=== PATIENT | male | born 1960 | race American Indian/Alaskan Native ===

== ENCOUNTER 2020-07-27 00:29 | Inpatient (IN) | payer OTHER, SELFPAY ==
[2020-07-27] MEDS ORDERED: SODIUM CHLORIDE 0.9% 1000 ML 1,000 ML IV ONE ×2 (00:49→02:57)
--- NOTE | 2020-07-27 00:53 | Emergency Department Report ---
ED Altered Mental Status HPI - General Stated Complaint: HYPERGLYCEMIA Time Seen by Provider: 07/27/20 00:43 Source: patient, EMS Limitations: Altered Mental Status - History of Present Illness Initial Comments: Patient is 59 years old male, unknown to this facility before. Patient brought to the emergency room via EMS after patient was found wandering around a local by hotel lobby. Patient refusing to answer questions to EMS about his past medical history. Upon arrival patient is alert in no acute distress. He denied any headache, chest pain, weakness numbness or tingling sensation. He stated that his sleepy. Blood glucose check via EMS read as high. Patient is ambulating well with no difficulty. MD Complaint: altered mental status, confusion -: unknown Severity: Unable to Determine Associated Symptoms: denies other symptoms - Related Data Allergies Allergy/AdvReac Type Severity Reaction Status Date / Time No Known Allergies Allergy Unverified 07/27/20 02:21 ED Review of Systems ROS: Stated complaint: HYPERGLYCEMIA Other details as noted in HPI Comment: All other systems reviewed and negative Constitutional: denies: chills, fever Respiratory: denies: cough, shortness of breath, SOB with exertion Cardiovascular: denies: chest pain, palpitations Gastrointestinal: denies: abdominal pain, nausea Neurological: confusion ED Physical Exam - General General appearance: alert, in no apparent distress - Head Head exam: Present: atraumatic, normocephalic, normal inspection - Eye Eye exam: Present: normal appearance, PERRL - Neck Neck exam: Present: normal inspection, full ROM. Absent: tenderness, meningismus - Respiratory Respiratory exam: Present: normal lung sounds bilaterally - Cardiovascular Cardiovascular Exam: Present: regular rate, normal rhythm, normal heart sounds - GI/Abdominal GI/Abdominal exam: Present: soft, normal bowel sounds. Absent: distended, tenderness, guarding, rebound, rigid, organomegaly, mass, bruit, pulsatile mass, hernia - Extremities Exam Extremities exam: Present: normal inspection, full ROM, normal capillary refill. Absent: tenderness - Back Exam Back exam: Present: normal inspection, full ROM. Absent: CVA tenderness (R), CVA tenderness (L) - Neurological Exam Neurological exam: Present: alert, altered, CN II-XII intact, normal gait, reflexes normal. Absent: abnormal gait, motor sensory deficit - Psychiatric Psychiatric exam: Present: flat affect - Skin Skin exam: Present: warm, intact, normal color ED Course Vital Signs 07/27/20 07/27/20 07/27/20 02:07 02:09 02:11 Temperature Pulse Rate 81 83 Respiratory 16 25 H Rate Blood Pressure O2 Sat by Pulse 96 95 95 Oximetry 07/27/20 07/27/20 07/27/20 02:13 02:15 02:16 Temperature Pulse Rate 81 88 83 Respiratory 19 25 H 19 Rate Blood Pressure 188/108 O2 Sat by Pulse 99 97 97 Oximetry 07/27/20 07/27/20 07/27/20 02:17 02:19 02:21 Temperature 97.8 F Pulse Rate 81 75 77 Respiratory 21 22 21 Rate Blood Pressure 188/108 188/108 188/108 O2 Sat by Pulse 96 96 97 Oximetry 07/27/20 07/27/20 02:23 02:25 Temperature Pulse Rate 77 79 Respiratory 21 21 Rate Blood Pressure 188/108 188/108 O2 Sat by Pulse 97 97 Oximetry - Lab Data Result diagrams: 07/27/20 01:55 07/27/20 01:55 Lab Results 07/27/20 07/27/20 07/27/20 Range/Units 01:55 01:55 01:55 WBC 7.1 (4.5-11.0) K/mm3 RBC 4.59 (3.65-5.03) M/mm3 Hgb 13.2 (11.8-15.2) gm/dl Hct 40.4 (35.5-45.6) % MCV 88 (84-94) fl MCH 29 (28-32) pg MCHC 33 (32-34) % RDW 15.2 (13.2-15.2) % Plt Count 251 (140-440) K/mm3 Lymph % (Auto) 9.7 L (13.4-35.0) % [place] % (Auto) 9.4 H (0.0-7.3) % Eos % (Auto) 1.7 (0.0-4.3) % Baso % (Auto) 0.3 (0.0-1.8) % Lymph # (Auto) 0.7 L (1.2-5.4) K/mm3 [place] # (Auto) 0.7 (0.0-0.8) K/mm3 Eos # (Auto) 0.1 (0.0-0.4) K/mm3 Baso # (Auto) 0.0 (0.0-0.1) K/mm3 Seg Neutrophils % 78.9 H (40.0-70.0) % Seg Neutrophils # 5.6 (1.8-7.7) K/mm3 PT 12.7 (12.2-14.9) Sec. INR 0.96 (0.87-1.13) APTT 33.0 (24.2-36.6) Sec. Sodium 134 L (137-145) mmol/L Potassium 3.4 L (3.6-5.0) mmol/L Chloride 93.2 L (98-107) mmol/L Carbon Dioxide 27 (22-30) mmol/L Anion Gap 17 mmol/L BUN 27 H (9-20) mg/dL Creatinine 2.4 H (0.8-1.3) mg/dL Estimated GFR 34 ml/min BUN/Creatinine Ratio 11 % Glucose 773 H* (75-100) mg/dL Lactic Acid (0.7-2.0) mmol/L Calcium 9.9 (8.4-10.2) mg/dL Total Bilirubin 0.50 (0.1-1.2) mg/dL Direct Bilirubin < 0.2 (0-0.2) mg/dL Indirect Bilirubin 0.3 mg/dL AST 72 H (5-40) units/L ALT 57 H (7-56) units/L Alkaline Phosphatase 163 H (35-129) units/L Ammonia (25-60) umol/L Total Creatine Kinase 3737 H (55-170) units/L Troponin T 0.056 H (0.00-0.029) ng/mL Total Protein 7.4 (6.3-8.2) g/dL Albumin 3.9 (3.9-5) g/dL Albumin/Globulin Ratio 1.1 % TSH (0.270-4.200) mlU/mL Urine Color (Yellow) Urine Turbidity (Clear) Urine pH (5.0-7.0) Ur Specific [place] (1.003-1.030) Urine Protein (Negative) mg/dL Urine Glucose (UA) (Negative) mg/dL Urine Ketones (Negative) mg/dL Urine Blood (Negative) Urine Nitrite (Negative) Urine Bilirubin (Negative) Urine Urobilinogen (<2.0) mg/dL Ur Leukocyte Esterase (Negative) Urine WBC (Auto) (0.0-6.0) /HPF Urine RBC (Auto) (0.0-6.0) /HPF U Epithel Cells (Auto) (0-13.0) /HPF Urine Mucus /HPF Salicylates (2.8-20.0) mg/dL Urine Opiates Screen Urine Methadone Screen Acetaminophen (10.0-30.0) ug/mL Ur Barbiturates Screen Ur Phencyclidine Scrn Ur Amphetamines Screen U Benzodiazepines Scrn Urine Cocaine Screen U Marijuana (THC) Screen Plasma/Serum Alcohol (0-0.07) % 07/27/20 07/27/20 07/27/20 Range/Units 01:55 01:55 01:55 WBC (4.5-11.0) K/mm3 RBC (3.65-5.03) M/mm3 Hgb (11.8-15.2) gm/dl Hct (35.5-45.6) % MCV (84-94) fl MCH (28-32) pg MCHC (32-34) % RDW (13.2-15.2) % Plt Count (140-440) K/mm3 Lymph % (Auto) (13.4-35.0) % [place] % (Auto) (0.0-7.3) % Eos % (Auto) (0.0-4.3) % Baso % (Auto) (0.0-1.8) % Lymph # (Auto) (1.2-5.4) K/mm3 [place] # (Auto) (0.0-0.8) K/mm3 Eos # (Auto) (0.0-0.4) K/mm3 Baso # (Auto) (0.0-0.1) K/mm3 Seg Neutrophils % (40.0-70.0) % Seg Neutrophils # (1.8-7.7) K/mm3 PT (12.2-14.9) Sec. INR (0.87-1.13) APTT (24.2-36.6) Sec. Sodium (137-145) mmol/L Potassium (3.6-5.0) mmol/L Chloride (98-107) mmol/L Carbon Dioxide (22-30) mmol/L Anion Gap mmol/L BUN (9-20) mg/dL Creatinine (0.8-1.3) mg/dL Estimated GFR ml/min BUN/Creatinine Ratio % Glucose (75-100) mg/dL Lactic Acid 1.60 (0.7-2.0) mmol/L Calcium (8.4-10.2) mg/dL Total Bilirubin (0.1-1.2) mg/dL Direct Bilirubin (0-0.2) mg/dL Indirect Bilirubin mg/dL AST (5-40) units/L ALT (7-56) units/L Alkaline Phosphatase (35-129) units/L Ammonia 18.0 L (25-60) umol/L Total Creatine Kinase (55-170) units/L Troponin T (0.00-0.029) ng/mL Total Protein (6.3-8.2) g/dL Albumin (3.9-5) g/dL Albumin/Globulin Ratio % TSH 0.824 (0.270-4.200) mlU/mL Urine Color (Yellow) Urine Turbidity (Clear) Urine pH (5.0-7.0) Ur Specific [place] (1.003-1.030) Urine Protein (Negative) mg/dL Urine Glucose (UA) (Negative) mg/dL Urine Ketones (Negative) mg/dL Urine Blood (Negative) Urine Nitrite (Negative) Urine Bilirubin (Negative) Urine Urobilinogen (<2.0) mg/dL Ur Leukocyte Esterase (Negative) Urine WBC (Auto) (0.0-6.0) /HPF Urine RBC (Auto) (0.0-6.0) /HPF U Epithel Cells (Auto) (0-13.0) /HPF Urine Mucus /HPF Salicylates (2.8-20.0) mg/dL Urine Opiates Screen Urine Methadone Screen Acetaminophen (10.0-30.0) ug/mL Ur Barbiturates Screen Ur Phencyclidine Scrn Ur Amphetamines Screen U Benzodiazepines Scrn Urine Cocaine Screen U Marijuana (THC) Screen Plasma/Serum Alcohol (0-0.07) % 07/27/20 07/27/20 07/27/20 Range/Units 01:55 01:55 01:55 WBC (4.5-11.0) K/mm3 RBC (3.65-5.03) M/mm3 Hgb (11.8-15.2) gm/dl Hct (35.5-45.6) % MCV (84-94) fl MCH (28-32) pg MCHC (32-34) % RDW (13.2-15.2) % Plt Count (140-440) K/mm3 Lymph % (Auto) (13.4-35.0) % [place] % (Auto) (0.0-7.3) % Eos % (Auto) (0.0-4.3) % Baso % (Auto) (0.0-1.8) % Lymph # (Auto) (1.2-5.4) K/mm3 [place] # (Auto) (0.0-0.8) K/mm3 Eos # (Auto) (0.0-0.4) K/mm3 Baso # (Auto) (0.0-0.1) K/mm3 Seg Neutrophils % (40.0-70.0) % Seg Neutrophils # (1.8-7.7) K/mm3 PT (12.2-14.9) Sec. INR (0.87-1.13) APTT (24.2-36.6) Sec. Sodium (137-145) mmol/L Potassium (3.6-5.0) mmol/L Chloride (98-107) mmol/L Carbon Dioxide (22-30) mmol/L Anion Gap mmol/L BUN (9-20) mg/dL Creatinine (0.8-1.3) mg/dL Estimated GFR ml/min BUN/Creatinine Ratio % Glucose (75-100) mg/dL Lactic Acid (0.7-2.0) mmol/L Calcium (8.4-10.2) mg/dL Total Bilirubin (0.1-1.2) mg/dL Direct Bilirubin (0-0.2) mg/dL Indirect Bilirubin mg/dL AST (5-40) units/L ALT (7-56) units/L Alkaline Phosphatase (35-129) units/L Ammonia (25-60) umol/L Total Creatine Kinase (55-170) units/L Troponin T (0.00-0.029) ng/mL Total Protein (6.3-8.2) g/dL Albumin (3.9-5) g/dL Albumin/Globulin Ratio % TSH (0.270-4.200) mlU/mL Urine Color (Yellow) Urine Turbidity (Clear) Urine pH (5.0-7.0) Ur Specific [place] (1.003-1.030) Urine Protein (Negative) mg/dL Urine Glucose (UA) (Negative) mg/dL Urine Ketones (Negative) mg/dL Urine Blood (Negative) Urine Nitrite (Negative) Urine Bilirubin (Negative) Urine Urobilinogen (<2.0) mg/dL Ur Leukocyte Esterase (Negative) Urine WBC (Auto) (0.0-6.0) /HPF Urine RBC (Auto) (0.0-6.0) /HPF U Epithel Cells (Auto) (0-13.0) /HPF Urine Mucus /HPF Salicylates < 0.3 L (2.8-20.0) mg/dL Urine Opiates Screen Urine Methadone Screen Acetaminophen 5.0 L (10.0-30.0) ug/mL Ur Barbiturates Screen Ur Phencyclidine Scrn Ur Amphetamines Screen U Benzodiazepines Scrn Urine Cocaine Screen U Marijuana (THC) Screen Plasma/Serum Alcohol < 0.01 (0-0.07) % 07/27/20 07/27/20 Range/Units 02:09 02:09 WBC (4.5-11.0) K/mm3 RBC (3.65-5.03) M/mm3 Hgb (11.8-15.2) gm/dl Hct (35.5-45.6) % MCV (84-94) fl MCH (28-32) pg MCHC (32-34) % RDW (13.2-15.2) % Plt Count (140-440) K/mm3 Lymph % (Auto) (13.4-35.0) % [place] % (Auto) (0.0-7.3) % Eos % (Auto) (0.0-4.3) % Baso % (Auto) (0.0-1.8) % Lymph # (Auto) (1.2-5.4) K/mm3 [place] # (Auto) (0.0-0.8) K/mm3 Eos # (Auto) (0.0-0.4) K/mm3 Baso # (Auto) (0.0-0.1) K/mm3 Seg Neutrophils % (40.0-70.0) % Seg Neutrophils # (1.8-7.7) K/mm3 PT (12.2-14.9) Sec. INR (0.87-1.13) APTT (24.2-36.6) Sec. Sodium (137-145) mmol/L Potassium (3.6-5.0) mmol/L Chloride (98-107) mmol/L Carbon Dioxide (22-30) mmol/L Anion Gap mmol/L BUN (9-20) mg/dL Creatinine (0.8-1.3) mg/dL Estimated GFR ml/min BUN/Creatinine Ratio % Glucose (75-100) mg/dL Lactic Acid (0.7-2.0) mmol/L Calcium (8.4-10.2) mg/dL Total Bilirubin (0.1-1.2) mg/dL Direct Bilirubin (0-0.2) mg/dL Indirect Bilirubin mg/dL AST (5-40) units/L ALT (7-56) units/L Alkaline Phosphatase (35-129) units/L Ammonia (25-60) umol/L Total Creatine Kinase (55-170) units/L Troponin T (0.00-0.029) ng/mL Total Protein (6.3-8.2) g/dL Albumin (3.9-5) g/dL Albumin/Globulin Ratio % TSH (0.270-4.200) mlU/mL Urine Color Colorless (Yellow) Urine Turbidity Clear (Clear) Urine pH 6.0 (5.0-7.0) Ur Specific [place] 1.016 (1.003-1.030) Urine Protein 100 mg/dl (Negative) mg/dL Urine Glucose (UA) >=500 (Negative) mg/dL Urine Ketones Neg (Negative) mg/dL Urine Blood Mod (Negative) Urine Nitrite Neg (Negative) Urine Bilirubin Neg (Negative) Urine Urobilinogen < 2.0 (<2.0) mg/dL Ur Leukocyte Esterase Neg (Negative) Urine WBC (Auto) 1.0 (0.0-6.0) /HPF Urine RBC (Auto) < 1.0 (0.0-6.0) /HPF U Epithel Cells (Auto) < 1.0 (0-13.0) /HPF Urine Mucus Few /HPF Salicylates (2.8-20.0) mg/dL Urine Opiates Screen Presumptive negative Urine Methadone Screen Presumptive negative Acetaminophen (10.0-30.0) ug/mL Ur Barbiturates Screen Presumptive negative Ur Phencyclidine Scrn Presumptive negative Ur Amphetamines Screen Presumptive negative U Benzodiazepines Scrn Presumptive negative Urine Cocaine Screen Presumptive negative U Marijuana (THC) Screen Presumptive negative Plasma/Serum Alcohol (0-0.07) % - EKG Data -: EKG Interpreted by Nd EKG shows normal: sinus rhythm Rate: normal Interpretation: no acute changes - Radiology Data Radiology results: report reviewed - Medical Decision Making Patient is 59 years old male, unknown to this facility before. Patient brought to the emergency room via EMS after patient was found wandering around a local by hotel lobby. Patient refusing to answer questions to EMS about his past medical history. Upon arrival patient is alert in no acute distress. He denied any headache, chest pain, weakness numbness or tingling sensation. He stated that his sleepy. Blood glucose check via EMS read as high. Patient is ambulating well with no difficulty. CT brain is unremarkable. Chest x-ray is negative for acute finding. EKG shows sinus rhythm no ST elevation. Labs showed a blood glucose of more than 700. Patient received normal saline and insulin. Patient creatinine is 2.4 and CK of more than 3000. I discussed the patient with , he agreed to admit the patient to medical service for further management. Critical Care Time: Yes Critical care time in (mins) excluding proc time.: 30 Critical care attestation.: If time is entered above; I have spent that time in minutes in the direct care of this critically ill patient, excluding procedure time. ED Disposition Clinical Impression: Altered mental status, Acute hyperglycemia, Acute renal failure, Rhabdomyolysis Disposition: OP ADMIT IP TO THIS HOSP Is pt being admited?: Yes Condition: Stable
--- NOTE | 2020-07-27 01:26 | XRay Report ---
CHEST 1 VIEW INDICATION: Altered Mental Status. COMPARISON: None. FINDINGS: Support devices: None. Heart: Normal. Lungs/Pleura: No acute pulmonary or pleural findings. IMPRESSION: 1. No acute findings. Signer Name: Nelson Osuna MD Signed: 07/27/2020 1:19 AM Workstation Name: [id number]
--- NOTE | 2020-07-27 01:46 | Cat Scan Report ---
CT HEAD WITHOUT CONTRAST INDICATION: Altered Mental Status. TECHNIQUE: All CT scans at this location are performed using CT dose reduction for ALARA by means of automated e xposure control. COMPARISON: None available. FINDINGS: HEMORRHAGE: None. EXTRA-AXIAL SPACES: Normal in size and morphology for the patient's age. VENTRICULAR SYSTEM: Normal in size and morphology for the patient's age. BRAIN PARENCHYMA: No acute findings. MIDLINE SHIFT OR HERNIATION: None. ORBITS: Normal as visualized. SOFT TISSUES OF HEAD: Normal. CALVARIUM: Normal. VISUALIZED PARANASAL SINUSES AND MASTOID AIR CELLS: Clear. ADDITIONAL FINDINGS: None. IMPRESSION: 1. No acute intracranial abnormality. Signer Name: Nelson Osuna MD Signed: 07/27/2020 1:42 AM Workstation Name: [id number]
[2020-07-27 02:09] LABS: Basophils % (Auto) 0.3 % (0.0-1.8); Eosinophils # (Auto) 0.1 K/mm3 (0.0-0.4); Eosinophils % (Auto) 1.7 % (0.0-4.3); Hematocrit 40.4 % (35.5-45.6); Hemoglobin 13.2 gm/dl (11.8-15.2); Lymphocytes # (Auto) 0.7 K/mm3 (1.2-5.4); Lymphocytes % (Auto) 9.7 % (13.4-35.0); Mean Corpuscular HGB Conc 33 % (32-34); Mean Corpuscular Volume 88 fl (84-94); Monocytes # (Auto) 0.7 K/mm3 (0.0-0.8); Monocytes % (Auto) 9.4 % (0.0-7.3); Platelet Count 251 K/mm3 (140-440); Red Blood Count 4.59 M/mm3 (3.65-5.03); Red Cell Distribution Width 15.2 % (13.2-15.2)
[2020-07-27 02:32] LABS: Alanine Aminotransferase 57 units/L (7-56); Albumin 3.9 g/dL (3.9-5); BUN/Creatinine Ratio 11; Blood Urea Nitrogen 27 mg/dL (9-20); Calcium 9.9 mg/dL (8.4-10.2); Hemolysis Index 5
[2020-07-27 02:43] LABS: Bilirubin,Direct < 0.2 mg/dL (0-0.2)
[2020-07-27] MEDS ORDERED: INSULIN REGULAR, HUMAN 100 UNITS/1 ML IV ONE (02:58)
[2020-07-27 03:06] LABS: INR 0.96 (0.87-1.13)
[2020-07-27 03:15] LABS: Bilirubin,Urine NEG (Negative); Blood,Urine MOD (Negative); Color,Urine Colorless (Yellow); Mucus,Urine FEW /HPF; RBC,Urine < 1.0 /HPF (0.0-6.0); Urobilinogen,Urine < 2.0 mg/dL (<2.0)
[2020-07-27 03:20] LABS: Amphetamine Screen,Urine PRESUMPTIVE NEGATIVE; Benzodiazepines Screen,Urine PRESUMPTIVE NEGATIVE; Cannabinoid Screen,Urine PRESUMPTIVE NEGATIVE; Cocaine Screen,Urine PRESUMPTIVE NEGATIVE; Methadone Screen,Urine PRESUMPTIVE NEGATIVE; Opiate Screen,Urine PRESUMPTIVE NEGATIVE
[2020-07-27] MEDS ORDERED: hydrALAZINE 20 MG/1 ML INJ IV ONE (03:31)
[2020-07-27] MEDS ORDERED: MAGNESIUM HYDROXIDE (MOM) ORAL LIQD UDC PO PRN (04:01)
[2020-07-27] MEDS ORDERED: MORPHINE 2 MG/1 ML INJ IV PRN (04:01)
[2020-07-27] MEDS ORDERED: ONDANSETRON 4 MG/2 ML INJ IV PRN (04:01)
[2020-07-27] MEDS ORDERED: DEXTROSE 50% IN WATER (25GM) 50 ML SYRINGE IV PRN (04:01)
[2020-07-27] MEDS ORDERED: hydrALAZINE 20 MG/1 ML INJ IV PRN (04:06)
--- NOTE | 2020-07-27 04:12 | History and Physical Report ---
History of Present Illness Date of examination: 07/27/20 Date of admission: 07/27/2020 Chief complaint: Altered mental status History of present illness: 59-year-old -[place] male with no known past medical problems and who has not been seen at this facility in the past was brought in to the emergency room today by EMS for altered mental status. Patient was found to be wandering around in a hotel lobby and refusing to answer questions when asked by EMS. Accu-Chek prior to arrival in the emergency room was said to be reading high. Upon arrival in the emergency room was alert and in no acute distress but still refusing to answer questions. Was looking drowsy. Work-up in the emergency room today reveals hyperglycemia with blood sugar greater than 700, elevated creatinine kinase greater than 3000, elevated creatinine level. CT scan of the head was unremarkable. UDS is still being awaited. Patient being admitted with altered mental status, hyperglycemia, rhabdomyolysis and acute kidney injury. Past History Past Medical History: other (Unknown) Past Surgical History: Other (Unknown) Social history: other (Unknown) Family history: other (Unknown) Medications and Allergies Allergies Allergy/AdvReac Type Severity Reaction Status Date / Time No Known Allergies Allergy Verified 07/27/20 04:10 Active Meds: Active Medications Acetaminophen (Acetaminophen 325 Mg Tab) 650 mg PO Q4H PRN PRN Reason: Pain MILD(1-3)/Fever >100.5/RUIZ Dextrose (Dextrose 50% In Water (25gm) 50 Ml Syringe) 50 ml IV Q30MIN PRN; Protocol PRN Reason: Hypoglycemia Heparin Sodium (Porcine) (Heparin 5,000 Unit/1 Ml Vial) 5,000 unit SUB-Q Q8HR MARY Hydralazine HCl (Hydralazine 20 Mg/1 Ml Inj) 10 mg IV Q4HR PRN PRN Reason: Blood Pressure Sodium Chloride (Nacl 0.9% 1000 Ml) 1,000 mls @ 150 mls/hr IV DIRECT MARY Insulin Human Regular (Insulin Regular, Human 100 Units/1 Ml) 0 units SUB-Q ACHS MARY; Protocol Magnesium Hydroxide (Magnesium Hydroxide (Mom) Oral Liqd Udc) 30 ml PO Q4H PRN PRN Reason: Constipation Morphine Sulfate (Morphine 2 Mg/1 Ml Inj) 2 mg IV Q4H PRN PRN Reason: Pain, Moderate (4-6) Ondansetron HCl (Ondansetron 4 Mg/2 Ml Inj) 4 mg IV Q8H PRN PRN Reason: Nausea And Vomiting Sodium Chloride (Sodium Chloride 0.9% 10 Ml Flush Syringe) 10 ml IV BID MARY Sodium Chloride (Sodium Chloride 0.9% 10 Ml Flush Syringe) 10 ml IV PRN PRN PRN Reason: LINE FLUSH Review of Systems ROS unobtainable: due to mental status Exam - Constitutional Vitals: Temp Pulse Resp BP Pulse Ox 97.8 F 79 21 188/108 97 07/27/20 02:21 07/27/20 02:25 07/27/20 02:25 07/27/20 02:25 07/27/20 02:25 General appearance: Present: no acute distress, well-nourished - EENT Eyes: Present: PERRL, EOM intact. Absent: scleral icterus ENT: hearing intact, clear oral mucosa, dentition normal - Neck Neck: Present: supple, normal ROM - Respiratory Respiratory effort: normal Respiratory: bilateral: CTA - Cardiovascular Rhythm: regular Heart Sounds: Present: S1 & S2. Absent: gallop, systolic murmur, diastolic murmur, rub, click - Extremities Extremities: no ischemia, pulses intact, pulses symmetrical, No edema, normal temperature, normal color, Full ROM Peripheral Pulses: within normal limits - Abdominal General gastrointestinal: Present: soft, non-tender, non-distended, normal bowel sounds. Absent: mass - Integumentary Integumentary: Present: clear, warm, dry. Absent: rash - Musculoskeletal Musculoskeletal: strength equal bilaterally - Psychiatric Psychiatric: cooperative - Neurologic Neurologic: CNII-XII intact, no focal deficits, moves all extremities, other (Confused) HEART Score - HEART Score Troponin: Troponin T 0.056 ng/mL (0.00-0.029) H 07/27/20 01:55 Results - Labs CBC & Chem 7: 07/27/20 01:55 07/27/20 01:55 Labs: Abnormal lab results 07/27/20 07/27/20 07/27/20 Range/Units 01:55 01:55 01:55 Lymph % (Auto) 9.7 L (13.4-35.0) % [place] % (Auto) 9.4 H (0.0-7.3) % Lymph # (Auto) 0.7 L (1.2-5.4) K/mm3 Seg Neutrophils % 78.9 H (40.0-70.0) % Sodium 134 L (137-145) mmol/L Potassium 3.4 L (3.6-5.0) mmol/L Chloride 93.2 L (98-107) mmol/L BUN 27 H (9-20) mg/dL Creatinine 2.4 H (0.8-1.3) mg/dL Glucose 773 H* (75-100) mg/dL AST 72 H (5-40) units/L ALT 57 H (7-56) units/L Alkaline Phosphatase 163 H (35-129) units/L Ammonia 18.0 L (25-60) umol/L Total Creatine Kinase 3737 H (55-170) units/L Troponin T 0.056 H (0.00-0.029) ng/mL Salicylates (2.8-20.0) mg/dL Acetaminophen (10.0-30.0) ug/mL 07/27/20 07/27/20 Range/Units 01:55 01:55 Lymph % (Auto) (13.4-35.0) % [place] % (Auto) (0.0-7.3) % Lymph # (Auto) (1.2-5.4) K/mm3 Seg Neutrophils % (40.0-70.0) % Sodium (137-145) mmol/L Potassium (3.6-5.0) mmol/L Chloride (98-107) mmol/L BUN (9-20) mg/dL Creatinine (0.8-1.3) mg/dL Glucose (75-100) mg/dL AST (5-40) units/L ALT (7-56) units/L Alkaline Phosphatase (35-129) units/L Ammonia (25-60) umol/L Total Creatine Kinase (55-170) units/L Troponin T (0.00-0.029) ng/mL Salicylates < 0.3 L (2.8-20.0) mg/dL Acetaminophen 5.0 L (10.0-30.0) ug/mL Assessment and Plan - Patient Problems (1) Altered mental status Current Visit: Yes Status: Acute Plan to address problem: Etiology unclear. UDS is still being awaited. However, patient has rhabdomyolysis, acute kidney injury and hyperglycemia. Will monitor mental status. (2) Acute hyperglycemia Current Visit: Yes Status: Acute Plan to address problem: Placed on IV fluid and Accu-Cheks. We will monitor blood glucose closely. Unknown if patient is diabetic. We will check hemoglobin A1c. (3) Acute renal failure Current Visit: Yes Status: Acute Plan to address problem: We will continue patient on IV fluid. Consult placed to nephrology for evaluation. Baseline BUN and creatinine is unknown. (4) Rhabdomyolysis Current Visit: Yes Status: Acute Plan to address problem: Patient on IV fluid. Will monitor creatinine kinase level. (5) DVT prophylaxis Current Visit: Yes Status: Acute Plan to address problem: Patient placed on subcutaneous heparin. (6) Full code status Current Visit: Yes Status: Acute
[2020-07-27] MEDS ORDERED: SODIUM CHLORIDE 0.9% 1000 ML 1,000 ML IV SCH (04:15)
[2020-07-27 04:47] LABS: LDL Cholesterol,Direct 102 mg/dL (50-130)
[2020-07-27 04:48] LABS: Chol/HDL Ratio 1.74 %; HDL Cholesterol 126 mg/dL (40-59)
--- NOTE | 2020-07-27 09:59 | Consultation ---
History of Present Illness - Reason for Consult Consult date: 07/27/20 acute renal failure - History of Present Illness The patient is a 59 YO AAM with unknown past medical history who presented to [facility] ED 07/26 via EMS for evaluation of altered mental status. Patient was found to be wandering around in a hotel lobby and refusing to answer questions when asked by EMS. Accu-Chek prior to arrival was said to be reading high. Upon arrival to the ED patient was drowsy and in no acute distress but still refusing to answer questions. Work-up in the ED revealed hyperglycemia with blood sugar 773, CK 3737, creatinine 2.4, BUN 27, K 3.[address] scan of the head was unremarkable. Patient being admitted with altered mental status, hyperglycemia, rhabdomyolysis and acute kidney injury. Nephrology was consulted for evaluation and treatment of AZAEL. Past History Past Medical History: other (Unknown) Past Surgical History: Other (Unknown) Social history: other (Unknown) Family history: other (Unknown) Medications and Allergies Allergies Allergy/AdvReac Type Severity Reaction Status Date / Time No Known Allergies Allergy Verified 07/27/20 04:10 Active Meds: Active Medications Acetaminophen (Acetaminophen 325 Mg Tab) 650 mg PO Q4H PRN PRN Reason: Pain MILD(1-3)/Fever >100.5/RUIZ Dextrose (Dextrose 50% In Water (25gm) 50 Ml Syringe) 50 ml IV Q30MIN PRN; Protocol PRN Reason: Hypoglycemia Heparin Sodium (Porcine) (Heparin 5,000 Unit/1 Ml Vial) 5,000 unit SUB-Q Q8HR MARY Hydralazine HCl (Hydralazine 20 Mg/1 Ml Inj) 10 mg IV Q4HR PRN PRN Reason: Blood Pressure Sodium Chloride (Nacl 0.9% 1000 Ml) 1,000 mls @ 150 mls/hr IV DIRECT MARY Insulin Human Regular (Insulin Regular, Human 100 Units/1 Ml) 0 units SUB-Q ACHS MARY; Protocol Magnesium Hydroxide (Magnesium Hydroxide (Mom) Oral Liqd Udc) 30 ml PO Q4H PRN PRN Reason: Constipation Morphine Sulfate (Morphine 2 Mg/1 Ml Inj) 2 mg IV Q4H PRN PRN Reason: Pain, Moderate (4-6) Ondansetron HCl (Ondansetron 4 Mg/2 Ml Inj) 4 mg IV Q8H PRN PRN Reason: Nausea And Vomiting Sodium Chloride (Sodium Chloride 0.9% 10 Ml Flush Syringe) 10 ml IV BID MARY Sodium Chloride (Sodium Chloride 0.9% 10 Ml Flush Syringe) 10 ml IV PRN PRN PRN Reason: LINE FLUSH Review of Systems ROS unobtainable: due to mental status Exam - Vital Signs Vital signs: Vital Signs Pulse Ox 96 07/27/20 02:07 Results - Lab Results 07/27/20 01:55 07/27/20 12:28 Most recent lab results Calcium 9.9 mg/dL (8.4-10.2) 07/27/20 01:55 Assessment and Plan 1. Acute kidney injury: Most likely vasomotor AZAEL in the setting of uncontrolled DM and volume depletion. Renal US suggestive for CKD. Urine studies ordered. Monitor renal function. Ceratinine level is improving. Baseline renal function is unknown. Continue IV fluids. Avoid nephrotoxic agents. Meds dosage based on GFR. 2. FEN: Hypokalemia, replete K, monitor. Monitor lytes and volume status. 3. Diabetic hyperosmolar state: Bl. glu 773 on presentation. HbA1C 15. Glucose improving. 4. Acute metabolic encephalopathy, POA: Monitor. 5. Uncontroleld HTN: Start on Amlodipine and Labetalol. 6. Rhabdomyolysis: Trend. Subjective: Patient was seen and examined at the bedside. Objective: General appearance: well-developed, appears stated age, no distress, on restrains HEENT: ATNC, pupils equal Neck: trachea midline Respiratory: ctab Heart: regular, S1S2, no murmur Gastrointestinal: soft, normoactive bowel sounds, not tender Integumentary: no rash, warm and dry Ext: no edema Neurologic: somnolent, able to move extremities, confused Musculoskeletal: no obvious deformity
[2020-07-27] MEDS: INSULIN REGULAR, HUMAN 100 UNITS/1 ML SUB-Q SCH ×3 (11:00→17:47)
--- NOTE | 2020-07-27 11:45 | Electrocardiograph Report ---
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
[2020-07-27] MEDS ORDERED: LORazepam 2 MG/ML VIAL IV PRN (11:47)
[2020-07-27] MEDS ORDERED: chlordiazePOXIDE 25 MG CAP PO PRN ×2 (11:47)
[2020-07-27] MEDS ORDERED: 1: FOLIC ACID 1 MG, MULTIPLE VITAMIN INJ, ADULT 10 ML, THIAMINE 100 MG in SODIUM CHLORID IV SCH (12:00)
[2020-07-27 13:43] LABS: Calcium 9.6 mg/dL (8.4-10.2)
[2020-07-27] MEDS: HEPARIN 5,000 UNIT/1 ML VIAL SUB-Q SCH ×3 (13:47→22:07)
[2020-07-27] MEDS: THIAMINE 100 MG, FOLIC ACID 1 MG, MULTIPLE VITAMIN INJ, ADULT 10 ML in SODIUM CHLORIDE ... IV SCH (13:48)
--- NOTE | 2020-07-27 14:07 | Event Note ---
Date: 07/27/20 This morning remains confused. He believes that he is hotel large and also at one point when he was at [facility]. Blood sugar remains elevated although much improved compared to admission. He does not appear to have confabulation as a result we will start him on CIWA protocol and also banana bag. We will continue to monitor blood sugar will start on Novolin as we do not have his home records and medication history. We will check a hemoglobin A1c. Presumptive diagnosis Acute metabolic encephalopathy secondary to mixed disorder including hyperglycemia and intoxication Uncontrolled diabetes mellitus without acidosis Acute kidney injury with vasomotor nephropathy follow renal function for resolution.
--- NOTE | 2020-07-27 14:33 | Ultrasound Report ---
ULTRASOUND RENAL INDICATION / CLINICAL INFORMATION: Acute renal failure.. COMPARISON: None available. FINDINGS: RIGHT KIDNEY: Length = 9.2 cm. [normal > 9 cm] - Parenchymal Thickness = 1.5 cm. [normal > 1.5 cm] - Echogenicity: Increased - Hydronephrosis: None. - Cyst or mass: 9 mm cyst near the inferior pole - Stones: None seen. LEFT KIDNEY: Length = 9.6 cm. [normal > 9 cm] - Parenchymal Thickness = 1.7 cm. [normal > 1.5 cm] - Echogenicity: Increased - Hydronephrosis: None. - Cyst or mass: 3.1 cm cyst near the superior pole - Stones: None seen. URINARY BLADDER: No significant abnormality. FREE FLUID: None. ADDITIONAL FINDINGS: None. IMPRESSION: With kidneys are echogenic consistent with medical renal disease. No obstructive uropathy. Bilateral simple renal cysts as described. Signer Name: Gallo Thomas Jr, MD Signed: 07/27/2020 2:29 PM Workstation Name: [id number]
[2020-07-27] MEDS ORDERED: POTASSIUM CHLORIDE ER 20 MEQ TAB PO NR ×2 (16:38→21:30)
[2020-07-27] MEDS: amLODIPine 10 MG TAB PO SCH (17:48)
[2020-07-27] MEDS: INSULIN NPH/REGULAR 70/30 INJ SUB-Q SCH (17:49)
[2020-07-27 20:08] LABS: Creatinine,Urine 85.6 mg/dL (0.1-20.0)
[2020-07-27 20:19] LABS: Protein/Creatinine Ratio,Urine 2.96
[2020-07-27] MEDS: SODIUM CHLORIDE 0.9% 1000 ML 1,000 ML IV SCH (22:07)
[2020-07-27] MEDS: LORazepam 2 MG/ML VIAL IV PRN (22:12)
[2020-07-28 05:29] LABS: Basophils % (Auto) 0.5 % (0.0-1.8); Eosinophils # (Auto) 0.1 K/mm3 (0.0-0.4); Eosinophils % (Auto) 0.9 % (0.0-4.3); Hematocrit 36.2 % (35.5-45.6); Hemoglobin 11.9 gm/dl (11.8-15.2); Lymphocytes % (Auto) 11.8 % (13.4-35.0); Mean Corpuscular HGB Conc 33 % (32-34); Mean Corpuscular Volume 86 fl (84-94); Monocytes # (Auto) 0.6 K/mm3 (0.0-0.8); Monocytes % (Auto) 6.5 % (0.0-7.3); Platelet Count 282 K/mm3 (140-440); Red Blood Count 4.19 M/mm3 (3.65-5.03); Red Cell Distribution Width 15.3 % (13.2-15.2)
[2020-07-28] MEDS: SODIUM CHLORIDE 0.9% 1000 ML 1,000 ML IV SCH ×2 (05:29→14:21)
[2020-07-28] MEDS: HEPARIN 5,000 UNIT/1 ML VIAL SUB-Q SCH ×4 (05:29→22:52)
[2020-07-28 06:08] LABS: INR 0.97 (0.87-1.13)
[2020-07-28 06:33] LABS: Calcium 8.9 mg/dL (8.4-10.2)
[2020-07-28] MEDS ORDERED: POTASSIUM CHLORIDE ER 20 MEQ TAB PO NR (08:19)
[2020-07-28] MEDS: INSULIN REGULAR, HUMAN 100 UNITS/1 ML SUB-Q SCH ×5 (09:15→21:51)
[2020-07-28] MEDS: amLODIPine 10 MG TAB PO SCH (10:06)
[2020-07-28] MEDS: POTASSIUM CHLORIDE ER 20 MEQ TAB PO SCH ×2 (10:07→18:25)
[2020-07-28] MEDS: INSULIN NPH/REGULAR 70/30 INJ SUB-Q SCH ×2 (10:07→18:02)
--- NOTE | 2020-07-28 10:33 | Discharge Summary ---
Providers - Providers Date of Admission: 07/27/20 03:32 Attending physician: LARRY HAN MD 07/27/20 04:01 Consult to Physician [CONS] Routine Comment: Consulting Provider: JACOBO LÓPEZ Physician Instructions: Reason For Exam: AZAEL 07/27/20 04:02 Consult to Dietitian/Nutrition [CONS] Routine Physician Instructions: Reason For Exam: Reason for Consult: Diet education Primary care physician: CLINIC BUSINESS MANAGER Hospitalization Reason for admission: AMS Condition: Stable Hospital course: 59-year-old -[place] Citizen male with no known past medical problems and who has not been seen at this facility in the past was brought in to the emergency room today by EMS for altered mental status. Patient was found to be wandering around in a hotel lobby and refusing to answer questions when asked by EMS. Accu-Chek prior to arrival in the emergency room was said to be reading high. Upon arrival in the emergency room was alert and in no acute distress but still refusing to answer questions. Was looking drowsy. Work-up in the emergency room today reveals hyperglycemia with blood sugar greater than 700, elevated creatinine kinase greater than 3000, elevated creatinine level. CT scan of the head was unremarkable. UDS is still being awaited. Patient being admitted with altered mental status, hyperglycemia, rhabdomyolysis and acute kidney injury. Patient was treated with fluid hydration and counseling verbalized understanding. He is clinically improved. Counseling was provided on insulin management. It appears he is homeless extensive counseling was provided in case management assistance was requested. Acute metabolic encephalopathy likely secondary to EtOH use disorder Diabetes mellitus with hyperglycemia none DKA Acute kidney disease with possible gastropathy on chronic kidney disease Rhabdomyolysis secondary to dehydration Hypokalemia EtOH use disorder Disposition: DC- TO HOME OR SELFCARE Final Discharge Diagnosis (Prints w/discharge instructions): Acute metabolic encephalopathy secondary to EtOH desiccation Time spent for discharge: 35 MINS Core Measure Documentation - Palliative Care Palliative Care/ Comfort Measures: Not Applicable - Core Measures Any of the following diagnoses?: none Exam - Physical Exam Narrative exam: VITAL SIGNS: Reviewed. GENERAL: The patient appears normally developed, Vital signs as documented. HEAD: No signs of head trauma. EYES: Pupils are equal. Extraocular motions intact. EARS: Hearing grossly intact. MOUTH: Oropharynx is normal. NECK: No adenopathy, no JVD. CHEST: Chest with clear breath sounds bilaterally. No wheezes, rales, or rhonchi. CARDIAC: Regular rate and rhythm. S1 and S2, without murmurs, gallops, or rubs. VASCULAR: No Edema. Peripheral pulses normal and equal in all extremities. ABDOMEN: Soft, non tender and non distended. No rebound or guarding, and no masses palpated. Bowel Sounds normal. MUSCULOSKELETAL: Good range of motion of all major joints. Extremities without clubbing, cyanosis or edema. NEUROLOGIC EXAM: Alert and oriented x 3 No focal sensory or strength deficits. Speech normal. Follows commands. PSYCHIATRIC: Mood normal. SKIN: detail exam as documented in skin assessment - Constitutional Vitals: Temp Pulse Resp BP Pulse Ox 98.2 F 87 24 149/80 96 07/28/20 08:30 07/28/20 08:12 07/28/20 08:30 07/28/20 08:12 07/28/20 08:12 Plan Activity: advance as tolerated, fall precautions Diet: low fat Special Instructions: record daily weights, record daily BP diary Additional Instructions: Extensive counseling provided to the patient to quit alcohol use and also enroll in AA Follow up with: PRIMARY CARE, [Primary Care Provider] - 3-5 Days Prescriptions: amLODIPine 10 mg PO QDAY #10 tablet Folic Acid 1 mg PO DAILY #30 tablet labetaloL [Labetalol 200mg TAB] 200 mg PO BID #60 tablet Multivitamin Tab [Multiple Vitamin TAB (Theragran)] 1 each PO QDAY #30 tablet Insulin NPH/Regular [NovoLIN 70/30] 40 unit SUB-Q BIDDIAB #10 ml Thiamine HCl [Vitamin B-1] 100 mg PO DAILY #30 tablet
--- NOTE | 2020-07-28 11:19 | Progress Note ---
Assessment and Plan 1. Acute kidney injury: Most likely vasomotor AZAEL in the setting of uncontrolled DM and volume depletion. Renal US suggestive for CKD. Proteinuria noted. Baseline renal function is unknown. Suspect CKD 2/2 diabetic nephropathy. Monitor renal function. Creatinine leveled off. Continue IV fluids. Avoid nephrotoxic agents. Meds dosage based on GFR. 2. FEN: Hypokalemia, replete K, monitor. Monitor lytes and volume status. 3. Diabetic hyperosmolar state: Bl. glu 773 on presentation. HbA1C 15. Glucose improving. 4. Acute metabolic encephalopathy, POA: Monitor. 5. Uncontroleld HTN: On Amlodipine and Labetalol. Adjust meds as needed. 6. Rhabdomyolysis: Trend. Subjective: Patient was seen and examined at the bedside. Objective: General appearance: well-developed, appears stated age, no distress HEENT: ATNC, pupils equal Neck: trachea midline Respiratory: ctab Heart: regular, S1S2, no murmur Gastrointestinal: soft, normoactive bowel sounds, not tender Integumentary: no rash, warm and dry Ext: no edema Neurologic: somnolent, able to move extremities, confused Musculoskeletal: no obvious deformity Subjective Date of service: 07/28/20 Objective - Vital Signs Vital signs: Vital Signs - 12hr 07/27/20 07/28/20 07/28/20 23:49 00:00 04:07 Temperature 98.8 F 98.4 F Pulse Rate 85 84 84 Respiratory 22 20 Rate Blood Pressure 127/72 138/74 O2 Sat by Pulse 95 100 Oximetry 07/28/20 07/28/20 08:12 08:30 Temperature 98.2 F Pulse Rate 87 Respiratory 24 Rate Blood Pressure 149/80 O2 Sat by Pulse 96 Oximetry - Lab 07/28/20 04:39 07/28/20 04:39 Most recent lab results Calcium 8.9 mg/dL (8.4-10.2) 07/28/20 04:39 Phosphorus 2.70 mg/dL (2.5-4.5) 07/28/20 04:39 Magnesium 1.80 mg/dL (1.7-2.3) 07/28/20 04:39 Urine Creatinine 85.6 mg/dL (0.1-20.0) H 07/27/20 19:00 Urine Sodium 51 mmol/L 07/27/20 19:00 Urine Total Protein 253 mg/dL (5-11.8) H 07/27/20 19:00 Medications & Allergies - Medications Allergies/Adverse Reactions: Allergies No Known Allergies Allergy (Verified 07/27/20 04:10) Home Medications: Home Medications Medication Instructions Recorded Confirmed Last Taken Type Folic Acid 1 mg PO DAILY #30 tablet 07/28/20 Unknown Rx Insulin NPH/Regular [NovoLIN 70/30] 40 unit SUB-Q BIDDIAB #10 ml 07/28/20 Unknown Rx Multivitamin Tab [Multiple Vitamin 1 each PO QDAY #30 tablet 07/28/20 Unknown Rx TAB (Theragran)] Thiamine HCl [Vitamin B-1] 100 mg PO DAILY #30 tablet 07/28/20 Unknown Rx amLODIPine 10 mg PO QDAY #10 tablet 07/28/20 Unknown Rx labetaloL [Labetalol 200mg TAB] 200 mg PO BID #60 tablet 07/28/20 Unknown Rx Active Medications: Generic Name Dose Route Start Last Admin Trade Name Freq PRN Reason Stop Dose Admin Acetaminophen 650 mg 07/27/20 04:01 Acetaminophen 325 Mg Tab PO Q4H PRN Pain MILD(1-3)/Fever >100.5/RUIZ Amlodipine Besylate 10 mg 07/27/20 17:00 07/28/20 10:06 Amlodipine 10 Mg Tab PO 10 mg QDAY MARY Administration Chlordiazepoxide HCl 50 mg 07/27/20 11:47 Chlordiazepoxide 25 Mg Cap PO Q1HR PRN CIWA-Ar 8-15 Chlordiazepoxide HCl 100 mg 07/27/20 11:47 Chlordiazepoxide 25 Mg Cap PO Q1HR PRN CIWA-Ar 16-25 Dextrose 50 ml 07/27/20 04:01 Dextrose 50% In Water (25gm) 50 Ml Syringe IV Q30MIN PRN Hypoglycemia Protocol Heparin Sodium (Porcine) 5,000 unit 07/27/20 06:00 07/28/20 05:29 Heparin 5,000 Unit/1 Ml Vial SUB-Q 5,000 unit Q8HR MARY Administration Hydralazine HCl 10 mg 07/27/20 04:06 Hydralazine 20 Mg/1 Ml Inj IV Q4HR PRN Blood Pressure Thiamine HCl 100 mg/ Folic 1,011.2 mls @ 126.4 mls/hr 07/27/20 14:00 07/27/20 13:48 Acid 1 mg/ Multivitamins/ IV 126.4 mls/hr Minerals 10 ml/ Sodium Q24H MARY Administration Chloride Sodium Chloride 1,000 mls @ 125 mls/hr 07/27/20 12:00 07/28/20 05:29 Nacl 0.9% 1000 Ml IV 125 mls/hr DIRECT MARY Administration Insulin Human Isoph/Insulin Regular 35 unit 07/27/20 17:00 07/28/20 10:07 Insulin Nph/Regular 70/30 Inj SUB-Q 35 unit BIDDIAB MARY Administration Insulin Human Regular 0 units 07/27/20 07:30 07/28/20 09:18 Insulin Regular, Human 100 Units/1 Ml SUB-Q Not Given ACHS [facility] Protocol Labetalol HCl 200 mg 07/27/20 22:00 07/28/20 10:07 Labetalol 200 Mg Tab PO 200 mg BID MARY Administration Lorazepam 2 mg 07/27/20 11:47 07/27/20 22:12 Lorazepam 2 Mg/Ml Vial IV 2 mg Q1HR PRN Administration CIWA-Ar 8-15 Lorazepam 4 mg 07/27/20 11:47 Lorazepam 2 Mg/Ml Vial IV Q1HR PRN CIWA-Ar 16-25 Magnesium Hydroxide 30 ml 07/27/20 04:01 Magnesium Hydroxide (Mom) Oral Liqd Udc PO Q4H PRN Constipation Morphine Sulfate 2 mg 07/27/20 04:01 Morphine 2 Mg/1 Ml Inj IV Q4H PRN Pain, Moderate (4-6) Ondansetron HCl 4 mg 07/27/20 04:01 Ondansetron 4 Mg/2 Ml Inj IV Q8H PRN Nausea And Vomiting Potassium Chloride 40 meq 07/28/20 09:00 07/28/20 10:07 Potassium Chloride Er 20 Meq Tab PO 07/28/20 17:01 40 meq Q8H MARY Administration Sodium Chloride 10 ml 07/27/20 10:00 07/28/20 10:08 Sodium Chloride 0.9% 10 Ml Flush Syringe IV 10 ml BID MARY Administration Sodium Chloride 10 ml 07/27/20 04:01 Sodium Chloride 0.9% 10 Ml Flush Syringe IV PRN PRN LINE FLUSH
[2020-07-28] MEDS: THIAMINE 100 MG, FOLIC ACID 1 MG, MULTIPLE VITAMIN INJ, ADULT 10 ML in SODIUM CHLORIDE ... IV SCH (18:00)
--- NOTE | 2020-07-28 19:35 | Progress Note ---
Assessment and Plan Assessment and plan: 59-year-old -[place] male with no known past medical problems and who has not been seen at this facility in the past was brought in to the emergency room today by EMS for altered mental status. Patient was found to be wandering around in a hotel lobby and refusing to answer questions when asked by EMS. Accu-Chek prior to arrival in the emergency room was said to be reading high. Upon arrival in the emergency room was alert and in no acute distress but still refusing to answer questions. Was looking drowsy. Work-up in the emergency room today reveals hyperglycemia with blood sugar greater than 700, elevated creatinine kinase greater than 3000, elevated creatinine level. CT scan of the head was unremarkable. UDS is still being awaited. Patient being admitted with altered mental status, hyperglycemia, rhabdomyolysis and acute kidney injury. Patient was treated with fluid hydration and counseling verbalized understanding. He is clinically improved. Counseling was provided on insulin management. It appears he is homeless extensive counseling was provided in case management assistance was requested. Acute metabolic encephalopathy likely secondary to EtOH use disorder Diabetes mellitus with hyperglycemia none DKA Acute kidney disease with possible gastropathy on chronic kidney disease Rhabdomyolysis secondary to dehydration Hypokalemia EtOH use disorder plan Pt was planned for discharge today but for some reason did not get full PT eval Continue CIWA protocol CM working on placement for the patient Extensive counseling provided to the patient about substance use and EtOH. Continue IV fluids and monitor renal function DVT and GI prophylaxis History Interval history: Patient seen and examined, mental status improved, still lethargic. Hospitalist Physical - Physical exam Narrative exam: VITAL SIGNS: Reviewed. GENERAL: The patient appears normally developed, Vital signs as documented. HEAD: No signs of head trauma. EYES: Pupils are equal. Extraocular motions intact. EARS: Hearing grossly intact. MOUTH: Oropharynx is normal. NECK: No adenopathy, no JVD. CHEST: Chest with clear breath sounds bilaterally. No wheezes, rales, or rhonchi. CARDIAC: Regular rate and rhythm. S1 and S2, without murmurs, gallops, or rubs. VASCULAR: No Edema. Peripheral pulses normal and equal in all extremities. ABDOMEN: Soft, non tender and non distended. No rebound or guarding, and no masses palpated. Bowel Sounds normal. MUSCULOSKELETAL: Good range of motion of all major joints. Extremities without clubbing, cyanosis or edema. NEUROLOGIC EXAM: Alert and oriented x 3 No focal sensory or strength defic its. Speech normal. Follows commands. PSYCHIATRIC: Mood normal. SKIN: detail exam as documented in skin assessment - Constitutional Vitals: Temp Pulse Resp BP Pulse Ox 98.2 F 83 21 149/80 96 07/28/20 08:30 07/28/20 12:00 07/28/20 12:00 07/28/20 08:12 07/28/20 12:00 General appearance: Present: no acute distress, well-nourished HEART Score - HEART Score Troponin: Troponin T 0.056 ng/mL (0.00-0.029) H 07/27/20 01:55 Results - Labs CBC & Chem 7: 07/29/20 05:03 07/29/20 05:03 Labs: Laboratory Last Values WBC 8.6 K/mm3 (4.5-11.0) 07/28/20 04:39 RBC 4.19 M/mm3 (3.65-5.03) 07/28/20 04:39 Hgb 11.9 gm/dl (11.8-15.2) 07/28/20 04:39 Hct 36.2 % (35.5-45.6) 07/28/20 04:39 MCV 86 fl (84-94) 07/28/20 04:39 MCH 28 pg (28-32) 07/28/20 04:39 MCHC 33 % (32-34) 07/28/20 04:39 RDW 15.3 % (13.2-15.2) H 07/28/20 04:39 Plt Count 282 K/mm3 (140-440) 07/28/20 04:39 Lymph % (Auto) 11.8 % (13.4-35.0) L 07/28/20 04:39 [place] % (Auto) 6.5 % (0.0-7.3) 07/28/20 04:39 Eos % (Auto) 0.9 % (0.0-4.3) 07/28/20 04:39 Baso % (Auto) 0.5 % (0.0-1.8) 07/28/20 04:39 Lymph # (Auto) 1.0 K/mm3 (1.2-5.4) L 07/28/20 04:39 [place] # (Auto) 0.6 K/mm3 (0.0-0.8) 07/28/20 04:39 Eos # (Auto) 0.1 K/mm3 (0.0-0.4) 07/28/20 04:39 Baso # (Auto) 0.0 K/mm3 (0.0-0.1) 07/28/20 04:39 Seg Neutrophils % 80.3 % (40.0-70.0) H 07/28/20 04:39 Seg Neutrophils # 6.9 K/mm3 (1.8-7.7) 07/28/20 04:39 PT 12.7 Sec. (12.2-14.9) 07/28/20 04:39 INR 0.97 (0.87-1.13) 07/28/20 04:39 APTT 33.0 Sec. (24.2-36.6) 07/27/20 01:55 Sodium 142 mmol/L (137-145) 07/28/20 04:39 Potassium 3.2 mmol/L (3.6-5.0) L 07/28/20 04:39 Chloride 107.2 mmol/L (98-107) H 07/28/20 04:39 Carbon Dioxide 25 mmol/L (22-30) 07/28/20 04:39 Anion Gap 13 mmol/L 07/28/20 04:39 BUN 23 mg/dL (9-20) H 07/28/20 04:39 Creatinine 2.0 mg/dL (0.8-1.3) H 07/28/20 04:39 Estimated GFR 42 ml/min 07/28/20 04:39 BUN/Creatinine Ratio 12 % 07/28/20 04:39 Glucose 208 mg/dL (75-100) H 07/28/20 04:39 POC Glucose 216 mg/dL (70-105) H 07/28/20 16:09 Hemoglobin A1c 15.0 % (4-6) H 07/27/20 01:55 Lactic Acid 1.60 mmol/L (0.7-2.0) 07/27/20 01:55 Calcium 8.9 mg/dL (8.4-10.2) 07/28/20 04:39 Phosphorus 2.70 mg/dL (2.5-4.5) 07/28/20 04:39 Magnesium 1.80 mg/dL (1.7-2.3) 07/28/20 04:39 Total Bilirubin 0.50 mg/dL (0.1-1.2) 07/27/20 01:55 Direct Bilirubin < 0.2 mg/dL (0-0.2) 07/27/20 01:55 Indirect Bilirubin 0.3 mg/dL 07/27/20 01:55 AST 72 units/L (5-40) H 07/27/20 01:55 ALT 57 units/L (7-56) H 07/27/20 01:55 Alkaline Phosphatase 163 units/L (35-129) H 07/27/20 01:55 Ammonia 18.0 umol/L (25-60) L 07/27/20 01:55 Total Creatine Kinase 623 units/L (55-170) H 07/28/20 04:39 Troponin T 0.056 ng/mL (0.00-0.029) H 07/27/20 01:55 Total Protein 7.4 g/dL (6.3-8.2) 07/27/20 01:55 Albumin 3.9 g/dL (3.9-5) 07/27/20 01:55 Albumin/Globulin Ratio 1.1 % 07/27/20 01:55 Triglycerides 78 mg/dL (2-149) 07/27/20 01:55 Cholesterol 220 mg/dL (50-199) H 07/27/20 01:55 LDL Cholesterol Direct 102 mg/dL (50-130) 07/27/20 01:55 HDL Cholesterol 126 mg/dL (40-59) H 07/27/20 01:55 Cholesterol/HDL Ratio 1.74 % 07/27/20 01:55 TSH 0.824 mlU/mL (0.270-4.200) 07/27/20 01:55 Urine Color Colorless (Yellow) 07/27/20 02:09 Urine Turbidity Clear (Clear) 07/27/20 02:09 Urine pH 6.0 (5.0-7.0) 07/27/20 02:09 Ur Specific Harris 1.016 (1.003-1.030) 07/27/20 02:09 Urine Protein 100 mg/dl mg/dL (Negative) 07/27/20 02:09 Urine Glucose (UA) >=500 mg/dL (Negative) 07/27/20 02:09 Urine Ketones Neg mg/dL (Negative) 07/27/20 02:09 Urine Blood Mod (Negative) 07/27/20 02:09 Urine Nitrite Neg (Negative) 07/27/20 02:09 Urine Bilirubin Neg (Negative) 07/27/20 02:09 Urine Urobilinogen < 2.0 mg/dL (<2.0) 07/27/20 02:09 Ur Leukocyte Esterase Neg (Negative) 07/27/20 02:09 Urine WBC (Auto) 1.0 /HPF (0.0-6.0) 07/27/20 02:09 Urine RBC (Auto) < 1.0 /HPF (0.0-6.0) 07/27/20 02:09 U Epithel Cells (Auto) < 1.0 /HPF (0-13.0) 07/27/20 02:09 Urine Mucus Few /HPF 07/27/20 02:09 Urine Creatinine 85.6 mg/dL (0.1-20.0) H 07/27/20 19:00 Protein/Creatinin Ratio 2.96 07/27/20 19:00 Urine Sodium 51 mmol/L 07/27/20 19:00 Urine Total Protein 253 mg/dL (5-11.8) H 07/27/20 19:00 Salicylates < 0.3 mg/dL (2.8-20.0) L 07/27/20 01:55 Urine Opiates Screen Presumptive negative 07/27/20 02:09 Urine Methadone Screen Presumptive negative 07/27/20 02:09 Acetaminophen 5.0 ug/mL (10.0-30.0) L 07/27/20 01:55 Ur Barbiturates Screen Presumptive negative 07/27/20 02:09 Ur Phencyclidine Scrn Presumptive negative 07/27/20 02:09 Ur Amphetamines Screen Presumptive negative 07/27/20 02:09 U Benzodiazepines Scrn Presumptive negative 07/27/20 02:09 Urine Cocaine Screen Presumptive negative 07/27/20 02:09 U Marijuana (THC) Screen Presumptive negative 07/27/20 02:09 Drugs of Abuse Note Disclamer 07/27/20 02:09 Plasma/Serum Alcohol < 0.01 % (0-0.07) 07/27/20 01:55 Microbiology: Microbiology 07/27/20 01:55 Peripheral/Venous Blood Culture - Preliminary NO GROWTH AFTER 24 HOURS 07/27/20 01:46 Peripheral/Venous Blood Culture - Preliminary NO GROWTH AFTER 24 HOURS Hilton/IV: Voiding Method Condom Catheter Active Medications - Current Medications Current Medications: Generic Name Dose Route Start Last Admin Trade Name Freq PRN Reason Stop Dose Admin Acetaminophen 650 mg 07/27/20 04:01 Acetaminophen 325 Mg Tab PO Q4H PRN Pain MILD(1-3)/Fever >100.5/RUIZ Amlodipine Besylate 10 mg 07/27/20 17:00 07/28/20 10:06 Amlodipine 10 Mg Tab PO 10 mg QDAY MARY Administration Chlordiazepoxide HCl 50 mg 07/27/20 11:47 Chlordiazepoxide 25 Mg Cap PO Q1HR PRN CIWA-Ar 8-15 Chlordiazepoxide HCl 100 mg 07/27/20 11:47 Chlordiazepoxide 25 Mg Cap PO Q1HR PRN CIWA-Ar 16-25 Dextrose 50 ml 07/27/20 04:01 Dextrose 50% In Water (25gm) 50 Ml Syringe IV Q30MIN PRN Hypoglycemia Protocol Heparin Sodium (Porcine) 5,000 unit 07/27/20 06:00 07/28/20 14:18 Heparin 5,000 Unit/1 Ml Vial SUB-Q Not Given Q8HR MARY Hydralazine HCl 10 mg 07/27/20 04:06 Hydralazine 20 Mg/1 Ml Inj IV Q4HR PRN Blood Pressure Thiamine HCl 100 mg/ Folic 1,011.2 mls @ 126.4 mls/hr 07/27/20 14:00 07/28/20 18:00 Acid 1 mg/ Multivitamins/ IV 126.4 mls/hr Minerals 10 ml/ Sodium Q24H MARY Administration Chloride Sodium Chloride 1,000 mls @ 125 mls/hr 07/27/20 12:00 07/28/20 14:21 Nacl 0.9% 1000 Ml IV 125 mls/hr DIRECT MARY Administration Insulin Human Isoph/Insulin Regular 35 unit 07/27/20 17:00 07/28/20 18:02 Insulin Nph/Regular 70/30 Inj SUB-Q 35 unit BIDDIAB MARY Administration Insulin Human Regular 0 units 07/27/20 07:30 07/28/20 18:02 Insulin Regular, Human 100 Units/1 Ml SUB-Q 4 units ACHS MARY Administration Protocol Labetalol HCl 200 mg 07/27/20 22:00 07/28/20 10:07 Labetalol 200 Mg Tab PO 200 mg BID MARY Administration Lorazepam 2 mg 07/27/20 11:47 07/27/20 22:12 Lorazepam 2 Mg/Ml Vial IV 2 mg Q1HR PRN Administration CIWA-Ar 8-15 Lorazepam 4 mg 07/27/20 11:47 Lorazepam 2 Mg/Ml Vial IV Q1HR PRN CIWA-Ar 16-25 Magnesium Hydroxide 30 ml 07/27/20 04:01 Magnesium Hydroxide (Mom) Oral Liqd Udc PO Q4H PRN Constipation Morphine Sulfate 2 mg 07/27/20 04:01 Morphine 2 Mg/1 Ml Inj IV Q4H PRN Pain, Moderate (4-6) Ondansetron HCl 4 mg 07/27/20 04:01 Ondansetron 4 Mg/2 Ml Inj IV Q8H PRN Nausea And Vomiting Sodium Chloride 10 ml 07/27/20 10:00 07/28/20 10:08 Sodium Chloride 0.9% 10 Ml Flush Syringe IV 10 ml BID MARY Administration Sodium Chloride 10 ml 07/27/20 04:01 Sodium Chloride 0.9% 10 Ml Flush Syringe IV PRN PRN LINE FLUSH Nutrition/Malnutrition Assess - Dietary Evaluation Nutrition/Malnutrition Findings: Nutrition Notes Start: 07/27/20 09:22 Freq: Status: Active Protocol: Document 07/27/20 09:22 CW (Rec: 07/27/20 09:26 CW [id number]) Nutrition Notes Need for Assessment generated from: MD Order,Education Initial or Follow up Brief Note Current Diagnosis Acute Kidney Injury Other Pertinent Diagnosis hyperglycemia, AMS, Rhabdomyolysis Labs/Tests BG 773 (ON adm) HgbA1c 15 Chol 220 Na 135 BUN 27 Cr 2.4 Pertinent Medications Humulin NS at 2L Height 6 ft 2 in Weight 86.183 kg [place] Body Weight (kg) 86.36 BMI 24.3 Weight Status Appropriate Subjective/Other Information MD consult for diet education. Diet education inapporpriate at time d/t AMS. Nutrition Intervention Change Diet Order: diet advancement Anticipated Discharge Needs: Cardiac Consistent Carbohydrate diet Follow-Up By: 07/31/20 Additional Comments F/U diet education and intakes
[2020-07-28] MEDS: LORazepam 2 MG/ML VIAL IV PRN (22:35)
[2020-07-29] MEDS: HEPARIN 5,000 UNIT/1 ML VIAL SUB-Q SCH ×6 (05:53→22:29)
[2020-07-29 06:13] LABS: Hematocrit 36.1 % (35.5-45.6); Hemoglobin 11.8 gm/dl (11.8-15.2); Mean Corpuscular HGB Conc 33 % (32-34); Mean Corpuscular Volume 87 fl (84-94); Platelet Count 278 K/mm3 (140-440); Red Blood Count 4.14 M/mm3 (3.65-5.03)
[2020-07-29 06:29] LABS: Calcium 8.7 mg/dL (8.4-10.2)
[2020-07-29] MEDS: INSULIN REGULAR, HUMAN 100 UNITS/1 ML SUB-Q SCH ×5 (07:30→23:40)
[2020-07-29] MEDS: INSULIN NPH/REGULAR 70/30 INJ SUB-Q SCH ×4 (07:30→18:06)
[2020-07-29] MEDS: POTASSIUM CHLORIDE ER 20 MEQ TAB PO SCH ×2 (09:24→18:03)
[2020-07-29] MEDS: amLODIPine 10 MG TAB PO SCH (09:24)
--- NOTE | 2020-07-29 10:19 | Progress Note ---
Assessment and Plan 1. CKD vs Acute kidney injury: Suspect vasomotor AZAEL in the setting of uncontrolled DM and volume depletion. Renal US suggestive for CKD. Proteinuria noted. Baseline renal function is unknown. Suspect CKD 2/2 diabetic nephropathy. Monitor renal function. Creatinine leveled off. Avoid nephrotoxic agents. Meds dosage based on GFR. 2. FEN: Hypokalemia, replete K, monitor. Monitor lytes and volume status. 3. Diabetic hyperosmolar state: Bl. glu 773 on presentation. HbA1C 15. Glucose improving. 4. Acute metabolic encephalopathy, POA: Monitor. 5. Uncontroleld HTN: On Amlodipine and Labetalol. Adjust meds as needed. 6. Rhabdomyolysis: Trend. Will sign off. F/u with me in 1-2 weeks after discharge. Subjective: Patient was seen and examined at the bedside. Objective: General appearance: well-developed, appears stated age, no distress HEENT: ATNC, pupils equal Neck: trachea midline Respiratory: ctab Heart: regular, S1S2, no murmur Gastrointestinal: soft, normoactive bowel sounds, not tender Integumentary: no rash, warm and dry Ext: no edema Neurologic: somnolent, able to move extremities Musculoskeletal: no obvious deformity Subjective Date of service: 07/29/20 Objective - Vital Signs Vital signs: Vital Signs - 12hr 07/29/20 07/29/20 07/29/20 00:24 04:33 07:48 Temperature 98.7 F 98.5 F 98.9 F Pulse Rate 82 82 83 Respiratory 20 20 18 Rate Blood Pressure 143/81 140/91 154/91 O2 Sat by Pulse 95 97 95 Oximetry 07/29/20 09:24 Temperature Pulse Rate 83 Respiratory Rate Blood Pressure 154/91 O2 Sat by Pulse Oximetry - Lab 07/29/20 05:03 07/29/20 05:03 Most recent lab results Calcium 8.7 mg/dL (8.4-10.2) 07/29/20 05:03 Phosphorus 2.70 mg/dL (2.5-4.5) 07/28/20 04:39 Magnesium 1.80 mg/dL (1.7-2.3) 07/28/20 04:39 Urine Creatinine 85.6 mg/dL (0.1-20.0) H 07/27/20 19:00 Urine Sodium 51 mmol/L 07/27/20 19:00 Urine Total Protein 253 mg/dL (5-11.8) H 07/27/20 19:00 Medications & Allergies - Medications Allergies/Adverse Reactions: Allergies No Known Allergies Allergy (Verified 07/27/20 04:10) Home Medications: Home Medications Medication Instructions Recorded Confirmed Last Taken Type Folic Acid 1 mg PO DAILY #30 tablet 07/28/20 Unknown Rx Insulin NPH/Regular [NovoLIN 70/30] 40 unit SUB-Q BIDDIAB #10 ml 07/28/20 Unknown Rx Multivitamin Tab [Multiple Vitamin 1 each PO QDAY #30 tablet 07/28/20 Unknown Rx TAB (Theragran)] Thiamine HCl [Vitamin B-1] 100 mg PO DAILY #30 tablet 07/28/20 Unknown Rx amLODIPine 10 mg PO QDAY #10 tablet 07/28/20 Unknown Rx labetaloL [Labetalol 200mg TAB] 200 mg PO BID #60 tablet 07/28/20 Unknown Rx Active Medications: Generic Name Dose Route Start Last Admin Trade Name Hilarioq PRN Reason Stop Dose Admin Acetaminophen 650 mg 07/27/20 04:01 Acetaminophen 325 Mg Tab PO Q4H PRN Pain MILD(1-3)/Fever >100.5/RUIZ Amlodipine Besylate 10 mg 07/27/20 17:00 07/29/20 09:24 Amlodipine 10 Mg Tab PO 10 mg QDAY MARY Administration Chlordiazepoxide HCl 50 mg 07/27/20 11:47 Chlordiazepoxide 25 Mg Cap PO Q1HR PRN CIWA-Ar 8-15 Chlordiazepoxide HCl 100 mg 07/27/20 11:47 Chlordiazepoxide 25 Mg Cap PO Q1HR PRN CIWA-Ar 16-25 Dextrose 50 ml 07/27/20 04:01 Dextrose 50% In Water (25gm) 50 Ml Syringe IV Q30MIN PRN Hypoglycemia Protocol Folic Acid 1 mg 07/30/20 10:00 Folic Acid 1 Mg Tab PO DAILY [facility] Heparin Sodium (Porcine) 5,000 unit 07/27/20 06:00 07/29/20 05:55 Heparin 5,000 Unit/1 Ml Vial SUB-Q Not Given Q8HR MARY Hydralazine HCl 10 mg 07/27/20 04:06 Hydralazine 20 Mg/1 Ml Inj IV Q4HR PRN Blood Pressure Thiamine HCl 100 mg/ Folic 1,011.2 mls @ 126.4 mls/hr 07/27/20 14:00 07/28/20 18:00 Acid 1 mg/ Multivitamins/ IV 07/29/20 21:59 126.4 mls/hr Minerals 10 ml/ Sodium Q24H MARY Administration Chloride Sodium Chloride 1,000 mls @ 125 mls/hr 07/27/20 12:00 07/28/20 14:21 Nacl 0.9% 1000 Ml IV 125 mls/hr DIRECT MARY Administration Insulin Human Isoph/Insulin Regular 35 unit 07/27/20 17:00 07/29/20 08:47 Insulin Nph/Regular 70/30 Inj SUB-Q Not Given BIDDIAB MARY Insulin Human Regular 0 units 07/27/20 07:30 07/29/20 07:30 Insulin Regular, Human 100 Units/1 Ml SUB-Q Not Given ACHS [facility] Protocol Labetalol HCl 200 mg 07/27/20 22:00 07/29/20 09:24 Labetalol 200 Mg Tab PO 200 mg BID MARY Administration Lorazepam 2 mg 07/27/20 11:47 07/28/20 22:35 Lorazepam 2 Mg/Ml Vial IV 2 mg Q1HR PRN Administration CIWA-Ar 8-15 Lorazepam 4 mg 07/27/20 11:47 Lorazepam 2 Mg/Ml Vial IV Q1HR PRN CIWA-Ar 16-25 Magnesium Hydroxide 30 ml 07/27/20 04:01 Magnesium Hydroxide (Mom) Oral Liqd Udc PO Q4H PRN Constipation Morphine Sulfate 2 mg 07/27/20 04:01 Morphine 2 Mg/1 Ml Inj IV Q4H PRN Pain, Moderate (4-6) Multivitamins 1 each 07/30/20 10:00 Multivitamins ,Therapeutic Tab PO DAILY [facility] Ondansetron HCl 4 mg 07/27/20 04:01 Ondansetron 4 Mg/2 Ml Inj IV Q8H PRN Nausea And Vomiting Potassium Chloride 40 meq 07/29/20 09:00 07/29/20 09:24 Potassium Chloride Er 20 Meq Tab PO 07/29/20 17:01 40 meq Q8H MARY Administration Sodium Chloride 10 ml 07/27/20 10:00 07/29/20 09:25 Sodium Chloride 0.9% 10 Ml Flush Syringe IV 10 ml BID MARY Administration Sodium Chloride 10 ml 07/27/20 04:01 Sodium Chloride 0.9% 10 Ml Flush Syringe IV PRN PRN LINE FLUSH Thiamine HCl 100 mg 07/30/20 10:00 Thiamine 100 Mg Tab PO QDAY MARY
[2020-07-29] MEDS: SODIUM CHLORIDE 0.9% 1000 ML 1,000 ML IV SCH (11:18)
--- NOTE | 2020-07-29 11:52 | Progress Note ---
Assessment and Plan Assessment and plan: 59-year-old -Thai male with no known past medical problems and who has not been seen at this facility in the past was brought in to the emergency room today by EMS for altered mental status. Patient was found to be wandering around in a hotel lobby and refusing to answer questions when asked by EMS. Accu-Chek prior to arrival in the emergency room was said to be reading high. Upon arrival in the emergency room was alert and in no acute distress but still refusing to answer questions. Was looking drowsy. Work-up in the emergency room today reveals hyperglycemia with blood sugar greater than 700, elevated creatinine kinase greater than 3000, elevated creatinine level. CT scan of the head was unremarkable. UDS is still being awaited. Patient being admitted with altered mental status, hyperglycemia, rhabdomyolysis and acute kidney injury. Patient was treated with fluid hydration and counseling verbalized understanding. He is clinically improved. Counseling was provided on insulin management. It appears he is homeless extensive counseling was provided in case management assistance was requested. 07/29: Continue supportive care, no new complaints. Clinical stable but still lethargic, gait instability precludes discharge yet as patient is homeless Acute metabolic encephalopathy likely secondary to EtOH use disorder Diabetes mellitus with hyperglycemia none DKA Acute kidney disease with possible gastropathy on chronic kidney disease Rhabdomyolysis secondary to dehydration Hypokalemia EtOH use disorder plan Pt was planned for discharge today but for some reason did not get full PT eval Continue CIWA protocol CM working on placement for the patient Extensive counseling provided to the patient about substance use and EtOH. Continue IV fluids and monitor renal function DVT and GI prophylaxis History Interval history: Patient seen and examined, mental status improved, still lethargic. Prognosis. Hospitalist Physical - Physical exam Narrative exam: VITAL SIGNS: Reviewed. GENERAL: The patient appears normally developed, Vital signs as documented. HEAD: No signs of head trauma. EYES: Pupils are equal. Extraocular motions intact. EARS: Hearing grossly intact. MOUTH: Oropharynx is normal. NECK: No adenopathy, no JVD. CHEST: Chest with clear breath sounds bilaterally. No wheezes, rales, or rhonchi. CARDIAC: Regular rate and rhythm. S1 and S2, without murmurs, gallops, or ru bs. VASCULAR: No Edema. Peripheral pulses normal and equal in all extremities. ABDOMEN: Soft, non tender and non distended. No rebound or guarding, and no masses palpated. Bowel Sounds normal. MUSCULOSKELETAL: Good range of motion of all major joints. Extremities without clubbing, cyanosis or edema. NEUROLOGIC EXAM: Alert and oriented x 3 No focal sensory or strength deficits. Speech normal. Follows commands. PSYCHIATRIC: Mood normal. SKIN: detail exam as documented in skin assessment - Constitutional Vitals: Temp Pulse Resp BP Pulse Ox 98.7 F 83 18 150/91 95 07/29/20 11:40 07/29/20 11:40 07/29/20 11:40 07/29/20 11:40 07/29/20 11:40 General appearance: Present: no acute distress, well-nourished HEART Score - HEART Score Troponin: Troponin T 0.056 ng/mL (0.00-0.029) H 07/27/20 01:55 Results - Labs CBC & Chem 7: 07/29/20 05:03 07/29/20 05:03 Labs: Laboratory Last Values WBC 6.4 K/mm3 (4.5-11.0) 07/29/20 05:03 RBC 4.14 M/mm3 (3.65-5.03) 07/29/20 05:03 Hgb 11.8 gm/dl (11.8-15.2) 07/29/20 05:03 Hct 36.1 % (35.5-45.6) 07/29/20 05:03 MCV 87 fl (84-94) 07/29/20 05:03 MCH 29 pg (28-32) 07/29/20 05:03 MCHC 33 % (32-34) 07/29/20 05:03 RDW 15.0 % (13.2-15.2) 07/29/20 05:03 Plt Count 278 K/mm3 (140-440) 07/29/20 05:03 Lymph % (Auto) 11.8 % (13.4-35.0) L 07/28/20 04:39 [place]ill % (Auto) 6.5 % (0.0-7.3) 07/28/20 04:39 Eos % (Auto) 0.9 % (0.0-4.3) 07/28/20 04:39 Baso % (Auto) 0.5 % (0.0-1.8) 07/28/20 04:39 Lymph # (Auto) 1.0 K/mm3 (1.2-5.4) L 07/28/20 04:39 [place]phill # (Auto) 0.6 K/mm3 (0.0-0.8) 07/28/20 04:39 Eos # (Auto) 0.1 K/mm3 (0.0-0.4) 07/28/20 04:39 Baso # (Auto) 0.0 K/mm3 (0.0-0.1) 07/28/20 04:39 Seg Neutrophils % 80.3 % (40.0-70.0) H 07/28/20 04:39 Seg Neutrophils # 6.9 K/mm3 (1.8-7.7) 07/28/20 04:39 PT 12.7 Sec. (12.2-14.9) 07/28/20 04:39 INR 0.97 (0.87-1.13) 07/28/20 04:39 APTT 33.0 Sec. (24.2-36.6) 07/27/20 01:55 Sodium 144 mmol/L (137-145) 07/29/20 05:03 Potassium 3.2 mmol/L (3.6-5.0) L 07/29/20 05:03 Chloride 111.7 mmol/L (98-107) H 07/29/20 05:03 Carbon Dioxide 24 mmol/L (22-30) 07/29/20 05:03 Anion Gap 12 mmol/L 07/29/20 05:03 BUN 19 mg/dL (9-20) 07/29/20 05:03 Creatinine 1.8 mg/dL (0.8-1.3) H 07/29/20 05:03 Estimated GFR 47 ml/min 07/29/20 05:03 BUN/Creatinine Ratio 11 % 07/29/20 05:03 Glucose 64 mg/dL (75-100) L 07/29/20 05:03 POC Glucose 75 mg/dL (70-105) 07/29/20 07:47 Hemoglobin A1c 15.0 % (4-6) H 07/27/20 01:55 Lactic Acid 1.60 mmol/L (0.7-2.0) 07/27/20 01:55 Calcium 8.7 mg/dL (8.4-10.2) 07/29/20 05:03 Phosphorus 2.70 mg/dL (2.5-4.5) 07/28/20 04:39 Magnesium 1.80 mg/dL (1.7-2.3) 07/28/20 04:39 Total Bilirubin 0.50 mg/dL (0.1-1.2) 07/27/20 01:55 Direct Bilirubin < 0.2 mg/dL (0-0.2) 07/27/20 01:55 Indirect Bilirubin 0.3 mg/dL 07/27/20 01:55 AST 72 units/L (5-40) H 07/27/20 01:55 ALT 57 units/L (7-56) H 07/27/20 01:55 Alkaline Phosphatase 163 units/L (35-129) H 07/27/20 01:55 Ammonia 18.0 umol/L (25-60) L 07/27/20 01:55 Total Creatine Kinase 363 units/L (55-170) H 07/29/20 05:03 Troponin T 0.056 ng/mL (0.00-0.029) H 07/27/20 01:55 Total Protein 7.4 g/dL (6.3-8.2) 07/27/20 01:55 Albumin 3.9 g/dL (3.9-5) 07/27/20 01:55 Albumin/Globulin Ratio 1.1 % 07/27/20 01:55 Triglycerides 78 mg/dL (2-149) 07/27/20 01:55 Cholesterol 220 mg/dL (50-199) H 07/27/20 01:55 LDL Cholesterol Direct 102 mg/dL (50-130) 07/27/20 01:55 HDL Cholesterol 126 mg/dL (40-59) H 07/27/20 01:55 Cholesterol/HDL Ratio 1.74 % 07/27/20 01:55 TSH 0.824 mlU/mL (0.270-4.200) 07/27/20 01:55 Urine Color Colorless (Yellow) 07/27/20 02:09 Urine Turbidity Clear (Clear) 07/27/20 02:09 Urine pH 6.0 (5.0-7.0) 07/27/20 02:09 Ur Specific [place] 1.016 (1.003-1.030) 07/27/20 02:09 Urine Protein 100 mg/dl mg/dL (Negative) 07/27/20 02:09 Urine Glucose (UA) >=500 mg/dL (Negative) 07/27/20 02:09 Urine Ketones Neg mg/dL (Negative) 07/27/20 02:09 Urine Blood Mod (Negative) 07/27/20 02:09 Urine Nitrite Neg (Negative) 07/27/20 02:09 Urine Bilirubin Neg (Negative) 07/27/20 02:09 Urine Urobilinogen < 2.0 mg/dL (<2.0) 07/27/20 02:09 Ur Leukocyte Esterase Neg (Negative) 07/27/20 02:09 Urine WBC (Auto) 1.0 /HPF (0.0-6.0) 07/27/20 02:09 Urine RBC (Auto) < 1.0 /HPF (0.0-6.0) 07/27/20 02:09 U Epithel Cells (Auto) < 1.0 /HPF (0-13.0) 07/27/20 02:09 Urine Mucus Few /HPF 07/27/20 02:09 Urine Creatinine 85.6 mg/dL (0.1-20.0) H 07/27/20 19:00 Protein/Creatinin Ratio 2.96 07/27/20 19:00 Urine Sodium 51 mmol/L 07/27/20 19:00 Urine Total Protein 253 mg/dL (5-11.8) H 07/27/20 19:00 Salicylates < 0.3 mg/dL (2.8-20.0) L 07/27/20 01:55 Urine Opiates Screen Presumptive negative 07/27/20 02:09 Urine Methadone Screen Presumptive negative 07/27/20 02:09 Acetaminophen 5.0 ug/mL (10.0-30.0) L 07/27/20 01:55 Ur Barbiturates Screen Presumptive negative 07/27/20 02:09 Ur Phencyclidine Scrn Presumptive negative 07/27/20 02:09 Ur Amphetamines Screen Presumptive negative 07/27/20 02:09 U Benzodiazepines Scrn Presumptive negative 07/27/20 02:09 Urine Cocaine Screen Presumptive negative 07/27/20 02:09 U Marijuana (THC) Screen Presumptive negative 07/27/20 02:09 Drugs of Abuse Note Disclamer 07/27/20 02:09 Plasma/Serum Alcohol < 0.01 % (0-0.07) 07/27/20 01:55 Microbiology: Microbiology 07/27/20 01:55 Peripheral/Venous Blood Culture - Preliminary NO GROWTH AFTER 48 HOURS 07/27/20 01:46 Peripheral/Venous Blood Culture - Preliminary NO GROWTH AFTER 48 HOURS Hilton/IV: Voiding Method Condom Catheter Active Medications - Current Medications Current Medications: Generic Name Dose Route Start Last Admin Trade Name Freq PRN Reason Stop Dose Admin Acetaminophen 650 mg 07/27/20 04:01 Acetaminophen 325 Mg Tab PO Q4H PRN Pain MILD(1-3)/Fever >100.5/RUIZ Amlodipine Besylate 10 mg 07/27/20 17:00 07/29/20 09:24 Amlodipine 10 Mg Tab PO 10 mg QDAY MARY Administration Chlordiazepoxide HCl 50 mg 07/27/20 11:47 Chlordiazepoxide 25 Mg Cap PO Q1HR PRN CIWA-Ar 8-15 Chlordiazepoxide HCl 100 mg 07/27/20 11:47 Chlordiazepoxide 25 Mg Cap PO Q1HR PRN CIWA-Ar 16-25 Dextrose 50 ml 07/27/20 04:01 Dextrose 50% In Water (25gm) 50 Ml Syringe IV Q30MIN PRN Hypoglycemia Protocol Folic Acid 1 mg 07/30/20 10:00 Folic Acid 1 Mg Tab PO DAILY MARY Heparin Sodium (Porcine) 5,000 unit 07/27/20 06:00 07/29/20 05:55 Heparin 5,000 Unit/1 Ml Vial SUB-Q Not Given Q8HR MARY Hydralazine HCl 10 mg 07/27/20 04:06 Hydralazine 20 Mg/1 Ml Inj IV Q4HR PRN Blood Pressure Thiamine HCl 100 mg/ Folic 1,011.2 mls @ 126.4 mls/hr 07/27/20 14:00 07/28/20 18:00 Acid 1 mg/ Multivitamins/ IV 07/29/20 21:59 126.4 mls/hr Minerals 10 ml/ Sodium Q24H MARY Administration Chloride Sodium Chloride 1,000 mls @ 125 mls/hr 07/27/20 12:00 07/29/20 11:18 Nacl 0.9% 1000 Ml IV 125 mls/hr DIRECT MARY Administration Insulin Human Isoph/Insulin Regular 35 unit 07/27/20 17:00 07/29/20 08:47 Insulin Nph/Regular 70/30 Inj SUB-Q Not Given BIDDIAB [facility] Insulin Human Regular 0 units 07/27/20 07:30 07/29/20 07:30 Insulin Regular, Human 100 Units/1 Ml SUB-Q Not Given ACHS [facility] Protocol Labetalol HCl 200 mg 07/27/20 22:00 07/29/20 09:24 Labetalol 200 Mg Tab PO 200 mg BID MARY Administration Lorazepam 2 mg 07/27/20 11:47 07/28/20 22:35 Lorazepam 2 Mg/Ml Vial IV 2 mg Q1HR PRN Administration CIWA-Ar 8-15 Lorazepam 4 mg 07/27/20 11:47 Lorazepam 2 Mg/Ml Vial IV Q1HR PRN CIWA-Ar 16-25 Magnesium Hydroxide 30 ml 07/27/20 04:01 Magnesium Hydroxide (Mom) Oral Liqd Udc PO Q4H PRN Constipation Morphine Sulfate 2 mg 07/27/20 04:01 Morphine 2 Mg/1 Ml Inj IV Q4H PRN Pain, Moderate (4-6) Multivitamins 1 each 07/30/20 10:00 Multivitamins ,Therapeutic Tab PO DAILY [facility] Ondansetron HCl 4 mg 07/27/20 04:01 Ondansetron 4 Mg/2 Ml Inj IV Q8H PRN Nausea And Vomiting Potassium Chloride 40 meq 07/29/20 09:00 07/29/20 09:24 Potassium Chloride Er 20 Meq Tab PO 07/29/20 17:01 40 meq Q8H MARY Administration Sodium Chloride 10 ml 07/27/20 10:00 07/29/20 09:25 Sodium Chloride 0.9% 10 Ml Flush Syringe IV 10 ml BID MARY Administration Sodium Chloride 10 ml 07/27/20 04:01 Sodium Chloride 0.9% 10 Ml Flush Syringe IV PRN PRN LINE FLUSH Thiamine HCl 100 mg 07/30/20 10:00 Thiamine 100 Mg Tab PO QDAY [facility] Nutrition/Malnutrition Assess - Dietary Evaluation Nutrition/Malnutrition Findings: Nutrition Notes Start: 07/27/20 09:22 Freq: Status: Active Protocol: Document 07/27/20 09:22 CW (Rec: 07/27/20 09:26 CW [id number]) Nutrition Notes Need for Assessment generated from: MD Order,Education Initial or Follow up Brief Note Current Diagnosis Acute Kidney Injury Other Pertinent Diagnosis hyperglycemia, AMS, Rhabdomyolysis Labs/Tests BG 773 (ON adm) HgbA1c 15 Chol 220 Na 135 BUN 27 Cr 2.4 Pertinent Medications Humulin NS at 2L Height 6 ft 2 in Weight 86.183 kg Winger Body Weight (kg) 86.36 BMI 24.3 Weight Status Appropriate Subjective/Other Information MD consult for diet education. Diet education inapporpriate at time d/t AMS. Nutrition Intervention Change Diet Order: diet advancement Anticipated Discharge Needs: Cardiac Consistent Carbohydrate diet Follow-Up By: 07/31/20 Additional Comments F/U diet education and intakes
[2020-07-29] MEDS: LORazepam 2 MG/ML VIAL IV PRN (14:51)
[2020-07-29] MEDS ORDERED: SODIUM CHLORIDE 0.9% 1000 ML 1,000 ML IV SCH (22:45)
[2020-07-29] MEDS ORDERED: THIAMINE 100 MG, FOLIC ACID 1 MG, MULTIPLE VITAMIN INJ, ADULT 10 ML in SODIUM CHLORIDE ... IV SCH (23:30)
[2020-07-29] MEDS: THIAMINE 100 MG, FOLIC ACID 1 MG, MULTIPLE VITAMIN INJ, ADULT 10 ML in SODIUM CHLORIDE ... IV SCH (23:38)
[2020-07-30] MEDS ORDERED: ALPRAZolam 0.25 MG TAB PO ONE (04:15)
[2020-07-30] MEDS: HEPARIN 5,000 UNIT/1 ML VIAL SUB-Q SCH ×3 (06:15→21:43)
[2020-07-30] MEDS: INSULIN REGULAR, HUMAN 100 UNITS/1 ML SUB-Q SCH ×4 (09:07→22:07)
[2020-07-30] MEDS: amLODIPine 10 MG TAB PO SCH (09:08)
[2020-07-30] MEDS: FOLIC ACID 1 MG TAB PO SCH (09:08)
[2020-07-30] MEDS: THIAMINE 100 MG TAB PO SCH (09:08)
[2020-07-30] MEDS: INSULIN NPH/REGULAR 70/30 INJ SUB-Q SCH ×2 (09:08→16:46)
[2020-07-30] MEDS: MULTIVITAMINS ,THERAPEUTIC TAB PO SCH (09:15)
--- NOTE | 2020-07-30 10:26 | Discharge Summary ---
Providers - Providers Date of Admission: 07/27/20 03:32 Attending physician: LARRY HAN MD 07/27/20 04:01 Consult to Physician [CONS] Routine Comment: Consulting Provider: JACOBO LÓPEZ Physician Instructions: Reason For Exam: AZAEL 07/27/20 04:02 Consult to Dietitian/Nutrition [CONS] Routine Physician Instructions: Reason For Exam: Reason for Consult: Diet education 07/28/20 10:54 Occupational Therapy Evaluate and Treat [CONS] Urgent Comment: Reason For Exam: generalized weakness Physical Therapy Evaluation and Treat [CONS] Urgent Comment: Reason For Exam: generalized weakness Primary care physician: ROPEMAN Hospitalization Reason for admission: Altered mental status Condition: Stable Hospital course: 59-year-old -[place] male with no known past medical problems and who has not been seen at this facility in the past was brought in to the emergency room today by EMS for altered mental status. Patient was found to be wandering around in a hotel lobby and refusing to answer questions when asked by EMS. Accu-Chek prior to arrival in the emergency room was said to be reading high. Upon arrival in the emergency room was alert and in no acute distress but still refusing to answer questions. Was looking drowsy. Work-up in the emergency room today reveals hyperglycemia with blood sugar greater than 700, elevated creatinine kinase greater than 3000, elevated creatinine level. CT scan of the head was unremarkable. UDS is still being awaited. Patient being admitted with altered mental status, hyperglycemia, rhabdomyolysis and acute kidney injury. Patient was treated with fluid hydration and counseling verbalized understanding. He is clinically improved. Counseling was provided on insulin management. It appears he is homeless extensive counseling was provided in case management assistance was requested. 07/29: Continue supportive care, no new complaints. Clinical stable but still lethargic, gait instability precludes discharge yet as patient is homeless 07/30: Patient clinical stable, no new complaints, will discharge. Counselling on ETOH use discussed again, he verbalized understanding 07/31: Following continued management and evaluation it was determined that patient has underlying psych history with schizophrenia I did speak to the fa viktoria member yesterday and as a result held by discharge as patient was claiming to be God at the most part will be reversible. He had called 911 from his room also. Psych is now reporting that inpatient psych placement patient was also dated [id number] yesterday. Psychiatrist recommended start on olanzapine and also Depakote. Will replace potassium. Otherwise patient is clinically stable for discharge to inpatient psych per psych recommendation Acute metabolic encephalopathy likely secondary to EtOH use disorder Schizophrenia Acute psychosis Diabetes mellitus with hyperglycemia none DKA Acute kidney disease with possible gastropathy on chronic kidney disease Rhabdomyolysis secondary to dehydration Hypokalemia EtOH use disorder Disposition: [id number]/[id number] PSY HOSP/PSY UNIT Final Discharge Diagnosis (Prints w/discharge instructions): Schizophrenia with acute psychosis Time spent for discharge: 35 mins Core Measure Documentation - Palliative Care Palliative Care/ Comfort Measures: Not Applicable - Core Measures Any of the following diagnoses?: none Exam - Physical Exam Narrative exam: VITAL SIGNS: Reviewed. GENERAL: The patient appears normally developed, Vital signs as documented. HEAD: No signs of head trauma. EYES: Pupils are equal. Extraocular motions intact. EARS: Hearing grossly intact. MOUTH: Oropharynx is normal. NECK: No adenopathy, no JVD. CHEST: Chest with clear breath sounds bilaterally. No wheezes, rales, or rhonchi. CARDIAC: Regular rate and rhythm. S1 and S2, without murmurs, gallops, or rubs. VASCULAR: No Edema. Peripheral pulses normal and equal in all extremities. ABDOMEN: Soft, non tender and non distended. No rebound or guarding, and no masses palpated. Bowel Sounds normal. MUSCULOSKELETAL: Good range of motion of all major joints. Extremities without clubbing, cyanosis or edema. NEUROLOGIC EXAM: Alert and oriented x 3 but with delirious notation this morning no focal sensory or strength deficits. Speech normal. Follows commands. PSYCHIATRIC: Mood normal. SKIN: detail exam as documented in skin assessment - Constitutional Vitals: Temp Pulse Resp BP Pulse Ox 98.3 F 86 18 162/101 93 07/30/20 08:11 07/30/20 09:08 07/30/20 08:11 07/30/20 09:08 07/30/20 08:11 Plan Activity: advance as tolerated, fall precautions Diet: low fat Special Instructions: record daily weights, record daily BP diary, smoking cessation, other (must quit etoh use) Follow up with: PRIMARY CARE, [Primary Care Provider] - 3-5 Days Prescriptions: OLANzapine [ZyPREXA] 5 mg PO QHS #30 tablet amLODIPine 10 mg PO QDAY #10 tablet Valproic Acid [Depakene] 250 mg PO Q8HR #90 capsule Folic Acid 1 mg PO DAILY #30 tablet Hydralazine HCl 50 mg PO TID #90 tablet labetaloL [Labetalol 200mg TAB] 200 mg PO BID #60 tablet Multivitamin Tab [Multiple Vitamin TAB (Theragran)] 1 each PO QDAY #30 tablet Insulin NPH/Regular [NovoLIN 70/30] 40 unit SUB-Q BIDDIAB #10 ml Thiamine HCl [Vitamin B-1] 100 mg PO DAILY #30 tablet
--- NOTE | 2020-07-30 10:47 | Progress Note ---
Assessment and Plan Assessment and plan: 59-year-old -[place] male with no known past medical problems and who has not been seen at this facility in the past was brought in to the emergency room today by EMS for altered mental status. Patient was found to be wandering around in a hotel lobby and refusing to answer questions when asked by EMS. Accu-Chek prior to arrival in the emergency room was said to be reading high. Upon arrival in the emergency room was alert and in no acute distress but still refusing to answer questions. Was looking drowsy. Work-up in the emergency room today reveals hyperglycemia with blood sugar greater than 700, elevated creatinine kinase greater than 3000, elevated creatinine level. CT scan of the head was unremarkable. UDS is still being awaited. Patient being admitted with altered mental status, hyperglycemia, rhabdomyolysis and acute kidney injury. Patient was treated with fluid hydration and counseling verbalized understanding. He is clinically improved. Counseling was provided on insulin management. It appears he is homeless extensive counseling was provided in case management assistance was requested. 07/29: Continue supportive care, no new complaints. Clinical stable but still lethargic, gait instability precludes discharge yet as patient is homeless 07/30: Some delirious behavior this morning will await psych evaluation. We will continue current management. Blood pressure elevated this morning as patient did not take his medication encouraged to take his meds hydralazine added due to persistent increase despite taking the meds. Disposition will be based on psych evaluation. Acute metabolic encephalopathy likely secondary to EtOH use disorder Diabetes mellitus with hyperglycemia none DKA [place] encephalopathy Acute kidney disease with possible gastropathy on chronic kidney disease Rhabdomyolysis secondary to dehydration Hypokalemia EtOH use disorder plan Pt was planned for discharge today but for some reason did not get full PT eval Continue CIWA protocol CM working on placement for the patient Extensive counseling provided to the patient about substance use and EtOH. Continue IV fluids and monitor renal function DVT and GI prophylaxis History Interval history: Patient seen and examined, patient again noted to have delirious behavior give the nurse a check of $17,000 actually took off his watch and give to me to tell me how much he wants me. He also had pulled out his lines and refused his meds yesterday Hospitalist Physical - Physical exam Narrative exam: VITAL SIGNS: Reviewed. GENERAL: The patient appears normally developed, Vital signs as documented. HEAD: No signs of head trauma. EYES: Pupils are equal. Extraocular motions intact. EARS: Hearing grossly intact. MOUTH: Oropharynx is normal. NECK: No adenopathy, no JVD. CHEST: Chest with clear breath sounds bilaterally. No wheezes, rales, or rhonchi. CARDIAC: Regular rate and rhythm. S1 and S2, without murmurs, gallops, or rubs. VASCULAR: No Edema. Peripheral pulses normal and equal in all extremities. ABDOMEN: Soft, non tender and non distended. No rebound or guarding, and no masses palpated. Bowel Sounds normal. MUSCULOSKELETAL: Good range of motion of all major joints. Extremities without clubbing, cyanosis or edema. NEUROLOGIC EXAM: Alert and oriented x 3 but with delirious notation this morning no focal sensory or strength deficits. Speech normal. Follows commands. PSYCHIATRIC: Mood normal. SKIN: detail exam as documented in skin assessment - Constitutional Vitals: Temp Pulse Resp BP Pulse Ox 98.3 F 86 18 162/101 93 07/30/20 08:11 07/30/20 09:08 07/30/20 08:11 07/30/20 09:08 07/30/20 08:11 General appearance: Present: no acute distress, well-nourished HEART Score - HEART Score Troponin: Troponin T 0.056 ng/mL (0.00-0.029) H 07/27/20 01:55 Results - Labs CBC & Chem 7: 07/29/20 05:03 07/30/20 05:31 Labs: Laboratory Last Values WBC 6.4 K/mm3 (4.5-11.0) 07/29/20 05:03 RBC 4.14 M/mm3 (3.65-5.03) 07/29/20 05:03 Hgb 11.8 gm/dl (11.8-15.2) 07/29/20 05:03 Hct 36.1 % (35.5-45.6) 07/29/20 05:03 MCV 87 fl (84-94) 07/29/20 05:03 MCH 29 pg (28-32) 07/29/20 05:03 MCHC 33 % (32-34) 07/29/20 05:03 RDW 15.0 % (13.2-15.2) 07/29/20 05:03 Plt Count 278 K/mm3 (140-440) 07/29/20 05:03 Lymph % (Auto) 11.8 % (13.4-35.0) L 07/28/20 04:39 Wolfe % (Auto) 6.5 % (0.0-7.3) 07/28/20 04:39 Eos % (Auto) 0.9 % (0.0-4.3) 07/28/20 04:39 Baso % (Auto) 0.5 % (0.0-1.8) 07/28/20 04:39 Lymph # (Auto) 1.0 K/mm3 (1.2-5.4) L 07/28/20 04:39 Wolfe # (Auto) 0.6 K/mm3 (0.0-0.8) 07/28/20 04:39 Eos # (Auto) 0.1 K/mm3 (0.0-0.4) 07/28/20 04:39 Baso # (Auto) 0.0 K/mm3 (0.0-0.1) 07/28/20 04:39 Seg Neutrophils % 80.3 % (40.0-70.0) H 07/28/20 04:39 Seg Neutrophils # 6.9 K/mm3 (1.8-7.7) 07/28/20 04:39 PT 12.7 Sec. (12.2-14.9) 07/28/20 04:39 INR 0.97 (0.87-1.13) 07/28/20 04:39 APTT 33.0 Sec. (24.2-36.6) 07/27/20 01:55 Sodium 141 mmol/L (137-145) 07/30/20 05:31 Potassium 3.5 mmol/L (3.6-5.0) L 07/30/20 05:31 Chloride 107.1 mmol/L (98-107) H 07/30/20 05:31 Carbon Dioxide 25 mmol/L (22-30) 07/30/20 05:31 Anion Gap 12 mmol/L 07/30/20 05:31 BUN 17 mg/dL (9-20) 07/30/20 05:31 Creatinine 1.6 mg/dL (0.8-1.3) H 07/30/20 05:31 Estimated GFR 54 ml/min 07/30/20 05:31 BUN/Creatinine Ratio 11 % 07/30/20 05:31 Glucose 276 mg/dL (75-100) H 07/30/20 05:31 POC Glucose 264 mg/dL (70-105) H 07/30/20 08:10 Hemoglobin A1c 15.0 % (4-6) H 07/27/20 01:55 Lactic Acid 1.60 mmol/L (0.7-2.0) 07/27/20 01:55 Calcium 9.0 mg/dL (8.4-10.2) 07/30/20 05:31 Phosphorus 2.70 mg/dL (2.5-4.5) 07/28/20 04:39 Magnesium 1.80 mg/dL (1.7-2.3) 07/28/20 04:39 Total Bilirubin 0.50 mg/dL (0.1-1.2) 07/27/20 01:55 Direct Bilirubin < 0.2 mg/dL (0-0.2) 07/27/20 01:55 Indirect Bilirubin 0.3 mg/dL 07/27/20 01:55 AST 72 units/L (5-40) H 07/27/20 01:55 ALT 57 units/L (7-56) H 07/27/20 01:55 Alkaline Phosphatase 163 units/L (35-129) H 07/27/20 01:55 Ammonia 18.0 umol/L (25-60) L 07/27/20 01:55 Total Creatine Kinase 363 units/L (55-170) H 07/29/20 05:03 Troponin T 0.056 ng/mL (0.00-0.029) H 07/27/20 01:55 Total Protein 7.4 g/dL (6.3-8.2) 07/27/20 01:55 Albumin 3.9 g/dL (3.9-5) 07/27/20 01:55 Albumin/Globulin Ratio 1.1 % 07/27/20 01:55 Triglycerides 78 mg/dL (2-149) 07/27/20 01:55 Cholesterol 220 mg/dL (50-199) H 07/27/20 01:55 LDL Cholesterol Direct 102 mg/dL (50-130) 07/27/20 01:55 HDL Cholesterol 126 mg/dL (40-59) H 07/27/20 01:55 Cholesterol/HDL Ratio 1.74 % 07/27/20 01:55 TSH 0.824 mlU/mL (0.270-4.200) 07/27/20 01:55 Urine Color Colorless (Yellow) 07/27/20 02:09 Urine Turbidity Clear (Clear) 07/27/20 02:09 Urine pH 6.0 (5.0-7.0) 07/27/20 02:09 Ur Specific [place] 1.016 (1.003-1.030) 07/27/20 02:09 Urine Protein 100 mg/dl mg/dL (Negative) 07/27/20 02:09 Urine Glucose (UA) >=500 mg/dL (Negative) 07/27/20 02:09 Urine Ketones Neg mg/dL (Negative) 07/27/20 02:09 Urine Blood Mod (Negative) 07/27/20 02:09 Urine Nitrite Neg (Negative) 07/27/20 02:09 Urine Bilirubin Neg (Negative) 07/27/20 02:09 Urine Urobilinogen < 2.0 mg/dL (<2.0) 07/27/20 02:09 Ur Leukocyte Esterase Neg (Negative) 07/27/20 02:09 Urine WBC (Auto) 1.0 /HPF (0.0-6.0) 07/27/20 02:09 Urine RBC (Auto) < 1.0 /HPF (0.0-6.0) 07/27/20 02:09 U Epithel Cells (Auto) < 1.0 /HPF (0-13.0) 07/27/20 02:09 Urine Mucus Few /HPF 07/27/20 02:09 Urine Creatinine 85.6 mg/dL (0.1-20.0) H 07/27/20 19:00 Protein/Creatinin Ratio 2.96 07/27/20 19:00 Urine Sodium 51 mmol/L 07/27/20 19:00 Urine Total Protein 253 mg/dL (5-11.8) H 07/27/20 19:00 Salicylates < 0.3 mg/dL (2.8-20.0) L 07/27/20 01:55 Urine Opiates Screen Presumptive negative 07/27/20 02:09 Urine Methadone Screen Presumptive negative 07/27/20 02:09 Acetaminophen 5.0 ug/mL (10.0-30.0) L 07/27/20 01:55 Ur Barbiturates Screen Presumptive negative 07/27/20 02:09 Ur Phencyclidine Scrn Presumptive negative 07/27/20 02:09 Ur Amphetamines Screen Presumptive negative 07/27/20 02:09 U Benzodiazepines Scrn Presumptive negative 07/27/20 02:09 Urine Cocaine Screen Presumptive negative 07/27/20 02:09 U Marijuana (THC) Screen Presumptive negative 07/27/20 02:09 Drugs of Abuse Note Disclamer 07/27/20 02:09 Plasma/Serum Alcohol < 0.01 % (0-0.07) 07/27/20 01:55 Microbiology: Microbiology 07/27/20 01:55 Peripheral/Venous Blood Culture - Preliminary NO GROWTH AFTER 72 HOURS 07/27/20 01:46 Peripheral/Venous Blood Culture - Preliminary NO GROWTH AFTER 72 HOURS Hilton/IV: Voiding Method Incontinent Active Medications - Current Medications Current Medications: Generic Name Dose Route Start Last Admin Trade Name Freq PRN Reason Stop Dose Admin Acetaminophen 650 mg 07/27/20 04:01 Acetaminophen 325 Mg Tab PO Q4H PRN Pain MILD(1-3)/Fever >100.5/RUIZ Amlodipine Besylate 10 mg 07/27/20 17:00 07/30/20 09:08 Amlodipine 10 Mg Tab PO 10 mg QDAY REPLACED BY [facility] Administration Chlordiazepoxide HCl 50 mg 07/27/20 11:47 Chlordiazepoxide 25 Mg Cap PO Q1HR PRN CIWA-Ar 8-15 Chlordiazepoxide HCl 100 mg 07/27/20 11:47 Chlordiazepoxide 25 Mg Cap PO Q1HR PRN CIWA-Ar 16-25 Dextrose 50 ml 07/27/20 04:01 Dextrose 50% In Water (25gm) 50 Ml Syringe IV Q30MIN PRN Hypoglycemia Protocol Folic Acid 1 mg 07/30/20 10:00 07/30/20 09:08 Folic Acid 1 Mg Tab PO 1 mg DAILY REPLACED BY [facility] Administration Heparin Sodium (Porcine) 5,000 unit 07/27/20 06:00 07/30/20 06:15 Heparin 5,000 Unit/1 Ml Vial SUB-Q Not Given Q8HR REPLACED BY [facility] Hydralazine HCl 10 mg 07/27/20 04:06 Hydralazine 20 Mg/1 Ml Inj IV Q4HR PRN Blood Pressure Hydralazine HCl 50 mg 07/30/20 11:00 Hydralazine 25 Mg Tab PO Q8HR MARY Insulin Human Isoph/Insulin Regular 30 unit 07/29/20 12:30 07/30/20 09:08 Insulin Nph/Regular 70/30 Inj SUB-Q 30 unit BIDDIAB MARY Administration Insulin Human Regular 0 units 07/29/20 18:00 07/30/20 09:07 Insulin Regular, Human 100 Units/1 Ml SUB-Q 3 units ACHS MARY Administration Protocol Labetalol HCl 200 mg 07/27/20 22:00 07/30/20 09:07 Labetalol 200 Mg Tab PO 200 mg BID MARY Administration Lorazepam 2 mg 07/27/20 11:47 07/29/20 14:51 Lorazepam 2 Mg/Ml Vial IV 2 mg Q1HR PRN Administration CIWA-Ar 8-15 Lorazepam 4 mg 07/27/20 11:47 Lorazepam 2 Mg/Ml Vial IV Q1HR PRN CIWA-Ar 16-25 Magnesium Hydroxide 30 ml 07/27/20 04:01 Magnesium Hydroxide (Mom) Oral Liqd Udc PO Q4H PRN Constipation Morphine Sulfate 2 mg 07/27/20 04:01 Morphine 2 Mg/1 Ml Inj IV Q4H PRN Pain, Moderate (4-6) Multivitamins 1 each 07/30/20 10:00 07/30/20 09:15 Multivitamins ,Therapeutic Tab PO 1 each DAILY MARY Administration Ondansetron HCl 4 mg 07/27/20 04:01 Ondansetron 4 Mg/2 Ml Inj IV Q8H PRN Nausea And Vomiting Potassium Chloride 40 meq 07/30/20 10:26 Potassium Chloride Er 20 Meq Tab PO 07/30/20 10:27 ONCE ONE Sodium Chloride 10 ml 07/27/20 10:00 07/30/20 09:15 Sodium Chloride 0.9% 10 Ml Flush Syringe IV Not Given BID MARY Sodium Chloride 10 ml 07/27/20 04:01 Sodium Chloride 0.9% 10 Ml Flush Syringe IV PRN PRN LINE FLUSH Thiamine HCl 100 mg 07/30/20 10:00 07/30/20 09:08 Thiamine 100 Mg Tab PO 100 mg QDAY MARY Administration Nutrition/Malnutrition Assess - Dietary Evaluation Nutrition/Malnutrition Findings: Nutrition Notes Start: 07/27/20 09:22 Freq: Status: Active Protocol: Document 07/27/20 09:22 CW (Rec: 07/27/20 09:26 CW [id number]) Nutrition Notes Need for Assessment generated from: MD Order,Education Initial or Follow up Brief Note Current Diagnosis Acute Kidney Injury Other Pertinent Diagnosis hyperglycemia, AMS, Rhabdomyolysis Labs/Tests BG 773 (ON adm) HgbA1c 15 Chol 220 Na 135 BUN 27 Cr 2.4 Pertinent Medications Humulin NS at 2L Height 6 ft 2 in Weight 86.183 kg [place] Body Weight (kg) 86.36 BMI 24.3 Weight Status Appropriate Subjective/Other Information MD consult for diet education. Diet education inapporpriate at time d/t AMS. Nutrition Intervention Change Diet Order: diet advancement Anticipated Discharge Needs: Cardiac Consistent Carbohydrate diet Follow-Up By: 07/31/20 Additional Comments F/U diet education and intakes
[2020-07-30] MEDS ORDERED: POTASSIUM CHLORIDE ER 20 MEQ TAB PO ONE (11:30)
--- NOTE | 2020-07-30 12:24 | Consultation ---
History of Present Illness - Reason for Consult Consult date: 07/30/20 Reason for consult: MHE Requesting physician: LARRY VICTOR - Chief Complaint Chief complaint: Altered mental status - History of Present Psychiatric Illness Per ED Provider: Patient is 59 years old male, unknown to this facility before. Patient brought to the emergency room via EMS after patient was found wandering around a local by hotel lobby. Patient refusing to answer questions to EMS about his past medical history. Upon arrival patient is alert in no acute distress. He denied any headache, chest pain, weakness numbness or tingling sensation. He stated that his sleepy. Blood glucose check via EMS read as high. Patient is ambulating well with no difficulty. PSYCH HPI Patient is a 59-year-old -[place] male with past psychiatric history of schizophrenia per his sister, and other unspecified medical history including diabetes was admitted to the hospital for altered mental status after initial presentation from the ED as he was found wandering a hotel lobby. Patient seen in the room, patient states that he is the all knowing superior be ing. I aksed patient where he thinks he is, patient says I should ask myself because, I look like I am in [place] myself. Patient states he is in [facility] and the reason he is here is none of my business. Patient states he fights evil Patient is loud, uncoopertaive and irritated, he states he does not want to talk to me anymore. Per Dr Victor: He reports speakingw ith sister and she says patient has history of schizophrenia, has been meds non compliant, family has tried to help and intervene but difficult. PAST PSYCHIATRIC HISTORY Diagnoses: Scheduled Suicide attempts or Self-harm behavior: n/a Prior psychiatric hospitalizations: n/a Substance Abuse history: n/a Previous psychiatric medications tried: n/a Outpatient treatment: n/a PAST MEDICAL HISTORY: DM Family Psychiatric History: None reported or documented SOCIAL HISTORY Marital Status: Unknown Living Arrangements: Home Employment Status: n/a Access to guns/weapons:n/a Education: n/a History of Abuse: n/a Legal History: n/a REVIEW OF SYSTEMS ROS cannot be reliably obtained from the patient due to his confusion MENTAL STATUS EXAMINATION General Appearance and Behavior: Age appropriate, good hygiene, wearing appropriate clothes, poor eye contact, uncooperative with questioning. Cooperation: disengaged Psychomotor Behavior: Psychomotor agitation Mood: n/a Affect and affective range: euthymic, euphoric Thought Process: Illogical, echolalial Thought Content: delusional Speech: pressured, loud volume at times Intellectual Functioning: Average Suicidal Ideation: n/a Homicidal Ideation: n/a Impulse Control: Impaired Insight and Judgment: Limited insight and judgment Memory: impaired Attention: Divided attention impaired Orientation: Alert, oriented Diagnoses: Assessment and Plan - Psychiatric problem (1) Schizophrenia Current Visit: Yes Status: Acute Treatment Plan We will start patient on olanzapine and also Depakote. MEDICATIONS: Risks, benefits and alternatives of medications discussed with the patient, questions answered and consent obtained from patient. PSYCHOTHERAPY: Supportive psychotherapy provided MEDICAL: Per primary team DELIRIUM PRECAUTIONS: Please re-orient patient frequently, keep lights on during the day, and minimize benzodiazepines and opiates as these medications could worsen patient's confusion. PARTS FACILITATOR: DISPOSITION: Do Recommend acute inpatient psychiatric hospitalization at this time. Case discussed with Dr. Powell who agrees with current disposition LEGAL STATUS: 1013 FOLLOW-UP: Will follow Thank you for the consult. Please contact with any questions and/or concerns. Medications and Allergies Allergies Allergy/AdvReac Type Severity Reaction Status Date / Time No Known Allergies Allergy Verified 07/27/20 04:10 Home Medications Medication Instructions Recorded Confirmed Last Taken Type Folic Acid 1 mg PO DAILY #30 tablet 07/28/20 Unknown Rx Insulin NPH/Regular [NovoLIN 70/30] 40 unit SUB-Q BIDDIAB #10 ml 07/28/20 Unknown Rx Multivitamin Tab [Multiple Vitamin 1 each PO QDAY #30 tablet 07/28/20 Unknown Rx TAB (Theragran)] Thiamine HCl [Vitamin B-1] 100 mg PO DAILY #30 tablet 07/28/20 Unknown Rx amLODIPine 10 mg PO QDAY #10 tablet 07/28/20 Unknown Rx labetaloL [Labetalol 200mg TAB] 200 mg PO BID #60 tablet 07/28/20 Unknown Rx Hydralazine HCl 50 mg PO TID #90 tablet 07/30/20 Unknown Rx Active Meds: Active Medications Acetaminophen (Acetaminophen 325 Mg Tab) 650 mg PO Q4H PRN PRN Reason: Pain MILD(1-3)/Fever >100.5/RUIZ Amlodipine Besylate (Amlodipine 10 Mg Tab) 10 mg PO QDAY MARY Last Admin: 07/30/20 09:08 Dose: 10 mg Documented by: Chlordiazepoxide HCl (Chlordiazepoxide 25 Mg Cap) 50 mg PO Q1HR PRN PRN Reason: [facility] 8-15 Chlordiazepoxide HCl (Chlordiazepoxide 25 Mg Cap) 100 mg PO Q1HR PRN PRN Reason: [facility] 16-25 Dextrose (Dextrose 50% In Water (25gm) 50 Ml Syringe) 50 ml IV Q30MIN PRN; Pro tocol PRN Reason: Hypoglycemia Folic Acid (Folic Acid 1 Mg Tab) 1 mg PO DAILY [facility] Last Admin: 07/30/20 09:08 Dose: 1 mg Documented by: Heparin Sodium (Porcine) (Heparin 5,000 Unit/1 Ml Vial) 5,000 unit SUB-Q Q8HR [facility] Last Admin: 07/30/20 06:15 Dose: Not Given Documented by: Hydralazine HCl (Hydralazine 20 Mg/1 Ml Inj) 10 mg IV Q4HR PRN PRN Reason: Blood Pressure Hydralazine HCl (Hydralazine 25 Mg Tab) 50 mg PO Q8HR [facility] Insulin Human Isoph/Insulin Regular (Insulin Nph/Regular 70/30 Inj) 30 unit SUB-Q BIDDIAB [facility] Last Admin: 07/30/20 09:08 Dose: 30 unit Documented by: Insulin Human Regular (Insulin Regular, Human 100 Units/1 Ml) 0 units SUB-Q ACHS [facility]; Protocol Last Admin: 07/30/20 09:07 Dose: 3 units Documented by: Labetalol HCl (Labetalol 200 Mg Tab) 200 mg PO BID [facility] Last Admin: 07/30/20 09:07 Dose: 200 mg Documented by: Lorazepam (Lorazepam 2 Mg/Ml Vial) 2 mg IV Q1HR PRN PRN Reason: [facility] 8- Last Admin: 07/29/20 14:51 Dose: 2 mg Documented by: Lorazepam (Lorazepam 2 Mg/Ml Vial) 4 mg IV Q1HR PRN PRN Reason: [facility] 16- Magnesium Hydroxide (Magnesium Hydroxide (Mom) Oral Liqd Udc) 30 ml PO Q4H PRN PRN Reason: Constipation Morphine Sulfate (Morphine 2 Mg/1 Ml Inj) 2 mg IV Q4H PRN PRN Reason: Pain, Moderate (4-6) Multivitamins (Multivitamins ,Therapeutic Tab) 1 each PO DAILY [facility] Last Admin: 07/30/20 09:15 Dose: 1 each Documented by: Ondansetron HCl (Ondansetron 4 Mg/2 Ml Inj) 4 mg IV Q8H PRN PRN Reason: Nausea And Vomiting Sodium Chloride (Sodium Chloride 0.9% 10 Ml Flush Syringe) 10 ml IV BID [facility] Last Admin: 07/30/20 09:15 Dose: Not Given Documented by: Sodium Chloride (Sodium Chloride 0.9% 10 Ml Flush Syringe) 10 ml IV PRN PRN PRN Reason: LINE FLUSH Thiamine HCl (Thiamine 100 Mg Tab) 100 mg PO QDAY [facility] Last Admin: 07/30/20 09:08 Dose: 100 mg Documented by: Ziprasidone (Ziprasidone Mesylate 20 Mg Vial) 20 mg IM ONCE ONE Stop: 07/30/20 12:20 Mental Status Exam - Vital signs Last Vital Signs Temp 98.3 F 07/30/20 08:11 Pulse 86 07/30/20 11:00 Resp 18 07/30/20 11:00 BP 162/101 07/30/20 09:08 Pulse Ox 96 07/30/20 11:00 Results Result Diagrams: 07/29/20 05:03 07/30/20 05:31 Abnormal lab results 07/29/20 07/29/20 07/29/20 Range/Units 11:26 16:19 20:23 Potassium (3.6-5.0) mmol/L Chloride (98-107) mmol/L Creatinine (0.8-1.3) mg/dL Glucose (75-100) mg/dL POC Glucose 284 H 151 H 143 H (70-105) mg/dL 07/30/20 07/30/20 Range/Units 05:31 08:10 Potassium 3.5 L (3.6-5.0) mmol/L Chloride 107.1 H (98-107) mmol/L Creatinine 1.6 H (0.8-1.3) mg/dL Glucose 276 H (75-100) mg/dL POC Glucose 264 H (70-105) mg/dL All other labs normal. Assessment and Plan - Psychiatric problem (1) Schizophrenia Current Visit: Yes Status: Acute
[2020-07-30] MEDS: hydrALAZINE 25 MG TAB PO SCH ×3 (12:32→21:40)
[2020-07-30] MEDS: VALPROIC ACID 250 MG CAP PO SCH ×2 (13:08→21:42)
[2020-07-30] MEDS ORDERED: ZIPRASIDONE MESYLATE 20 MG VIAL IM ONE (13:19)
[2020-07-30] MEDS: ACETAMINOPHEN 325 MG TAB PO PRN (15:14)
[2020-07-31] MEDS: hydrALAZINE 25 MG TAB PO SCH ×3 (06:45→21:50)
[2020-07-31] MEDS: HEPARIN 5,000 UNIT/1 ML VIAL SUB-Q SCH ×3 (06:46→21:47)
[2020-07-31] MEDS: VALPROIC ACID 250 MG CAP PO SCH ×3 (06:50→21:48)
[2020-07-31] MEDS: INSULIN NPH/REGULAR 70/30 INJ SUB-Q SCH ×2 (09:24→18:18)
[2020-07-31] MEDS: THIAMINE 100 MG TAB PO SCH (09:24)
[2020-07-31] MEDS: MULTIVITAMINS ,THERAPEUTIC TAB PO SCH (09:24)
[2020-07-31] MEDS: amLODIPine 10 MG TAB PO SCH (09:24)
[2020-07-31] MEDS: FOLIC ACID 1 MG TAB PO SCH (09:24)
[2020-07-31] MEDS: INSULIN REGULAR, HUMAN 100 UNITS/1 ML SUB-Q SCH ×5 (09:25→21:46)
[2020-07-31] MEDS: POTASSIUM CHLORIDE ER 20 MEQ TAB PO SCH ×2 (12:08→14:05)
[2020-08-01] MEDS: hydrALAZINE 25 MG TAB PO SCH ×3 (05:42→22:24)
[2020-08-01] MEDS: VALPROIC ACID 250 MG CAP PO SCH ×3 (05:43→22:26)
[2020-08-01] MEDS: HEPARIN 5,000 UNIT/1 ML VIAL SUB-Q SCH ×3 (05:44→22:24)
[2020-08-01 07:11] LABS: Calcium 9.1 mg/dL (8.4-10.2)
[2020-08-01] MEDS: INSULIN NPH/REGULAR 70/30 INJ SUB-Q SCH ×2 (08:45→16:29)
[2020-08-01] MEDS: INSULIN REGULAR, HUMAN 100 UNITS/1 ML SUB-Q SCH ×4 (08:45→22:26)
[2020-08-01] MEDS: ACETAMINOPHEN 325 MG TAB PO PRN ×2 (09:26→14:05)
[2020-08-01] MEDS: amLODIPine 10 MG TAB PO SCH (09:27)
[2020-08-01] MEDS: MULTIVITAMINS ,THERAPEUTIC TAB PO SCH (09:27)
[2020-08-01] MEDS: FOLIC ACID 1 MG TAB PO SCH (09:27)
[2020-08-01] MEDS: THIAMINE 100 MG TAB PO SCH (09:28)
--- NOTE | 2020-08-01 10:21 | Progress Note ---
Assessment and Plan Assessment and plan: Assessment and Plan Assessment and plan: 59-year-old -Thai male with no known past medical problems and who has not been seen at this facility in the past was brought in to the emergency room today by EMS for altered mental status. Patient was found to be wandering around in a hotel lobby and refusing to answer questions when asked by EMS. Accu-Chek prior to arrival in the emergency room was said to be reading high. Upon arrival in the emergency room was alert and in no acute distress but still refusing to answer questions. Was looking drowsy. Work-up in the emergency room today reveals hyperglycemia with blood sugar greater than 700, elevated creatinine kinase greater than 3000, elevated creatinine level. CT scan of the head was unremarkable. UDS is still being awaited. Patient being admitted with altered mental status, hyperglycemia, rhabdomyolysis and acute kidney injury. Patient was treated with fluid hydration and counseling verbalized understanding. He is clinically improved. Counseling was provided on insulin management. It appears he is homeless extensive counseling was provided in case management assistance was requested. 07/29: Continue supportive care, no new complaints. Clinical stable but still lethargic, gait instability precludes discharge yet as patient is homeless 07/30: Some delirious behavior this morning will await psych evaluation. We will continue current management. Blood pressure elevated this morning as patient did not take his medication encouraged to take his meds hydralazine added due to persistent increase despite taking the meds. Disposition will be based on psych evaluation. 08/01. Psych following. Pending discharge to psych facility. Vitals stable Acute metabolic encephalopathy likely secondary to EtOH use disorder Diabetes mellitus with hyperglycemia none DKA [place] encephalopathy Acute kidney disease with possible gastropathy on chronic kidney disease Rhabdomyolysis secondary to dehydration Hypokalemia EtOH use disorder plan Pt was planned for discharge today but for some reason did not get full PT eval Continue CIWA protocol CM working on placement for the patient Extensive counseling provided to the patient about substance use and EtOH. Continue IV fluids and monitor renal function DVT and GI prophylaxis History Interval history: Patient seen and examined at bedside this morning No complaints noted Pending discharge to psych facility Hospitalist Physical - Physical exam Narrative exam: VITAL SIGNS: Reviewed. GENERAL: Awake HEAD: No signs of head trauma. EYES: Pupils are equal. Extraocular motions intact. MOUTH: Oropharynx is normal. NECK: No adenopathy, no JVD. CHEST: Chest with diminished breath sounds bilaterally. No wheezes, rales, or rhonchi. CARDIAC: normal S1 and S2, without murmurs, gallops, or rubs. ABDOMEN: Soft, non tender and non distended. No rebound or guarding, and no masses palpated. Bowel Sounds normal. MUSCULOSKELETAL: No edema NEUROLOGIC EXAM: Alert and oriented x3. No focal neurologic deficits SKIN: No obvious lesions - Constitutional Vitals: Temp Pulse Resp BP Pulse Ox 98.8 F 89 18 139/79 96 08/01/20 06:53 08/01/20 09:27 08/01/20 06:53 08/01/20 09:27 08/01/20 06:53 HEART Score - HEART Score Troponin: Troponin T 0.056 ng/mL (0.00-0.029) H 07/27/20 01:55 Results - Labs CBC & Chem 7: 07/29/20 05:03 08/01/20 06:03 Labs: Laboratory Last Values WBC 6.4 K/mm3 (4.5-11.0) 07/29/20 05:03 RBC 4.14 M/mm3 (3.65-5.03) 07/29/20 05:03 Hgb 11.8 gm/dl (11.8-15.2) 07/29/20 05:03 Hct 36.1 % (35.5-45.6) 07/29/20 05:03 MCV 87 fl (84-94) 07/29/20 05:03 MCH 29 pg (28-32) 07/29/20 05:03 MCHC 33 % (32-34) 07/29/20 05:03 RDW 15.0 % (13.2-15.2) 07/29/20 05:03 Plt Count 278 K/mm3 (140-440) 07/29/20 05:03 Lymph % (Auto) 11.8 % (13.4-35.0) L 07/28/20 04:39 [place] % (Auto) 6.5 % (0.0-7.3) 07/28/20 04:39 Eos % (Auto) 0.9 % (0.0-4.3) 07/28/20 04:39 Baso % (Auto) 0.5 % (0.0-1.8) 07/28/20 04:39 Lymph # (Auto) 1.0 K/mm3 (1.2-5.4) L 07/28/20 04:39 [place] # (Auto) 0.6 K/mm3 (0.0-0.8) 07/28/20 04:39 Eos # (Auto) 0.1 K/mm3 (0.0-0.4) 07/28/20 04:39 Baso # (Auto) 0.0 K/mm3 (0.0-0.1) 07/28/20 04:39 Seg Neutrophils % 80.3 % (40.0-70.0) H 07/28/20 04:39 Seg Neutrophils # 6.9 K/mm3 (1.8-7.7) 07/28/20 04:39 PT 12.7 Sec. (12.2-14.9) 07/28/20 04:39 INR 0.97 (0.87-1.13) 07/28/20 04:39 APTT 33.0 Sec. (24.2-36.6) 07/27/20 01:55 Sodium 141 mmol/L (137-145) 08/01/20 06:03 Potassium 4.1 mmol/L (3.6-5.0) D 08/01/20 06:03 Chloride 109.1 mmol/L (98-107) H 08/01/20 06:03 Carbon Dioxide 25 mmol/L (22-30) 08/01/20 06:03 Anion Gap 11 mmol/L 08/01/20 06:03 BUN 30 mg/dL (9-20) H 08/01/20 06:03 Creatinine 2.0 mg/dL (0.8-1.3) H 08/01/20 06:03 Estimated GFR 42 ml/min 08/01/20 06:03 BUN/Creatinine Ratio 15 % 08/01/20 06:03 Glucose 184 mg/dL (75-100) H 08/01/20 06:03 POC Glucose 167 mg/dL (70-105) H 07/31/20 20:23 Hemoglobin A1c 15.0 % (4-6) H 07/27/20 01:55 Lactic Acid 1.60 mmol/L (0.7-2.0) 07/27/20 01:55 Calcium 9.1 mg/dL (8.4-10.2) 08/01/20 06:03 Phosphorus 2.70 mg/dL (2.5-4.5) 07/28/20 04:39 Magnesium 1.80 mg/dL (1.7-2.3) 07/28/20 04:39 Total Bilirubin 0.50 mg/dL (0.1-1.2) 07/27/20 01:55 Direct Bilirubin < 0.2 mg/dL (0-0.2) 07/27/20 01:55 Indirect Bilirubin 0.3 mg/dL 07/27/20 01:55 AST 72 units/L (5-40) H 07/27/20 01:55 ALT 57 units/L (7-56) H 07/27/20 01:55 Alkaline Phosphatase 163 units/L (35-129) H 07/27/20 01:55 Ammonia 18.0 umol/L (25-60) L 07/27/20 01:55 Total Creatine Kinase 363 units/L (55-170) H 07/29/20 05:03 Troponin T 0.056 ng/mL (0.00-0.029) H 07/27/20 01:55 Total Protein 7.4 g/dL (6.3-8.2) 07/27/20 01:55 Albumin 3.9 g/dL (3.9-5) 07/27/20 01:55 Albumin/Globulin Ratio 1.1 % 07/27/20 01:55 Triglycerides 78 mg/dL (2-149) 07/27/20 01:55 Cholesterol 220 mg/dL (50-199) H 07/27/20 01:55 LDL Cholesterol Direct 102 mg/dL (50-130) 07/27/20 01:55 HDL Cholesterol 126 mg/dL (40-59) H 07/27/20 01:55 Cholesterol/HDL Ratio 1.74 % 07/27/20 01:55 TSH 0.824 mlU/mL (0.270-4.200) 07/27/20 01:55 Urine Color Colorless (Yellow) 07/27/20 02:09 Urine Turbidity Clear (Clear) 07/27/20 02:09 Urine pH 6.0 (5.0-7.0) 07/27/20 02:09 Ur Specific [place] 1.016 (1.003-1.030) 07/27/20 02:09 Urine Protein 100 mg/dl mg/dL (Negative) 07/27/20 02:09 Urine Glucose (UA) >=500 mg/dL (Negative) 07/27/20 02:09 Urine Ketones Neg mg/dL (Negative) 07/27/20 02:09 Urine Blood Mod (Negative) 07/27/20 02:09 Urine Nitrite Neg (Negative) 07/27/20 02:09 Urine Bilirubin Neg (Negative) 07/27/20 02:09 Urine Urobilinogen < 2.0 mg/dL (<2.0) 07/27/20 02:09 Ur Leukocyte Esterase Neg (Negative) 07/27/20 02:09 Urine WBC (Auto) 1.0 /HPF (0.0-6.0) 07/27/20 02:09 Urine RBC (Auto) < 1.0 /HPF (0.0-6.0) 07/27/20 02:09 U Epithel Cells (Auto) < 1.0 /HPF (0-13.0) 07/27/20 02:09 Urine Mucus Few /HPF 07/27/20 02:09 Urine Creatinine 85.6 mg/dL (0.1-20.0) H 07/27/20 19:00 Protein/Creatinin Ratio 2.96 07/27/20 19:00 Urine Sodium 51 mmol/L 07/27/20 19:00 Urine Total Protein 253 mg/dL (5-11.8) H 07/27/20 19:00 Salicylates < 0.3 mg/dL (2.8-20.0) L 07/27/20 01:55 Urine Opiates Screen Presumptive negative 07/27/20 02:09 Urine Methadone Screen Presumptive negative 07/27/20 02:09 Acetaminophen 5.0 ug/mL (10.0-30.0) L 07/27/20 01:55 Ur Barbiturates Screen Presumptive negative 07/27/20 02:09 Ur Phencyclidine Scrn Presumptive negative 07/27/20 02:09 Ur Amphetamines Screen Presumptive negative 07/27/20 02:09 U Benzodiazepines Scrn Presumptive negative 07/27/20 02:09 Urine Cocaine Screen Presumptive negative 07/27/20 02:09 U Marijuana (THC) Screen Presumptive negative 07/27/20 02:09 Drugs of Abuse Note Disclamer 07/27/20 02:09 Plasma/Serum Alcohol < 0.01 % (0-0.07) 07/27/20 01:55 Microbiology: Microbiology 07/27/20 01:55 Peripheral/Venous Blood Culture - Final NO GROWTH AFTER 5 DAYS 07/27/20 01:46 Peripheral/Venous Blood Culture - Final NO GROWTH AFTER 5 DAYS Hilton/IV: Voiding Method Toilet Active Medications - Current Medications Current Medications: Generic Name Dose Route Start Last Admin Trade Name Freq PRN Reason Stop Dose Admin Acetaminophen 650 mg 07/27/20 04:01 08/01/20 09:26 Acetaminophen 325 Mg Tab PO 650 mg Q4H PRN Administration Pain MILD(1-3)/Fever >100.5/RUIZ Amlodipine Besylate 10 mg 07/27/20 17:00 08/01/20 09:27 Amlodipine 10 Mg Tab PO 10 mg QDAY MARY Administration Chlordiazepoxide HCl 50 mg 07/27/20 11:47 Chlordiazepoxide 25 Mg Cap PO Q1HR PRN CIWA-Ar 8-15 Chlordiazepoxide HCl 100 mg 07/27/20 11:47 07/30/20 21:41 Chlordiazepoxide 25 Mg Cap PO 100 mg Q1HR PRN Administration CIWA-Ar 16-25 Dextrose 50 ml 07/27/20 04:01 Dextrose 50% In Water (25gm) 50 Ml Syringe IV Q30MIN PRN Hypoglycemia Protocol Folic Acid 1 mg 07/30/20 10:00 08/01/20 09:27 Folic Acid 1 Mg Tab PO 1 mg DAILY MARY Administration Heparin Sodium (Porcine) 5,000 unit 07/27/20 06:00 08/01/20 05:44 Heparin 5,000 Unit/1 Ml Vial SUB-Q 5,000 unit Q8HR MARY Administration Hydralazine HCl 10 mg 07/27/20 04:06 Hydralazine 20 Mg/1 Ml Inj IV Q4HR PRN Blood Pressure Hydralazine HCl 50 mg 07/30/20 11:00 08/01/20 05:42 Hydralazine 25 Mg Tab PO 50 mg Q8HR MARY Administration Insulin Human Isoph/Insulin Regular 30 unit 07/29/20 12:30 08/01/20 08:45 Insulin Nph/Regular 70/30 Inj SUB-Q Not Given BIDDIAB MARY Insulin Human Regular 0 units 07/29/20 18:00 08/01/20 08:45 Insulin Regular, Human 100 Units/1 Ml SUB-Q Not Given [facility] Protocol Labetalol HCl 200 mg 07/27/20 22:00 08/01/20 09:27 Labetalol 200 Mg Tab PO 200 mg BID MARY Administration Lorazepam 2 mg 07/27/20 11:47 07/29/20 14:51 Lorazepam 2 Mg/Ml Vial IV 2 mg Q1HR PRN Administration CIWA-Ar 8-15 Lorazepam 4 mg 07/27/20 11:47 Lorazepam 2 Mg/Ml Vial IV Q1HR PRN CIWA-Ar 16-25 Magnesium Hydroxide 30 ml 07/27/20 04:01 Magnesium Hydroxide (Mom) Oral Liqd Udc PO Q4H PRN Constipation Morphine Sulfate 2 mg 07/27/20 04:01 Morphine 2 Mg/1 Ml Inj IV Q4H PRN Pain, Moderate (4-6) Multivitamins 1 each 07/30/20 10:00 08/01/20 09:27 Multivitamins ,Therapeutic Tab PO 1 each DAILY MARY Administration Olanzapine 5 mg 07/30/20 22:00 07/31/20 21:49 Olanzapine 5 Mg Tab PO Not Given QHS MARY Ondansetron HCl 4 mg 07/27/20 04:01 Ondansetron 4 Mg/2 Ml Inj IV Q8H PRN Nausea And Vomiting Sodium Chloride 10 ml 07/27/20 10:00 08/01/20 10:17 Sodium Chloride 0.9% 10 Ml Flush Syringe IV Not Given BID MARY Sodium Chloride 10 ml 07/27/20 04:01 Sodium Chloride 0.9% 10 Ml Flush Syringe IV PRN PRN LINE FLUSH Thiamine HCl 100 mg 07/30/20 10:00 08/01/20 09:28 Thiamine 100 Mg Tab PO 100 mg QDAY MARY Administration Valproic Acid 250 mg 07/30/20 14:00 08/01/20 05:43 Valproic Acid 250 Mg Cap PO 250 mg Q8HR MARY Administration Nutrition/Malnutrition Assess - Dietary Evaluation Nutrition/Malnutrition Findings: Nutrition Notes Start: 07/27/20 09:22 Freq: Status: Active Protocol: Document 07/31/20 10:03 SUNI (Rec: 07/31/20 10:10 SUNI [id number]) Nutrition Notes Initial or Follow up Brief Note Current Diagnosis Acute Kidney Injury Other Pertinent Diagnosis hyperglycemia, AMS, Rhabdomyolysis Current Diet Consistent CHO Subjective/Other Information FU for diet education. Pt eating second breakfast tray at time of visit. Pt reports eating a specific diet at home . He states he knows how to manage his DM has no questions or concerns about his diet. Pt accepted handout. #1 Nutrition Diagnosis Limited adherence to nutrition -related recommendations Etiology motivation or lack of understanding As Evidenced by Signs and Symptoms pt reports having a CHO controlled diet however, A1c is 15% Nutrition Intervention Change Diet Order: double protein and vegetable portions Teaching Recipient Patient Learning Readiness Poor Teaching Methods Handout Response to Teaching Refuses to learn Education Handouts Provided CHO Counting for DM Reading Nutrition Labels Barriers to Learning Motivation RD phone number provided Yes Patient aware of follow up options Yes Revisit per MD consult or patient Sign Off request:
--- NOTE | 2020-08-01 11:06 | Progress Note ---
Subjective - Reason for Consult Consult date: 08/01/20 Reason for consult: MHE Requesting physician: LARRY HAN - Chief Complaint Chief complaint: Psych Progress: Patient seen in room, says he got some money from God over [id number], and he is now rich and can spend and live life he wants to live. REVIEW OF SYSTEMS ROS cannot be reliably obtained from the patient due to his confusion MENTAL STATUS EXAMINATION General Appearance and Behavior: Age appropriate, good hygiene, wearing appropriate clothes, poor eye contact, uncooperative with questioning. Cooperation: disengaged Psychomotor Behavior: Psychomotor agitation Mood: n/a Affect and affective range: euthymic, euphoric Thought Process: Illogical, echolalial Thought Content: delusional Speech: pressured, loud volume at times Intellectual Functioning: Average Suicidal Ideation: n/a Homicidal Ideation: n/a Impulse Control: Impaired Insight and Judgment: Limited insight and judgment Memory: impaired Attention: Divided attention impaired Orientation: Alert, oriented Diagnoses: Assessment and Plan - Psychiatric problem (1) Schizophrenia Current Visit: Yes Status: Acute Treatment Plan We will start patient on olanzapine and also Depakote. MEDICATIONS: Risks, benefits and alternatives of medications discussed with the patient, questions answered and consent obtained from patient. PSYCHOTHERAPY: Supportive psychotherapy provided MEDICAL: Per primary team DELIRIUM PRECAUTIONS: Please re-orient patient frequently, keep lights on during the day, and minimize benzodiazepines and opiates as these medications could worsen patient's confusion. [employer]PER[employer]OR: DISPOSITION: Do Recommend acute inpatient psychiatric hospitalization at this time. Case discussed with Dr. Powell who agrees with current disposition LEGAL STATUS: 1013 FOLLOW-UP: Will follow Thank you for the consult. Please contact with any questions and/or concerns. Mental Status Exam - Vital signs Last Vital Signs Temp 98.1 F 08/01/20 10:49 Pulse 84 08/01/20 10:49 Resp 19 08/01/20 10:49 BP 127/74 08/01/20 10:49 Pulse Ox 98 08/01/20 10:49 Assessment and Plan - Patient Problems (1) Schizophrenia Current Visit: Yes Status: Acute
[2020-08-02] MEDS: hydrALAZINE 25 MG TAB PO SCH ×3 (06:43→22:33)
[2020-08-02] MEDS: VALPROIC ACID 250 MG CAP PO SCH ×3 (06:46→22:33)
[2020-08-02] MEDS: HEPARIN 5,000 UNIT/1 ML VIAL SUB-Q SCH ×3 (06:46→22:33)
[2020-08-02] MEDS: INSULIN NPH/REGULAR 70/30 INJ SUB-Q SCH ×2 (09:32→17:16)
[2020-08-02] MEDS: ACETAMINOPHEN 325 MG TAB PO PRN (09:33)
[2020-08-02] MEDS: amLODIPine 10 MG TAB PO SCH (09:33)
[2020-08-02] MEDS: INSULIN REGULAR, HUMAN 100 UNITS/1 ML SUB-Q SCH ×4 (09:33→22:34)
[2020-08-02] MEDS: THIAMINE 100 MG TAB PO SCH (09:33)
[2020-08-02] MEDS: MULTIVITAMINS ,THERAPEUTIC TAB PO SCH (09:33)
[2020-08-02] MEDS: FOLIC ACID 1 MG TAB PO SCH (09:34)
--- NOTE | 2020-08-02 10:01 | Progress Note ---
Assessment and Plan Assessment and plan: Assessment and Plan Assessment and plan: 59-year-old -[place] male with no known past medical problems and who has not been seen at this facility in the past was brought in to the emergency room today by EMS for altered mental status. Patient was found to be wandering around in a hotel lobby and refusing to answer questions when asked by EMS. Accu-Chek prior to arrival in the emergency room was said to be reading high. Upon arrival in the emergency room was alert and in no acute distress but still refusing to answer questions. Was looking drowsy. Work-up in the emergency room today reveals hyperglycemia with blood sugar greater than 700, elevated creatinine kinase greater than 3000, elevated creatinine level. CT scan of the head was unremarkable. UDS is still being awaited. Patient being admitted with altered mental status, hyperglycemia, rhabdomyolysis and acute kidney injury. Patient was treated with fluid hydration and counseling verbalized understanding. He is clinically improved. Counseling was provided on insulin management. It appears he is homeless extensive counseling was provided in case management assistance was requested. 07/29: Continue supportive care, no new complaints. Clinical stable but still lethargic, gait instability precludes discharge yet as patient is homeless 07/30: Some delirious behavior this morning will await psych evaluation. We will continue current management. Blood pressure elevated this morning as patient did not take his medication encouraged to take his meds hydralazine added due to persistent increase despite taking the meds. Disposition will be based on psych evaluation. 08/01. Psych following. Pending discharge to psych facility. Vitals stable Acute metabolic encephalopathy likely secondary to EtOH use disorder Diabetes mellitus with hyperglycemia none DKA Warnicke encephalopathy Acute kidney disease with possible gastropathy on chronic kidney disease Rhabdomyolysis secondary to dehydration Hypokalemia EtOH use disorder plan Pending discharge to inpatient psych. Continue [facility] protocol CM working on placement for the patient Extensive counseling provided to the patient about substance use and EtOH. DVT and GI prophylaxis History Interval history: Patient seen and examined at bedside this morning No complaints noted Pending discharge to psych facility Hospitalist Physical - Physical exam Narrative exam: VITAL SIGNS: Reviewed. GENERAL: Awake HEAD: No signs of head trauma. EYES: Pupils are equal. Extraocular motions intact. MOUTH: Oropharynx is normal. NECK: No adenopathy, no JVD. CHEST: Chest with diminished breath sounds bilaterally. No wheezes, rales, or rhonchi. CARDIAC: normal S1 and S2, without murmurs, gallops, or rubs. ABDOMEN: Soft, non tender and non distended. No rebound or guarding, and no masses palpated. Bowel Sounds normal. MUSCULOSKELETAL: No edema NEUROLOGIC EXAM: Alert and oriented x3. No focal neurologic deficits SKIN: No obvious lesions - Constitutional Vitals: Temp Pulse Resp BP Pulse Ox 97.9 F 94 H 20 160/90 96 08/02/20 07:04 08/02/20 07:04 08/02/20 07:04 08/02/20 07:04 08/02/20 07:04 HEART Score - HEART Score Troponin: Troponin T 0.056 ng/mL (0.00-0.029) H 07/27/20 01:55 Results - Labs CBC & Chem 7: 07/29/20 05:03 08/01/20 06:03 Labs: Laboratory Last Values WBC 6.4 K/mm3 (4.5-11.0) 07/29/20 05:03 RBC 4.14 M/mm3 (3.65-5.03) 07/29/20 05:03 Hgb 11.8 gm/dl (11.8-15.2) 07/29/20 05:03 Hct 36.1 % (35.5-45.6) 07/29/20 05:03 MCV 87 fl (84-94) 07/29/20 05:03 MCH 29 pg (28-32) 07/29/20 05:03 MCHC 33 % (32-34) 07/29/20 05:03 RDW 15.0 % (13.2-15.2) 07/29/20 05:03 Plt Count 278 K/mm3 (140-440) 07/29/20 05:03 Lymph % (Auto) 11.8 % (13.4-35.0) L 07/28/20 04:39 [place] % (Auto) 6.5 % (0.0-7.3) 07/28/20 04:39 Eos % (Auto) 0.9 % (0.0-4.3) 07/28/20 04:39 Baso % (Auto) 0.5 % (0.0-1.8) 07/28/20 04:39 Lymph # (Auto) 1.0 K/mm3 (1.2-5.4) L 07/28/20 04:39 [place] # (Auto) 0.6 K/mm3 (0.0-0.8) 07/28/20 04:39 Eos # (Auto) 0.1 K/mm3 (0.0-0.4) 07/28/20 04:39 Baso # (Auto) 0.0 K/mm3 (0.0-0.1) 07/28/20 04:39 Seg Neutrophils % 80.3 % (40.0-70.0) H 07/28/20 04:39 Seg Neutrophils # 6.9 K/mm3 (1.8-7.7) 07/28/20 04:39 PT 12.7 Sec. (12.2-14.9) 07/28/20 04:39 INR 0.97 (0.87-1.13) 07/28/20 04:39 APTT 33.0 Sec. (24.2-36.6) 07/27/20 01:55 Sodium 141 mmol/L (137-145) 08/01/20 06:03 Potassium 4.1 mmol/L (3.6-5.0) D 08/01/20 06:03 Chloride 109.1 mmol/L (98-107) H 08/01/20 06:03 Carbon Dioxide 25 mmol/L (22-30) 08/01/20 06:03 Anion Gap 11 mmol/L 08/01/20 06:03 BUN 30 mg/dL (9-20) H 08/01/20 06:03 Creatinine 2.0 mg/dL (0.8-1.3) H 08/01/20 06:03 Estimated GFR 42 ml/min 08/01/20 06:03 BUN/Creatinine Ratio 15 % 08/01/20 06:03 Glucose 184 mg/dL (75-100) H 08/01/20 06:03 POC Glucose 312 mg/dL (70-105) H 08/02/20 07:08 Hemoglobin A1c 15.0 % (4-6) H 07/27/20 01:55 Lactic Acid 1.60 mmol/L (0.7-2.0) 07/27/20 01:55 Calcium 9.1 mg/dL (8.4-10.2) 08/01/20 06:03 Phosphorus 2.70 mg/dL (2.5-4.5) 07/28/20 04:39 Magnesium 1.80 mg/dL (1.7-2.3) 07/28/20 04:39 Total Bilirubin 0.50 mg/dL (0.1-1.2) 07/27/20 01:55 Direct Bilirubin < 0.2 mg/dL (0-0.2) 07/27/20 01:55 Indirect Bilirubin 0.3 mg/dL 07/27/20 01:55 AST 72 units/L (5-40) H 07/27/20 01:55 ALT 57 units/L (7-56) H 07/27/20 01:55 Alkaline Phosphatase 163 units/L (35-129) H 07/27/20 01:55 Ammonia 18.0 umol/L (25-60) L 07/27/20 01:55 Total Creatine Kinase 363 units/L (55-170) H 07/29/20 05:03 Troponin T 0.056 ng/mL (0.00-0.029) H 07/27/20 01:55 Total Protein 7.4 g/dL (6.3-8.2) 07/27/20 01:55 Albumin 3.9 g/dL (3.9-5) 07/27/20 01:55 Albumin/Globulin Ratio 1.1 % 07/27/20 01:55 Triglycerides 78 mg/dL (2-149) 07/27/20 01:55 Cholesterol 220 mg/dL (50-199) H 07/27/20 01:55 LDL Cholesterol Direct 102 mg/dL (50-130) 07/27/20 01:55 HDL Cholesterol 126 mg/dL (40-59) H 07/27/20 01:55 Cholesterol/HDL Ratio 1.74 % 07/27/20 01:55 TSH 0.824 mlU/mL (0.270-4.200) 07/27/20 01:55 Urine Color Colorless (Yellow) 07/27/20 02:09 Urine Turbidity Clear (Clear) 07/27/20 02:09 Urine pH 6.0 (5.0-7.0) 07/27/20 02:09 Ur Specific [place] 1.016 (1.003-1.030) 07/27/20 02:09 Urine Protein 100 mg/dl mg/dL (Negative) 07/27/20 02:09 Urine Glucose (UA) >=500 mg/dL (Negative) 07/27/20 02:09 Urine Ketones Neg mg/dL (Negative) 07/27/20 02:09 Urine Blood Mod (Negative) 07/27/20 02:09 Urine Nitrite Neg (Negative) 07/27/20 02:09 Urine Bilirubin Neg (Negative) 07/27/20 02:09 Urine Urobilinogen < 2.0 mg/dL (<2.0) 07/27/20 02:09 Ur Leukocyte Esterase Neg (Negative) 07/27/20 02:09 Urine WBC (Auto) 1.0 /HPF (0.0-6.0) 07/27/20 02:09 Urine RBC (Auto) < 1.0 /HPF (0.0-6.0) 07/27/20 02:09 U Epithel Cells (Auto) < 1.0 /HPF (0-13.0) 07/27/20 02:09 Urine Mucus Few /HPF 07/27/20 02:09 Urine Creatinine 85.6 mg/dL (0.1-20.0) H 07/27/20 19:00 Protein/Creatinin Ratio 2.96 07/27/20 19:00 Urine Sodium 51 mmol/L 07/27/20 19:00 Urine Total Protein 253 mg/dL (5-11.8) H 07/27/20 19:00 Salicylates < 0.3 mg/dL (2.8-20.0) L 07/27/20 01:55 Urine Opiates Screen Presumptive negative 07/27/20 02:09 Urine Methadone Screen Presumptive negative 07/27/20 02:09 Acetaminophen 5.0 ug/mL (10.0-30.0) L 07/27/20 01:55 Ur Barbiturates Screen Presumptive negative 07/27/20 02:09 Ur Phencyclidine Scrn Presumptive negative 07/27/20 02:09 Ur Amphetamines Screen Presumptive negative 07/27/20 02:09 U Benzodiazepines Scrn Presumptive negative 07/27/20 02:09 Urine Cocaine Screen Presumptive negative 07/27/20 02:09 U Marijuana (THC) Screen Presumptive negative 07/27/20 02:09 Drugs of Abuse Note Disclamer 07/27/20 02:09 Plasma/Serum Alcohol < 0.01 % (0-0.07) 07/27/20 01:55 Hilton/IV: Voiding Method Urinal Active Medications - Current Medications Current Medications: Generic Name Dose Route Start Last Admin Trade Name Freq PRN Reason Stop Dose Admin Acetaminophen 650 mg 07/27/20 04:01 08/02/20 09:33 Acetaminophen 325 Mg Tab PO 650 mg Q4H PRN Administration Pain MILD(1-3)/Fever >100.5/RUIZ Amlodipine Besylate 10 mg 07/27/20 17:00 08/02/20 09:33 Amlodipine 10 Mg Tab PO 10 mg QDAY MARY Administration Chlordiazepoxide HCl 50 mg 07/27/20 11:47 Chlordiazepoxide 25 Mg Cap PO Q1HR PRN [facility]WA-Ar 8-15 Chlordiazepoxide HCl 100 mg 07/27/20 11:47 07/30/20 21:41 Chlordiazepoxide 25 Mg Cap PO 100 mg Q1HR PRN Administration CIWA-Ar 16-25 Dextrose 50 ml 07/27/20 04:01 Dextrose 50% In Water (25gm) 50 Ml Syringe IV Q30MIN PRN Hypoglycemia Protocol Folic Acid 1 mg 07/30/20 10:00 08/02/20 09:34 Folic Acid 1 Mg Tab PO 1 mg DAILY MARY Administration Heparin Sodium (Porcine) 5,000 unit 07/27/20 06:00 08/02/20 06:46 Heparin 5,000 Unit/1 Ml Vial SUB-Q Not Given Q8HR [facility] Hydralazine HCl 10 mg 07/27/20 04:06 Hydralazine 20 Mg/1 Ml Inj IV Q4HR PRN Blood Pressure Hydralazine HCl 50 mg 07/30/20 11:00 08/02/20 06:43 Hydralazine 25 Mg Tab PO 50 mg Q8HR MARY Administration Insulin Human Isoph/Insulin Regular 30 unit 07/29/20 12:30 08/02/20 09:32 Insulin Nph/Regular 70/30 Inj SUB-Q 30 unit BIDDIAB MARY Administration Insulin Human Regular 0 units 07/29/20 18:00 08/02/20 09:33 Insulin Regular, Human 100 Units/1 Ml SUB-Q 3 units ACHS MARY Administration Protocol Labetalol HCl 200 mg 07/27/20 22:00 08/02/20 09:34 Labetalol 200 Mg Tab PO 200 mg BID MARY Administration Lorazepam 2 mg 07/27/20 11:47 07/29/20 14:51 Lorazepam 2 Mg/Ml Vial IV 2 mg Q1HR PRN Administration CIWA-Ar 8-15 Lorazepam 4 mg 07/27/20 11:47 Lorazepam 2 Mg/Ml Vial IV Q1HR PRN CIWA-Ar 16-25 Magnesium Hydroxide 30 ml 07/27/20 04:01 Magnesium Hydroxide (Mom) Oral Liqd Udc PO Q4H PRN Constipation Morphine Sulfate 2 mg 07/27/20 04:01 Morphine 2 Mg/1 Ml Inj IV Q4H PRN Pain, Moderate (4-6) Multivitamins 1 each 07/30/20 10:00 08/02/20 09:33 Multivitamins ,Therapeutic Tab PO 1 each DAILY MARY Administration Olanzapine 5 mg 07/30/20 22:00 08/01/20 22:24 Olanzapine 5 Mg Tab PO 5 mg QHS MARY Administration Ondansetron HCl 4 mg 07/27/20 04:01 Ondansetron 4 Mg/2 Ml Inj IV Q8H PRN Nausea And Vomiting Sodium Chloride 10 ml 07/27/20 10:00 08/02/20 09:34 Sodium Chloride 0.9% 10 Ml Flush Syringe IV Not Given BID MARY Sodium Chloride 10 ml 07/27/20 04:01 Sodium Chloride 0.9% 10 Ml Flush Syringe IV PRN PRN LINE FLUSH Thiamine HCl 100 mg 07/30/20 10:00 08/02/20 09:33 Thiamine 100 Mg Tab PO 100 mg QDAY MARY Administration Valproic Acid 250 mg 07/30/20 14:00 08/02/20 06:46 Valproic Acid 250 Mg Cap PO Not Given Q8HR MARY Nutrition/Malnutrition Assess - Dietary Evaluation Nutrition/Malnutrition Findings: Nutrition Notes Start: 07/27/20 09:22 Freq: Status: Active Protocol: Document 07/31/20 10:03 SUNI (Rec: 07/31/20 10:10 SUNI [id number]) Nutrition Notes Initial or Follow up Brief Note Current Diagnosis Acute Kidney Injury Other Pertinent Diagnosis hyperglycemia, AMS, Rhabdomyolysis Current Diet Consistent CHO Subjective/Other Information FU for diet education. Pt eating second breakfast tray at time of visit. Pt reports eating a specific diet at home . He states he knows how to manage his DM has no questions or concerns about his diet. Pt accepted handout. #1 Nutrition Diagnosis Limited adherence to nutrition -related recommendations Etiology motivation or lack of understanding As Evidenced by Signs and Symptoms pt reports having a CHO controlled diet however, A1c is 15% Nutrition Intervention Change Diet Order: double protein and vegetable portions Teaching Recipient Patient Learning Readiness Poor Teaching Methods Handout Response to Teaching Refuses to learn Education Handouts Provided CHO Counting for DM Reading Nutrition Labels Barriers to Learning Motivation RD phone number provided Yes Patient aware of follow up options Yes Revisit per MD consult or patient Sign Off request:
[2020-08-03] MEDS: VALPROIC ACID 250 MG CAP PO SCH ×4 (06:47→21:54)
[2020-08-03] MEDS: HEPARIN 5,000 UNIT/1 ML VIAL SUB-Q SCH ×3 (06:47→21:48)
[2020-08-03] MEDS: hydrALAZINE 25 MG TAB PO SCH ×3 (06:47→21:48)
[2020-08-03] MEDS: INSULIN REGULAR, HUMAN 100 UNITS/1 ML SUB-Q SCH ×4 (09:00→21:49)
[2020-08-03] MEDS: amLODIPine 10 MG TAB PO SCH (09:16)
[2020-08-03] MEDS: FOLIC ACID 1 MG TAB PO SCH (09:16)
[2020-08-03] MEDS: THIAMINE 100 MG TAB PO SCH (09:17)
[2020-08-03] MEDS: MULTIVITAMINS ,THERAPEUTIC TAB PO SCH (09:17)
[2020-08-03] MEDS: INSULIN NPH/REGULAR 70/30 INJ SUB-Q SCH ×2 (09:18→16:28)
--- NOTE | 2020-08-03 10:51 | Progress Note ---
Assessment and Plan Assessment and plan: Assessment and Plan Assessment and plan: 59-year-old -[place] male with no known past medical problems and who has not been seen at this facility in the past was brought in to the emergency room today by EMS for altered mental status. Patient was found to be wandering around in a hotel lobby and refusing to answer questions when asked by EMS. Accu-Chek prior to arrival in the emergency room was said to be reading high. Upon arrival in the emergency room was alert and in no acute distress but still refusing to answer questions. Was looking drowsy. Work-up in the emergency room today reveals hyperglycemia with blood sugar greater than 700, elevated creatinine kinase greater than 3000, elevated creatinine level. CT scan of the head was unremarkable. UDS is still being awaited. Patient being admitted with altered mental status, hyperglycemia, rhabdomyolysis and acute kidney injury. Patient was treated with fluid hydration and counseling verbalized understanding. He is clinically improved. Counseling was provided on insulin management. It appears he is homeless extensive counseling was provided in case management assistance was requested. 07/29: Continue supportive care, no new complaints. Clinical stable but still lethargic, gait instability precludes discharge yet as patient is homeless 07/30: Some delirious behavior this morning will await psych evaluation. We will continue current management. Blood pressure elevated this morning as patient did not take his medication encouraged to take his meds hydralazine added due to persistent increase despite taking the meds. Disposition will be based on psych evaluation. 08/01-08/03. Psych following. Pending discharge to psych facility. Vitals stable Acute metabolic encephalopathy likely secondary to EtOH use disorder Diabetes mellitus with hyperglycemia none DKA Warnicke encephalopathy Acute kidney disease with possible gastropathy on chronic kidney disease Rhabdomyolysis secondary to dehydration Hypokalemia EtOH use disorder plan Pending discharge to inpatient psych. Continue [facility] protocol CM working on placement for the patient Extensive counseling provided to the patient about substance use and EtOH. DVT and GI prophylaxis History Interval history: Patient seen and examined at bedside this morning No complaints noted Pending discharge to psych facility Hospitalist Physical - Physical exam Narrative exam: VITAL SIGNS: Reviewed. GENERAL: Awake HEAD: No signs of head trauma. EYES: Pupils are equal. Extraocular motions intact. MOUTH: Oropharynx is normal. NECK: No adenopathy, no JVD. CHEST: Chest with diminished breath sounds bilaterally. No wheezes, rales, or rhonchi. CARDIAC: normal S1 and S2, without murmurs, gallops, or rubs. ABDOMEN: Soft, non tender and non distended. No rebound or guarding, and no masses palpated. Bowel Sounds normal. MUSCULOSKELETAL: No edema NEUROLOGIC EXAM: Alert and oriented x3. No focal neurologic deficits SKIN: No obvious lesions - Constitutional Vitals: Temp Pulse Resp BP Pulse Ox 97.9 F 89 20 129/81 95 08/03/20 07:45 08/03/20 09:16 08/03/20 07:45 08/03/20 09:16 08/03/20 07:45 HEART Score - HEART Score Troponin: Troponin T 0.056 ng/mL (0.00-0.029) H 07/27/20 01:55 Results - Labs CBC & Chem 7: 07/29/20 05:03 08/01/20 06:03 Labs: Laboratory Last Values WBC 6.4 K/mm3 (4.5-11.0) 07/29/20 05:03 RBC 4.14 M/mm3 (3.65-5.03) 07/29/20 05:03 Hgb 11.8 gm/dl (11.8-15.2) 07/29/20 05:03 Hct 36.1 % (35.5-45.6) 07/29/20 05:03 MCV 87 fl (84-94) 07/29/20 05:03 MCH 29 pg (28-32) 07/29/20 05:03 MCHC 33 % (32-34) 07/29/20 05:03 RDW 15.0 % (13.2-15.2) 07/29/20 05:03 Plt Count 278 K/mm3 (140-440) 07/29/20 05:03 Lymph % (Auto) 11.8 % (13.4-35.0) L 07/28/20 04:39 [place] % (Auto) 6.5 % (0.0-7.3) 07/28/20 04:39 Eos % (Auto) 0.9 % (0.0-4.3) 07/28/20 04:39 Baso % (Auto) 0.5 % (0.0-1.8) 07/28/20 04:39 Lymph # (Auto) 1.0 K/mm3 (1.2-5.4) L 07/28/20 04:39 [place] # (Auto) 0.6 K/mm3 (0.0-0.8) 07/28/20 04:39 Eos # (Auto) 0.1 K/mm3 (0.0-0.4) 07/28/20 04:39 Baso # (Auto) 0.0 K/mm3 (0.0-0.1) 07/28/20 04:39 Seg Neutrophils % 80.3 % (40.0-70.0) H 07/28/20 04:39 Seg Neutrophils # 6.9 K/mm3 (1.8-7.7) 07/28/20 04:39 PT 12.7 Sec. (12.2-14.9) 07/28/20 04:39 INR 0.97 (0.87-1.13) 07/28/20 04:39 APTT 33.0 Sec. (24.2-36.6) 07/27/20 01:55 Sodium 141 mmol/L (137-145) 08/01/20 06:03 Potassium 4.1 mmol/L (3.6-5.0) D 08/01/20 06:03 Chloride 109.1 mmol/L (98-107) H 08/01/20 06:03 Carbon Dioxide 25 mmol/L (22-30) 08/01/20 06:03 Anion Gap 11 mmol/L 08/01/20 06:03 BUN 30 mg/dL (9-20) H 08/01/20 06:03 Creatinine 2.0 mg/dL (0.8-1.3) H 08/01/20 06:03 Estimated GFR 42 ml/min 08/01/20 06:03 BUN/Creatinine Ratio 15 % 08/01/20 06:03 Glucose 184 mg/dL (75-100) H 08/01/20 06:03 POC Glucose 233 mg/dL (70-105) H 08/03/20 07:47 Hemoglobin A1c 15.0 % (4-6) H 07/27/20 01:55 Lactic Acid 1.60 mmol/L (0.7-2.0) 07/27/20 01:55 Calcium 9.1 mg/dL (8.4-10.2) 08/01/20 06:03 Phosphorus 2.70 mg/dL (2.5-4.5) 07/28/20 04:39 Magnesium 1.80 mg/dL (1.7-2.3) 07/28/20 04:39 Total Bilirubin 0.50 mg/dL (0.1-1.2) 07/27/20 01:55 Direct Bilirubin < 0.2 mg/dL (0-0.2) 07/27/20 01:55 Indirect Bilirubin 0.3 mg/dL 07/27/20 01:55 AST 72 units/L (5-40) H 07/27/20 01:55 ALT 57 units/L (7-56) H 07/27/20 01:55 Alkaline Phosphatase 163 units/L (35-129) H 07/27/20 01:55 Ammonia 18.0 umol/L (25-60) L 07/27/20 01:55 Total Creatine Kinase 363 units/L (55-170) H 07/29/20 05:03 Troponin T 0.056 ng/mL (0.00-0.029) H 07/27/20 01:55 Total Protein 7.4 g/dL (6.3-8.2) 07/27/20 01:55 Albumin 3.9 g/dL (3.9-5) 07/27/20 01:55 Albumin/Globulin Ratio 1.1 % 07/27/20 01:55 Triglycerides 78 mg/dL (2-149) 07/27/20 01:55 Cholesterol 220 mg/dL (50-199) H 07/27/20 01:55 LDL Cholesterol Direct 102 mg/dL (50-130) 07/27/20 01:55 HDL Cholesterol 126 mg/dL (40-59) H 07/27/20 01:55 Cholesterol/HDL Ratio 1.74 % 07/27/20 01:55 TSH 0.824 mlU/mL (0.270-4.200) 07/27/20 01:55 Urine Color Colorless (Yellow) 07/27/20 02:09 Urine Turbidity Clear (Clear) 07/27/20 02:09 Urine pH 6.0 (5.0-7.0) 07/27/20 02:09 Ur Specific [place] 1.016 (1.003-1.030) 07/27/20 02:09 Urine Protein 100 mg/dl mg/dL (Negative) 07/27/20 02:09 Urine Glucose (UA) >=500 mg/dL (Negative) 07/27/20 02:09 Urine Ketones Neg mg/dL (Negative) 07/27/20 02:09 Urine Blood Mod (Negative) 07/27/20 02:09 Urine Nitrite Neg (Negative) 07/27/20 02:09 Urine Bilirubin Neg (Negative) 07/27/20 02:09 Urine Urobilinogen < 2.0 mg/dL (<2.0) 07/27/20 02:09 Ur Leukocyte Esterase Neg (Negative) 07/27/20 02:09 Urine WBC (Auto) 1.0 /HPF (0.0-6.0) 07/27/20 02:09 Urine RBC (Auto) < 1.0 /HPF (0.0-6.0) 07/27/20 02:09 U Epithel Cells (Auto) < 1.0 /HPF (0-13.0) 07/27/20 02:09 Urine Mucus Few /HPF 07/27/20 02:09 Urine Creatinine 85.6 mg/dL (0.1-20.0) H 07/27/20 19:00 Protein/Creatinin Ratio 2.96 07/27/20 19:00 Urine Sodium 51 mmol/L 07/27/20 19:00 Urine Total Protein 253 mg/dL (5-11.8) H 07/27/20 19:00 Salicylates < 0.3 mg/dL (2.8-20.0) L 07/27/20 01:55 Urine Opiates Screen Presumptive negative 07/27/20 02:09 Urine Methadone Screen Presumptive negative 07/27/20 02:09 Acetaminophen 5.0 ug/mL (10.0-30.0) L 07/27/20 01:55 Ur Barbiturates Screen Presumptive negative 07/27/20 02:09 Ur Phencyclidine Scrn Presumptive negative 07/27/20 02:09 Ur Amphetamines Screen Presumptive negative 07/27/20 02:09 U Benzodiazepines Scrn Presumptive negative 07/27/20 02:09 Urine Cocaine Screen Presumptive negative 07/27/20 02:09 U Marijuana (THC) Screen Presumptive negative 07/27/20 02:09 Drugs of Abuse Note Disclamer 07/27/20 02:09 Plasma/Serum Alcohol < 0.01 % (0-0.07) 07/27/20 01:55 Hilton/IV: Voiding Method Toilet Active Medications - Current Medications Current Medications: Generic Name Dose Route Start Last Admin Trade Name Freq PRN Reason Stop Dose Admin Acetaminophen 650 mg 07/27/20 04:01 08/02/20 09:33 Acetaminophen 325 Mg Tab PO 650 mg Q4H PRN Administration Pain MILD(1-3)/Fever >100.5/RUIZ Amlodipine Besylate 10 mg 07/27/20 17:00 08/03/20 09:16 Amlodipine 10 Mg Tab PO 10 mg QDAY MARY Administration Chlordiazepoxide HCl 50 mg 07/27/20 11:47 Chlordiazepoxide 25 Mg Cap PO Q1HR PRN [facility]-Ar 8-15 Chlordiazepoxide HCl 100 mg 07/27/20 11:47 07/30/20 21:41 Chlordiazepoxide 25 Mg Cap PO 100 mg Q1HR PRN Administration CIWA-Ar 16-25 Dextrose 50 ml 07/27/20 04:01 Dextrose 50% In Water (25gm) 50 Ml Syringe IV Q30MIN PRN Hypoglycemia Protocol Folic Acid 1 mg 07/30/20 10:00 08/03/20 09:16 Folic Acid 1 Mg Tab PO 1 mg DAILY MARY Administration Heparin Sodium (Porcine) 5,000 unit 07/27/20 06:00 08/03/20 06:47 Heparin 5,000 Unit/1 Ml Vial SUB-Q Not Given Q8HR [facility] Hydralazine HCl 10 mg 07/27/20 04:06 Hydralazine 20 Mg/1 Ml Inj IV Q4HR PRN Blood Pressure Hydralazine HCl 50 mg 07/30/20 11:00 08/03/20 06:47 Hydralazine 25 Mg Tab PO 50 mg Q8HR MARY Administration Insulin Human Isoph/Insulin Regular 34 unit 08/03/20 09:00 08/03/20 09:18 Insulin Nph/Regular 70/30 Inj SUB-Q 34 unit BIDDIAB MARY Administration Insulin Human Regular 0 units 07/29/20 18:00 08/03/20 09:00 Insulin Regular, Human 100 Units/1 Ml SUB-Q 2 units ACHS MARY Administration Protocol Labetalol HCl 200 mg 07/27/20 22:00 08/03/20 09:15 Labetalol 200 Mg Tab PO 200 mg BID MARY Administration Lorazepam 2 mg 07/27/20 11:47 07/29/20 14:51 Lorazepam 2 Mg/Ml Vial IV 2 mg Q1HR PRN Administration CIWA-Ar 8-15 Lorazepam 4 mg 07/27/20 11:47 Lorazepam 2 Mg/Ml Vial IV Q1HR PRN [facility]-Ar 16-25 Magnesium Hydroxide 30 ml 07/27/20 04:01 Magnesium Hydroxide (Mom) Oral Liqd Udc PO Q4H PRN Constipation Morphine Sulfate 2 mg 07/27/20 04:01 Morphine 2 Mg/1 Ml Inj IV Q4H PRN Pain, Moderate (4-6) Multivitamins 1 each 07/30/20 10:00 08/03/20 09:17 Multivitamins ,Therapeutic Tab PO 1 each DAILY MARY Administration Olanzapine 5 mg 07/30/20 22:00 08/02/20 22:34 Olanzapine 5 Mg Tab PO Not Given QHS MARY Ondansetron HCl 4 mg 07/27/20 04:01 Ondansetron 4 Mg/2 Ml Inj IV Q8H PRN Nausea And Vomiting Sodium Chloride 10 ml 07/27/20 10:00 08/03/20 09:17 Sodium Chloride 0.9% 10 Ml Flush Syringe IV 10 ml BID MARY Administration Sodium Chloride 10 ml 07/27/20 04:01 Sodium Chloride 0.9% 10 Ml Flush Syringe IV PRN PRN LINE FLUSH Thiamine HCl 100 mg 07/30/20 10:00 08/03/20 09:17 Thiamine 100 Mg Tab PO 100 mg QDAY MARY Administration Valproic Acid 250 mg 07/30/20 14:00 08/03/20 06:47 Valproic Acid 250 Mg Cap PO Not Given Q8HR MARY Nutrition/Malnutrition Assess - Dietary Evaluation Nutrition/Malnutrition Findings: Nutrition Notes Start: 07/27/20 09:22 Freq: Status: Active Protocol: Document 07/31/20 10:03 SUNI (Rec: 07/31/20 10:10 SUNI [email or web address]) Nutrition Notes Initial or Follow up Brief Note Current Diagnosis Acute Kidney Injury Other Pertinent Diagnosis hyperglycemia, AMS, Rhabdomyolysis Current Diet Consistent CHO Subjective/Other Information FU for diet education. Pt eating second breakfast tray at time of visit. Pt reports eating a specific diet at home . He states he knows how to manage his DM has no questions or concerns about his diet. Pt accepted handout. #1 Nutrition Diagnosis Limited adherence to nutrition -related recommendations Etiology motivation or lack of understanding As Evidenced by Signs and Symptoms pt reports having a CHO controlled diet however, A1c is 15% Nutrition Intervention Change Diet Order: double protein and vegetable portions Teaching Recipient Patient Learning Readiness Poor Teaching Methods Handout Response to Teaching Refuses to learn Education Handouts Provided CHO Counting for DM Reading Nutrition Labels Barriers to Learning Motivation RD phone number provided Yes Patient aware of follow up options Yes Revisit per MD consult or patient Sign Off request:
[2020-08-04] MEDS: VALPROIC ACID 250 MG CAP PO SCH ×3 (05:05→21:23)
[2020-08-04] MEDS: HEPARIN 5,000 UNIT/1 ML VIAL SUB-Q SCH ×3 (05:05→21:45)
[2020-08-04] MEDS: hydrALAZINE 25 MG TAB PO SCH ×3 (05:06→21:23)
[2020-08-04] MEDS: ACETAMINOPHEN 325 MG TAB PO PRN ×2 (06:48→12:15)
[2020-08-04] MEDS ORDERED: INSULIN NPH/REGULAR 70/30 INJ SUB-Q SCH (08:04)
[2020-08-04] MEDS: MULTIVITAMINS ,THERAPEUTIC TAB PO SCH (09:30)
[2020-08-04] MEDS: FOLIC ACID 1 MG TAB PO SCH (09:30)
[2020-08-04] MEDS: amLODIPine 10 MG TAB PO SCH (09:30)
[2020-08-04] MEDS: THIAMINE 100 MG TAB PO SCH (09:30)
[2020-08-04] MEDS ORDERED: DEXTROSE 50% IN WATER (25GM) 50 ML SYRINGE IV PRN (09:30)
--- NOTE | 2020-08-04 10:33 | Progress Note ---
Subjective - Reason for Consult Consult date: 08/04/20 Reason for consult: psychosis - Chief Complaint Chief complaint: Per Nurse Note: the patient is refusing medications and delusional The patient is seen today, he is sitting on side of the bed. A sitter is with him. He says he's here for "my diabetes, high blood pressure and glaucoma." He says "I don't need a psychiatrist. Last time I seen one of those was when I was in [place], and and [place]." The patient denies hallucinations of any kind. He also denies SI/HI. He is asking about being discharged, and states "they been told me I don't need a psychiatrist." REVIEW OF SYSTEMS Constitutional: Negative for weight loss ENT: Negative for stridor Respiratory: Negative for cough or hemoptysis All other systems reviewed and are negative MENTAL STATUS EXAMINATION General Appearance and Behavior: Age appropriate, good hygiene, wearing appropriate clothes, good eye contact, cooperative with questioning. Cooperation: disengaged Psychomotor Behavior: Psychomotor agitation Mood: "good" Affect and affective range: euthymic, euphoric Thought Process: Illogical Thought Content: delusional Speech: normal tone and pace Intellectual Functioning: Average Suicidal Ideation: Denies Homicidal Ideation: Denies Impulse Control: Impaired Insight and Judgment: Impaired insight and judgment Memory: impaired Attention: Divided attention impaired Orientation: Alert, oriented Assessment and Plan (1) Schizophrenia Current Visit: Yes Status: Acute Treatment Plan Increase Olanzapine 7.5mg po daily Risks, benefits and alternatives of medications discussed with the patient, questions answered and consent obtained from patient. PSYCHOTHERAPY: Supportive psychotherapy provided MEDICAL: Per primary team DELIRIUM PRECAUTIONS: Please re-orient patient frequently, keep lights on during the day, and minimize benzodiazepines and opiates as these medications could worsen patient's confusion. 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 Case discussed with Dr. Powell who agrees with current disposition LEGAL STATUS: 1013 FOLLOW-UP: Will follow Thank you for the consult. Please contact with any questions and/or concerns. Mental Status Exam - Vital signs Last Vital Signs Temp 97.6 F 08/04/20 08:10 Pulse 95 H 08/04/20 09:30 Resp 18 08/04/20 08:10 BP 159/91 08/04/20 09:30 Pulse Ox 95 08/04/20 08:10
--- NOTE | 2020-08-04 11:19 | Progress Note ---
Assessment and Plan Assessment and plan: Assessment and Plan Assessment and plan: 59-year-old -[place] male with no known past medical problems and who has not been seen at this facility in the past was brought in to the emergency room today by EMS for altered mental status. Patient was found to be wandering around in a hotel lobby and refusing to answer questions when asked by EMS. Accu-Chek prior to arrival in the emergency room was said to be reading high. Upon arrival in the emergency room was alert and in no acute distress but still refusing to answer questions. Was looking drowsy. Work-up in the emergency room today reveals hyperglycemia with blood sugar greater than 700, elevated creatinine kinase greater than 3000, elevated creatinine level. CT scan of the head was unremarkable. UDS is still being awaited. Patient being admitted with altered mental status, hyperglycemia, rhabdomyolysis and acute kidney injury. Patient was treated with fluid hydration and counseling verbalized understanding. He is clinically improved. Counseling was provided on insulin management. It appears he is homeless extensive counseling was provided in case management assistance was requested. 07/29: Continue supportive care, no new complaints. Clinical stable but still lethargic, gait instability precludes discharge yet as patient is homeless 07/30: Some delirious behavior this morning will await psych evaluation. We will continue current management. Blood pressure elevated this morning as patient did not take his medication encouraged to take his meds hydralazine added due to persistent increase despite taking the meds. Disposition will be based on psych evaluation. 08/01-08/03. Psych following. Pending discharge to psych facility. Vitals stable 08/04. NPH Insulin switched to lantus. Blood glucose leveles should be better tomorrow. Pending DC to psych facility Acute metabolic encephalopathy likely secondary to EtOH use disorder Diabetes mellitus with hyperglycemia none DKA Warnicke encephalopathy Acute kidney disease with possible gastropathy on chronic kidney disease Rhabdomyolysis secondary to dehydration Hypokalemia EtOH use disorder plan Pending discharge to inpatient psych. Adjusted insulin - NPH switched to Lantus Continue WA protocol CM working on placement for the patient Extensive counseling provided to the patient about substance use and EtOH. DVT and GI prophylaxis History Interval history: Patient seen and examined at bedside this morning No complaints noted Pending discharge to psych facility Hospitalist Physical - Physical exam Narrative exam: VITAL SIGNS: Reviewed. GENERAL: Awake HEAD: No signs of head trauma. EYES: Pupils are equal. Extraocular motions intact. MOUTH: Oropharynx is normal. NECK: No adenopathy, no JVD. CHEST: Chest with diminished breath sounds bilaterally. No wheezes, rales, or rhonchi. CARDIAC: normal S1 and S2, without murmurs, gallops, or rubs. ABDOMEN: Soft, non tender and non distended. No rebound or guarding, and no masses palpated. Bowel Sounds normal. MUSCULOSKELETAL: No edema NEUROLOGIC EXAM: Alert and oriented x3. No focal neurologic deficits SKIN: No obvious lesions - Constitutional Vitals: Temp Pulse Resp BP Pulse Ox 97.6 F 95 H 18 159/91 95 08/04/20 08:10 08/04/20 09:30 08/04/20 08:10 08/04/20 09:30 08/04/20 08:10 HEART Score - HEART Score Troponin: Troponin T 0.056 ng/mL (0.00-0.029) H 07/27/20 01:55 Results - Labs CBC & Chem 7: 07/29/20 05:03 08/01/20 06:03 Labs: Laboratory Last Values WBC 6.4 K/mm3 (4.5-11.0) 07/29/20 05:03 RBC 4.14 M/mm3 (3.65-5.03) 07/29/20 05:03 Hgb 11.8 gm/dl (11.8-15.2) 07/29/20 05:03 Hct 36.1 % (35.5-45.6) 07/29/20 05:03 MCV 87 fl (84-94) 07/29/20 05:03 MCH 29 pg (28-32) 07/29/20 05:03 MCHC 33 % (32-34) 07/29/20 05:03 RDW 15.0 % (13.2-15.2) 07/29/20 05:03 Plt Count 278 K/mm3 (140-440) 07/29/20 05:03 Lymph % (Auto) 11.8 % (13.4-35.0) L 07/28/20 04:39 [place] % (Auto) 6.5 % (0.0-7.3) 07/28/20 04:39 Eos % (Auto) 0.9 % (0.0-4.3) 07/28/20 04:39 Baso % (Auto) 0.5 % (0.0-1.8) 07/28/20 04:39 Lymph # (Auto) 1.0 K/mm3 (1.2-5.4) L 07/28/20 04:39 [place] # (Auto) 0.6 K/mm3 (0.0-0.8) 07/28/20 04:39 Eos # (Auto) 0.1 K/mm3 (0.0-0.4) 07/28/20 04:39 Baso # (Auto) 0.0 K/mm3 (0.0-0.1) 07/28/20 04:39 Seg Neutrophils % 80.3 % (40.0-70.0) H 07/28/20 04:39 Seg Neutrophils # 6.9 K/mm3 (1.8-7.7) 07/28/20 04:39 PT 12.7 Sec. (12.2-14.9) 07/28/20 04:39 INR 0.97 (0.87-1.13) 07/28/20 04:39 APTT 33.0 Sec. (24.2-36.6) 07/27/20 01:55 Sodium 141 mmol/L (137-145) 08/01/20 06:03 Potassium 4.1 mmol/L (3.6-5.0) D 08/01/20 06:03 Chloride 109.1 mmol/L (98-107) H 08/01/20 06:03 Carbon Dioxide 25 mmol/L (22-30) 08/01/20 06:03 Anion Gap 11 mmol/L 08/01/20 06:03 BUN 30 mg/dL (9-20) H 08/01/20 06:03 Creatinine 2.0 mg/dL (0.8-1.3) H 08/01/20 06:03 Estimated GFR 42 ml/min 08/01/20 06:03 BUN/Creatinine Ratio 15 % 08/01/20 06:03 Glucose 184 mg/dL (75-100) H 08/01/20 06:03 POC Glucose 240 mg/dL (70-105) H 08/04/20 07:44 Hemoglobin A1c 15.0 % (4-6) H 07/27/20 01:55 Lactic Acid 1.60 mmol/L (0.7-2.0) 07/27/20 01:55 Calcium 9.1 mg/dL (8.4-10.2) 08/01/20 06:03 Phosphorus 2.70 mg/dL (2.5-4.5) 07/28/20 04:39 Magnesium 1.80 mg/dL (1.7-2.3) 07/28/20 04:39 Total Bilirubin 0.50 mg/dL (0.1-1.2) 07/27/20 01:55 Direct Bilirubin < 0.2 mg/dL (0-0.2) 07/27/20 01:55 Indirect Bilirubin 0.3 mg/dL 07/27/20 01:55 AST 72 units/L (5-40) H 07/27/20 01:55 ALT 57 units/L (7-56) H 07/27/20 01:55 Alkaline Phosphatase 163 units/L (35-129) H 07/27/20 01:55 Ammonia 18.0 umol/L (25-60) L 07/27/20 01:55 Total Creatine Kinase 363 units/L (55-170) H 07/29/20 05:03 Troponin T 0.056 ng/mL (0.00-0.029) H 07/27/20 01:55 Total Protein 7.4 g/dL (6.3-8.2) 07/27/20 01:55 Albumin 3.9 g/dL (3.9-5) 07/27/20 01:55 Albumin/Globulin Ratio 1.1 % 07/27/20 01:55 Triglycerides 78 mg/dL (2-149) 07/27/20 01:55 Cholesterol 220 mg/dL (50-199) H 07/27/20 01:55 LDL Cholesterol Direct 102 mg/dL (50-130) 07/27/20 01:55 HDL Cholesterol 126 mg/dL (40-59) H 07/27/20 01:55 Cholesterol/HDL Ratio 1.74 % 07/27/20 01:55 TSH 0.824 mlU/mL (0.270-4.200) 07/27/20 01:55 Urine Color Colorless (Yellow) 07/27/20 02:09 Urine Turbidity Clear (Clear) 07/27/20 02:09 Urine pH 6.0 (5.0-7.0) 07/27/20 02:09 Ur Specific [place] 1.016 (1.003-1.030) 07/27/20 02:09 Urine Protein 100 mg/dl mg/dL (Negative) 07/27/20 02:09 Urine Glucose (UA) >=500 mg/dL (Negative) 07/27/20 02:09 Urine Ketones Neg mg/dL (Negative) 07/27/20 02:09 Urine Blood Mod (Negative) 07/27/20 02:09 Urine Nitrite Neg (Negative) 07/27/20 02:09 Urine Bilirubin Neg (Negative) 07/27/20 02:09 Urine Urobilinogen < 2.0 mg/dL (<2.0) 07/27/20 02:09 Ur Leukocyte Esterase Neg (Negative) 07/27/20 02:09 Urine WBC (Auto) 1.0 /HPF (0.0-6.0) 07/27/20 02:09 Urine RBC (Auto) < 1.0 /HPF (0.0-6.0) 07/27/20 02:09 U Epithel Cells (Auto) < 1.0 /HPF (0-13.0) 07/27/20 02:09 Urine Mucus Few /HPF 07/27/20 02:09 Urine Creatinine 85.6 mg/dL (0.1-20.0) H 07/27/20 19:00 Protein/Creatinin Ratio 2.96 07/27/20 19:00 Urine Sodium 51 mmol/L 07/27/20 19:00 Urine Total Protein 253 mg/dL (5-11.8) H 07/27/20 19:00 Salicylates < 0.3 mg/dL (2.8-20.0) L 07/27/20 01:55 Urine Opiates Screen Presumptive negative 07/27/20 02:09 Urine Methadone Screen Presumptive negative 07/27/20 02:09 Acetaminophen 5.0 ug/mL (10.0-30.0) L 07/27/20 01:55 Ur Barbiturates Screen Presumptive negative 07/27/20 02:09 Ur Phencyclidine Scrn Presumptive negative 07/27/20 02:09 Ur Amphetamines Screen Presumptive negative 07/27/20 02:09 U Benzodiazepines Scrn Presumptive negative 07/27/20 02:09 Urine Cocaine Screen Presumptive negative 07/27/20 02:09 U Marijuana (THC) Screen Presumptive negative 07/27/20 02:09 Drugs of Abuse Note Disclamer 07/27/20 02:09 Plasma/Serum Alcohol < 0.01 % (0-0.07) 07/27/20 01:55 Hilton/IV: Voiding Method Toilet Active Medications - Current Medications Current Medications: Generic Name Dose Route Start Last Admin Trade Name Freq PRN Reason Stop Dose Admin Acetaminophen 650 mg 07/27/20 04:01 08/04/20 06:48 Acetaminophen 325 Mg Tab PO 650 mg Q4H PRN Administration Pain MILD(1-3)/Fever >100.5/RUIZ Amlodipine Besylate 10 mg 07/27/20 17:00 08/04/20 09:30 Amlodipine 10 Mg Tab PO 10 mg QDAY MARY Administration Chlordiazepoxide HCl 50 mg 07/27/20 11:47 Chlordiazepoxide 25 Mg Cap PO Q1HR PRN CIWA-Ar 8-15 Chlordiazepoxide HCl 100 mg 07/27/20 11:47 07/30/20 21:41 Chlordiazepoxide 25 Mg Cap PO 100 mg Q1HR PRN Administration CIWA-Ar 16-25 Dextrose 50 ml 08/04/20 09:30 Dextrose 50% In Water (25gm) 50 Ml Syringe IV Q30MIN PRN Hypoglycemia Protocol Folic Acid 1 mg 07/30/20 10:00 08/04/20 09:30 Folic Acid 1 Mg Tab PO 1 mg DAILY MARY Administration Heparin Sodium (Porcine) 5,000 unit 07/27/20 06:00 08/04/20 05:05 Heparin 5,000 Unit/1 Ml Vial SUB-Q Not Given Q8HR [facility] Hydralazine HCl 10 mg 07/27/20 04:06 Hydralazine 20 Mg/1 Ml Inj IV Q4HR PRN Blood Pressure Hydralazine HCl 50 mg 07/30/20 11:00 08/04/20 05:06 Hydralazine 25 Mg Tab PO 50 mg Q8HR MARY Administration Insulin Glargine 20 units 08/05/20 09:30 Insulin Glargine 100 Units/Ml SUB-Q QAMDIAB [facility] Insulin Glargine 6 units 08/04/20 22:00 Insulin Glargine 100 Units/Ml SUB-Q QHS [facility] Insulin Human Lispro 0 unit 08/04/20 11:30 Insulin Lispro 100 Unit/Ml SUB-Q ACHS [facility] Protocol Labetalol HCl 200 mg 07/27/20 22:00 08/04/20 09:30 Labetalol 200 Mg Tab PO 200 mg BID MARY Administration Lorazepam 2 mg 07/27/20 11:47 07/29/20 14:51 Lorazepam 2 Mg/Ml Vial IV 2 mg Q1HR PRN Administration CIWA-Ar 8-15 Lorazepam 4 mg 07/27/20 11:47 Lorazepam 2 Mg/Ml Vial IV Q1HR PRN CIWA-Ar 16-25 Magnesium Hydroxide 30 ml 07/27/20 04:01 Magnesium Hydroxide (Mom) Oral Liqd Udc PO Q4H PRN Constipation Morphine Sulfate 2 mg 07/27/20 04:01 Morphine 2 Mg/1 Ml Inj IV Q4H PRN Pain, Moderate (4-6) Multivitamins 1 each 07/30/20 10:00 08/04/20 09:30 Multivitamins ,Therapeutic Tab PO 1 each DAILY MARY Administration Olanzapine 7.5 mg 08/05/20 10:00 Olanzapine 7.5 Mg Tab PO QDAY MARY Ondansetron HCl 4 mg 07/27/20 04:01 Ondansetron 4 Mg/2 Ml Inj IV Q8H PRN Nausea And Vomiting Sodium Chloride 10 ml 07/27/20 10:00 08/04/20 09:30 Sodium Chloride 0.9% 10 Ml Flush Syringe IV 10 ml BID MARY Administration Sodium Chloride 10 ml 07/27/20 04:01 Sodium Chloride 0.9% 10 Ml Flush Syringe IV PRN PRN LINE FLUSH Thiamine HCl 100 mg 07/30/20 10:00 08/04/20 09:30 Thiamine 100 Mg Tab PO 100 mg QDAY MARY Administration Valproic Acid 250 mg 07/30/20 14:00 08/04/20 05:05 Valproic Acid 250 Mg Cap PO Not Given Q8HR MARY Nutrition/Malnutrition Assess - Dietary Evaluation Nutrition/Malnutrition Findings: Nutrition Notes Start: 07/27/20 09:22 Freq: Status: Active Protocol: Document 08/03/20 15:05 CW (Rec: 08/03/20 15:06 CW [id number]) Nutrition Notes Need for Assessment generated from: LOS Initial or Follow up Brief Note Current Diagnosis Acute Kidney Injury Other Pertinent Diagnosis hyperglycemia, AMS, Rhabdomyolysis Current Diet Consistent CHO Subjective/Other Information Screen for LOS. Pt eating 100% of meals. Russell score of 21. Percent of energy/protein needs met: 100%/100% Skin Integrity/Comment Intact Current % PO Good (75-100%) Nutrition Intervention Revisit per MD consult or patient Sign Off request: Additional Comments S/O for excellent intakes and intact skin
[2020-08-04] MEDS: INSULIN LISPRO 100 UNIT/ML SUB-Q SCH ×3 (12:15→21:22)
[2020-08-04] MEDS ORDERED: INSULIN GLARGINE 100 UNITS/ML SUB-Q SCH (22:00)
[2020-08-05] MEDS: VALPROIC ACID 250 MG CAP PO SCH ×3 (05:41→21:30)
[2020-08-05] MEDS: hydrALAZINE 25 MG TAB PO SCH ×3 (05:41→21:30)
[2020-08-05] MEDS: HEPARIN 5,000 UNIT/1 ML VIAL SUB-Q SCH ×3 (05:44→21:31)
[2020-08-05] MEDS ORDERED: INSULIN GLARGINE 100 UNITS/ML SUB-Q SCH ×3 (09:30→22:00)
[2020-08-05] MEDS: amLODIPine 10 MG TAB PO SCH (10:17)
[2020-08-05] MEDS: FOLIC ACID 1 MG TAB PO SCH (10:17)
[2020-08-05] MEDS: MULTIVITAMINS ,THERAPEUTIC TAB PO SCH (10:18)
[2020-08-05] MEDS: THIAMINE 100 MG TAB PO SCH (10:18)
[2020-08-05] MEDS: INSULIN LISPRO 100 UNIT/ML SUB-Q SCH ×6 (10:19→21:31)
[2020-08-05] MEDS: INSULIN GLARGINE 100 UNITS/ML SUB-Q SCH (10:26)
--- NOTE | 2020-08-05 11:46 | Progress Note ---
Assessment and Plan Assessment and plan: Assessment and Plan Assessment and plan: 59-year-old -[place] male with no known past medical problems and who has not been seen at this facility in the past was brought in to the emergency room today by EMS for altered mental status. Patient was found to be wandering around in a hotel lobby and refusing to answer questions when asked by EMS. Accu-Chek prior to arrival in the emergency room was said to be reading high. Upon arrival in the emergency room was alert and in no acute distress but still refusing to answer questions. Was looking drowsy. Work-up in the emergency room today reveals hyperglycemia with blood sugar greater than 700, elevated creatinine kinase greater than 3000, elevated creatinine level. CT scan of the head was unremarkable. UDS is still being awaited. Patient being admitted with altered mental status, hyperglycemia, rhabdomyolysis and acute kidney injury. Patient was treated with fluid hydration and counseling verbalized understanding. He is clinically improved. Counseling was provided on insulin management. It appears he is homeless extensive counseling was provided in case management assistance was requested. 07/29: Continue supportive care, no new complaints. Clinical stable but still lethargic, gait instability precludes discharge yet as patient is homeless 07/30: Some delirious behavior this morning will await psych evaluation. We will continue current management. Blood pressure elevated this morning as patient did not take his medication encouraged to take his meds hydralazine added due to persistent increase despite taking the meds. Disposition will be based on psych evaluation. 08/01-08/03. Psych following. Pending discharge to psych facility. Vitals stable 08/04. NPH Insulin switched to lantus. Blood glucose levels should be better tomorrow. Pending DC to psych facility 08/05. Monitor glucose levels closely Acute metabolic encephalopathy likely secondary to EtOH use disorder Diabetes mellitus with hyperglycemia none DKA Warnicke encephalopathy Acute kidney disease with possible gastropathy on chronic kidney disease Rhabdomyolysis secondary to dehydration Hypokalemia EtOH use disorder plan Pending discharge to inpatient psych. Adjusted insulin - NPH switched to Lantus Continue CIWA protocol CM working on placement for the patient Extensive counseling provided to the patient about substance use and EtOH. DVT and GI prophylaxis History Interval history: Patient seen and examined at bedside this morning No complaints noted Pending discharge to psych facility Hospitalist Physical - Physical exam Narrative exam: VITAL SIGNS: Reviewed. GENERAL: Awake HEAD: No signs of head trauma. EYES: Pupils are equal. Extraocular motions intact. MOUTH: Oropharynx is normal. NECK: No adenopathy, no JVD. CHEST: Chest with diminished breath sounds bilaterally. No wheezes, rales, or rhonchi. CARDIAC: normal S1 and S2, without murmurs, gallops, or rubs. ABDOMEN: Soft, non tender and non distended. No rebound or guarding, and no masses palpated. Bowel Sounds normal. MUSCULOSKELETAL: No edema NEUROLOGIC EXAM: Alert and oriented x3. No focal neurologic deficits SKIN: No obvious lesions - Constitutional Vitals: Temp Pulse Resp BP Pulse Ox 98.8 F 76 20 142/86 91 08/05/20 07:35 08/05/20 07:35 08/05/20 07:37 08/05/20 07:37 08/05/20 04:44 HEART Score - HEART Score Troponin: Troponin T 0.056 ng/mL (0.00-0.029) H 07/27/20 01:55 Results - Labs CBC & Chem 7: 07/29/20 05:03 08/01/20 06:03 Labs: Laboratory Last Values WBC 6.4 K/mm3 (4.5-11.0) 07/29/20 05:03 RBC 4.14 M/mm3 (3.65-5.03) 07/29/20 05:03 Hgb 11.8 gm/dl (11.8-15.2) 07/29/20 05:03 Hct 36.1 % (35.5-45.6) 07/29/20 05:03 MCV 87 fl (84-94) 07/29/20 05:03 MCH 29 pg (28-32) 07/29/20 05:03 MCHC 33 % (32-34) 07/29/20 05:03 RDW 15.0 % (13.2-15.2) 07/29/20 05:03 Plt Count 278 K/mm3 (140-440) 07/29/20 05:03 Lymph % (Auto) 11.8 % (13.4-35.0) L 07/28/20 04:39 [place] % (Auto) 6.5 % (0.0-7.3) 07/28/20 04:39 Eos % (Auto) 0.9 % (0.0-4.3) 07/28/20 04:39 Baso % (Auto) 0.5 % (0.0-1.8) 07/28/20 04:39 Lymph # (Auto) 1.0 K/mm3 (1.2-5.4) L 07/28/20 04:39 [place] # (Auto) 0.6 K/mm3 (0.0-0.8) 07/28/20 04:39 Eos # (Auto) 0.1 K/mm3 (0.0-0.4) 07/28/20 04:39 Baso # (Auto) 0.0 K/mm3 (0.0-0.1) 07/28/20 04:39 Seg Neutrophils % 80.3 % (40.0-70.0) H 07/28/20 04:39 Seg Neutrophils # 6.9 K/mm3 (1.8-7.7) 07/28/20 04:39 PT 12.7 Sec. (12.2-14.9) 07/28/20 04:39 INR 0.97 (0.87-1.13) 07/28/20 04:39 APTT 33.0 Sec. (24.2-36.6) 07/27/20 01:55 Sodium 141 mmol/L (137-145) 08/01/20 06:03 Potassium 4.1 mmol/L (3.6-5.0) D 08/01/20 06:03 Chloride 109.1 mmol/L (98-107) H 08/01/20 06:03 Carbon Dioxide 25 mmol/L (22-30) 08/01/20 06:03 Anion Gap 11 mmol/L 08/01/20 06:03 BUN 30 mg/dL (9-20) H 08/01/20 06:03 Creatinine 2.0 mg/dL (0.8-1.3) H 08/01/20 06:03 Estimated GFR 42 ml/min 08/01/20 06:03 BUN/Creatinine Ratio 15 % 08/01/20 06:03 Glucose 184 mg/dL (75-100) H 08/01/20 06:03 POC Glucose 389 mg/dL (70-105) H 08/05/20 07:25 Hemoglobin A1c 15.0 % (4-6) H 07/27/20 01:55 Lactic Acid 1.60 mmol/L (0.7-2.0) 07/27/20 01:55 Calcium 9.1 mg/dL (8.4-10.2) 08/01/20 06:03 Phosphorus 2.70 mg/dL (2.5-4.5) 07/28/20 04:39 Magnesium 1.80 mg/dL (1.7-2.3) 07/28/20 04:39 Total Bilirubin 0.50 mg/dL (0.1-1.2) 07/27/20 01:55 Direct Bilirubin < 0.2 mg/dL (0-0.2) 07/27/20 01:55 Indirect Bilirubin 0.3 mg/dL 07/27/20 01:55 AST 72 units/L (5-40) H 07/27/20 01:55 ALT 57 units/L (7-56) H 07/27/20 01:55 Alkaline Phosphatase 163 units/L (35-129) H 07/27/20 01:55 Ammonia 18.0 umol/L (25-60) L 07/27/20 01:55 Total Creatine Kinase 363 units/L (55-170) H 07/29/20 05:03 Troponin T 0.056 ng/mL (0.00-0.029) H 07/27/20 01:55 Total Protein 7.4 g/dL (6.3-8.2) 07/27/20 01:55 Albumin 3.9 g/dL (3.9-5) 07/27/20 01:55 Albumin/Globulin Ratio 1.1 % 07/27/20 01:55 Triglycerides 78 mg/dL (2-149) 07/27/20 01:55 Cholesterol 220 mg/dL (50-199) H 07/27/20 01:55 LDL Cholesterol Direct 102 mg/dL (50-130) 07/27/20 01:55 HDL Cholesterol 126 mg/dL (40-59) H 07/27/20 01:55 Cholesterol/HDL Ratio 1.74 % 07/27/20 01:55 TSH 0.824 mlU/mL (0.270-4.200) 07/27/20 01:55 Urine Color Colorless (Yellow) 07/27/20 02:09 Urine Turbidity Clear (Clear) 07/27/20 02:09 Urine pH 6.0 (5.0-7.0) 07/27/20 02:09 Ur Specific [place] 1.016 (1.003-1.030) 07/27/20 02:09 Urine Protein 100 mg/dl mg/dL (Negative) 07/27/20 02:09 Urine Glucose (UA) >=500 mg/dL (Negative) 07/27/20 02:09 Urine Ketones Neg mg/dL (Negative) 07/27/20 02:09 Urine Blood Mod (Negative) 07/27/20 02:09 Urine Nitrite Neg (Negative) 07/27/20 02:09 Urine Bilirubin Neg (Negative) 07/27/20 02:09 Urine Urobilinogen < 2.0 mg/dL (<2.0) 07/27/20 02:09 Ur Leukocyte Esterase Neg (Negative) 07/27/20 02:09 Urine WBC (Auto) 1.0 /HPF (0.0-6.0) 07/27/20 02:09 Urine RBC (Auto) < 1.0 /HPF (0.0-6.0) 07/27/20 02:09 U Epithel Cells (Auto) < 1.0 /HPF (0-13.0) 07/27/20 02:09 Urine Mucus Few /HPF 07/27/20 02:09 Urine Creatinine 85.6 mg/dL (0.1-20.0) H 07/27/20 19:00 Protein/Creatinin Ratio 2.96 07/27/20 19:00 Urine Sodium 51 mmol/L 07/27/20 19:00 Urine Total Protein 253 mg/dL (5-11.8) H 07/27/20 19:00 Salicylates < 0.3 mg/dL (2.8-20.0) L 07/27/20 01:55 Urine Opiates Screen Presumptive negative 07/27/20 02:09 Urine Methadone Screen Presumptive negative 07/27/20 02:09 Acetaminophen 5.0 ug/mL (10.0-30.0) L 07/27/20 01:55 Ur Barbiturates Screen Presumptive negative 07/27/20 02:09 Ur Phencyclidine Scrn Presumptive negative 07/27/20 02:09 Ur Amphetamines Screen Presumptive negative 07/27/20 02:09 U Benzodiazepines Scrn Presumptive negative 07/27/20 02:09 Urine Cocaine Screen Presumptive negative 07/27/20 02:09 U Marijuana (THC) Screen Presumptive negative 07/27/20 02:09 Drugs of Abuse Note Disclamer 07/27/20 02:09 Plasma/Serum Alcohol < 0.01 % (0-0.07) 07/27/20 01:55 Hilton/IV: Voiding Method Toilet Active Medications - Current Medications Current Medications: Generic Name Dose Route Start Last Admin Trade Name Freq PRN Reason Stop Dose Admin Acetaminophen 650 mg 07/27/20 04:01 08/04/20 12:15 Acetaminophen 325 Mg Tab PO 650 mg Q4H PRN Administration Pain MILD(1-3)/Fever >100.5/RUIZ Amlodipine Besylate 10 mg 07/27/20 17:00 08/05/20 10:17 Amlodipine 10 Mg Tab PO 10 mg QDAY MARY Administration Chlordiazepoxide HCl 50 mg 07/27/20 11:47 Chlordiazepoxide 25 Mg Cap PO Q1HR PRN CIWA-Ar 8-15 Chlordiazepoxide HCl 100 mg 07/27/20 11:47 07/30/20 21:41 Chlordiazepoxide 25 Mg Cap PO 100 mg Q1HR PRN Administration CIWA-Ar 16-25 Dextrose 50 ml 08/04/20 09:30 Dextrose 50% In Water (25gm) 50 Ml Syringe IV Q30MIN PRN Hypoglycemia Protocol Folic Acid 1 mg 07/30/20 10:00 08/05/20 10:17 Folic Acid 1 Mg Tab PO 1 mg DAILY MARY Administration Heparin Sodium (Porcine) 5,000 unit 07/27/20 06:00 08/05/20 05:44 Heparin 5,000 Unit/1 Ml Vial SUB-Q Not Given Q8HR [facility] [place] Hydralazine HCl 10 mg 07/27/20 04:06 Hydralazine 20 Mg/1 Ml Inj IV Q4HR PRN Blood Pressure Hydralazine HCl 50 mg 07/30/20 11:00 08/05/20 05:41 Hydralazine 25 Mg Tab PO 50 mg Q8HR MARY Administration Insulin Glargine 24 units 08/05/20 08:00 08/05/20 10:26 Insulin Glargine 100 Units/Ml SUB-Q 24 units QAMDIAB MARY Administration Insulin Glargine 14 units 08/05/20 22:00 Insulin Glargine 100 Units/Ml SUB-Q QHS MARY Insulin Human Lispro 0 unit 08/04/20 11:30 08/05/20 10:20 Insulin Lispro 100 Unit/Ml SUB-Q 8 unit ACHS MARY Administration Protocol Insulin Human Lispro 6 unit 08/05/20 08:00 08/05/20 10:19 Insulin Lispro 100 Unit/Ml SUB-Q 6 unit AC MARY Administration Labetalol HCl 200 mg 07/27/20 22:00 08/05/20 10:18 Labetalol 200 Mg Tab PO 200 mg BID MARY Administration Lorazepam 2 mg 07/27/20 11:47 07/29/20 14:51 Lorazepam 2 Mg/Ml Vial IV 2 mg Q1HR PRN Administration CIWA-Ar 8-15 Lorazepam 4 mg 07/27/20 11:47 Lorazepam 2 Mg/Ml Vial IV Q1HR PRN CIWA-Ar 16-25 Magnesium Hydroxide 30 ml 07/27/20 04:01 Magnesium Hydroxide (Mom) Oral Liqd Udc PO Q4H PRN Constipation Morphine Sulfate 2 mg 07/27/20 04:01 Morphine 2 Mg/1 Ml Inj IV Q4H PRN Pain, Moderate (4-6) Multivitamins 1 each 07/30/20 10:00 08/05/20 10:18 Multivitamins ,Therapeutic Tab PO 1 each DAILY MARY Administration Olanzapine 7.5 mg 08/05/20 10:00 08/05/20 10:17 Olanzapine 7.5 Mg Tab PO 7.5 mg QDAY MARY Administration Ondansetron HCl 4 mg 07/27/20 04:01 Ondansetron 4 Mg/2 Ml Inj IV Q8H PRN Nausea And Vomiting Sodium Chloride 10 ml 07/27/20 10:00 08/04/20 21:24 Sodium Chloride 0.9% 10 Ml Flush Syringe IV 10 ml BID MARY Administration Sodium Chloride 10 ml 07/27/20 04:01 Sodium Chloride 0.9% 10 Ml Flush Syringe IV PRN PRN LINE FLUSH Thiamine HCl 100 mg 07/30/20 10:00 08/05/20 10:18 Thiamine 100 Mg Tab PO 100 mg QDAY MARY Administration Valproic Acid 250 mg 07/30/20 14:00 08/05/20 05:41 Valproic Acid 250 Mg Cap PO 250 mg Q8HR MARY Administration Nutrition/Malnutrition Assess - Dietary Evaluation Nutrition/Malnutrition Findings: Nutrition Notes Start: 07/27/20 09:22 Freq: Status: Active Protocol: Document 08/03/20 15:05 CW (Rec: 08/03/20 15:06 CW [id number]) Nutrition Notes Need for Assessment generated from: LOS Initial or Follow up Brief Note Current Diagnosis Acute Kidney Injury Other Pertinent Diagnosis hyperglycemia, AMS, Rhabdomyolysis Current Diet Consistent CHO Subjective/Other Information Screen for LOS. Pt eating 100% of meals. Russell score of 21. Percent of energy/protein needs met: 100%/100% Skin Integrity/Comment Intact Current % PO Good (75-100%) Nutrition Intervention Revisit per MD consult or patient Sign Off request: Additional Comments S/O for excellent intakes and intact skin
[2020-08-05 14:33] LABS: Calcium 9.4 mg/dL (8.4-10.2)
[2020-08-05] MEDS ORDERED: INSULIN LISPRO 100 UNIT/ML SUB-Q SCH (18:12)
[2020-08-06] MEDS: VALPROIC ACID 250 MG CAP PO SCH ×3 (05:25→21:04)
[2020-08-06] MEDS: HEPARIN 5,000 UNIT/1 ML VIAL SUB-Q SCH ×3 (05:25→21:06)
[2020-08-06] MEDS: hydrALAZINE 25 MG TAB PO SCH ×3 (05:25→21:05)
[2020-08-06] MEDS ORDERED: INSULIN LISPRO 100 UNIT/ML SUB-Q SCH (07:30)
[2020-08-06] MEDS: INSULIN GLARGINE 100 UNITS/ML SUB-Q SCH ×2 (08:56→22:15)
[2020-08-06] MEDS: INSULIN LISPRO 100 UNIT/ML SUB-Q SCH ×7 (08:57→22:39)
--- NOTE | 2020-08-06 10:00 | Progress Note ---
Assessment and Plan Assessment and plan: Assessment and Plan Assessment and plan: 59-year-old -[place] male with no known past medical problems and who has not been seen at this facility in the past was brought in to the emergency room today by EMS for altered mental status. Patient was found to be wandering around in a hotel lobby and refusing to answer questions when asked by EMS. Accu-Chek prior to arrival in the emergency room was said to be reading high. Upon arrival in the emergency room was alert and in no acute distress but still refusing to answer questions. Was looking drowsy. Work-up in the emergency room today reveals hyperglycemia with blood sugar greater than 700, elevated creatinine kinase greater than 3000, elevated creatinine level. CT scan of the head was unremarkable. UDS is still being awaited. Patient being admitted with altered mental status, hyperglycemia, rhabdomyolysis and acute kidney injury. Patient was treated with fluid hydration and counseling verbalized understanding. He is clinically improved. Counseling was provided on insulin management. It appears he is homeless extensive counseling was provided in case management assistance was requested. 07/29: Continue supportive care, no new complaints. Clinical stable but still lethargic, gait instability precludes discharge yet as patient is homeless 07/30: Some delirious behavior this morning will await psych evaluation. We will continue current management. Blood pressure elevated this morning as patient did not take his medication encouraged to take his meds hydralazine added due to persistent increase despite taking the meds. Disposition will be based on psych evaluation. 08/01-08/03. Psych following. Pending discharge to psych facility. Vitals stable 08/04. NPH Insulin switched to lantus. Blood glucose levels should be better tomorrow. Pending DC to psych facility 08/05. Monitor glucose levels closely 08/06. Adjusted lantus and lispro. BG better Acute metabolic encephalopathy likely secondary to EtOH use disorder Diabetes mellitus with hyperglycemia none DKA Warnicke encephalopathy Acute kidney disease with possible gastropathy on chronic kidney disease Rhabdomyolysis secondary to dehydration Hypokalemia EtOH use disorder plan Pending discharge to inpatient psych. Continue to adjust lantus and lispro Continue CIWA protocol CM working on placement for the patient Extensive counseling provided to the patient about substance use and EtOH. DVT and GI prophylaxis History Interval history: Patient seen and examined at bedside this morning No complaints noted Pending discharge to psych facility Hospitalist Physical - Physical exam Narrative exam: VITAL SIGNS: Reviewed. GENERAL: Awake HEAD: No signs of head trauma. EYES: Pupils are equal. Extraocular motions intact. MOUTH: Oropharynx is normal. NECK: No adenopathy, no JVD. CHEST: Chest with diminished breath sounds bilaterally. No wheezes, rales, or rhonchi. CARDIAC: normal S1 and S2, without murmurs, gallops, or rubs. ABDOMEN: Soft, non tender and non distended. No rebound or guarding, and no masses palpated. Bowel Sounds normal. MUSCULOSKELETAL: No edema NEUROLOGIC EXAM: Alert and oriented x3. No focal neurologic deficits SKIN: No obvious lesions - Constitutional Vitals: Temp Pulse Resp BP Pulse Ox 97.5 F L 96 H 18 142/75 97 08/06/20 07:24 08/06/20 07:24 08/06/20 07:24 08/06/20 07:24 08/06/20 07:24 HEART Score - HEART Score Troponin: Troponin T 0.056 ng/mL (0.00-0.029) H 07/27/20 01:55 Results - Labs CBC & Chem 7: 07/29/20 05:03 08/05/20 13:10 Labs: Laboratory Last Values WBC 6.4 K/mm3 (4.5-11.0) 07/29/20 05:03 RBC 4.14 M/mm3 (3.65-5.03) 07/29/20 05:03 Hgb 11.8 gm/dl (11.8-15.2) 07/29/20 05:03 Hct 36.1 % (35.5-45.6) 07/29/20 05:03 MCV 87 fl (84-94) 07/29/20 05:03 MCH 29 pg (28-32) 07/29/20 05:03 MCHC 33 % (32-34) 07/29/20 05:03 RDW 15.0 % (13.2-15.2) 07/29/20 05:03 Plt Count 278 K/mm3 (140-440) 07/29/20 05:03 Lymph % (Auto) 11.8 % (13.4-35.0) L 07/28/20 04:39 [place] % (Auto) 6.5 % (0.0-7.3) 07/28/20 04:39 Eos % (Auto) 0.9 % (0.0-4.3) 07/28/20 04:39 Baso % (Auto) 0.5 % (0.0-1.8) 07/28/20 04:39 Lymph # (Auto) 1.0 K/mm3 (1.2-5.4) L 07/28/20 04:39 [place] # (Auto) 0.6 K/mm3 (0.0-0.8) 07/28/20 04:39 Eos # (Auto) 0.1 K/mm3 (0.0-0.4) 07/28/20 04:39 Baso # (Auto) 0.0 K/mm3 (0.0-0.1) 07/28/20 04:39 Seg Neutrophils % 80.3 % (40.0-70.0) H 07/28/20 04:39 Seg Neutrophils # 6.9 K/mm3 (1.8-7.7) 07/28/20 04:39 PT 12.7 Sec. (12.2-14.9) 07/28/20 04:39 INR 0.97 (0.87-1.13) 07/28/20 04:39 APTT 33.0 Sec. (24.2-36.6) 07/27/20 01:55 Sodium 141 mmol/L (137-145) 08/05/20 13:10 Potassium 3.6 mmol/L (3.6-5.0) 08/05/20 13:10 Chloride 107.8 mmol/L (98-107) H 08/05/20 13:10 Carbon Dioxide 27 mmol/L (22-30) 08/05/20 13:10 Anion Gap 10 mmol/L 08/05/20 13:10 BUN 34 mg/dL (9-20) H 08/05/20 13:10 Creatinine 2.2 mg/dL (0.8-1.3) H 08/05/20 13:10 Estimated GFR 37 ml/min 08/05/20 13:10 BUN/Creatinine Ratio 15 % 08/05/20 13:10 Glucose 78 mg/dL (75-100) 08/05/20 13:10 POC Glucose 246 mg/dL (70-105) H 08/06/20 07:59 Hemoglobin A1c 15.0 % (4-6) H 07/27/20 01:55 Lactic Acid 1.60 mmol/L (0.7-2.0) 07/27/20 01:55 Calcium 9.4 mg/dL (8.4-10.2) 08/05/20 13:10 Phosphorus 2.70 mg/dL (2.5-4.5) 07/28/20 04:39 Magnesium 1.80 mg/dL (1.7-2.3) 07/28/20 04:39 Total Bilirubin 0.50 mg/dL (0.1-1.2) 07/27/20 01:55 Direct Bilirubin < 0.2 mg/dL (0-0.2) 07/27/20 01:55 Indirect Bilirubin 0.3 mg/dL 07/27/20 01:55 AST 72 units/L (5-40) H 07/27/20 01:55 ALT 57 units/L (7-56) H 07/27/20 01:55 Alkaline Phosphatase 163 units/L (35-129) H 07/27/20 01:55 Ammonia 18.0 umol/L (25-60) L 07/27/20 01:55 Total Creatine Kinase 85 units/L (55-170) 08/05/20 13:10 Troponin T 0.056 ng/mL (0.00-0.029) H 07/27/20 01:55 Total Protein 7.4 g/dL (6.3-8.2) 07/27/20 01:55 Albumin 3.9 g/dL (3.9-5) 07/27/20 01:55 Albumin/Globulin Ratio 1.1 % 07/27/20 01:55 Triglycerides 78 mg/dL (2-149) 07/27/20 01:55 Cholesterol 220 mg/dL (50-199) H 07/27/20 01:55 LDL Cholesterol Direct 102 mg/dL (50-130) 07/27/20 01:55 HDL Cholesterol 126 mg/dL (40-59) H 07/27/20 01:55 Cholesterol/HDL Ratio 1.74 % 07/27/20 01:55 TSH 0.824 mlU/mL (0.270-4.200) 07/27/20 01:55 Urine Color Colorless (Yellow) 07/27/20 02:09 Urine Turbidity Clear (Clear) 07/27/20 02:09 Urine pH 6.0 (5.0-7.0) 07/27/20 02:09 Ur Specific [place] 1.016 (1.003-1.030) 07/27/20 02:09 Urine Protein 100 mg/dl mg/dL (Negative) 07/27/20 02:09 Urine Glucose (UA) >=500 mg/dL (Negative) 07/27/20 02:09 Urine Ketones Neg mg/dL (Negative) 07/27/20 02:09 Urine Blood Mod (Negative) 07/27/20 02:09 Urine Nitrite Neg (Negative) 07/27/20 02:09 Urine Bilirubin Neg (Negative) 07/27/20 02:09 Urine Urobilinogen < 2.0 mg/dL (<2.0) 07/27/20 02:09 Ur Leukocyte Esterase Neg (Negative) 07/27/20 02:09 Urine WBC (Auto) 1.0 /HPF (0.0-6.0) 07/27/20 02:09 Urine RBC (Auto) < 1.0 /HPF (0.0-6.0) 07/27/20 02:09 U Epithel Cells (Auto) < 1.0 /HPF (0-13.0) 07/27/20 02:09 Urine Mucus Few /HPF 07/27/20 02:09 Urine Creatinine 85.6 mg/dL (0.1-20.0) H 07/27/20 19:00 Protein/Creatinin Ratio 2.96 07/27/20 19:00 Urine Sodium 51 mmol/L 07/27/20 19:00 Urine Total Protein 253 mg/dL (5-11.8) H 07/27/20 19:00 Salicylates < 0.3 mg/dL (2.8-20.0) L 07/27/20 01:55 Urine Opiates Screen Presumptive negative 07/27/20 02:09 Urine Methadone Screen Presumptive negative 07/27/20 02:09 Acetaminophen 5.0 ug/mL (10.0-30.0) L 07/27/20 01:55 Ur Barbiturates Screen Presumptive negative 07/27/20 02:09 Ur Phencyclidine Scrn Presumptive negative 07/27/20 02:09 Ur Amphetamines Screen Presumptive negative 07/27/20 02:09 U Benzodiazepines Scrn Presumptive negative 07/27/20 02:09 Urine Cocaine Screen Presumptive negative 07/27/20 02:09 U Marijuana (THC) Screen Presumptive negative 07/27/20 02:09 Drugs of Abuse Note Disclamer 07/27/20 02:09 Plasma/Serum Alcohol < 0.01 % (0-0.07) 07/27/20 01:55 Hilton/IV: Voiding Method Toilet Active Medications - Current Medications Current Medications: Generic Name Dose Route Start Last Admin Trade Name Freq PRN Reason Stop Dose Admin Acetaminophen 650 mg 07/27/20 04:01 08/04/20 12:15 Acetaminophen 325 Mg Tab PO 650 mg Q4H PRN Administration Pain MILD(1-3)/Fever >100.5/RUIZ Amlodipine Besylate 10 mg 07/27/20 17:00 08/05/20 10:17 Amlodipine 10 Mg Tab PO 10 mg QDAY MARY Administration Chlordiazepoxide HCl 50 mg 07/27/20 11:47 Chlordiazepoxide 25 Mg Cap PO Q1HR PRN CIWA-Ar 8-15 Chlordiazepoxide HCl 100 mg 07/27/20 11:47 07/30/20 21:41 Chlordiazepoxide 25 Mg Cap PO 100 mg Q1HR PRN Administration CIWA-Ar 16-25 Dextrose 50 ml 08/04/20 09:30 Dextrose 50% In Water (25gm) 50 Ml Syringe IV Q30MIN PRN Hypoglycemia Protocol Folic Acid 1 mg 07/30/20 10:00 08/05/20 10:17 Folic Acid 1 Mg Tab PO 1 mg DAILY MARY Administration Heparin Sodium (Porcine) 5,000 unit 07/27/20 06:00 08/06/20 05:25 Heparin 5,000 Unit/1 Ml Vial SUB-Q Not Given Q8HR MARY Hydralazine HCl 10 mg 07/27/20 04:06 Hydralazine 20 Mg/1 Ml Inj IV Q4HR PRN Blood Pressure Hydralazine HCl 50 mg 07/30/20 11:00 08/06/20 05:25 Hydralazine 25 Mg Tab PO 50 mg Q8HR MARY Administration Insulin Glargine 24 units 08/05/20 08:00 08/06/20 08:56 Insulin Glargine 100 Units/Ml SUB-Q 24 units QAMDIAB MARY Administration Insulin Glargine 6 units 08/06/20 22:00 Insulin Glargine 100 Units/Ml SUB-Q QHS MARY Insulin Human Lispro 0 unit 08/04/20 11:30 08/06/20 08:57 Insulin Lispro 100 Unit/Ml SUB-Q 4 unit ACHS MARY Administration Protocol Labetalol HCl 200 mg 07/27/20 22:00 08/05/20 21:30 Labetalol 200 Mg Tab PO 200 mg BID MARY Administration Lorazepam 2 mg 07/27/20 11:47 07/29/20 14:51 Lorazepam 2 Mg/Ml Vial IV 2 mg Q1HR PRN Administration CIWA-Ar 8-15 Lorazepam 4 mg 07/27/20 11:47 Lorazepam 2 Mg/Ml Vial IV Q1HR PRN CIWA-Ar 16-25 Magnesium Hydroxide 30 ml 07/27/20 04:01 Magnesium Hydroxide (Mom) Oral Liqd Udc PO Q4H PRN Constipation Morphine Sulfate 2 mg 07/27/20 04:01 Morphine 2 Mg/1 Ml Inj IV Q4H PRN Pain, Moderate (4-6) Multivitamins 1 each 07/30/20 10:00 08/05/20 10:18 Multivitamins ,Therapeutic Tab PO 1 each DAILY MARY Administration Olanzapine 7.5 mg 08/05/20 10:00 08/05/20 10:17 Olanzapine 7.5 Mg Tab PO 7.5 mg QDAY MARY Administration Ondansetron HCl 4 mg 07/27/20 04:01 Ondansetron 4 Mg/2 Ml Inj IV Q8H PRN Nausea And Vomiting Sodium Chloride 10 ml 07/27/20 10:00 08/05/20 21:31 Sodium Chloride 0.9% 10 Ml Flush Syringe IV 10 ml BID MARY Administration Sodium Chloride 10 ml 07/27/20 04:01 Sodium Chloride 0.9% 10 Ml Flush Syringe IV PRN PRN LINE FLUSH Thiamine HCl 100 mg 07/30/20 10:00 08/05/20 10:18 Thiamine 100 Mg Tab PO 100 mg QDAY MARY Administration Valproic Acid 250 mg 07/30/20 14:00 08/06/20 05:25 Valproic Acid 250 Mg Cap PO 250 mg Q8HR MARY Administration Nutrition/Malnutrition Assess - Dietary Evaluation Nutrition/Malnutrition Findings: Nutrition Notes Start: 07/27/20 09:22 Freq: Status: Active Protocol: Document 08/03/20 15:05 CW (Rec: 08/03/20 15:06 CW [id number]) Nutrition Notes Need for Assessment generated from: LOS Initial or Follow up Brief Note Current Diagnosis Acute Kidney Injury Other Pertinent Diagnosis hyperglycemia, AMS, Rhabdomyolysis Current Diet Consistent CHO Subjective/Other Information Screen for LOS. Pt eating 100% of meals. Russell score of 21. Percent of energy/protein needs met: 100%/100% Skin Integrity/Comment Intact Current % PO Good (75-100%) Nutrition Intervention Revisit per MD consult or patient Sign Off request: Additional Comments S/O for excellent intakes and intact skin
[2020-08-06] MEDS: amLODIPine 10 MG TAB PO SCH (10:52)
[2020-08-06] MEDS: FOLIC ACID 1 MG TAB PO SCH (10:52)
[2020-08-06] MEDS: THIAMINE 100 MG TAB PO SCH (10:52)
[2020-08-06] MEDS: MULTIVITAMINS ,THERAPEUTIC TAB PO SCH (10:52)
[2020-08-06] MEDS: ACETAMINOPHEN 325 MG TAB PO PRN (21:07)
[2020-08-07] MEDS: VALPROIC ACID 250 MG CAP PO SCH ×3 (06:03→21:56)
[2020-08-07] MEDS: HEPARIN 5,000 UNIT/1 ML VIAL SUB-Q SCH ×3 (06:04→21:57)
[2020-08-07] MEDS: hydrALAZINE 25 MG TAB PO SCH ×3 (06:04→21:56)
[2020-08-07] MEDS: ACETAMINOPHEN 325 MG TAB PO PRN (06:34)
[2020-08-07] MEDS: INSULIN LISPRO 100 UNIT/ML SUB-Q SCH ×8 (07:30→21:57)
[2020-08-07] MEDS: INSULIN GLARGINE 100 UNITS/ML SUB-Q SCH ×2 (08:15→21:57)
--- NOTE | 2020-08-07 09:10 | Progress Note ---
Assessment and Plan Assessment and plan: Assessment and Plan Assessment and plan: 59-year-old -Italian male with no known past medical problems and who has not been seen at this facility in the past was brought in to the emergency room today by EMS for altered mental status. Patient was found to be wandering around in a hotel lobby and refusing to answer questions when asked by EMS. Accu-Chek prior to arrival in the emergency room was said to be reading high. Upon arrival in the emergency room was alert and in no acute distress but still refusing to answer questions. Was looking drowsy. Work-up in the emergency room today reveals hyperglycemia with blood sugar greater than 700, elevated creatinine kinase greater than 3000, elevated creatinine level. CT scan of the head was unremarkable. UDS is still being awaited. Patient being admitted with altered mental status, hyperglycemia, rhabdomyolysis and acute kidney injury. Patient was treated with fluid hydration and counseling verbalized understanding. He is clinically improved. Counseling was provided on insulin management. It appears he is homeless extensive counseling was provided in case management assistance was requested. 07/29: Continue supportive care, no new complaints. Clinical stable but still lethargic, gait instability precludes discharge yet as patient is homeless 07/30: Some delirious behavior this morning will await psych evaluation. We will continue current management. Blood pressure elevated this morning as patient did not take his medication encouraged to take his meds hydralazine added due to persistent increase despite taking the meds. Disposition will be based on psych evaluation. 08/01-08/03. Psych following. Pending discharge to psych facility. Vitals stable 08/04. NPH Insulin switched to lantus. Blood glucose levels should be better tomorrow. Pending DC to psych facility 08/05. Monitor glucose levels closely. COVID-19 test positive 08/06. Adjusted lantus and lispro. BG better 08/07. Blood glucose is improved now in the 100-200 range. Patient is medically stable for discharge to psych facility when accepted. Acute metabolic encephalopathy likely secondary to EtOH use disorder Diabetes mellitus with hyperglycemia none DKA [place] encephalopathy Acute kidney disease with possible gastropathy on chronic kidney disease Rhabdomyolysis secondary to dehydration Hypokalemia EtOH use disorder plan Pending discharge to inpatient psych. Continue to adjust lantus and lispro Patient is medically stable for discharge to psych facility when accepted Continue [facility] protocol CM working on placement for the patient Extensive counseling provided to the patient about substance use and EtOH. DVT and GI prophylaxis History Interval history: Patient seen and examined at bedside this morning No complaints noted Pending discharge to psych facility Blood glucose significantly improved Hospitalist Physical - Physical exam Narrative exam: VITAL SIGNS: Reviewed. GENERAL: Awake HEAD: No signs of head trauma. EYES: Pupils are equal. Extraocular motions intact. MOUTH: Oropharynx is normal. NECK: No adenopathy, no JVD. CHEST: Chest with diminished breath sounds bilaterally. No wheezes, rales, or rhonchi. CARDIAC: normal S1 and S2, without murmurs, gallops, or rubs. ABDOMEN: Soft, non tender and non distended. No rebound or guarding, and no masses palpated. Bowel Sounds normal. MUSCULOSKELETAL: No edema NEUROLOGIC EXAM: Alert and oriented x3. No focal neurologic deficits SKIN: No obvious lesions - Constitutional Vitals: Temp Pulse Resp BP Pulse Ox 98.4 F 97 H 18 131/70 95 08/07/20 03:46 08/07/20 06:04 08/07/20 07:34 08/07/20 06:04 08/07/20 03:46 HEART Score - HEART Score Troponin: Troponin T 0.056 ng/mL (0.00-0.029) H 07/27/20 01:55 Results - Labs CBC & Chem 7: 07/29/20 05:03 08/05/20 13:10 Labs: Laboratory Last Values WBC 6.4 K/mm3 (4.5-11.0) 07/29/20 05:03 RBC 4.14 M/mm3 (3.65-5.03) 07/29/20 05:03 Hgb 11.8 gm/dl (11.8-15.2) 07/29/20 05:03 Hct 36.1 % (35.5-45.6) 07/29/20 05:03 MCV 87 fl (84-94) 07/29/20 05:03 MCH 29 pg (28-32) 07/29/20 05:03 MCHC 33 % (32-34) 07/29/20 05:03 RDW 15.0 % (13.2-15.2) 07/29/20 05:03 Plt Count 278 K/mm3 (140-440) 07/29/20 05:03 Lymph % (Auto) 11.8 % (13.4-35.0) L 07/28/20 04:39 [place] % (Auto) 6.5 % (0.0-7.3) 07/28/20 04:39 Eos % (Auto) 0.9 % (0.0-4.3) 07/28/20 04:39 Baso % (Auto) 0.5 % (0.0-1.8) 07/28/20 04:39 Lymph # (Auto) 1.0 K/mm3 (1.2-5.4) L 07/28/20 04:39 [place] # (Auto) 0.6 K/mm3 (0.0-0.8) 07/28/20 04:39 Eos # (Auto) 0.1 K/mm3 (0.0-0.4) 07/28/20 04:39 Baso # (Auto) 0.0 K/mm3 (0.0-0.1) 07/28/20 04:39 Seg Neutrophils % 80.3 % (40.0-70.0) H 07/28/20 04:39 Seg Neutrophils # 6.9 K/mm3 (1.8-7.7) 07/28/20 04:39 PT 12.7 Sec. (12.2-14.9) 07/28/20 04:39 INR 0.97 (0.87-1.13) 07/28/20 04:39 APTT 33.0 Sec. (24.2-36.6) 07/27/20 01:55 Sodium 141 mmol/L (137-145) 08/05/20 13:10 Potassium 3.6 mmol/L (3.6-5.0) 08/05/20 13:10 Chloride 107.8 mmol/L (98-107) H 08/05/20 13:10 Carbon Dioxide 27 mmol/L (22-30) 08/05/20 13:10 Anion Gap 10 mmol/L 08/05/20 13:10 BUN 34 mg/dL (9-20) H 08/05/20 13:10 Creatinine 2.2 mg/dL (0.8-1.3) H 08/05/20 13:10 Estimated GFR 37 ml/min 08/05/20 13:10 BUN/Creatinine Ratio 15 % 08/05/20 13:10 Glucose 78 mg/dL (75-100) 08/05/20 13:10 POC Glucose 204 mg/dL (70-105) H 08/07/20 00:34 Hemoglobin A1c 15.0 % (4-6) H 07/27/20 01:55 Lactic Acid 1.60 mmol/L (0.7-2.0) 07/27/20 01:55 Calcium 9.4 mg/dL (8.4-10.2) 08/05/20 13:10 Phosphorus 2.70 mg/dL (2.5-4.5) 07/28/20 04:39 Magnesium 1.80 mg/dL (1.7-2.3) 07/28/20 04:39 Total Bilirubin 0.50 mg/dL (0.1-1.2) 07/27/20 01:55 Direct Bilirubin < 0.2 mg/dL (0-0.2) 07/27/20 01:55 Indirect Bilirubin 0.3 mg/dL 07/27/20 01:55 AST 72 units/L (5-40) H 07/27/20 01:55 ALT 57 units/L (7-56) H 07/27/20 01:55 Alkaline Phosphatase 163 units/L (35-129) H 07/27/20 01:55 Ammonia 18.0 umol/L (25-60) L 07/27/20 01:55 Total Creatine Kinase 85 units/L (55-170) 08/05/20 13:10 Troponin T 0.056 ng/mL (0.00-0.029) H 07/27/20 01:55 Total Protein 7.4 g/dL (6.3-8.2) 07/27/20 01:55 Albumin 3.9 g/dL (3.9-5) 07/27/20 01:55 Albumin/Globulin Ratio 1.1 % 07/27/20 01:55 Triglycerides 78 mg/dL (2-149) 07/27/20 01:55 Cholesterol 220 mg/dL (50-199) H 07/27/20 01:55 LDL Cholesterol Direct 102 mg/dL (50-130) 07/27/20 01:55 HDL Cholesterol 126 mg/dL (40-59) H 07/27/20 01:55 Cholesterol/HDL Ratio 1.74 % 07/27/20 01:55 TSH 0.824 mlU/mL (0.270-4.200) 07/27/20 01:55 Urine Color Colorless (Yellow) 07/27/20 02:09 Urine Turbidity Clear (Clear) 07/27/20 02:09 Urine pH 6.0 (5.0-7.0) 07/27/20 02:09 Ur Specific [place] 1.016 (1.003-1.030) 07/27/20 02:09 Urine Protein 100 mg/dl mg/dL (Negative) 07/27/20 02:09 Urine Glucose (UA) >=500 mg/dL (Negative) 07/27/20 02:09 Urine Ketones Neg mg/dL (Negative) 07/27/20 02:09 Urine Blood Mod (Negative) 07/27/20 02:09 Urine Nitrite Neg (Negative) 07/27/20 02:09 Urine Bilirubin Neg (Negative) 07/27/20 02:09 Urine Urobilinogen < 2.0 mg/dL (<2.0) 07/27/20 02:09 Ur Leukocyte Esterase Neg (Negative) 07/27/20 02:09 Urine WBC (Auto) 1.0 /HPF (0.0-6.0) 07/27/20 02:09 Urine RBC (Auto) < 1.0 /HPF (0.0-6.0) 07/27/20 02:09 U Epithel Cells (Auto) < 1.0 /HPF (0-13.0) 07/27/20 02:09 Urine Mucus Few /HPF 07/27/20 02:09 Urine Creatinine 85.6 mg/dL (0.1-20.0) H 07/27/20 19:00 Protein/Creatinin Ratio 2.96 07/27/20 19:00 Urine Sodium 51 mmol/L 07/27/20 19:00 Urine Total Protein 253 mg/dL (5-11.8) H 07/27/20 19:00 Salicylates < 0.3 mg/dL (2.8-20.0) L 07/27/20 01:55 Urine Opiates Screen Presumptive negative 07/27/20 02:09 Urine Methadone Screen Presumptive negative 07/27/20 02:09 Acetaminophen 5.0 ug/mL (10.0-30.0) L 07/27/20 01:55 Ur Barbiturates Screen Presumptive negative 07/27/20 02:09 Ur Phencyclidine Scrn Presumptive negative 07/27/20 02:09 Ur Amphetamines Screen Presumptive negative 07/27/20 02:09 U Benzodiazepines Scrn Presumptive negative 07/27/20 02:09 Urine Cocaine Screen Presumptive negative 07/27/20 02:09 U Marijuana (THC) Screen Presumptive negative 07/27/20 02:09 Drugs of Abuse Note Disclamer 07/27/20 02:09 Plasma/Serum Alcohol < 0.01 % (0-0.07) 07/27/20 01:55 Coronavirus (PCR) Positive (Negative) A 08/05/20 Unknown [place]/IV: Voiding Method Toilet Active Medications - Current Medications Current Medications: Generic Name Dose Route Start Last Admin Trade Name Freq PRN Reason Stop Dose Admin Acetaminophen 650 mg 07/27/20 04:01 08/07/20 06:34 Acetaminophen 325 Mg Tab PO 650 mg Q4H PRN Administration Pain MILD(1-3)/Fever >100.5/RUIZ Amlodipine Besylate 10 mg 07/27/20 17:00 08/06/20 10:52 Amlodipine 10 Mg Tab PO 10 mg QDAY MARY Administration Chlordiazepoxide HCl 50 mg 07/27/20 11:47 Chlordiazepoxide 25 Mg Cap PO Q1HR PRN CIWA-Ar 8-15 Chlordiazepoxide HCl 100 mg 07/27/20 11:47 07/30/20 21:41 Chlordiazepoxide 25 Mg Cap PO 100 mg Q1HR PRN Administration CIWA-Ar 16-25 Dextrose 50 ml 08/04/20 09:30 Dextrose 50% In Water (25gm) 50 Ml Syringe IV Q30MIN PRN Hypoglycemia Protocol Folic Acid 1 mg 07/30/20 10:00 08/06/20 10:52 Folic Acid 1 Mg Tab PO 1 mg DAILY MARY Administration Heparin Sodium (Porcine) 5,000 unit 07/27/20 06:00 08/07/20 06:04 Heparin 5,000 Unit/1 Ml Vial SUB-Q Not Given Q8HR MARY Hydralazine HCl 10 mg 07/27/20 04:06 Hydralazine 20 Mg/1 Ml Inj IV Q4HR PRN Blood Pressure Hydralazine HCl 50 mg 07/30/20 11:00 08/07/20 06:04 Hydralazine 25 Mg Tab PO 50 mg Q8HR MARY Administration Insulin Glargine 6 units 08/06/20 22:00 08/06/20 22:15 Insulin Glargine 100 Units/Ml SUB-Q 6 units QHS MARY Administration Insulin Glargine 26 units 08/07/20 08:15 Insulin Glargine 100 Units/Ml SUB-Q QAMDIAB MARY Insulin Human Lispro 0 unit 08/04/20 11:30 08/06/20 22:39 Insulin Lispro 100 Unit/Ml SUB-Q Not Given ACHS [facility] Protocol Insulin Human Lispro 5 unit 08/06/20 11:30 08/06/20 22:36 Insulin Lispro 100 Unit/Ml SUB-Q 5 unit ACHS [facility] Administration Labetalol HCl 200 mg 07/27/20 22:00 08/06/20 21:04 Labetalol 200 Mg Tab PO 200 mg BID MARY Administration Lorazepam 2 mg 07/27/20 11:47 07/29/20 14:51 Lorazepam 2 Mg/Ml Vial IV 2 mg Q1HR PRN Administration CIWA-Ar 8-15 Lorazepam 4 mg 07/27/20 11:47 Lorazepam 2 Mg/Ml Vial IV Q1HR PRN CIWA-Ar 16-25 Magnesium Hydroxide 30 ml 07/27/20 04:01 Magnesium Hydroxide (Mom) Oral Liqd Udc PO Q4H PRN Constipation Morphine Sulfate 2 mg 07/27/20 04:01 Morphine 2 Mg/1 Ml Inj IV Q4H PRN Pain, Moderate (4-6) Multivitamins 1 each 07/30/20 10:00 08/06/20 10:52 Multivitamins ,Therapeutic Tab PO 1 each DAILY MARY Administration Olanzapine 7.5 mg 08/05/20 10:00 08/06/20 10:52 Olanzapine 7.5 Mg Tab PO 7.5 mg QDAY MARY Administration Ondansetron HCl 4 mg 07/27/20 04:01 Ondansetron 4 Mg/2 Ml Inj IV Q8H PRN Nausea And Vomiting Sodium Chloride 10 ml 07/27/20 10:00 08/06/20 21:06 Sodium Chloride 0.9% 10 Ml Flush Syringe IV 10 ml BID MARY Administration Sodium Chloride 10 ml 07/27/20 04:01 Sodium Chloride 0.9% 10 Ml Flush Syringe IV PRN PRN LINE FLUSH Thiamine HCl 100 mg 07/30/20 10:00 08/06/20 10:52 Thiamine 100 Mg Tab PO 100 mg QDAY MARY Administration Valproic Acid 250 mg 07/30/20 14:00 08/07/20 06:03 Valproic Acid 250 Mg Cap PO 250 mg Q8HR MARY Administration Nutrition/Malnutrition Assess - Dietary Evaluation Nutrition/Malnutrition Findings: Nutrition Notes Start: 07/27/20 09:22 Freq: Status: Active Protocol: Document 08/03/20 15:05 CW (Rec: 08/03/20 15:06 CW [id number]) Nutrition Notes Need for Assessment generated from: LOS Initial or Follow up Brief Note Current Diagnosis Acute Kidney Injury Other Pertinent Diagnosis hyperglycemia, AMS, Rhabdomyolysis Current Diet Consistent CHO Subjective/Other Information Screen for LOS. Pt eating 100% of meals. Russell score of 21. Percent of energy/protein needs met: 100%/100% Skin Integrity/Comment Intact Current % PO Good (75-100%) Nutrition Intervention Revisit per MD consult or patient Sign Off request: Additional Comments S/O for excellent intakes and intact skin
[2020-08-07] MEDS: THIAMINE 100 MG TAB PO SCH (11:30)
[2020-08-07] MEDS: FOLIC ACID 1 MG TAB PO SCH (11:31)
[2020-08-07] MEDS: MULTIVITAMINS ,THERAPEUTIC TAB PO SCH (11:31)
[2020-08-07] MEDS: amLODIPine 10 MG TAB PO SCH (11:31)
[2020-08-08] MEDS: hydrALAZINE 25 MG TAB PO SCH (05:16)
[2020-08-08] MEDS: ACETAMINOPHEN 325 MG TAB PO PRN ×2 (05:16→23:01)
[2020-08-08] MEDS: VALPROIC ACID 250 MG CAP PO SCH ×3 (05:18→23:45)
[2020-08-08] MEDS: HEPARIN 5,000 UNIT/1 ML VIAL SUB-Q SCH ×3 (05:18→22:45)
[2020-08-08] MEDS: INSULIN GLARGINE 100 UNITS/ML SUB-Q SCH ×2 (08:30→23:43)
[2020-08-08] MEDS: INSULIN LISPRO 100 UNIT/ML SUB-Q SCH ×8 (08:31→23:44)
[2020-08-08] MEDS ORDERED: hydrALAZINE 25 MG TAB PO SCH (10:08)
[2020-08-08] MEDS: amLODIPine 10 MG TAB PO SCH (10:25)
[2020-08-08] MEDS: MULTIVITAMINS ,THERAPEUTIC TAB PO SCH (10:25)
[2020-08-08] MEDS: FOLIC ACID 1 MG TAB PO SCH (10:25)
[2020-08-08] MEDS: THIAMINE 100 MG TAB PO SCH (10:25)
--- NOTE | 2020-08-08 10:43 | Progress Note ---
Subjective - Reason for Consult Consult date: 08/08/20 Reason for consult: agitation - Chief Complaint Chief complaint: Per Nursing staff: The patient has been agitated The patient is lying down. He's visibly upset and talking loudly. He is angry and jumps up and sits on side of the bed when I talk to him. The patient shouts "I'm ready to go home." He says "If I'm not out of here in the next hour everybody gone be in hell." The patient says "God gone see to it that they do." He says "I'm a good person and I don't bother nobody." He denies SI/HI or hallucinations. REVIEW OF SYSTEMS Constitutional: Negative for weight loss ENT: Negative for stridor Respiratory: Negative for cough or hemoptysis All other systems reviewed and are negative MENTAL STATUS EXAMINATION General Appearance and Behavior: Age appropriate, good hygiene, wearing appropriate clothes, good eye contact, cooperative with questioning. Cooperation: disengaged Psychomotor Behavior: Psychomotor agitation Mood: "good" Affect and affective range: euthymic, euphoric Thought Process: Illogical Thought Content: delusional Speech: normal tone and pace Intellectual Functioning: Average Suicidal Ideation: Denies Homicidal Ideation: Denies Impulse Control: Impaired Insight and Judgment: Impaired insight and judgment Memory: impaired Attention: Divided attention impaired Orientation: Alert, oriented Assessment and Plan (1) Schizophrenia Current Visit: Yes Status: Acute Treatment Plan Increase Olanzapine 10mg po daily Increased Depakote 500mg po q8h Start Geodon 20mg IM q6h prn agitation Risks, benefits and alternatives of medications discussed with the patient, questions answered and consent obtained from patient. PSYCHOTHERAPY: Supportive psychotherapy provided MEDICAL: Per primary team DELIRIUM PRECAUTIONS: Please re-orient patient frequently, keep lights on during the day, and minimize benzodiazepines and opiates as these medications could worsen patient's confusion. TUNNELLER: Per primary DISPOSITION: Recommend acute inpatient psychiatric hospitalization at this time. Case discussed with Dr. Powell who agrees with current disposition LEGAL STATUS: 1013 FOLLOW-UP: Will follow Thank you for the consult. Please contact with any questions and/or concerns. Mental Status Exam - Vital signs Last Vital Signs Temp 97.9 F 08/08/20 03:54 Pulse 101 H 08/08/20 10:24 Resp 18 08/08/20 03:54 BP 159/84 08/08/20 10:24 Pulse Ox 96 08/08/20 03:54
[2020-08-08] MEDS ORDERED: ZIPRASIDONE MESYLATE 20 MG VIAL IM PRN (10:48)
--- NOTE | 2020-08-08 12:55 | Progress Note ---
Assessment and Plan Assessment and plan: 59-year-old -[place] male with no known past medical problems and who has not been seen at this facility in the past was brought in to the emergency room today by EMS for altered mental status. Patient was found to be wandering around in a hotel lobby and refusing to answer questions when asked by EMS. Accu-Chek prior to arrival in the emergency room was said to be reading high. Upon arrival in the emergency room was alert and in no acute distress but still refusing to answer questions. Was looking drowsy. Work-up in the emergency room today reveals hyperglycemia with blood sugar greater than 700, elevated creatinine kinase greater than 3000, elevated creatinine level. CT scan of the head was unremarkable. UDS is still being awaited. Patient being admitted with altered mental status, hyperglycemia, rhabdomyolysis and acute kidney injury. Patient was treated with fluid hydration and counseling verbalized understanding. He is clinically improved. Counseling was provided on insulin management. It appears he is homeless extensive counseling was provided in case management assistance was requested. 07/29: Continue supportive care, no new complaints. Clinical stable but still lethargic, gait instability precludes discharge yet as patient is homeless 07/30: Some delirious behavior this morning will await psych evaluation. We will continue current management. Blood pressure elevated this morning as patient did not take his medication encouraged to take his meds hydralazine added due to persistent increase despite taking the meds. Disposition will be based on psych evaluation. 08/01-08/03. Psych following. Pending discharge to psych facility. Vitals stable 08/04. NPH Insulin switched to lantus. Blood glucose levels should be better judith rrow. Pending DC to psych facility 08/05. Monitor glucose levels closely. COVID-19 test positive 08/06. Adjusted lantus and lispro. BG better 08/07. Blood glucose is improved now in the 100-200 range. Patient is medically stable for discharge to psych facility when accepted. 08/08: Patient repeat covid test negative, mostly likely initial test was a false positive. Following careful discussion with family, patients condition is attributed to lack of his medications for management of his Schizophrenia. He does not have warnicke encephalopathy or etoh use. Will discontinue CIWA monitoring to prevent overmedicating. 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 Acute kidney disease with possible gastropathy on chronic kidney disease Rhabdomyolysis secondary to dehydration Hypokalemia EtOH use disorder-Rule out plan Pending discharge to inpatient psych. Continue to adjust lantus and lispro Patient is medically stable for discharge to psych facility when accepted CM working on placement for the patient Extensive counseling provided to the patient DVT and GI prophylaxis History Interval history: Patient seen and examined, No new complaints Hospitalist Physical - Physical exam Narrative exam: VITAL SIGNS: Reviewed. GENERAL: The patient appears normally developed, Vital signs as documented. HEAD: No signs of head trauma. EYES: Pupils are equal. Extraocular motions intact. EARS: Hearing grossly intact. MOUTH: Oropharynx is normal. NECK: No adenopathy, no JVD. CHEST: Chest with clear breath sounds bilaterally. No wheezes, rales, or rhonchi. CARDIAC: Regular rate and rhythm. S1 and S2, without murmurs, gallops, or rubs. VASCULAR: No Edema. Peripheral pulses normal and equal in all extremities. ABDOMEN: Soft, non tender and non distended. No rebound or guarding, and no masses palpated. Bowel Sounds normal. MUSCULOSKELETAL: Good range of motion of all major joints. Extremities without clubbing, cyanosis or edema. NEUROLOGIC EXAM: Alert and oriented x 3 no focal sensory or strength deficits. Speech normal. Follows commands. PSYCHIATRIC: Mood normal. SKIN: detail exam as documented in skin assessment - Constitutional Vitals: Temp Pulse Resp BP Pulse Ox 97.7 F 101 H 20 159/84 97 08/08/20 10:08 08/08/20 10:24 08/08/20 10:08 08/08/20 10:24 08/08/20 10:08 General appearance: Present: no acute distress, well-nourished HEART Score - HEART Score Troponin: Troponin T 0.056 ng/mL (0.00-0.029) H 07/27/20 01:55 Results - Labs CBC & Chem 7: 07/29/20 05:03 08/05/20 13:10 Labs: Laboratory Last Values WBC 6.4 K/mm3 (4.5-11.0) 07/29/20 05:03 RBC 4.14 M/mm3 (3.65-5.03) 07/29/20 05:03 Hgb 11.8 gm/dl (11.8-15.2) 07/29/20 05:03 Hct 36.1 % (35.5-45.6) 07/29/20 05:03 MCV 87 fl (84-94) 07/29/20 05:03 MCH 29 pg (28-32) 07/29/20 05:03 MCHC 33 % (32-34) 07/29/20 05:03 RDW 15.0 % (13.2-15.2) 07/29/20 05:03 Plt Count 278 K/mm3 (140-440) 07/29/20 05:03 Lymph % (Auto) 11.8 % (13.4-35.0) L 07/28/20 04:39 [place] % (Auto) 6.5 % (0.0-7.3) 07/28/20 04:39 Eos % (Auto) 0.9 % (0.0-4.3) 07/28/20 04:39 Baso % (Auto) 0.5 % (0.0-1.8) 07/28/20 04:39 Lymph # (Auto) 1.0 K/mm3 (1.2-5.4) L 07/28/20 04:39 [place] # (Auto) 0.6 K/mm3 (0.0-0.8) 07/28/20 04:39 Eos # (Auto) 0.1 K/mm3 (0.0-0.4) 07/28/20 04:39 Baso # (Auto) 0.0 K/mm3 (0.0-0.1) 07/28/20 04:39 Seg Neutrophils % 80.3 % (40.0-70.0) H 07/28/20 04:39 Seg Neutrophils # 6.9 K/mm3 (1.8-7.7) 07/28/20 04:39 PT 12.7 Sec. (12.2-14.9) 07/28/20 04:39 INR 0.97 (0.87-1.13) 07/28/20 04:39 APTT 33.0 Sec. (24.2-36.6) 07/27/20 01:55 Sodium 141 mmol/L (137-145) 08/05/20 13:10 Potassium 3.6 mmol/L (3.6-5.0) 08/05/20 13:10 Chloride 107.8 mmol/L (98-107) H 08/05/20 13:10 Carbon Dioxide 27 mmol/L (22-30) 08/05/20 13:10 Anion Gap 10 mmol/L 08/05/20 13:10 BUN 34 mg/dL (9-20) H 08/05/20 13:10 Creatinine 2.2 mg/dL (0.8-1.3) H 08/05/20 13:10 Estimated GFR 37 ml/min 08/05/20 13:10 BUN/Creatinine Ratio 15 % 08/05/20 13:10 Glucose 78 mg/dL (75-100) 08/05/20 13:10 POC Glucose 69 mg/dL (70-105) L 08/08/20 11:48 Hemoglobin A1c 15.0 % (4-6) H 07/27/20 01:55 Lactic Acid 1.60 mmol/L (0.7-2.0) 07/27/20 01:55 Calcium 9.4 mg/dL (8.4-10.2) 08/05/20 13:10 Phosphorus 2.70 mg/dL (2.5-4.5) 07/28/20 04:39 Magnesium 1.80 mg/dL (1.7-2.3) 07/28/20 04:39 Total Bilirubin 0.50 mg/dL (0.1-1.2) 07/27/20 01:55 Direct Bilirubin < 0.2 mg/dL (0-0.2) 07/27/20 01:55 Indirect Bilirubin 0.3 mg/dL 07/27/20 01:55 AST 72 units/L (5-40) H 07/27/20 01:55 ALT 57 units/L (7-56) H 07/27/20 01:55 Alkaline Phosphatase 163 units/L (35-129) H 07/27/20 01:55 Ammonia 18.0 umol/L (25-60) L 07/27/20 01:55 Total Creatine Kinase 85 units/L (55-170) 08/05/20 13:10 Troponin T 0.056 ng/mL (0.00-0.029) H 07/27/20 01:55 Total Protein 7.4 g/dL (6.3-8.2) 07/27/20 01:55 Albumin 3.9 g/dL (3.9-5) 07/27/20 01:55 Albumin/Globulin Ratio 1.1 % 07/27/20 01:55 Triglycerides 78 mg/dL (2-149) 07/27/20 01:55 Cholesterol 220 mg/dL (50-199) H 07/27/20 01:55 LDL Cholesterol Direct 102 mg/dL (50-130) 07/27/20 01:55 HDL Cholesterol 126 mg/dL (40-59) H 07/27/20 01:55 Cholesterol/HDL Ratio 1.74 % 07/27/20 01:55 TSH 0.824 mlU/mL (0.270-4.200) 07/27/20 01:55 Urine Color Colorless (Yellow) 07/27/20 02:09 Urine Turbidity Clear (Clear) 07/27/20 02:09 Urine pH 6.0 (5.0-7.0) 07/27/20 02:09 Ur Specific [place] 1.016 (1.003-1.030) 07/27/20 02:09 Urine Protein 100 mg/dl mg/dL (Negative) 07/27/20 02:09 Urine Glucose (UA) >=500 mg/dL (Negative) 07/27/20 02:09 Urine Ketones Neg mg/dL (Negative) 07/27/20 02:09 Urine Blood Mod (Negative) 07/27/20 02:09 Urine Nitrite Neg (Negative) 07/27/20 02:09 Urine Bilirubin Neg (Negative) 07/27/20 02:09 Urine Urobilinogen < 2.0 mg/dL (<2.0) 07/27/20 02:09 Ur Leukocyte Esterase Neg (Negative) 07/27/20 02:09 Urine WBC (Auto) 1.0 /HPF (0.0-6.0) 07/27/20 02:09 Urine RBC (Auto) < 1.0 /HPF (0.0-6.0) 07/27/20 02:09 U Epithel Cells (Auto) < 1.0 /HPF (0-13.0) 07/27/20 02:09 Urine Mucus Few /HPF 07/27/20 02:09 Urine Creatinine 85.6 mg/dL (0.1-20.0) H 07/27/20 19:00 Protein/Creatinin Ratio 2.96 07/27/20 19:00 Urine Sodium 51 mmol/L 07/27/20 19:00 Urine Total Protein 253 mg/dL (5-11.8) H 07/27/20 19:00 Salicylates < 0.3 mg/dL (2.8-20.0) L 07/27/20 01:55 Urine Opiates Screen Presumptive negative 07/27/20 02:09 Urine Methadone Screen Presumptive negative 07/27/20 02:09 Acetaminophen 5.0 ug/mL (10.0-30.0) L 07/27/20 01:55 Ur Barbiturates Screen Presumptive negative 07/27/20 02:09 Ur Phencyclidine Scrn Presumptive negative 07/27/20 02:09 Ur Amphetamines Screen Presumptive negative 07/27/20 02:09 U Benzodiazepines Scrn Presumptive negative 07/27/20 02:09 Urine Cocaine Screen Presumptive negative 07/27/20 02:09 U Marijuana (THC) Screen Presumptive negative 07/27/20 02:09 Drugs of Abuse Note Disclamer 07/27/20 02:09 Plasma/Serum Alcohol < 0.01 % (0-0.07) 07/27/20 01:55 Coronavirus (PCR) Negative (Negative) 08/05/20 Unknown Hilton/IV: Voiding Method Toilet Active Medications - Current Medications Current Medications: Generic Name Dose Route Start Last Admin Trade Name Freq PRN Reason Stop Dose Admin Acetaminophen 650 mg 07/27/20 04:01 08/08/20 05:16 Acetaminophen 325 Mg Tab PO 650 mg Q4H PRN Administration Pain MILD(1-3)/Fever >100.5/RUIZ Amlodipine Besylate 10 mg 07/27/20 17:00 08/08/20 10:25 Amlodipine 10 Mg Tab PO 10 mg QDAY MARY Administration Chlordiazepoxide HCl 50 mg 07/27/20 11:47 Chlordiazepoxide 25 Mg Cap PO Q1HR PRN CIWA-Ar 8-15 Chlordiazepoxide HCl 100 mg 07/27/20 11:47 07/30/20 21:41 Chlordiazepoxide 25 Mg Cap PO 100 mg Q1HR PRN Administration CIWA-Ar 16-25 Dextrose 50 ml 08/04/20 09:30 Dextrose 50% In Water (25gm) 50 Ml Syringe IV Q30MIN PRN Hypoglycemia Protocol Folic Acid 1 mg 07/30/20 10:00 08/08/20 10:25 Folic Acid 1 Mg Tab PO 1 mg DAILY MARY Administration Heparin Sodium (Porcine) 5,000 unit 07/27/20 06:00 08/08/20 05:18 Heparin 5,000 Unit/1 Ml Vial SUB-Q Not Given Q8HR MARY Hydralazine HCl 10 mg 07/27/20 04:06 Hydralazine 20 Mg/1 Ml Inj IV Q4HR PRN Blood Pressure Hydralazine HCl 100 mg 08/08/20 12:00 Hydralazine 100 Mg Tab PO Q8HR [facility] Insulin Glargine 6 units 08/06/20 22:00 08/07/20 21:57 Insulin Glargine 100 Units/Ml SUB-Q 6 units QHS [facility] Administration Insulin Glargine 26 units 08/07/20 08:15 08/08/20 08:30 Insulin Glargine 100 Units/Ml SUB-Q 26 units QAMDIAB [facility] Administration Insulin Human Lispro 0 unit 08/04/20 11:30 08/08/20 12:28 Insulin Lispro 100 Unit/Ml SUB-Q Not Given ACHS [facility] Protocol Insulin Human Lispro 5 unit 08/06/20 11:30 08/08/20 12:28 Insulin Lispro 100 Unit/Ml SUB-Q Not Given ACHS [facility] Labetalol HCl 200 mg 07/27/20 22:00 08/08/20 10:24 Labetalol 200 Mg Tab PO 200 mg BID MARY Administration Lorazepam 2 mg 07/27/20 11:47 07/29/20 14:51 Lorazepam 2 Mg/Ml Vial IV 2 mg Q1HR PRN Administration CIWA-Ar 8-15 Lorazepam 4 mg 07/27/20 11:47 Lorazepam 2 Mg/Ml Vial IV Q1HR PRN CIWA-Ar 16-25 Magnesium Hydroxide 30 ml 07/27/20 04:01 Magnesium Hydroxide (Mom) Oral Liqd Udc PO Q4H PRN Constipation Morphine Sulfate 2 mg 07/27/20 04:01 Morphine 2 Mg/1 Ml Inj IV Q4H PRN Pain, Moderate (4-6) Multivitamins 1 each 07/30/20 10:00 08/08/20 10:25 Multivitamins ,Therapeutic Tab PO 1 each DAILY MARY Administration Olanzapine 10 mg 08/09/20 10:00 Olanzapine 10 Mg Tab PO QDAY MARY Ondansetron HCl 4 mg 07/27/20 04:01 Ondansetron 4 Mg/2 Ml Inj IV Q8H PRN Nausea And Vomiting Sodium Chloride 10 ml 07/27/20 10:00 08/08/20 10:25 Sodium Chloride 0.9% 10 Ml Flush Syringe IV 10 ml BID MARY Administration Sodium Chloride 10 ml 07/27/20 04:01 Sodium Chloride 0.9% 10 Ml Flush Syringe IV PRN PRN LINE FLUSH Thiamine HCl 100 mg 07/30/20 10:00 08/08/20 10:25 Thiamine 100 Mg Tab PO 100 mg QDAY MARY Administration Valproic Acid 500 mg 08/08/20 12:00 Valproic Acid 250 Mg Cap PO Q8HR MARY Ziprasidone 20 mg 08/08/20 10:48 Ziprasidone Mesylate 20 Mg Vial IM Q6H PRN Agitation Nutrition/Malnutrition Assess - Dietary Evaluation Nutrition/Malnutrition Findings: Nutrition Notes Start: 07/27/20 09:22 Freq: Status: Active Protocol: Document 08/03/20 15:05 CW (Rec: 08/03/20 15:06 CW [id number]) Nutrition Notes Need for Assessment generated from: LOS Initial or Follow up Brief Note Current Diagnosis Acute Kidney Injury Other Pertinent Diagnosis hyperglycemia, AMS, Rhabdomyolysis Current Diet Consistent CHO Subjective/Other Information Screen for LOS. Pt eating 100% of meals. Russell score of 21. Percent of energy/protein needs met: 100%/100% Skin Integrity/Comment Intact Current % PO Good (75-100%) Nutrition Intervention Revisit per MD consult or patient Sign Off request: Additional Comments S/O for excellent intakes and intact skin
[2020-08-08] MEDS: hydrALAZINE 100 MG TAB PO SCH ×2 (15:25→22:44)
[2020-08-09] MEDS: VALPROIC ACID 250 MG CAP PO SCH ×3 (05:31→22:01)
[2020-08-09] MEDS: hydrALAZINE 100 MG TAB PO SCH ×3 (05:31→22:01)
[2020-08-09] MEDS: HEPARIN 5,000 UNIT/1 ML VIAL SUB-Q SCH ×3 (05:31→22:08)
[2020-08-09] MEDS: INSULIN GLARGINE 100 UNITS/ML SUB-Q SCH ×2 (09:01→22:02)
[2020-08-09] MEDS: INSULIN LISPRO 100 UNIT/ML SUB-Q SCH ×8 (09:02→22:02)
[2020-08-09] MEDS: MULTIVITAMINS ,THERAPEUTIC TAB PO SCH (09:03)
[2020-08-09] MEDS: amLODIPine 10 MG TAB PO SCH (09:03)
[2020-08-09] MEDS: FOLIC ACID 1 MG TAB PO SCH (09:03)
[2020-08-09] MEDS: THIAMINE 100 MG TAB PO SCH (09:08)
--- NOTE | 2020-08-09 13:14 | Progress Note ---
Assessment and Plan Assessment and plan: 59-year-old -[place] male with no known past medical problems and who has not been seen at this facility in the past was brought in to the emergency room today by EMS for altered mental status. Patient was found to be wandering around in a hotel lobby and refusing to answer questions when asked by EMS. Accu-Chek prior to arrival in the emergency room was said to be reading high. Upon arrival in the emergency room was alert and in no acute distress but still refusing to answer questions. Was looking drowsy. Work-up in the emergency room today reveals hyperglycemia with blood sugar greater than 700, elevated creatinine kinase greater than 3000, elevated creatinine level. CT scan of the head was unremarkable. UDS is still being awaited. Patient being admitted with altered mental status, hyperglycemia, rhabdomyolysis and acute kidney injury. Patient was treated with fluid hydration and counseling verbalized understanding. He is clinically improved. Counseling was provided on insulin management. It appears he is homeless extensive counseling was provided in case management assistance was requested. 07/29: Continue supportive care, no new complaints. Clinical stable but still lethargic, gait instability precludes discharge yet as patient is homeless 07/30: Some delirious behavior this morning will await psych evaluation. We will continue current management. Blood pressure elevated this morning as patient did not take his medication encouraged to take his meds hydralazine added due to persistent increase despite taking the meds. Disposition will be based on psych evaluation. 08/01-08/03. Psych following. Pending discharge to psych facility. Vitals stable 08/04. NPH Insulin switched to lantus. Blood glucose levels should be better judith rrow. Pending DC to psych facility 08/05. Monitor glucose levels closely. COVID-19 test positive 08/06. Adjusted lantus and lispro. BG better 08/07. Blood glucose is improved now in the 100-200 range. Patient is medically stable for discharge to psych facility when accepted. 08/08: Patient repeat covid test negative, mostly likely initial test was a false positive. Following careful discussion with family, patients condition is attributed to lack of his medications for management of his Schizophrenia. He does not have warnicke encephalopathy or etoh use. Will discontinue CIWA monitoring to prevent overmedicating. Awaiting pysch placement Discuss with mental health operations staff specialist security 08/09: Discussed with Dr. Tse psych facility update provided. I also gave insights that although initially patient was thought to have alcohol related disease further discussion with family revealed that the patient has underlying schizophrenia and has not been taking his medication and has had multiple episod es of the same when he is off his medication becomes the injectable with disorganized thoughts and thinking. He appears to be more controlled at this time. He is asking to be discharged. There is no Warnicke encephalopathy noted at this time. There is no EtOH concern at this time. Dr. Tse is awaiting update from psych team in respect to updated 1013 form and also MoCA test Acute metabolic encephalopathy likely Schizophrenia Schizophrenia Diabetes mellitus with hyperglycemia none DKA Warnicke encephalopathy ruled out. Acute kidney disease with possible gastropathy on chronic kidney disease Rhabdomyolysis secondary to dehydration Hypokalemia EtOH use disorder-Rule out plan Pending discharge to inpatient psych. Continue to adjust lantus and lispro Patient is medically stable for discharge to psych facility when accepted CM working on placement for the patient Extensive counseling provided to the patient DVT and GI prophylaxis History Interval history: Patient seen and examined, No new complaints. Sitting up on the side of the bed Hospitalist Physical - Physical exam Narrative exam: VITAL SIGNS: Reviewed. GENERAL: The patient appears normally developed, Vital signs as documented. HEAD: No signs of head trauma. EYES: Pupils are equal. Extraocular motions intact. EARS: Hearing grossly intact. MOUTH: Oropharynx is normal. NECK: No adenopathy, no JVD. CHEST: Chest with clear breath sounds bilaterally. No wheezes, rales, or rhonchi. CARDIAC: Regular rate and rhythm. S1 and S2, without murmurs, gallops, or rubs. VASCULAR: No Edema. Peripheral pulses normal and equal in all extremities. ABDOMEN: Soft, non tender and non distended. No rebound or guarding, and no masses palpated. Bowel Sounds normal. MUSCULOSKELETAL: Good range of motion of all major joints. Extremities without clubbing, cyanosis or edema. NEUROLOGIC EXAM: Alert and oriented x 3 no focal sensory or strength deficits. Speech normal. Follows commands. PSYCHIATRIC: Mood normal. SKIN: detail exam as documented in skin assessment - Constitutional Vitals: Temp Pulse Resp BP Pulse Ox 98.2 F 80 18 134/82 96 08/09/20 09:00 08/09/20 11:51 08/09/20 11:51 08/09/20 11:51 08/09/20 04:19 General appearance: Present: no acute distress, well-nourished HEART Score - HEART Score Troponin: Troponin T 0.056 ng/mL (0.00-0.029) H 07/27/20 01:55 Results - Labs CBC & Chem 7: 07/29/20 05:03 08/05/20 13:10 Labs: Laboratory Last Values WBC 6.4 K/mm3 (4.5-11.0) 07/29/20 05:03 RBC 4.14 M/mm3 (3.65-5.03) 07/29/20 05:03 Hgb 11.8 gm/dl (11.8-15.2) 07/29/20 05:03 Hct 36.1 % (35.5-45.6) 07/29/20 05:03 MCV 87 fl (84-94) 07/29/20 05:03 MCH 29 pg (28-32) 07/29/20 05:03 MCHC 33 % (32-34) 07/29/20 05:03 RDW 15.0 % (13.2-15.2) 07/29/20 05:03 Plt Count 278 K/mm3 (140-440) 07/29/20 05:03 Lymph % (Auto) 11.8 % (13.4-35.0) L 07/28/20 04:39 Sandoval % (Auto) 6.5 % (0.0-7.3) 07/28/20 04:39 Eos % (Auto) 0.9 % (0.0-4.3) 07/28/20 04:39 Baso % (Auto) 0.5 % (0.0-1.8) 07/28/20 04:39 Lymph # (Auto) 1.0 K/mm3 (1.2-5.4) L 07/28/20 04:39 Sandoval # (Auto) 0.6 K/mm3 (0.0-0.8) 07/28/20 04:39 Eos # (Auto) 0.1 K/mm3 (0.0-0.4) 07/28/20 04:39 Baso # (Auto) 0.0 K/mm3 (0.0-0.1) 07/28/20 04:39 Seg Neutrophils % 80.3 % (40.0-70.0) H 07/28/20 04:39 Seg Neutrophils # 6.9 K/mm3 (1.8-7.7) 07/28/20 04:39 PT 12.7 Sec. (12.2-14.9) 07/28/20 04:39 INR 0.97 (0.87-1.13) 07/28/20 04:39 APTT 33.0 Sec. (24.2-36.6) 07/27/20 01:55 Sodium 141 mmol/L (137-145) 08/05/20 13:10 Potassium 3.6 mmol/L (3.6-5.0) 08/05/20 13:10 Chloride 107.8 mmol/L (98-107) H 08/05/20 13:10 Carbon Dioxide 27 mmol/L (22-30) 08/05/20 13:10 Anion Gap 10 mmol/L 08/05/20 13:10 BUN 34 mg/dL (9-20) H 08/05/20 13:10 Creatinine 2.2 mg/dL (0.8-1.3) H 08/05/20 13:10 Estimated GFR 37 ml/min 08/05/20 13:10 BUN/Creatinine Ratio 15 % 08/05/20 13:10 Glucose 78 mg/dL (75-100) 08/05/20 13:10 POC Glucose 73 mg/dL (70-105) 08/09/20 12:04 Hemoglobin A1c 15.0 % (4-6) H 07/27/20 01:55 Lactic Acid 1.60 mmol/L (0.7-2.0) 07/27/20 01:55 Calcium 9.4 mg/dL (8.4-10.2) 08/05/20 13:10 Phosphorus 2.70 mg/dL (2.5-4.5) 07/28/20 04:39 Magnesium 1.80 mg/dL (1.7-2.3) 07/28/20 04:39 Total Bilirubin 0.50 mg/dL (0.1-1.2) 07/27/20 01:55 Direct Bilirubin < 0.2 mg/dL (0-0.2) 07/27/20 01:55 Indirect Bilirubin 0.3 mg/dL 07/27/20 01:55 AST 72 units/L (5-40) H 07/27/20 01:55 ALT 57 units/L (7-56) H 07/27/20 01:55 Alkaline Phosphatase 163 units/L (35-129) H 07/27/20 01:55 Ammonia 18.0 umol/L (25-60) L 07/27/20 01:55 Total Creatine Kinase 133 units/L (55-170) 08/08/20 12:17 Troponin T 0.056 ng/mL (0.00-0.029) H 07/27/20 01:55 Total Protein 7.4 g/dL (6.3-8.2) 07/27/20 01:55 Albumin 3.9 g/dL (3.9-5) 07/27/20 01:55 Albumin/Globulin Ratio 1.1 % 07/27/20 01:55 Triglycerides 78 mg/dL (2-149) 07/27/20 01:55 Cholesterol 220 mg/dL (50-199) H 07/27/20 01:55 LDL Cholesterol Direct 102 mg/dL (50-130) 07/27/20 01:55 HDL Cholesterol 126 mg/dL (40-59) H 07/27/20 01:55 Cholesterol/HDL Ratio 1.74 % 07/27/20 01:55 TSH 0.824 mlU/mL (0.270-4.200) 07/27/20 01:55 Urine Color Colorless (Yellow) 07/27/20 02:09 Urine Turbidity Clear (Clear) 07/27/20 02:09 Urine pH 6.0 (5.0-7.0) 07/27/20 02:09 Ur Specific Gallion 1.016 (1.003-1.030) 07/27/20 02:09 Urine Protein 100 mg/dl mg/dL (Negative) 07/27/20 02:09 Urine Glucose (UA) >=500 mg/dL (Negative) 07/27/20 02:09 Urine Ketones Neg mg/dL (Negative) 07/27/20 02:09 Urine Blood Mod (Negative) 07/27/20 02:09 Urine Nitrite Neg (Negative) 07/27/20 02:09 Urine Bilirubin Neg (Negative) 07/27/20 02:09 Urine Urobilinogen < 2.0 mg/dL (<2.0) 07/27/20 02:09 Ur Leukocyte Esterase Neg (Negative) 07/27/20 02:09 Urine WBC (Auto) 1.0 /HPF (0.0-6.0) 07/27/20 02:09 Urine RBC (Auto) < 1.0 /HPF (0.0-6.0) 07/27/20 02:09 U Epithel Cells (Auto) < 1.0 /HPF (0-13.0) 07/27/20 02:09 Urine Mucus Few /HPF 07/27/20 02:09 Urine Creatinine 85.6 mg/dL (0.1-20.0) H 07/27/20 19:00 Protein/Creatinin Ratio 2.96 07/27/20 19:00 Urine Sodium 51 mmol/L 07/27/20 19:00 Urine Total Protein 253 mg/dL (5-11.8) H 07/27/20 19:00 Salicylates < 0.3 mg/dL (2.8-20.0) L 07/27/20 01:55 Urine Opiates Screen Presumptive negative 07/27/20 02:09 Urine Methadone Screen Presumptive negative 07/27/20 02:09 Acetaminophen 5.0 ug/mL (10.0-30.0) L 07/27/20 01:55 Ur Barbiturates Screen Presumptive negative 07/27/20 02:09 Ur Phencyclidine Scrn Presumptive negative 07/27/20 02:09 Ur Amphetamines Screen Presumptive negative 07/27/20 02:09 U Benzodiazepines Scrn Presumptive negative 07/27/20 02:09 Urine Cocaine Screen Presumptive negative 07/27/20 02:09 U Marijuana (THC) Screen Presumptive negative 07/27/20 02:09 Drugs of Abuse Note Disclamer 07/27/20 02:09 Plasma/Serum Alcohol < 0.01 % (0-0.07) 07/27/20 01:55 Coronavirus (PCR) Negative (Negative) 08/05/20 Unknown Hilton/IV: Voiding Method Toilet Active Medications - Current Medications Current Medications: Generic Name Dose Route Start Last Admin Trade Name Freq PRN Reason Stop Dose Admin Acetaminophen 650 mg 07/27/20 04:01 08/08/20 23:01 Acetaminophen 325 Mg Tab PO 650 mg Q4H PRN Administration Pain MILD(1-3)/Fever >100.5/RUIZ Amlodipine Besylate 10 mg 07/27/20 17:00 08/09/20 09:03 Amlodipine 10 Mg Tab PO 10 mg QDAY MARY Administration Dextrose 50 ml 08/04/20 09:30 Dextrose 50% In Water (25gm) 50 Ml Syringe IV Q30MIN PRN Hypoglycemia Protocol Folic Acid 1 mg 07/30/20 10:00 08/09/20 09:03 Folic Acid 1 Mg Tab PO 1 mg DAILY [facility] Administration Heparin Sodium (Porcine) 5,000 unit 07/27/20 06:00 08/09/20 05:31 Heparin 5,000 Unit/1 Ml Vial SUB-Q 5,000 unit Q8HR MARY Administration Hydralazine HCl 10 mg 07/27/20 04:06 Hydralazine 20 Mg/1 Ml Inj IV Q4HR PRN Blood Pressure Hydralazine HCl 100 mg 08/08/20 12:00 08/09/20 05:31 Hydralazine 100 Mg Tab PO 100 mg Q8HR [facility] Administration Insulin Glargine 6 units 08/06/20 22:00 08/08/20 23:43 Insulin Glargine 100 Units/Ml SUB-Q 6 units QHS [facility] Administration Insulin Glargine 20 units 08/09/20 08:00 08/09/20 09:01 Insulin Glargine 100 Units/Ml SUB-Q 20 units QAMDIAB [facility] Administration Insulin Human Lispro 0 unit 08/04/20 11:30 08/09/20 12:09 Insulin Lispro 100 Unit/Ml SUB-Q Not Given ACHS [facility] Protocol Insulin Human Lispro 5 unit 08/06/20 11:30 08/09/20 12:09 Insulin Lispro 100 Unit/Ml SUB-Q Not Given ACHS [facility] Labetalol HCl 200 mg 07/27/20 22:00 08/09/20 09:03 Labetalol 200 Mg Tab PO 200 mg BID [facility] Administration Magnesium Hydroxide 30 ml 07/27/20 04:01 Magnesium Hydroxide (Mom) Oral Liqd Udc PO Q4H PRN Constipation Morphine Sulfate 2 mg 07/27/20 04:01 Morphine 2 Mg/1 Ml Inj IV Q4H PRN Pain, Moderate (4-6) Multivitamins 1 each 07/30/20 10:00 08/09/20 09:03 Multivitamins ,Therapeutic Tab PO 1 each DAILY MARY Administration Olanzapine 10 mg 08/09/20 10:00 08/09/20 09:25 Olanzapine 10 Mg Tab PO Not Given QDAY MARY Ondansetron HCl 4 mg 07/27/20 04:01 Ondansetron 4 Mg/2 Ml Inj IV Q8H PRN Nausea And Vomiting Sodium Chloride 10 ml 07/27/20 10:00 08/09/20 09:04 Sodium Chloride 0.9% 10 Ml Flush Syringe IV Not Given BID MARY Sodium Chloride 10 ml 07/27/20 04:01 Sodium Chloride 0.9% 10 Ml Flush Syringe IV PRN PRN LINE FLUSH Thiamine HCl 100 mg 07/30/20 10:00 08/09/20 09:08 Thiamine 100 Mg Tab PO 100 mg QDAY MARY Administration Valproic Acid 500 mg 08/08/20 12:00 08/09/20 05:31 Valproic Acid 250 Mg Cap PO 500 mg Q8HR MARY Administration Ziprasidone 20 mg 08/08/20 10:48 Ziprasidone Mesylate 20 Mg Vial IM Q6H PRN Agitation Nutrition/Malnutrition Assess - Dietary Evaluation Nutrition/Malnutrition Findings: Nutrition Notes Start: 07/27/20 09:22 Freq: Status: Active Protocol: Document 08/03/20 15:05 CW (Rec: 08/03/20 15:06 CW [id number]) Nutrition Notes Need for Assessment generated from: LOS Initial or Follow up Brief Note Current Diagnosis Acute Kidney Injury Other Pertinent Diagnosis hyperglycemia, AMS, Rhabdomyolysis Current Diet Consistent CHO Subjective/Other Information Screen for LOS. Pt eating 100% of meals. Russell score of 21. Percent of energy/protein needs met: 100%/100% Skin Integrity/Comment Intact Current % PO Good (75-100%) Nutrition Intervention Revisit per MD consult or patient Sign Off request: Additional Comments S/O for excellent intakes and intact skin
[2020-08-10] MEDS: hydrALAZINE 100 MG TAB PO SCH ×3 (06:34→22:14)
[2020-08-10] MEDS: VALPROIC ACID 250 MG CAP PO SCH ×3 (06:34→22:14)
[2020-08-10] MEDS: HEPARIN 5,000 UNIT/1 ML VIAL SUB-Q SCH ×3 (06:34→22:19)
[2020-08-10] MEDS: INSULIN LISPRO 100 UNIT/ML SUB-Q SCH ×8 (08:14→22:18)
[2020-08-10] MEDS: INSULIN GLARGINE 100 UNITS/ML SUB-Q SCH ×2 (09:02→22:19)
--- NOTE | 2020-08-10 09:53 | Progress Note ---
Subjective - Reason for Consult Consult date: 08/10/20 Reason for consult: agitation - Chief Complaint Chief complaint: The patient is seen today. He is at the sink washing his hands. A sitter is at bedside. The patient's mood is elevated. He is hyper mosque. He is loud. The patient is talkative. The patient is singing to me. When asked how he felt, he says "I want to caress the bottom of your soft feet. That's how I feel." He is inappropriate. He says "Our interaction here is not done. I created you just for me. Your beauty belongs to me and nobody else." He denies hallucinations or SI/HI. REVIEW OF SYSTEMS Constitutional: Negative for weight loss ENT: Negative for stridor Respiratory: Negative for cough or hemoptysis All other systems reviewed and are negative MENTAL STATUS EXAMINATION General Appearance and Behavior: Age appropriate, good hygiene, wearing appropriate clothes, good eye contact, cooperative with questioning. Cooperation: disengaged Psychomotor Behavior: Psychomotor agitation Mood: Affect and affective range: euthymic, euphoric Thought Process: Illogical Thought Content: delusional Speech: normal tone and pace Intellectual Functioning: Average Suicidal Ideation: Denies Homicidal Ideation: Denies Impulse Control: Impaired Insight and Judgment: Impaired insight and judgment Memory: impaired Attention: Divided attention impaired Orientation: Alert, oriented Assessment and Plan (1) Schizophrenia Current Visit: Yes Status: Acute Treatment Plan Continue Olanzapine 10mg po daily Continue Depakote 500mg po q8h Continue Geodon 20mg IM q6h prn agitation Risks, benefits and alternatives of medications discussed with the patient, questions answered and consent obtained from patient. PSYCHOTHERAPY: Supportive psychotherapy provided MEDICAL: Per primary team DELIRIUM PRECAUTIONS: Please re-orient patient frequently, keep lights on during the day, and minimize benzodiazepines and opiates as these medications could worsen patient's confusion. 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 Case discussed with Dr. Powell who agrees with current disposition LEGAL STATUS: 1013 FOLLOW-UP: Will follow Thank you for the consult. Please contact with any questions and/or concerns. Mental Status Exam - Vital signs Last Vital Signs Temp 98.7 F 08/10/20 05:10 Pulse 87 08/10/20 05:10 Resp 17 08/10/20 05:10 BP 129/80 08/10/20 05:10 Pulse Ox 96 08/10/20 05:10
[2020-08-10] MEDS: THIAMINE 100 MG TAB PO SCH (10:00)
[2020-08-10] MEDS: FOLIC ACID 1 MG TAB PO SCH (10:00)
[2020-08-10] MEDS: MULTIVITAMINS ,THERAPEUTIC TAB PO SCH (10:00)
[2020-08-10] MEDS: amLODIPine 10 MG TAB PO SCH (10:03)
--- NOTE | 2020-08-10 13:48 | Progress Note ---
Assessment and Plan Assessment and plan: 59-year-old -[place]ian male with no known past medical problems and who has not been seen at this facility in the past was brought in to the emergency room today by EMS for altered mental status. Patient was found to be wandering around in a hotel lobby and refusing to answer questions when asked by EMS. Accu-Chek prior to arrival in the emergency room was said to be reading high. Upon arrival in the emergency room was alert and in no acute distress but still refusing to answer questions. Was looking drowsy. Work-up in the emergency room today reveals hyperglycemia with blood sugar greater than 700, elevated creatinine kinase greater than 3000, elevated creatinine level. CT scan of the head was unremarkable. UDS is still being awaited. Patient being admitted with altered mental status, hyperglycemia, rhabdomyolysis and acute kidney injury. Patient was treated with fluid hydration and counseling verbalized understanding. He is clinically improved. Counseling was provided on insulin management. It appears he is homeless extensive counseling was provided in case management assistance was requested. 07/29: Continue supportive care, no new complaints. Clinical stable but still lethargic, gait instability precludes discharge yet as patient is homeless 07/30: Some delirious behavior this morning will await psych evaluation. We will continue current management. Blood pressure elevated this morning as patient did not take his medication encouraged to take his meds hydralazine added due to persistent increase despite taking the meds. Disposition will be based on psych evaluation. 08/01-08/03. Psych following. Pending discharge to psych facility. Vitals stable 08/04. NPH Insulin switched to lantus. Blood glucose levels should be better judith rrow. Pending DC to psych facility 08/05. Monitor glucose levels closely. COVID-19 test positive 08/06. Adjusted lantus and lispro. BG better 08/07. Blood glucose is improved now in the 100-200 range. Patient is medically stable for discharge to psych facility when accepted. 08/08: Patient repeat covid test negative, mostly likely initial test was a false positive. Following careful discussion with family, patients condition is attributed to lack of his medications for management of his Schizophrenia. He does not have warnicke encephalopathy or etoh use. Will discontinue CIWA monitoring to prevent overmedicating. Awaiting pysch placement Discuss with mental health ramp jockey 08/09: Discussed with Dr. Tse psych facility update provided. I also gave insights that although initially patient was thought to have alcohol related disease further discussion with family revealed that the patient has underlying schizophrenia and has not been taking his medication and has had multiple episod es of the same when he is off his medication becomes the injectable with disorganized thoughts and thinking. He appears to be more controlled at this time. He is asking to be discharged. There is no Warnicke encephalopathy noted at this time. There is no EtOH concern at this time. Dr. Tse is awaiting update from psych team in respect to updated 1013 form and also MoCA test 08/10: Patient is medically stable for discharge once inpatient psych bed is available. All other management deferred to the psychiatrist team Acute metabolic encephalopathy likely Schizophrenia Schizophrenia Diabetes mellitus with hyperglycemia none DKA Warnicke encephalopathy ruled out. Acute kidney disease with possible gastropathy on chronic kidney disease Rhabdomyolysis secondary to dehydration Hypokalemia EtOH use disorder-Rule out plan Pending discharge to inpatient psych. Continue to adjust lantus and lispro Patient is medically stable for discharge to psych facility when accepted CM working on placement for the patient Extensive counseling provided to the patient DVT and GI prophylaxis History Interval history: Patient seen and examined, No new complaints. Awaiting inpatient psych placement Hospitalist Physical - Physical exam Narrative exam: VITAL SIGNS: Reviewed. GENERAL: The patient appears normally developed, Vital signs as documented. HEAD: No signs of head trauma. EYES: Pupils are equal. Extraocular motions intact. EARS: Hearing grossly intact. MOUTH: Oropharynx is normal. NECK: No adenopathy, no JVD. CHEST: Chest with clear breath sounds bilaterally. No wheezes, rales, or rhonchi. CARDIAC: Regular rate and rhythm. S1 and S2, without murmurs, gallops, or rubs. VASCULAR: No Edema. Peripheral pulses normal and equal in all extremities. ABDOMEN: Soft, non tender and non distended. No rebound or guarding, and no masses palpated. Bowel Sounds normal. MUSCULOSKELETAL: Good range of motion of all major joints. Extremities without clubbing, cyanosis or edema. NEUROLOGIC EXAM: Alert and oriented x 3 no focal sensory or strength deficits. Speech normal. Follows commands. PSYCHIATRIC: Mood normal. SKIN: detail exam as documented in skin assessment - Constitutional Vitals: Temp Pulse Resp BP Pulse Ox 98.7 F 97 H 17 129/66 96 08/10/20 05:10 04/29/21 10:03 08/10/20 10:00 08/10/20 10:03 08/10/20 10:00 General appearance: Present: no acute distress, well-nourished HEART Score - HEART Score Troponin: Troponin T 0.056 ng/mL (0.00-0.029) H 07/27/20 01:55 Results - Labs CBC & Chem 7: 07/29/20 05:03 08/05/20 13:10 Labs: Laboratory Last Values WBC 6.4 K/mm3 (4.5-11.0) 07/29/20 05:03 RBC 4.14 M/mm3 (3.65-5.03) 07/29/20 05:03 Hgb 11.8 gm/dl (11.8-15.2) 07/29/20 05:03 Hct 36.1 % (35.5-45.6) 07/29/20 05:03 MCV 87 fl (84-94) 07/29/20 05:03 MCH 29 pg (28-32) 07/29/20 05:03 MCHC 33 % (32-34) 07/29/20 05:03 RDW 15.0 % (13.2-15.2) 07/29/20 05:03 Plt Count 278 K/mm3 (140-440) 07/29/20 05:03 Lymph % (Auto) 11.8 % (13.4-35.0) L 07/28/20 04:39 Ballard % (Auto) 6.5 % (0.0-7.3) 07/28/20 04:39 Eos % (Auto) 0.9 % (0.0-4.3) 07/28/20 04:39 Baso % (Auto) 0.5 % (0.0-1.8) 07/28/20 04:39 Lymph # (Auto) 1.0 K/mm3 (1.2-5.4) L 07/28/20 04:39 Ballard # (Auto) 0.6 K/mm3 (0.0-0.8) 07/28/20 04:39 Eos # (Auto) 0.1 K/mm3 (0.0-0.4) 07/28/20 04:39 Baso # (Auto) 0.0 K/mm3 (0.0-0.1) 07/28/20 04:39 Seg Neutrophils % 80.3 % (40.0-70.0) H 07/28/20 04:39 Seg Neutrophils # 6.9 K/mm3 (1.8-7.7) 07/28/20 04:39 PT 12.7 Sec. (12.2-14.9) 07/28/20 04:39 INR 0.97 (0.87-1.13) 07/28/20 04:39 APTT 33.0 Sec. (24.2-36.6) 07/27/20 01:55 Sodium 141 mmol/L (137-145) 08/05/20 13:10 Potassium 3.6 mmol/L (3.6-5.0) 08/05/20 13:10 Chloride 107.8 mmol/L (98-107) H 08/05/20 13:10 Carbon Dioxide 27 mmol/L (22-30) 08/05/20 13:10 Anion Gap 10 mmol/L 08/05/20 13:10 BUN 34 mg/dL (9-20) H 08/05/20 13:10 Creatinine 2.2 mg/dL (0.8-1.3) H 08/05/20 13:10 Estimated GFR 37 ml/min 08/05/20 13:10 BUN/Creatinine Ratio 15 % 08/05/20 13:10 Glucose 78 mg/dL (75-100) 08/05/20 13:10 POC Glucose 308 mg/dL (70-105) H 08/10/20 11:38 Hemoglobin A1c 15.0 % (4-6) H 07/27/20 01:55 Lactic Acid 1.60 mmol/L (0.7-2.0) 07/27/20 01:55 Calcium 9.4 mg/dL (8.4-10.2) 08/05/20 13:10 Phosphorus 2.70 mg/dL (2.5-4.5) 07/28/20 04:39 Magnesium 1.80 mg/dL (1.7-2.3) 07/28/20 04:39 Total Bilirubin 0.50 mg/dL (0.1-1.2) 07/27/20 01:55 Direct Bilirubin < 0.2 mg/dL (0-0.2) 07/27/20 01:55 Indirect Bilirubin 0.3 mg/dL 07/27/20 01:55 AST 72 units/L (5-40) H 07/27/20 01:55 ALT 57 units/L (7-56) H 07/27/20 01:55 Alkaline Phosphatase 163 units/L (35-129) H 07/27/20 01:55 Ammonia 18.0 umol/L (25-60) L 07/27/20 01:55 Total Creatine Kinase 133 units/L (55-170) 08/08/20 12:17 Troponin T 0.056 ng/mL (0.00-0.029) H 07/27/20 01:55 Total Protein 7.4 g/dL (6.3-8.2) 07/27/20 01:55 Albumin 3.9 g/dL (3.9-5) 07/27/20 01:55 Albumin/Globulin Ratio 1.1 % 07/27/20 01:55 Triglycerides 78 mg/dL (2-149) 07/27/20 01:55 Cholesterol 220 mg/dL (50-199) H 07/27/20 01:55 LDL Cholesterol Direct 102 mg/dL (50-130) 07/27/20 01:55 HDL Cholesterol 126 mg/dL (40-59) H 07/27/20 01:55 Cholesterol/HDL Ratio 1.74 % 07/27/20 01:55 TSH 0.824 mlU/mL (0.270-4.200) 07/27/20 01:55 Urine Color Colorless (Yellow) 07/27/20 02:09 Urine Turbidity Clear (Clear) 07/27/20 02:09 Urine pH 6.0 (5.0-7.0) 07/27/20 02:09 Ur Specific Whitney 1.016 (1.003-1.030) 07/27/20 02:09 Urine Protein 100 mg/dl mg/dL (Negative) 07/27/20 02:09 Urine Glucose (UA) >=500 mg/dL (Negative) 07/27/20 02:09 Urine Ketones Neg mg/dL (Negative) 07/27/20 02:09 Urine Blood Mod (Negative) 07/27/20 02:09 Urine Nitrite Neg (Negative) 07/27/20 02:09 Urine Bilirubin Neg (Negative) 07/27/20 02:09 Urine Urobilinogen < 2.0 mg/dL (<2.0) 07/27/20 02:09 Ur Leukocyte Esterase Neg (Negative) 07/27/20 02:09 Urine WBC (Auto) 1.0 /HPF (0.0-6.0) 07/27/20 02:09 Urine RBC (Auto) < 1.0 /HPF (0.0-6.0) 07/27/20 02:09 U Epithel Cells (Auto) < 1.0 /HPF (0-13.0) 07/27/20 02:09 Urine Mucus Few /HPF 07/27/20 02:09 Urine Creatinine 85.6 mg/dL (0.1-20.0) H 07/27/20 19:00 Protein/Creatinin Ratio 2.96 07/27/20 19:00 Urine Sodium 51 mmol/L 07/27/20 19:00 Urine Total Protein 253 mg/dL (5-11.8) H 07/27/20 19:00 Salicylates < 0.3 mg/dL (2.8-20.0) L 07/27/20 01:55 Urine Opiates Screen Presumptive negative 07/27/20 02:09 Urine Methadone Screen Presumptive negative 07/27/20 02:09 Acetaminophen 5.0 ug/mL (10.0-30.0) L 07/27/20 01:55 Ur Barbiturates Screen Presumptive negative 07/27/20 02:09 Ur Phencyclidine Scrn Presumptive negative 07/27/20 02:09 Ur Amphetamines Screen Presumptive negative 07/27/20 02:09 U Benzodiazepines Scrn Presumptive negative 07/27/20 02:09 Urine Cocaine Screen Presumptive negative 07/27/20 02:09 U Marijuana (THC) Screen Presumptive negative 07/27/20 02:09 Drugs of Abuse Note Disclamer 07/27/20 02:09 Plasma/Serum Alcohol < 0.01 % (0-0.07) 07/27/20 01:55 Coronavirus (PCR) Negative (Negative) 08/05/20 Unknown Hilton/IV: Voiding Method Toilet Active Medications - Current Medications Current Medications: Generic Name Dose Route Start Last Admin Trade Name Freq PRN Reason Stop Dose Admin Acetaminophen 650 mg 07/27/20 04:01 08/08/20 23:01 Acetaminophen 325 Mg Tab PO 650 mg Q4H PRN Administration Pain MILD(1-3)/Fever >100.5/RUIZ Amlodipine Besylate 10 mg 07/27/20 17:00 08/10/20 10:03 Amlodipine 10 Mg Tab PO 10 mg QDAY MARY Administration Dextrose 50 ml 08/04/20 09:30 Dextrose 50% In Water (25gm) 50 Ml Syringe IV Q30MIN PRN Hypoglycemia Protocol Folic Acid 1 mg 07/30/20 10:00 08/10/20 10:00 Folic Acid 1 Mg Tab PO 1 mg DAILY MARY Administration Heparin Sodium (Porcine) 5,000 unit 07/27/20 06:00 08/10/20 13:36 Heparin 5,000 Unit/1 Ml Vial SUB-Q Not Given Q8HR [facility] Hydralazine HCl 10 mg 07/27/20 04:06 Hydralazine 20 Mg/1 Ml Inj IV Q4HR PRN Blood Pressure Hydralazine HCl 100 mg 08/08/20 12:00 08/10/20 06:34 Hydralazine 100 Mg Tab PO 100 mg Q8HR MARY Administration Insulin Glargine 6 units 08/06/20 22:00 08/09/20 22:02 Insulin Glargine 100 Units/Ml SUB-Q 6 units QHS [facility] Administration Insulin Glargine 20 units 08/09/20 08:00 08/10/20 09:02 Insulin Glargine 100 Units/Ml SUB-Q 20 units QAMDIAB [facility] Administration Insulin Human Lispro 0 unit 08/04/20 11:30 08/10/20 11:50 Insulin Lispro 100 Unit/Ml SUB-Q 8 unit ACHS [facility] Administration Protocol Insulin Human Lispro 5 unit 08/06/20 11:30 08/10/20 11:50 Insulin Lispro 100 Unit/Ml SUB-Q 5 unit ACHS [facility] Administration Labetalol HCl 200 mg 07/27/20 22:00 08/10/20 10:03 Labetalol 200 Mg Tab PO 200 mg BID MARY Administration Magnesium Hydroxide 30 ml 07/27/20 04:01 Magnesium Hydroxide (Mom) Oral Liqd Udc PO Q4H PRN Constipation Morphine Sulfate 2 mg 07/27/20 04:01 Morphine 2 Mg/1 Ml Inj IV Q4H PRN Pain, Moderate (4-6) Multivitamins 1 each 07/30/20 10:00 08/10/20 10:00 Multivitamins ,Therapeutic Tab PO 1 each DAILY MARY Administration Olanzapine 10 mg 08/09/20 10:00 08/10/20 10:00 Olanzapine 10 Mg Tab PO 10 mg QDAY MARY Administration Ondansetron HCl 4 mg 07/27/20 04:01 Ondansetron 4 Mg/2 Ml Inj IV Q8H PRN Nausea And Vomiting Sodium Chloride 10 ml 07/27/20 10:00 08/10/20 10:01 Sodium Chloride 0.9% 10 Ml Flush Syringe IV Not Given BID MARY Sodium Chloride 10 ml 07/27/20 04:01 Sodium Chloride 0.9% 10 Ml Flush Syringe IV PRN PRN LINE FLUSH Thiamine HCl 100 mg 07/30/20 10:00 08/10/20 10:00 Thiamine 100 Mg Tab PO 100 mg QDAY MARY Administration Valproic Acid 500 mg 08/08/20 12:00 08/10/20 06:34 Valproic Acid 250 Mg Cap PO 500 mg Q8HR MARY Administration Ziprasidone 20 mg 08/08/20 10:48 Ziprasidone Mesylate 20 Mg Vial IM Q6H PRN Agitation Nutrition/Malnutrition Assess - Dietary Evaluation Nutrition/Malnutrition Findings: Nutrition Notes Start: 07/27/20 09:22 Freq: Status: Active Protocol: Document 08/03/20 15:05 CW (Rec: 08/03/20 15:06 [id number]) Nutrition Notes Need for Assessment generated from: LOS Initial or Follow up Brief Note Current Diagnosis Acute Kidney Injury Other Pertinent Diagnosis hyperglycemia, AMS, Rhabdomyolysis Current Diet Consistent CHO Subjective/Other Information Screen for LOS. Pt eating 100% of meals. Russell score of 21. Percent of energy/protein needs met: 100%/100% Skin Integrity/Comment Intact Current % PO Good (75-100%) Nutrition Intervention Revisit per MD consult or patient Sign Off request: Additional Comments S/O for excellent intakes and intact skin
[2020-08-11] MEDS: HEPARIN 5,000 UNIT/1 ML VIAL SUB-Q SCH ×3 (06:42→23:04)
[2020-08-11] MEDS: VALPROIC ACID 250 MG CAP PO SCH ×3 (06:42→21:57)
[2020-08-11] MEDS: hydrALAZINE 100 MG TAB PO SCH ×3 (06:42→21:57)
[2020-08-11] MEDS: INSULIN LISPRO 100 UNIT/ML SUB-Q SCH ×8 (08:25→22:10)
[2020-08-11] MEDS: INSULIN GLARGINE 100 UNITS/ML SUB-Q SCH ×2 (08:25→22:00)
[2020-08-11] MEDS: THIAMINE 100 MG TAB PO SCH (09:17)
[2020-08-11] MEDS: FOLIC ACID 1 MG TAB PO SCH (09:17)
[2020-08-11] MEDS: MULTIVITAMINS ,THERAPEUTIC TAB PO SCH (09:17)
[2020-08-11] MEDS: amLODIPine 10 MG TAB PO SCH (09:18)
--- NOTE | 2020-08-11 10:27 | Progress Note ---
Subjective - Reason for Consult Consult date: 08/11/20 Reason for consult: MHE Requesting physician: LARRY HAN - Chief Complaint Chief complaint: Psych Nurse: Patient refused to do the covid test. Explained to the patient purpose of doing a covid test, patient still refused. Psych Progress Patient seen in room, alert and oriented to person, place, date, time and facility. Patient states that he does not want to further participate in questioning that he is done with this and just want to go home. Patient still obsessed about God and himself being extraordinary. REVIEW OF SYSTEMS ROS cannot be reliably obtained from the patient due to his confusion MENTAL STATUS EXAMINATION General Appearance and Behavior: Age appropriate, good hygiene, wearing appropriate clothes, poor eye contact, uncooperative with questioning. Cooperation: disengaged Psychomotor Behavior: Psychomotor agitation Mood: n/a Affect and affective range: euthymic, euphoric Thought Process: Illogical, echolalial Thought Content: delusional Speech: pressured, loud volume at times Intellectual Functioning: Average Suicidal Ideation: n/a Homicidal Ideation: n/a Impulse Control: Impaired Insight and Judgment: Limited insight and judgment Memory: impaired Attention: Divided attention impaired Orientation: Alert, oriented Diagnoses: Assessment and Plan - Psychiatric problem (1) Schizophrenia Current Visit: Yes Status: Acute Treatment Plan Continue current medications. Patient not wanting to participate in MMSE MEDICATIONS: Risks, benefits and alternatives of medications discussed with the patient, questions answered and consent obtained from patient. PSYCHOTHERAPY: Supportive psychotherapy provided MEDICAL: Per primary team DELIRIUM PRECAUTIONS: Please re-orient patient frequently, keep lights on during the day, and minimize benzodiazepines and opiates as these medications could worsen patient's confusion. ACETYLENE TORCH OPERATOR: DISPOSITION: Do Recommend acute inpatient psychiatric hospitalization at this time. Case discussed with Dr. Powell who agrees with current disposition LEGAL STATUS: 1013 renewed FOLLOW-UP: Will follow Thank you for the consult. Please contact with any questions and/or concerns. Mental Status Exam - Vital signs Last Vital Signs Temp 98.4 F 08/11/20 05:08 Pulse 99 H 08/11/20 09:18 Resp 18 08/11/20 10:00 BP 138/78 08/11/20 09:18 Pulse Ox 87 08/11/20 05:08 Assessment and Plan - Patient Problems (1) Schizophrenia Current Visit: Yes Status: Acute
--- NOTE | 2020-08-11 10:43 | Progress Note ---
Assessment and Plan Assessment and plan: 59-year-old -[place] male with no known past medical problems and who has not been seen at this facility in the past was brought in to the emergency room today by EMS for altered mental status. Patient was found to be wandering around in a hotel lobby and refusing to answer questions when asked by EMS. Accu-Chek prior to arrival in the emergency room was said to be reading high. Upon arrival in the emergency room was alert and in no acute distress but still refusing to answer questions. Was looking drowsy. Work-up in the emergency room today reveals hyperglycemia with blood sugar greater than 700, elevated creatinine kinase greater than 3000, elevated creatinine level. CT scan of the head was unremarkable. UDS is still being awaited. Patient being admitted with altered mental status, hyperglycemia, rhabdomyolysis and acute kidney injury. Patient was treated with fluid hydration and counseling verbalized understanding. He is clinically improved. Counseling was provided on insulin management. It appears he is homeless extensive counseling was provided in case management assistance was requested. 07/29: Continue supportive care, no new complaints. Clinical stable but still lethargic, gait instability precludes discharge yet as patient is homeless 07/30: Some delirious behavior this morning will await psych evaluation. We will continue current management. Blood pressure elevated this morning as patient did not take his medication encouraged to take his meds hydralazine added due to persistent increase despite taking the meds. Disposition will be based on psych evaluation. 08/01-08/03. Psych following. Pending discharge to psych facility. Vitals stable 08/04. NPH Insulin switched to lantus. Blood glucose levels should be better judith rrow. Pending DC to psych facility 08/05. Monitor glucose levels closely. COVID-19 test positive 08/06. Adjusted lantus and lispro. BG better 08/07. Blood glucose is improved now in the 100-200 range. Patient is medically stable for discharge to psych facility when accepted. 08/08: Patient repeat covid test negative, mostly likely initial test was a false positive. Following careful discussion with family, patients condition is attributed to lack of his medications for management of his Schizophrenia. He does not have warnicke encephalopathy or etoh use. Will discontinue CIWA monitoring to prevent overmedicating. Awaiting pysch placement Discuss with mental health black puller 08/09: Discussed with Dr. Tse psych facility update provided. I also gave insights that although initially patient was thought to have alcohol related disease further discussion with family revealed that the patient has underlying schizophrenia and has not been taking his medication and has had multiple episod es of the same when he is off his medication becomes the injectable with disorganized thoughts and thinking. He appears to be more controlled at this time. He is asking to be discharged. There is no Warnicke encephalopathy noted at this time. There is no EtOH concern at this time. Dr. Tse is awaiting update from psych team in respect to updated 1013 form and also MoCA test 08/10: Patient is medically stable for discharge once inpatient psych bed is available. All other management deferred to the psychiatrist team 08/11: Discussed with Pysch team, they will renew 1013, PATIENT is medical stable for transfer to inpatient psych Acute metabolic encephalopathy likely Schizophrenia Schizophrenia Diabetes mellitus with hyperglycemia none DKA Warnicke encephalopathy ruled out. Acute kidney disease with possible gastropathy on chronic kidney disease Rhabdomyolysis secondary to dehydration Hypokalemia EtOH use disorder-Rule out plan Pending discharge to inpatient psych. Continue to adjust lantus and lispro Patient is medically stable for discharge to psych facility when accepted CM working on placement for the patient Extensive counseling provided to the patient DVT and GI prophylaxis History Interval history: Patient seen and examined, No new complaints. Awaiting inpatient psych placement Hospitalist Physical - Physical exam Narrative exam: VITAL SIGNS: Reviewed. GENERAL: The patient appears normally developed, Vital signs as documented. HEAD: No signs of head trauma. EYES: Pupils are equal. Extraocular motions intact. EARS: Hearing grossly intact. MOUTH: Oropharynx is normal. NECK: No adenopathy, no JVD. CHEST: Chest with clear breath sounds bilaterally. No wheezes, rales, or rhonchi. CARDIAC: Regular rate and rhythm. S1 and S2, without murmurs, gallops, or rubs. VASCULAR: No Edema. Peripheral pulses normal and equal in all extremities. ABDOMEN: Soft, non tender and non distended. No rebound or guarding, and no masses palpated. Bowel Sounds normal. MUSCULOSKELETAL: Good range of motion of all major joints. Extremities without clubbing, cyanosis or edema. NEUROLOGIC EXAM: Alert and oriented x 3 no focal sensory or strength deficits. Speech normal. Follows commands. PSYCHIATRIC: Mood normal. SKIN: detail exam as documented in skin assessment - Constitutional Vitals: Temp Pulse Resp BP Pulse Ox 98.4 F 99 H 18 138/78 87 08/11/20 05:08 08/11/20 09:18 08/11/20 10:00 08/11/20 09:18 08/11/20 05:08 General appearance: Present: no acute distress, well-nourished HEART Score - HEART Score Troponin: Troponin T 0.056 ng/mL (0.00-0.029) H 07/27/20 01:55 Results - Labs CBC & Chem 7: 07/29/20 05:03 08/05/20 13:10 Labs: Laboratory Last Values WBC 6.4 K/mm3 (4.5-11.0) 07/29/20 05:03 RBC 4.14 M/mm3 (3.65-5.03) 07/29/20 05:03 Hgb 11.8 gm/dl (11.8-15.2) 07/29/20 05:03 Hct 36.1 % (35.5-45.6) 07/29/20 05:03 MCV 87 fl (84-94) 07/29/20 05:03 MCH 29 pg (28-32) 07/29/20 05:03 MCHC 33 % (32-34) 07/29/20 05:03 RDW 15.0 % (13.2-15.2) 07/29/20 05:03 Plt Count 278 K/mm3 (140-440) 07/29/20 05:03 Lymph % (Auto) 11.8 % (13.4-35.0) L 07/28/20 04:39 Hill % (Auto) 6.5 % (0.0-7.3) 07/28/20 04:39 Eos % (Auto) 0.9 % (0.0-4.3) 07/28/20 04:39 Baso % (Auto) 0.5 % (0.0-1.8) 07/28/20 04:39 Lymph # (Auto) 1.0 K/mm3 (1.2-5.4) L 07/28/20 04:39 Hill # (Auto) 0.6 K/mm3 (0.0-0.8) 07/28/20 04:39 Eos # (Auto) 0.1 K/mm3 (0.0-0.4) 07/28/20 04:39 Baso # (Auto) 0.0 K/mm3 (0.0-0.1) 07/28/20 04:39 Seg Neutrophils % 80.3 % (40.0-70.0) H 07/28/20 04:39 Seg Neutrophils # 6.9 K/mm3 (1.8-7.7) 07/28/20 04:39 PT 12.7 Sec. (12.2-14.9) 07/28/20 04:39 INR 0.97 (0.87-1.13) 07/28/20 04:39 APTT 33.0 Sec. (24.2-36.6) 07/27/20 01:55 Sodium 141 mmol/L (137-145) 08/05/20 13:10 Potassium 3.6 mmol/L (3.6-5.0) 08/05/20 13:10 Chloride 107.8 mmol/L (98-107) H 08/05/20 13:10 Carbon Dioxide 27 mmol/L (22-30) 08/05/20 13:10 Anion Gap 10 mmol/L 08/05/20 13:10 BUN 34 mg/dL (9-20) H 08/05/20 13:10 Creatinine 2.2 mg/dL (0.8-1.3) H 08/05/20 13:10 Estimated GFR 37 ml/min 08/05/20 13:10 BUN/Creatinine Ratio 15 % 08/05/20 13:10 Glucose 78 mg/dL (75-100) 08/05/20 13:10 POC Glucose 97 mg/dL (70-105) 08/11/20 08:13 Hemoglobin A1c 15.0 % (4-6) H 07/27/20 01:55 Lactic Acid 1.60 mmol/L (0.7-2.0) 07/27/20 01:55 Calcium 9.4 mg/dL (8.4-10.2) 08/05/20 13:10 Phosphorus 2.70 mg/dL (2.5-4.5) 07/28/20 04:39 Magnesium 1.80 mg/dL (1.7-2.3) 07/28/20 04:39 Total Bilirubin 0.50 mg/dL (0.1-1.2) 07/27/20 01:55 Direct Bilirubin < 0.2 mg/dL (0-0.2) 07/27/20 01:55 Indirect Bilirubin 0.3 mg/dL 07/27/20 01:55 AST 72 units/L (5-40) H 07/27/20 01:55 ALT 57 units/L (7-56) H 07/27/20 01:55 Alkaline Phosphatase 163 units/L (35-129) H 07/27/20 01:55 Ammonia 18.0 umol/L (25-60) L 07/27/20 01:55 Total Creatine Kinase 133 units/L (55-170) 08/08/20 12:17 Troponin T 0.056 ng/mL (0.00-0.029) H 07/27/20 01:55 Total Protein 7.4 g/dL (6.3-8.2) 07/27/20 01:55 Albumin 3.9 g/dL (3.9-5) 07/27/20 01:55 Albumin/Globulin Ratio 1.1 % 07/27/20 01:55 Triglycerides 78 mg/dL (2-149) 07/27/20 01:55 Cholesterol 220 mg/dL (50-199) H 07/27/20 01:55 LDL Cholesterol Direct 102 mg/dL (50-130) 07/27/20 01:55 HDL Cholesterol 126 mg/dL (40-59) H 07/27/20 01:55 Cholesterol/HDL Ratio 1.74 % 07/27/20 01:55 TSH 0.824 mlU/mL (0.270-4.200) 07/27/20 01:55 Urine Color Colorless (Yellow) 07/27/20 02:09 Urine Turbidity Clear (Clear) 07/27/20 02:09 Urine pH 6.0 (5.0-7.0) 07/27/20 02:09 Ur Specific [place] 1.016 (1.003-1.030) 07/27/20 02:09 Urine Protein 100 mg/dl mg/dL (Negative) 07/27/20 02:09 Urine Glucose (UA) >=500 mg/dL (Negative) 07/27/20 02:09 Urine Ketones Neg mg/dL (Negative) 07/27/20 02:09 Urine Blood Mod (Negative) 07/27/20 02:09 Urine Nitrite Neg (Negative) 07/27/20 02:09 Urine Bilirubin Neg (Negative) 07/27/20 02:09 Urine Urobilinogen < 2.0 mg/dL (<2.0) 07/27/20 02:09 Ur Leukocyte Esterase Neg (Negative) 07/27/20 02:09 Urine WBC (Auto) 1.0 /HPF (0.0-6.0) 07/27/20 02:09 Urine RBC (Auto) < 1.0 /HPF (0.0-6.0) 07/27/20 02:09 U Epithel Cells (Auto) < 1.0 /HPF (0-13.0) 07/27/20 02:09 Urine Mucus Few /HPF 07/27/20 02:09 Urine Creatinine 85.6 mg/dL (0.1-20.0) H 07/27/20 19:00 Protein/Creatinin Ratio 2.96 07/27/20 19:00 Urine Sodium 51 mmol/L 07/27/20 19:00 Urine Total Protein 253 mg/dL (5-11.8) H 07/27/20 19:00 Salicylates < 0.3 mg/dL (2.8-20.0) L 07/27/20 01:55 Urine Opiates Screen Presumptive negative 07/27/20 02:09 Urine Methadone Screen Presumptive negative 07/27/20 02:09 Acetaminophen 5.0 ug/mL (10.0-30.0) L 07/27/20 01:55 Ur Barbiturates Screen Presumptive negative 07/27/20 02:09 Ur Phencyclidine Scrn Presumptive negative 07/27/20 02:09 Ur Amphetamines Screen Presumptive negative 07/27/20 02:09 U Benzodiazepines Scrn Presumptive negative 07/27/20 02:09 Urine Cocaine Screen Presumptive negative 07/27/20 02:09 U Marijuana (THC) Screen Presumptive negative 07/27/20 02:09 Drugs of Abuse Note Disclamer 07/27/20 02:09 Plasma/Serum Alcohol < 0.01 % (0-0.07) 07/27/20 01:55 Coronavirus (PCR) Negative (Negative) 08/05/20 Unknown [place]/IV: Voiding Method Toilet Active Medications - Current Medications Current Medications: Generic Name Dose Route Start Last Admin Trade Name Freq PRN Reason Stop Dose Admin Acetaminophen 650 mg 07/27/20 04:01 08/08/20 23:01 Acetaminophen 325 Mg Tab PO 650 mg Q4H PRN Administration Pain MILD(1-3)/Fever >100.5/RUIZ Amlodipine Besylate 10 mg 07/27/20 17:00 08/11/20 09:18 Amlodipine 10 Mg Tab PO 10 mg QDAY MARY Administration Dextrose 50 ml 08/04/20 09:30 Dextrose 50% In Water (25gm) 50 Ml Syringe IV Q30MIN PRN Hypoglycemia Protocol Folic Acid 1 mg 07/30/20 10:00 08/11/20 09:17 Folic Acid 1 Mg Tab PO 1 mg DAILY [facility] Administration Heparin Sodium (Porcine) 5,000 unit 07/27/20 06:00 08/11/20 06:42 Heparin 5,000 Unit/1 Ml Vial SUB-Q Not Given Q8HR [facility] Hydralazine HCl 10 mg 07/27/20 04:06 Hydralazine 20 Mg/1 Ml Inj IV Q4HR PRN Blood Pressure Hydralazine HCl 100 mg 08/08/20 12:00 08/11/20 06:42 Hydralazine 100 Mg Tab PO 100 mg Q8HR [facility] Administration Insulin Glargine 6 units 08/06/20 22:00 08/10/20 22:19 Insulin Glargine 100 Units/Ml SUB-Q 6 units QHS [facility] Administration Insulin Glargine 20 units 08/09/20 08:00 08/11/20 08:25 Insulin Glargine 100 Units/Ml SUB-Q Not Given QAMDIAB [facility] Insulin Human Lispro 0 unit 08/04/20 11:30 08/11/20 08:25 Insulin Lispro 100 Unit/Ml SUB-Q Not Given ACHS [facility] Protocol Insulin Human Lispro 5 unit 08/06/20 11:30 08/11/20 08:25 Insulin Lispro 100 Unit/Ml SUB-Q Not Given ACHS [facility] Labetalol HCl 200 mg 07/27/20 22:00 08/11/20 09:17 Labetalol 200 Mg Tab PO 200 mg BID MARY Administration Magnesium Hydroxide 30 ml 07/27/20 04:01 Magnesium Hydroxide (Mom) Oral Liqd Udc PO Q4H PRN Constipation Morphine Sulfate 2 mg 07/27/20 04:01 Morphine 2 Mg/1 Ml Inj IV Q4H PRN Pain, Moderate (4-6) Multivitamins 1 each 07/30/20 10:00 08/11/20 09:17 Multivitamins ,Therapeutic Tab PO 1 each DAILY MARY Administration Olanzapine 10 mg 08/09/20 10:00 08/10/20 10:00 Olanzapine 10 Mg Tab PO 10 mg QDAY MARY Administration Ondansetron HCl 4 mg 07/27/20 04:01 Ondansetron 4 Mg/2 Ml Inj IV Q8H PRN Nausea And Vomiting Sodium Chloride 10 ml 07/27/20 10:00 08/11/20 09:17 Sodium Chloride 0.9% 10 Ml Flush Syringe IV 10 ml BID MARY Administration Sodium Chloride 10 ml 07/27/20 04:01 Sodium Chloride 0.9% 10 Ml Flush Syringe IV PRN PRN LINE FLUSH Thiamine HCl 100 mg 07/30/20 10:00 08/11/20 09:17 Thiamine 100 Mg Tab PO 100 mg QDAY MARY Administration Valproic Acid 500 mg 08/08/20 12:00 08/11/20 06:42 Valproic Acid 250 Mg Cap PO 500 mg Q8HR MARY Administration Ziprasidone 20 mg 08/08/20 10:48 Ziprasidone Mesylate 20 Mg Vial IM Q6H PRN Agitation Nutrition/Malnutrition Assess - Dietary Evaluation Nutrition/Malnutrition Findings: Nutrition Notes Start: 07/27/20 09:22 Freq: Status: Active Protocol: Document 08/03/20 15:05 CW (Rec: 08/03/20 15:06 [email or web address]) Nutrition Notes Need for Assessment generated from: LOS Initial or Follow up Brief Note Current Diagnosis Acute Kidney Injury Other Pertinent Diagnosis hyperglycemia, AMS, Rhabdomyolysis Current Diet Consistent CHO Subjective/Other Information Screen for LOS. Pt eating 100% of meals. Russell score of 21. Percent of energy/protein needs met: 100%/100% Skin Integrity/Comment Intact Current % PO Good (75-100%) Nutrition Intervention Revisit per MD consult or patient Sign Off request: Additional Comments S/O for excellent intakes and intact skin
[2020-08-12] MEDS: VALPROIC ACID 250 MG CAP PO SCH ×3 (05:27→22:25)
[2020-08-12] MEDS: hydrALAZINE 100 MG TAB PO SCH ×3 (05:27→22:25)
[2020-08-12] MEDS: HEPARIN 5,000 UNIT/1 ML VIAL SUB-Q SCH ×3 (08:46→22:26)
[2020-08-12] MEDS: INSULIN GLARGINE 100 UNITS/ML SUB-Q SCH ×2 (08:50→22:26)
[2020-08-12] MEDS: THIAMINE 100 MG TAB PO SCH (12:08)
[2020-08-12] MEDS: INSULIN LISPRO 100 UNIT/ML SUB-Q SCH ×8 (12:09→22:26)
[2020-08-12] MEDS: amLODIPine 10 MG TAB PO SCH (12:09)
[2020-08-12] MEDS: MULTIVITAMINS ,THERAPEUTIC TAB PO SCH (12:09)
[2020-08-12] MEDS: FOLIC ACID 1 MG TAB PO SCH (12:09)
--- NOTE | 2020-08-13 08:45 | Progress Note ---
Assessment and Plan Acute metabolic encephalopathy likely Schizophrenia Schizophrenia Diabetes mellitus with hyperglycemia none DKA Warnicke encephalopathy ruled out. Acute kidney disease with possible gastropathy on chronic kidney disease Rhabdomyolysis secondary to dehydration Hypokalemia EtOH use disorder-Rule out Q6VI--eyelgjm levels insulin adjusted plan Pending discharge to inpatient psych. Continue to adjust lantus and lispro Patient is medically stable for discharge to psych facility when accepted CM working on placement for the patient Extensive counseling provided to the patient DVT and GI prophylaxis Patient may get transfer today or tomorrow to [facility] Date of service: 08/13/20 Principal diagnosis: Acute psychosis Interval history: 59-year-old -[place] male with no known past medical problems and who has not been seen at this facility in the past was brought in to the emergency room today by EMS for altered mental status. Patient was found to be wandering around in a hotel lobby and refusing to answer questions when asked by EMS. Accu-Chek prior to arrival in the emergency room was said to be reading high. Upon arrival in the emergency room was alert and in no acute distress but still refusing to answer questions. Was looking drowsy. Work-up in the emergency room today reveals hyperglycemia with blood sugar greater than 700, elevated creatinine kinase greater than 3000, elevated creatinine level. CT scan of the head was unremarkable. UDS is still being awaited. Patient being admitted with altered mental status, hyperglycemia, rhabdomyolysis and acute kidney injury. Patient was treated with fluid hydration and counseling verbalized understanding. He is clinically improved. Counseling was provided on insulin management. It appears he is homeless extensive counseling was provided in case management assistance was requested. 07/29: Continue supportive care, no new complaints. Clinical stable but still lethargic, gait instability precludes discharge yet as patient is homeless 07/30: Some delirious behavior this morning will await psych evaluation. We will continue current management. Blood pressure elevated this morning as patient did not take his medication encouraged to take his meds hydralazine added due to persistent increase despite taking the meds. Disposition will be based on psych evaluation. 08/01-08/03. Psych following. Pending discharge to psych facility. Vitals stable 08/04. NPH Insulin switched to lantus. Blood glucose levels should be better tomorrow. Pending DC to psych facility 08/05. Monitor glucose levels closely. COVID-19 test positive 08/06. Adjusted lantus and lispro. BG better 08/07. Blood glucose is improved now in the 100-200 range. Patient is medically stable for discharge to psych facility when accepted. 08/08: Patient repeat covid test negative, mostly likely initial test was a false positive. Following careful discussion with family, patients condition is attributed to lack of his medications for management of his Schizophrenia. He does not have warnicke encephalopathy or etoh use. Will discontinue CIWA monitoring to prevent overmedicating. Awaiting pysch placement Discuss with mental health drug abuse treatment specialist 08/09: Discussed with Dr. Tse psych facility update provided. I also gave insights that although initially patient was thought to have alcohol related disease further discussion with family revealed that the patient has underlying schizophrenia and has not been taking his medication and has had multiple episodes of the same when he is off his medication becomes the injectable with disorganized thoughts and thinking. He appears to be more controlled at this time. He is asking to be discharged. There is no Warnicke encephalopathy noted at this time. There is no EtOH concern at this time. Dr. Tse is awaiting update from psych team in respect to updated 1013 form and also MoCA test 08/10: Patient is medically stable for discharge once inpatient psych bed is available. All other management deferred to the psychiatrist team 08/11: Discussed with Pysch team, they will renew 1013, PATIENT is medical stable for transfer to inpatient psych 08/12 Agitated and confused 08/13/2020 Agitated and confused Four-point restraints Objective - Constitutional Vitals: Vital Signs - 12hr 08/12/20 08/13/20 22:08 03:48 Temperature 98.5 F 98.1 F Pulse Rate 90 89 Respiratory 18 18 Rate Blood Pressure 157/95 172/91 [Right] O2 Sat by Pulse 97 95 Oximetry General appearance: Present: no acute distress, well-nourished - EENT Eyes: PERRL, EOM intact ENT: hearing intact, clear oral mucosa Ears: bilateral: normal - Neck Neck: supple, normal ROM - Respiratory Respiratory effort: normal Respiratory: bilateral: CTA - Breasts Breasts: normal - Cardiovascular Heart rate: 78 Rhythm: regular Heart Sounds: Present: S1 & S2. Absent: gallop, rub Extremities: pulses intact, No edema, normal color, Full ROM - Gastrointestinal General gastrointestinal: Present: soft, non-tender, non-distended, normal bowel sounds - Genitourinary Male genitourinary: normal - Integumentary Integumentary: clear, warm, dry - Musculoskeletal Musculoskeletal: 1, strength equal bilaterally - Neurologic Neurologic: moves all extremities - Psychiatric Psychiatric: memory intact, appropriate mood/affect, intact judgment & insight - Labs CBC & Chem 7: 07/29/20 05:03 08/05/20 13:10 Labs: Abnormal lab results 08/12/20 08/12/20 08/12/20 Range/Units 08:44 12:30 17:29 POC Glucose 196 H 261 H 215 H (70-105) mg/dL 08/12/20 Range/Units 21:57 POC Glucose 225 H (70-105) mg/dL HEART Score - HEART Score Troponin: Troponin T 0.056 ng/mL (0.00-0.029) H 07/27/20 01:55
[2020-08-13] MEDS: INSULIN LISPRO 100 UNIT/ML SUB-Q SCH ×11 (09:08→22:21)
[2020-08-13] MEDS: INSULIN GLARGINE 100 UNITS/ML SUB-Q SCH ×2 (09:08→22:20)
[2020-08-13] MEDS: amLODIPine 10 MG TAB PO SCH (10:31)
[2020-08-13] MEDS: MULTIVITAMINS ,THERAPEUTIC TAB PO SCH (10:31)
[2020-08-13] MEDS: THIAMINE 100 MG TAB PO SCH (10:32)
[2020-08-13] MEDS: FOLIC ACID 1 MG TAB PO SCH (10:32)
[2020-08-13] MEDS: VALPROIC ACID 250 MG CAP PO SCH (10:32)
[2020-08-13] MEDS ORDERED: LORazepam 2 MG/ML VIAL IM PRN (12:03)
[2020-08-13] MEDS ORDERED: HALOPERIDOL LACTATE 5 MG/1 ML INJ IM PRN (12:03)
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
[2020-08-13] MEDS: hydrALAZINE 100 MG TAB PO SCH ×3 (14:26→22:19)
[2020-08-13] MEDS: HEPARIN 5,000 UNIT/1 ML VIAL SUB-Q SCH ×3 (14:26→22:19)
[2020-08-13] MEDS: ZIPRASIDONE MESYLATE 20 MG VIAL IM SCH ×3 (14:51→22:20)
[2020-08-13] MEDS ORDERED: WATER FOR INJ Sterile (PF) 10 ML IV ONE (15:00)
[2020-08-13] MEDS: VALPROATE SODIUM 500 MG in SODIUM CHLORIDE 0.9% 100 ML IV SCH (22:26)
[2020-08-14] MEDS: hydrALAZINE 100 MG TAB PO SCH ×3 (05:05→22:49)
[2020-08-14] MEDS: HEPARIN 5,000 UNIT/1 ML VIAL SUB-Q SCH ×3 (05:05→22:49)
[2020-08-14] MEDS: INSULIN LISPRO 100 UNIT/ML SUB-Q SCH ×8 (09:39→22:49)
[2020-08-14] MEDS: VALPROATE SODIUM 500 MG in SODIUM CHLORIDE 0.9% 100 ML IV SCH ×2 (09:40→22:49)
[2020-08-14] MEDS: INSULIN GLARGINE 100 UNITS/ML SUB-Q SCH ×2 (09:40→22:50)
[2020-08-14] MEDS: ZIPRASIDONE MESYLATE 20 MG VIAL IM SCH (09:40)
[2020-08-14] MEDS: amLODIPine 10 MG TAB PO SCH (09:40)
[2020-08-14] MEDS: MULTIVITAMINS ,THERAPEUTIC TAB PO SCH (09:41)
[2020-08-14] MEDS: FOLIC ACID 1 MG TAB PO SCH (09:41)
[2020-08-14] MEDS: THIAMINE 100 MG TAB PO SCH (09:41)
[2020-08-15] MEDS: HEPARIN 5,000 UNIT/1 ML VIAL SUB-Q SCH ×3 (05:54→22:17)
[2020-08-15] MEDS: hydrALAZINE 100 MG TAB PO SCH ×3 (05:54→22:16)
--- NOTE | 2020-08-15 07:35 | Progress Note ---
Assessment and Plan Acute metabolic encephalopathy likely Schizophrenia Schizophrenia Diabetes mellitus with hyperglycemia none DKA Warnicke encephalopathy ruled out. Acute kidney disease with possible gastropathy on chronic kidney disease Rhabdomyolysis secondary to dehydration Hypokalemia EtOH use disorder-Rule out [id number]--mupkeot levels insulin adjusted plan Pending discharge to inpatient psych. Continue to adjust lantus and lispro Patient is medically stable for discharge to psych facility when accepted CM working on placement for the patient Extensive counseling provided to the patient DVT and GI prophylaxis Patient may get transfer today or tomorrow to [facility] Date of service: 08/14/20 Principal diagnosis: Acute psychosis Interval history: 59-year-old -Guyanese male with no known past medical problems and who has not been seen at this facility in the past was brought in to the emergency room today by EMS for altered mental status. Patient was found to be wandering around in a hotel lobby and refusing to answer questions when asked by EMS. Accu-Chek prior to arrival in the emergency room was said to be reading high. Upon arrival in the emergency room was alert and in no acute distress but still refusing to answer questions. Was looking drowsy. Work-up in the emergency room today reveals hyperglycemia with blood sugar greater than 700, elevated creatinine kinase greater than 3000, elevated creatinine level. CT scan of the head was unremarkable. UDS is still being awaited. Patient being admitted with altered mental status, hyperglycemia, rhabdomyolysis and acute kidney injury. Patient was treated with fluid hydration and counseling verbalized understanding. He is clinically improved. Counseling was provided on insulin management. It appears he is homeless extensive counseling was provided in case management assistance was requested. 07/29: Continue supportive care, no new complaints. Clinical stable but still lethargic, gait instability precludes discharge yet as patient is homeless 07/30: Some delirious behavior this morning will await psych evaluation. We will continue current management. Blood pressure elevated this morning as patient did not take his medication encouraged to take his meds hydralazine added due to persistent increase despite taking the meds. Disposition will be based on psych evaluation. 08/01-08/03. Psych following. Pending discharge to psych facility. Vitals stable 08/04. NPH Insulin switched to lantus. Blood glucose levels should be better tomorrow. Pending DC to psych facility 08/05. Monitor glucose levels closely. COVID-19 test positive 08/06. Adjusted lantus and lispro. BG better 08/07. Blood glucose is improved now in the 100-200 range. Patient is medically stable for discharge to psych facility when accepted. 08/08: Patient repeat covid test negative, mostly likely initial test was a false positive. Following careful discussion with family, patients condition is attributed to lack of his medications for management of his Schizophrenia. He does not have warnicke encephalopathy or etoh use. Will discontinue CIWA monitoring to prevent overmedicating. Awaiting pysch placement Discuss with mental health porcelain technician 08/09: Discussed with Dr. Tse psych facility update provided. I also gave insights that although initially patient was thought to have alcohol related disease further discussion with family revealed that the patient has underlying schizophrenia and has not been taking his medication and has had multiple episodes of the same when he is off his medication becomes the injectable with disorganized thoughts and thinking. He appears to be more controlled at this time. He is asking to be discharged. There is no Warnicke encephalopathy noted at this time. There is no EtOH concern at this time. Dr. Tse is awaiting update from psych team in respect to updated 1013 form and also MoCA test 08/10: Patient is medically stable for discharge once inpatient psych bed is available. All other management deferred to the psychiatrist team 08/11: Discussed with Pysch team, they will renew 1013, PATIENT is medical stable for transfer to inpatient psych 08/12 Agitated and confused 08/13/2020 Agitated and confused Four-point restraints 08/14/2020 Agitated and confused Four-point restraints May go to [facility] Objective - Constitutional General appearance: Present: no acute distress, well-nourished - EENT Eyes: PERRL, EOM intact ENT: hearing intact, clear oral mucosa Ears: bilateral: normal - Neck Neck: supple, normal ROM - Respiratory Respiratory effort: normal Respiratory: bilateral: CTA - Breasts Breasts: normal - Cardiovascular Heart rate: 78 Rhythm: regular Heart Sounds: Present: S1 & S2. Absent: gallop, rub Extremities: pulses intact, No edema, normal color, Full ROM - Gastrointestinal General gastrointestinal: Present: soft, non-tender, non-distended, normal bowel sounds - Genitourinary Male genitourinary: normal - Integumentary Integumentary: clear, warm, dry - Musculoskeletal Musculoskeletal: 1, strength equal bilaterally - Neurologic Neurologic: CNII-XII intact, moves all extremities - Psychiatric Psychiatric: agitated (And psychotic) - Allied health notes Allied health notes reviewed: nursing, case management - Labs CBC & Chem 7: 07/29/20 05:03 08/05/20 13:10 HEART Score - HEART Score Troponin: Troponin T 0.056 ng/mL (0.00-0.029) H 07/27/20 01:55
--- NOTE | 2020-08-15 07:39 | Progress Note ---
Assessment and Plan Acute metabolic encephalopathy likely Schizophrenia Schizophrenia Diabetes mellitus with hyperglycemia none DKA Warnicke encephalopathy ruled out. Acute kidney disease with possible gastropathy on chronic kidney disease Rhabdomyolysis secondary to dehydration Hypokalemia EtOH use disorder-Rule out I3FY--wotqese levels insulin adjusted plan Pending discharge to inpatient psych. Continue to adjust lantus and lispro Patient is medically stable for discharge to psych facility when accepted CM working on placement for the patient Extensive counseling provided to the patient DVT and GI prophylaxis Subjective Date of service: 08/12/20 Principal diagnosis: Acute psychosis Interval history: 59-year-old -Malaysian male with no known past medical problems and who has not been seen at this facility in the past was brought in to the emergency room today by EMS for altered mental status. Patient was found to be wandering around in a hotel lobby and refusing to answer questions when asked by EMS. Accu-Chek prior to arrival in the emergency room was said to be reading high. Upon arrival in the emergency room was alert and in no acute distress but still refusing to answer questions. Was looking drowsy. Work-up in the emergency room today reveals hyperglycemia with blood sugar greater than 700, elevated creatinine kinase greater than 3000, elevated crea tinine level. CT scan of the head was unremarkable. UDS is still being awaited. Patient being admitted with altered mental status, hyperglycemia, rhabdomyolysis and acute kidney injury. Patient was treated with fluid hydration and counseling verbalized understanding. He is clinically improved. Counseling was provided on insulin management. It appears he is homeless extensive counseling was provided in case management assistance was requested. 07/29: Continue supportive care, no new complaints. Clinical stable but still lethargic, gait instability precludes discharge yet as patient is homeless 07/30: Some delirious behavior this morning will await psych evaluation. We will continue current management. Blood pressure elevated this morning as patient did not take his medication encouraged to take his meds hydralazine added due to persistent increase despite taking the meds. Disposition will be based on psych evaluation. 08/01-08/03. Psych following. Pending discharge to psych facility. Vitals stable 08/04. NPH Insulin switched to lantus. Blood glucose levels should be better tomorrow. Pending DC to psych facility 08/05. Monitor glucose levels closely. COVID-19 test positive 08/06. Adjusted lantus and lispro. BG better 08/07. Blood glucose is improved now in the 100-200 range. Patient is medically stable for discharge to psych facility when accepted. 08/08: Patient repeat covid test negative, mostly likely initial test was a false positive. Following careful discussion with family, patients condition is attributed to lack of his medications for management of his Schizophrenia. He does not have warnicke encephalopathy or etoh use. Will discontinue CIWA monitoring to prevent overmedicating. Awaiting pysch placement Discuss with mental health impregnator 08/09: Discussed with Dr. Tse psych facility update provided. I also gave insights that although initially patient was thought to have alcohol related disease further discussion with family revealed that the patient has underlying schizophrenia and has not been taking his medication and has had multiple episodes of the same when he is off his medication becomes the injectable with disorganized thoughts and thinking. He appears to be more controlled at this time. He is asking to be discharged. There is no Warnicke encephalopathy noted at this time. There is no EtOH concern at this time. Dr. Tse is awaiting update from psych team in respect to updated 1013 form and also MoCA test 08/10: Patient is medically stable for discharge once inpatient psych bed is available. All other management deferred to the psychiatrist team 08/11: Discussed with Pysch team, they will renew 1013, PATIENT is medical stable for transfer to inpatient psych 08/12 Agitated and confused Objective - Constitutional General appearance: Present: no acute distress, well-nourished - EENT Eyes: PERRL, EOM intact ENT: hearing intact, clear oral mucosa Ears: bilateral: normal - Neck Neck: supple, normal ROM - Respiratory Respiratory effort: normal Respiratory: bilateral: CTA - Breasts Breasts: normal - Cardiovascular Heart rate: 78 Rhythm: regular Heart Sounds: Present: S1 & S2. Absent: gallop, rub Extremities: pulses intact, No edema, normal color, Full ROM - Gastrointestinal General gastrointestinal: Present: soft, non-tender, non-distended, normal bowel sounds - Genitourinary Male genitourinary: normal - Integumentary Integumentary: clear, warm, dry - Musculoskeletal Musculoskeletal: 1, strength equal bilaterally - Neurologic Neurologic: moves all extremities - Psychiatric Psychiatric: memory intact, appropriate mood/affect, intact judgment & insight - Labs CBC & Chem 7: 07/29/20 05:03 08/05/20 13:10 HEART Score - HEART Score Troponin: Troponin T 0.056 ng/mL (0.00-0.029) H 07/27/20 01:55
[2020-08-15] MEDS: INSULIN GLARGINE 100 UNITS/ML SUB-Q SCH ×2 (08:00→22:10)
--- NOTE | 2020-08-15 08:38 | Progress Note ---
Subjective Date of service: 08/15/20 Principal diagnosis: Acute psychosis Assessment and Plan - Patient Problems (1) Schizophrenia Current Visit: Yes Status: Acute Medications and Allergies Allergies Allergy/AdvReac Type Severity Reaction Status Date / Time No Known Allergies Allergy Verified 07/27/20 04:10 Home Medications Medication Instructions Recorded Confirmed Last Taken Type Folic Acid 1 mg PO DAILY #30 tablet 07/28/20 Unknown Rx Insulin NPH/Regular [NovoLIN 70/30] 40 unit SUB-Q BIDDIAB #10 ml 07/28/20 Unknown Rx Multivitamin Tab [Multiple Vitamin 1 each PO QDAY #30 tablet 07/28/20 Unknown Rx TAB (Theragran)] Thiamine HCl [Vitamin B-1] 100 mg PO DAILY #30 tablet 07/28/20 Unknown Rx amLODIPine 10 mg PO QDAY #10 tablet 07/28/20 Unknown Rx labetaloL [Labetalol 200mg TAB] 200 mg PO BID #60 tablet 07/28/20 Unknown Rx Hydralazine HCl 50 mg PO TID #90 tablet 07/30/20 Unknown Rx OLANzapine [ZyPREXA] 5 mg PO QHS #30 tablet 07/31/20 Unknown Rx Valproic Acid [Depakene] 250 mg PO Q8HR #90 capsule 07/31/20 Unknown Rx Active Meds: Active Medications Acetaminophen (Acetaminophen 325 Mg Tab) 650 mg PO Q4H PRN PRN Reason: Pain MILD(1-3)/Fever >100.5/RUIZ Last Admin: 08/08/20 23:01 Dose: 650 mg Documented by: Amlodipine Besylate (Amlodipine 10 Mg Tab) 10 mg PO QDAY [facility] Last Admin: 08/14/20 09:40 Dose: Not Given Documented by: Dextrose (Dextrose 50% In Water (25gm) 50 Ml Syringe) 50 ml IV Q30MIN PRN; Protocol PRN Reason: Hypoglycemia Folic Acid (Folic Acid 1 Mg Tab) 1 mg PO DAILY [facility] Last Admin: 08/14/20 09:41 Dose: Not Given Documented by: Haloperidol Lactate (Haloperidol Lactate 5 Mg/1 Ml Inj) 5 mg IM ONCE PRN PRN Reason: Agitation Heparin Sodium (Porcine) (Heparin 5,000 Unit/1 Ml Vial) 5,000 unit SUB-Q Q8HR [facility] Last Admin: 08/15/20 05:54 Dose: Not Given Documented by: Hydralazine HCl (Hydralazine 20 Mg/1 Ml Inj) 10 mg IV Q4HR PRN PRN Reason: Blood Pressure Hydralazine HCl (Hydralazine 100 Mg Tab) 100 mg PO Q8HR [facility] Last Admin: 08/15/20 05:54 Dose: Not Given Documented by: Valproate Sodium 500 mg/ (Sodium Chloride) 105 mls @ 100 mls/hr IV Q12HR [facility] Last Admin: 08/14/20 22:49 Dose: Not Given Documented by: Insulin Glargine (Insulin Glargine 100 Units/Ml) 6 units SUB-Q QHS [facility] Last Admin: 08/14/20 22:50 Dose: Not Given Documented by: Insulin Glargine (Insulin Glargine 100 Units/Ml) [facility] Last Admin: 08/14/20 09:40 Dose: Not Given Documented by: Insulin Human Lispro (Insulin Lispro 100 Unit/Ml) 0 unit SUB-Q [facility]; Protocol Last Admin: 08/14/20 22:49 Dose: Not Given Documented by: Insulin Human Lispro (Insulin Lispro 100 Unit/Ml) 5 unit SUB-Q [facility] Last Admin: 08/14/20 22:49 Dose: Not Given Documented by: Labetalol HCl (Labetalol 200 Mg Tab) 200 mg PO BID [facility] Last Admin: 08/14/20 22:49 Dose: 200 mg Documented by: Lorazepam (Lorazepam 2 Mg/Ml Vial) 2 mg IM Q4H PRN PRN Reason: Agitation Magnesium Hydroxide (Magnesium Hydroxide (Mom) Oral Liqd Udc) 30 ml PO Q4H PRN PRN Reason: Constipation Morphine Sulfate (Morphine 2 Mg/1 Ml Inj) 2 mg IV Q4H PRN PRN Reason: Pain, Moderate (4-6) Multivitamins (Multivitamins ,Therapeutic Tab) 1 each PO DAILY [facility] Last Admin: 08/14/20 09:41 Dose: Not Given Documented by: Olanzapine (Olanzapine 10 Mg Tab) 10 mg PO QDAY [facility] Last Admin: 08/14/20 09:41 Dose: Not Given Documented by: Ondansetron HCl (Ondansetron 4 Mg/2 Ml Inj) 4 mg IV Q8H PRN PRN Reason: Nausea And Vomiting Sodium Chloride (Sodium Chloride 0.9% 10 Ml Flush Syringe) 10 ml IV BID [facility] Last Admin: 08/14/20 22:50 Dose: Not Given Documented by: Sodium Chloride (Sodium Chloride 0.9% 10 Ml Flush Syringe) 10 ml IV PRN PRN PRN Reason: LINE FLUSH Thiamine HCl (Thiamine 100 Mg Tab) 100 mg PO QDAY [facility] Last Admin: 08/14/20 09:41 Dose: Not Given Documented by: Results - Results Labs/Vitals: Laboratory Last Values WBC 6.4 K/mm3 (4.5-11.0) 07/29/20 05:03 RBC 4.14 M/mm3 (3.65-5.03) 07/29/20 05:03 Hgb 11.8 gm/dl (11.8-15.2) 07/29/20 05:03 Hct 36.1 % (35.5-45.6) 07/29/20 05:03 MCV 87 fl (84-94) 07/29/20 05:03 MCH 29 pg (28-32) 07/29/20 05:03 MCHC 33 % (32-34) 07/29/20 05:03 RDW 15.0 % (13.2-15.2) 07/29/20 05:03 Plt Count 278 K/mm3 (140-440) 07/29/20 05:03 Lymph % (Auto) 11.8 % (13.4-35.0) L 07/28/20 04:39 [place] % (Auto) 6.5 % (0.0-7.3) 07/28/20 04:39 Eos % (Auto) 0.9 % (0.0-4.3) 07/28/20 04:39 Baso % (Auto) 0.5 % (0.0-1.8) 07/28/20 04:39 Lymph # (Auto) 1.0 K/mm3 (1.2-5.4) L 07/28/20 04:39 [place] # (Auto) 0.6 K/mm3 (0.0-0.8) 07/28/20 04:39 Eos # (Auto) 0.1 K/mm3 (0.0-0.4) 07/28/20 04:39 Baso # (Auto) 0.0 K/mm3 (0.0-0.1) 07/28/20 04:39 Seg Neutrophils % 80.3 % (40.0-70.0) H 07/28/20 04:39 Seg Neutrophils # 6.9 K/mm3 (1.8-7.7) 07/28/20 04:39 PT 12.7 Sec. (12.2-14.9) 07/28/20 04:39 INR 0.97 (0.87-1.13) 07/28/20 04:39 APTT 33.0 Sec. (24.2-36.6) 07/27/20 01:55 Sodium 141 mmol/L (137-145) 08/05/20 13:10 Potassium 3.6 mmol/L (3.6-5.0) 08/05/20 13:10 Chloride 107.8 mmol/L (98-107) H 08/05/20 13:10 Carbon Dioxide 27 mmol/L (22-30) 08/05/20 13:10 Anion Gap 10 mmol/L 08/05/20 13:10 BUN 34 mg/dL (9-20) H 08/05/20 13:10 Creatinine 2.2 mg/dL (0.8-1.3) H 08/05/20 13:10 Estimated GFR 37 ml/min 08/05/20 13:10 BUN/Creatinine Ratio 15 % 08/05/20 13:10 Glucose 78 mg/dL (75-100) 08/05/20 13:10 POC Glucose 420 mg/dL (70-105) H 08/13/20 22:06 Hemoglobin A1c 15.0 % (4-6) H 07/27/20 01:55 Lactic Acid 1.60 mmol/L (0.7-2.0) 07/27/20 01:55 Calcium 9.4 mg/dL (8.4-10.2) 08/05/20 13:10 Phosphorus 2.70 mg/dL (2.5-4.5) 07/28/20 04:39 Magnesium 1.80 mg/dL (1.7-2.3) 07/28/20 04:39 Total Bilirubin 0.50 mg/dL (0.1-1.2) 07/27/20 01:55 Direct Bilirubin < 0.2 mg/dL (0-0.2) 07/27/20 01:55 Indirect Bilirubin 0.3 mg/dL 07/27/20 01:55 AST 72 units/L (5-40) H 07/27/20 01:55 ALT 57 units/L (7-56) H 07/27/20 01:55 Alkaline Phosphatase 163 units/L (35-129) H 07/27/20 01:55 Ammonia 18.0 umol/L (25-60) L 07/27/20 01:55 Total Creatine Kinase 133 units/L (55-170) 08/08/20 12:17 Troponin T 0.056 ng/mL (0.00-0.029) H 07/27/20 01:55 Total Protein 7.4 g/dL (6.3-8.2) 07/27/20 01:55 Albumin 3.9 g/dL (3.9-5) 07/27/20 01:55 Albumin/Globulin Ratio 1.1 % 07/27/20 01:55 Triglycerides 78 mg/dL (2-149) 07/27/20 01:55 Cholesterol 220 mg/dL (50-199) H 07/27/20 01:55 LDL Cholesterol Direct 102 mg/dL (50-130) 07/27/20 01:55 HDL Cholesterol 126 mg/dL (40-59) H 07/27/20 01:55 Cholesterol/HDL Ratio 1.74 % 07/27/20 01:55 TSH 0.824 mlU/mL (0.270-4.200) 07/27/20 01:55 Urine Color Colorless (Yellow) 07/27/20 02:09 Urine Turbidity Clear (Clear) 07/27/20 02:09 Urine pH 6.0 (5.0-7.0) 07/27/20 02:09 Ur Specific [place] 1.016 (1.003-1.030) 07/27/20 02:09 Urine Protein 100 mg/dl mg/dL (Negative) 07/27/20 02:09 Urine Glucose (UA) >=500 mg/dL (Negative) 07/27/20 02:09 Urine Ketones Neg mg/dL (Negative) 07/27/20 02:09 Urine Blood Mod (Negative) 07/27/20 02:09 Urine Nitrite Neg (Negative) 07/27/20 02:09 Urine Bilirubin Neg (Negative) 07/27/20 02:09 Urine Urobilinogen < 2.0 mg/dL (<2.0) 07/27/20 02:09 Ur Leukocyte Esterase Neg (Negative) 07/27/20 02:09 Urine WBC (Auto) 1.0 /HPF (0.0-6.0) 07/27/20 02:09 Urine RBC (Auto) < 1.0 /HPF (0.0-6.0) 07/27/20 02:09 U Epithel Cells (Auto) < 1.0 /HPF (0-13.0) 07/27/20 02:09 Urine Mucus Few /HPF 07/27/20 02:09 Urine Creatinine 85.6 mg/dL (0.1-20.0) H 07/27/20 19:00 Protein/Creatinin Ratio 2.96 07/27/20 19:00 Urine Sodium 51 mmol/L 07/27/20 19:00 Urine Total Protein 253 mg/dL (5-11.8) H 07/27/20 19:00 Salicylates < 0.3 mg/dL (2.8-20.0) L 07/27/20 01:55 Urine Opiates Screen Presumptive negative 07/27/20 02:09 Urine Methadone Screen Presumptive negative 07/27/20 02:09 Acetaminophen 5.0 ug/mL (10.0-30.0) L 07/27/20 01:55 Ur Barbiturates Screen Presumptive negative 07/27/20 02:09 Ur Phencyclidine Scrn Presumptive negative 07/27/20 02:09 Ur Amphetamines Screen Presumptive negative 07/27/20 02:09 U Benzodiazepines Scrn Presumptive negative 07/27/20 02:09 Urine Cocaine Screen Presumptive negative 07/27/20 02:09 U Marijuana (THC) Screen Presumptive negative 07/27/20 02:09 Drugs of Abuse Note Disclamer 07/27/20 02:09 Plasma/Serum Alcohol < 0.01 % (0-0.07) 07/27/20 01:55 Coronavirus (PCR) Negative (Negative) 08/05/20 Unknown Last Vital Signs Temp 99.0 F 08/14/20 05:37 Pulse 69 08/14/20 10:00 Resp 17 08/14/20 10:00 BP 120/65 08/14/20 05:37 Pulse Ox 93 08/14/20 05:37
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
[2020-08-15] MEDS: INSULIN LISPRO 100 UNIT/ML SUB-Q SCH ×8 (08:57→22:13)
[2020-08-15] MEDS: MULTIVITAMINS ,THERAPEUTIC TAB PO SCH (10:00)
[2020-08-15] MEDS: THIAMINE 100 MG TAB PO SCH (10:00)
[2020-08-15] MEDS: FOLIC ACID 1 MG TAB PO SCH (10:00)
[2020-08-15] MEDS: VALPROATE SODIUM 500 MG in SODIUM CHLORIDE 0.9% 100 ML IV SCH ×2 (10:00→22:17)
[2020-08-15] MEDS: amLODIPine 10 MG TAB PO SCH (10:00)
--- NOTE | 2020-08-15 11:08 | Progress Note ---
Assessment and Plan Assessment and plan: Patient 1013 status acute metabolic encephalopathy Multifactorial due to psych problems Schizophrenia Schizophrenia; management per psych Awaiting inpatient psych placement Type 2 diabetes mellitus with hyperglycemia Accu-Chek sliding scale coverage ADA diet insulin as needed. Acute renal failure Gentle hydration Monitor renal function avoid nephrotoxins Follow labs Rhabdomyolysis/resolved Supportive care, monitor levels DVT prophylaxis Patient placed on subcutaneous heparin. Full code status; Current Visit: Yes Status: Acute Discharge planning: Psych recommended transfer to inpatient psych facility, CM processing the transfer Patient is medically stable for discharge and transfer to inpatient psych facility When accepted . Plan of care reviewed with the patient's nurse and case management Brief history 59-year-old -[place] male with no known past medical history was admitted through emergency room with altered level of consciousness, wandering around in the hospital lobby refusing communication, initial evaluation is consistent with metabolic encephalopathy hyperglycemia rhabdomyolysis and acute kidney injury. Patient was noted to have schizophrenia evaluated by psych, medications optimized, recommended inpatient psych admission/transfer for further evaluation management. 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 Patient is very agitated aggressive verbal Cursing at everyone Refusing medications and tests Vital signs noted Hospitalist Physical - Constitutional Vitals: Temp Pulse Resp BP Pulse Ox 99.0 F 69 17 120/65 93 08/14/20 05:37 08/14/20 10:00 08/14/20 10:00 08/14/20 05:37 08/14/20 05:37 General appearance: Present: no acute distress, well-nourished - EENT Eyes: Present: PERRL, EOM intact - Neck Neck: Present: supple, normal ROM - Respiratory Respiratory effort: normal Respiratory: bilateral: diminished, negative: rales, rhonchi, wheezing - Cardiovascular Rhythm: regular Heart Sounds: Present: S1 & S2 - Extremities Extremities: no ischemia, No edema - Abdominal General gastrointestinal: soft, non-tender, non-distended, normal bowel sounds - Integumentary Integumentary: Present: clear, warm - Psychiatric Psychiatric: agitated, other (Verbal and loud cursing at everyone) - Neurologic Neurologic: moves all extremities HEART Score - HEART Score Troponin: Troponin T 0.056 ng/mL (0.00-0.029) H 07/27/20 01:55 Results - Labs CBC & Chem 7: 07/29/20 05:03 08/16/20 07:30 Labs: Laboratory Last Values WBC 6.4 K/mm3 (4.5-11.0) 07/29/20 05:03 RBC 4.14 M/mm3 (3.65-5.03) 07/29/20 05:03 Hgb 11.8 gm/dl (11.8-15.2) 07/29/20 05:03 Hct 36.1 % (35.5-45.6) 07/29/20 05:03 MCV 87 fl (84-94) 07/29/20 05:03 MCH 29 pg (28-32) 07/29/20 05:03 MCHC 33 % (32-34) 07/29/20 05:03 RDW 15.0 % (13.2-15.2) 07/29/20 05:03 Plt Count 278 K/mm3 (140-440) 07/29/20 05:03 Lymph % (Auto) 11.8 % (13.4-35.0) L 07/28/20 04:39 [place] % (Auto) 6.5 % (0.0-7.3) 07/28/20 04:39 Eos % (Auto) 0.9 % (0.0-4.3) 07/28/20 04:39 Baso % (Auto) 0.5 % (0.0-1.8) 07/28/20 04:39 Lymph # (Auto) 1.0 K/mm3 (1.2-5.4) L 07/28/20 04:39 [place] # (Auto) 0.6 K/mm3 (0.0-0.8) 07/28/20 04:39 Eos # (Auto) 0.1 K/mm3 (0.0-0.4) 07/28/20 04:39 Baso # (Auto) 0.0 K/mm3 (0.0-0.1) 07/28/20 04:39 Seg Neutrophils % 80.3 % (40.0-70.0) H 07/28/20 04:39 Seg Neutrophils # 6.9 K/mm3 (1.8-7.7) 07/28/20 04:39 PT 12.7 Sec. (12.2-14.9) 07/28/20 04:39 INR 0.97 (0.87-1.13) 07/28/20 04:39 APTT 33.0 Sec. (24.2-36.6) 07/27/20 01:55 Sodium 141 mmol/L (137-145) 08/05/20 13:10 Potassium 3.6 mmol/L (3.6-5.0) 08/05/20 13:10 Chloride 107.8 mmol/L (98-107) H 08/05/20 13:10 Carbon Dioxide 27 mmol/L (22-30) 08/05/20 13:10 Anion Gap 10 mmol/L 08/05/20 13:10 BUN 34 mg/dL (9-20) H 08/05/20 13:10 Creatinine 2.2 mg/dL (0.8-1.3) H 08/05/20 13:10 Estimated GFR 37 ml/min 08/05/20 13:10 BUN/Creatinine Ratio 15 % 08/05/20 13:10 Glucose 78 mg/dL (75-100) 08/05/20 13:10 POC Glucose 267 mg/dL (70-105) H 08/15/20 08:36 Hemoglobin A1c 15.0 % (4-6) H 07/27/20 01:55 Lactic Acid 1.60 mmol/L (0.7-2.0) 07/27/20 01:55 Calcium 9.4 mg/dL (8.4-10.2) 08/05/20 13:10 Phosphorus 2.70 mg/dL (2.5-4.5) 07/28/20 04:39 Magnesium 1.80 mg/dL (1.7-2.3) 07/28/20 04:39 Total Bilirubin 0.50 mg/dL (0.1-1.2) 07/27/20 01:55 Direct Bilirubin < 0.2 mg/dL (0-0.2) 07/27/20 01:55 Indirect Bilirubin 0.3 mg/dL 07/27/20 01:55 AST 72 units/L (5-40) H 07/27/20 01:55 ALT 57 units/L (7-56) H 07/27/20 01:55 Alkaline Phosphatase 163 units/L (35-129) H 07/27/20 01:55 Ammonia 18.0 umol/L (25-60) L 07/27/20 01:55 Total Creatine Kinase 133 units/L (55-170) 08/08/20 12:17 Troponin T 0.056 ng/mL (0.00-0.029) H 07/27/20 01:55 Total Protein 7.4 g/dL (6.3-8.2) 07/27/20 01:55 Albumin 3.9 g/dL (3.9-5) 07/27/20 01:55 Albumin/Globulin Ratio 1.1 % 07/27/20 01:55 Triglycerides 78 mg/dL (2-149) 07/27/20 01:55 Cholesterol 220 mg/dL (50-199) H 07/27/20 01:55 LDL Cholesterol Direct 102 mg/dL (50-130) 07/27/20 01:55 HDL Cholesterol 126 mg/dL (40-59) H 07/27/20 01:55 Cholesterol/HDL Ratio 1.74 % 07/27/20 01:55 TSH 0.824 mlU/mL (0.270-4.200) 07/27/20 01:55 Urine Color Colorless (Yellow) 07/27/20 02:09 Urine Turbidity Clear (Clear) 07/27/20 02:09 Urine pH 6.0 (5.0-7.0) 07/27/20 02:09 Ur Specific [place] 1.016 (1.003-1.030) 07/27/20 02:09 Urine Protein 100 mg/dl mg/dL (Negative) 07/27/20 02:09 Urine Glucose (UA) >=500 mg/dL (Negative) 07/27/20 02:09 Urine Ketones Neg mg/dL (Negative) 07/27/20 02:09 Urine Blood Mod (Negative) 07/27/20 02:09 Urine Nitrite Neg (Negative) 07/27/20 02:09 Urine Bilirubin Neg (Negative) 07/27/20 02:09 Urine Urobilinogen < 2.0 mg/dL (<2.0) 07/27/20 02:09 Ur Leukocyte Esterase Neg (Negative) 07/27/20 02:09 Urine WBC (Auto) 1.0 /HPF (0.0-6.0) 07/27/20 02:09 Urine RBC (Auto) < 1.0 /HPF (0.0-6.0) 07/27/20 02:09 U Epithel Cells (Auto) < 1.0 /HPF (0-13.0) 07/27/20 02:09 Urine Mucus Few /HPF 07/27/20 02:09 Urine Creatinine 85.6 mg/dL (0.1-20.0) H 07/27/20 19:00 Protein/Creatinin Ratio 2.96 07/27/20 19:00 Urine Sodium 51 mmol/L 07/27/20 19:00 Urine Total Protein 253 mg/dL (5-11.8) H 07/27/20 19:00 Salicylates < 0.3 mg/dL (2.8-20.0) L 07/27/20 01:55 Urine Opiates Screen Presumptive negative 07/27/20 02:09 Urine Methadone Screen Presumptive negative 07/27/20 02:09 Acetaminophen 5.0 ug/mL (10.0-30.0) L 07/27/20 01:55 Ur Barbiturates Screen Presumptive negative 07/27/20 02:09 Ur Phencyclidine Scrn Presumptive negative 07/27/20 02:09 Ur Amphetamines Screen Presumptive negative 07/27/20 02:09 U Benzodiazepines Scrn Presumptive negative 07/27/20 02:09 Urine Cocaine Screen Presumptive negative 07/27/20 02:09 U Marijuana (THC) Screen Presumptive negative 07/27/20 02:09 Drugs of Abuse Note Disclamer 07/27/20 02:09 Plasma/Serum Alcohol < 0.01 % (0-0.07) 07/27/20 01:55 Coronavirus (PCR) Negative (Negative) 08/05/20 Unknown [place]/IV: Voiding Method Toilet Active Medications - Current Medications Current Medications: Generic Name Dose Route Start Last Admin Trade Name Freq PRN Reason Stop Dose Admin Acetaminophen 650 mg 07/27/20 04:01 08/08/20 23:01 Acetaminophen 325 Mg Tab PO 650 mg Q4H PRN Administration Pain MILD(1-3)/Fever >100.5/RUIZ Amlodipine Besylate 10 mg 07/27/20 17:00 08/14/20 09:40 Amlodipine 10 Mg Tab PO Not Given QDAY MARY Dextrose 50 ml 08/04/20 09:30 Dextrose 50% In Water (25gm) 50 Ml Syringe IV Q30MIN PRN Hypoglycemia Protocol Folic Acid 1 mg 07/30/20 10:00 08/14/20 09:41 Folic Acid 1 Mg Tab PO Not Given DAILY MARY Haloperidol Lactate 5 mg 08/13/20 12:03 Haloperidol Lactate 5 Mg/1 Ml Inj IM ONCE PRN Agitation Heparin Sodium (Porcine) 5,000 unit 07/27/20 06:00 08/15/20 05:54 Heparin 5,000 Unit/1 Ml Vial SUB-Q Not Given Q8HR [facility] Hydralazine HCl 10 mg 07/27/20 04:06 Hydralazine 20 Mg/1 Ml Inj IV Q4HR PRN Blood Pressure Hydralazine HCl 100 mg 08/08/20 12:00 08/15/20 05:54 Hydralazine 100 Mg Tab PO Not Given Q8HR [facility] Valproate Sodium 500 mg/ 105 mls @ 100 mls/hr 08/13/20 22:00 08/14/20 22:49 Sodium Chloride IV Not Given Q12HR [facility] Insulin Glargine 6 units 08/06/20 22:00 08/14/20 22:50 Insulin Glargine 100 Units/Ml SUB-Q Not Given QHS [facility] Insulin Glargine 20 units 08/09/20 08:00 08/14/20 09:40 Insulin Glargine 100 Units/Ml SUB-Q Not Given QAMDIAB [facility] Insulin Human Lispro 0 unit 08/04/20 11:30 08/15/20 08:57 Insulin Lispro 100 Unit/Ml SUB-Q 6 unit [facility] Administration Protocol Insulin Human Lispro 5 unit 08/06/20 11:30 08/15/20 08:58 Insulin Lispro 100 Unit/Ml SUB-Q 5 unit ACHS [facility] Administration Labetalol HCl 200 mg 07/27/20 22:00 08/14/20 22:49 Labetalol 200 Mg Tab PO 200 mg BID MARY Administration Lorazepam 2 mg 08/13/20 12:03 Lorazepam 2 Mg/Ml Vial IM Q4H PRN Agitation Magnesium Hydroxide 30 ml 07/27/20 04:01 Magnesium Hydroxide (Mom) Oral Liqd Udc PO Q4H PRN Constipation Morphine Sulfate 2 mg 07/27/20 04:01 Morphine 2 Mg/1 Ml Inj IV Q4H PRN Pain, Moderate (4-6) Multivitamins 1 each 07/30/20 10:00 08/14/20 09:41 Multivitamins ,Therapeutic Tab PO Not Given DAILY [facility] Olanzapine 10 mg 08/09/20 10:00 08/14/20 09:41 Olanzapine 10 Mg Tab PO Not Given QDAY [facility] Ondansetron HCl 4 mg 07/27/20 04:01 Ondansetron 4 Mg/2 Ml Inj IV Q8H PRN Nausea And Vomiting Sodium Chloride 10 ml 07/27/20 10:00 08/14/20 22:50 Sodium Chloride 0.9% 10 Ml Flush Syringe IV Not Given BID MARY Sodium Chloride 10 ml 07/27/20 04:01 Sodium Chloride 0.9% 10 Ml Flush Syringe IV PRN PRN LINE FLUSH Thiamine HCl 100 mg 07/30/20 10:00 08/14/20 09:41 Thiamine 100 Mg Tab PO Not Given QDAY [facility] Nutrition/Malnutrition Assess - Dietary Evaluation Nutrition/Malnutrition Findings: Nutrition Notes Start: 07/27/20 09:22 Freq: Status: Active Protocol: Document 08/03/20 15:05 CW (Rec: 08/03/20 15:06 CW [id number]) Nutrition Notes Need for Assessment generated from: LOS Initial or Follow up Brief Note Current Diagnosis Acute Kidney Injury Other Pertinent Diagnosis hyperglycemia, AMS, Rhabdomyolysis Current Diet Consistent CHO Subjective/Other Information Screen for LOS. Pt eating 100% of meals. Russell score of 21. Percent of energy/protein needs met: 100%/100% Skin Integrity/Comment Intact Current % PO Good (75-100%) Nutrition Intervention Revisit per MD consult or patient Sign Off request: Additional Comments S/O for excellent intakes and intact skin
[2020-08-16] MEDS: HEPARIN 5,000 UNIT/1 ML VIAL SUB-Q SCH ×3 (06:15→22:54)
[2020-08-16] MEDS: hydrALAZINE 100 MG TAB PO SCH ×3 (06:15→22:55)
[2020-08-16 08:28] LABS: Calcium 9.4 mg/dL (8.4-10.2)
--- NOTE | 2020-08-16 09:09 | Progress Note ---
Assessment and Plan Assessment and plan: Patient 1013 status acute metabolic encephalopathy Multifactorial due to psych problems Schizophrenia Schizophrenia; management per psych Awaiting inpatient psych placement Type 2 diabetes mellitus with hyperglycemia Accu-Chek sliding scale coverage ADA diet insulin as needed. Acute renal failure Gentle hydration Monitor renal function avoid nephrotoxins Follow labs Rhabdomyolysis/resolved Supportive care, monitor levels DVT prophylaxis Patient placed on subcutaneous heparin. Full code status; Current Visit: Yes Status: Acute Discharge planning: Psych recommended transfer to inpatient psych facility, CM processing the transfer Patient is medically stable for discharge and transfer to inpatient psych facility When accepted . Plan of care reviewed with the patient's nurse and case management Brief history 59-year-old -[place] male with no known past medical history was admitted through emergency room with altered level of consciousness, wandering around in the hospital lobby refusing communication, initial evaluation is consistent with metabolic encephalopathy hyperglycemia rhabdomyolysis and acute kidney injury. Patient was noted to have schizophrenia evaluated by psych, medications optimized, recommended inpatient psych admission/transfer for further evaluation management. 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 Hospitalist Physical - Constitutional Vitals: Temp Pulse Resp BP Pulse Ox 97.6 F 84 18 151/94 100 08/16/20 06:12 08/16/20 06:13 08/16/20 06:12 08/16/20 06:12 08/16/20 06:13 General appearance: Present: no acute distress, well-nourished, other (Loud and verbal) - EENT Eyes: Present: PERRL, EOM intact - Neck Neck: Present: supple, normal ROM - Respiratory Respiratory effort: normal Respiratory: bilateral: diminished, negative: rales, rhonchi, wheezing - Cardiovascular Rhythm: regular Heart Sounds: Present: S1 & S2 - Extremities Extremities: no ischemia, No edema - Abdominal General gastrointestinal: soft, non-tender, non-distended, normal bowel sounds - Integumentary Integumentary: Present: clear, warm - Psychiatric Psychiatric: appropriate mood/affect, cooperative - Neurologic Neurologic: CNII-XII intact, moves all extremities HEART Score - HEART Score Troponin: Troponin T 0.056 ng/mL (0.00-0.029) H 07/27/20 01:55 Results - Labs CBC & Chem 7: 07/29/20 05:03 08/16/20 07:30 Labs: Laboratory Last Values WBC 6.4 K/mm3 (4.5-11.0) 07/29/20 05:03 RBC 4.14 M/mm3 (3.65-5.03) 07/29/20 05:03 Hgb 11.8 gm/dl (11.8-15.2) 07/29/20 05:03 Hct 36.1 % (35.5-45.6) 07/29/20 05:03 MCV 87 fl (84-94) 07/29/20 05:03 MCH 29 pg (28-32) 07/29/20 05:03 MCHC 33 % (32-34) 07/29/20 05:03 RDW 15.0 % (13.2-15.2) 07/29/20 05:03 Plt Count 278 K/mm3 (140-440) 07/29/20 05:03 Lymph % (Auto) 11.8 % (13.4-35.0) L 07/28/20 04:39 [place] % (Auto) 6.5 % (0.0-7.3) 07/28/20 04:39 Eos % (Auto) 0.9 % (0.0-4.3) 07/28/20 04:39 Baso % (Auto) 0.5 % (0.0-1.8) 07/28/20 04:39 Lymph # (Auto) 1.0 K/mm3 (1.2-5.4) L 07/28/20 04:39 [place] # (Auto) 0.6 K/mm3 (0.0-0.8) 07/28/20 04:39 Eos # (Auto) 0.1 K/mm3 (0.0-0.4) 07/28/20 04:39 Baso # (Auto) 0.0 K/mm3 (0.0-0.1) 07/28/20 04:39 Seg Neutrophils % 80.3 % (40.0-70.0) H 07/28/20 04:39 Seg Neutrophils # 6.9 K/mm3 (1.8-7.7) 07/28/20 04:39 PT 12.7 Sec. (12.2-14.9) 07/28/20 04:39 INR 0.97 (0.87-1.13) 07/28/20 04:39 APTT 33.0 Sec. (24.2-36.6) 07/27/20 01:55 Sodium 139 mmol/L (137-145) 08/16/20 07:30 Potassium 3.6 mmol/L (3.6-5.0) 08/16/20 07:30 Chloride 100.9 mmol/L (98-107) 08/16/20 07:30 Carbon Dioxide 24 mmol/L (22-30) 08/16/20 07:30 Anion Gap 18 mmol/L 08/16/20 07:30 BUN 34 mg/dL (9-20) H 08/16/20 07:30 Creatinine 1.8 mg/dL (0.8-1.3) H 08/16/20 07:30 Estimated GFR 47 ml/min 08/16/20 07:30 BUN/Creatinine Ratio 19 % 08/16/20 07:30 Glucose 327 mg/dL (75-100) H 08/16/20 07:30 POC Glucose 227 mg/dL (70-105) H 08/15/20 22:00 Hemoglobin A1c 15.0 % (4-6) H 07/27/20 01:55 Lactic Acid 1.60 mmol/L (0.7-2.0) 07/27/20 01:55 Calcium 9.4 mg/dL (8.4-10.2) 08/16/20 07:30 Phosphorus 2.70 mg/dL (2.5-4.5) 07/28/20 04:39 Magnesium 1.80 mg/dL (1.7-2.3) 08/16/20 07:30 Total Bilirubin 0.50 mg/dL (0.1-1.2) 07/27/20 01:55 Direct Bilirubin < 0.2 mg/dL (0-0.2) 07/27/20 01:55 Indirect Bilirubin 0.3 mg/dL 07/27/20 01:55 AST 72 units/L (5-40) H 07/27/20 01:55 ALT 57 units/L (7-56) H 07/27/20 01:55 Alkaline Phosphatase 163 units/L (35-129) H 07/27/20 01:55 Ammonia 18.0 umol/L (25-60) L 07/27/20 01:55 Total Creatine Kinase 133 units/L (55-170) 08/08/20 12:17 Troponin T 0.056 ng/mL (0.00-0.029) H 07/27/20 01:55 Total Protein 7.4 g/dL (6.3-8.2) 07/27/20 01:55 Albumin 3.9 g/dL (3.9-5) 07/27/20 01:55 Albumin/Globulin Ratio 1.1 % 07/27/20 01:55 Triglycerides 78 mg/dL (2-149) 07/27/20 01:55 Cholesterol 220 mg/dL (50-199) H 07/27/20 01:55 LDL Cholesterol Direct 102 mg/dL (50-130) 07/27/20 01:55 HDL Cholesterol 126 mg/dL (40-59) H 07/27/20 01:55 Cholesterol/HDL Ratio 1.74 % 07/27/20 01:55 TSH 0.824 mlU/mL (0.270-4.200) 07/27/20 01:55 Urine Color Colorless (Yellow) 07/27/20 02:09 Urine Turbidity Clear (Clear) 07/27/20 02:09 Urine pH 6.0 (5.0-7.0) 07/27/20 02:09 Ur Specific [place] 1.016 (1.003-1.030) 07/27/20 02:09 Urine Protein 100 mg/dl mg/dL (Negative) 07/27/20 02:09 Urine Glucose (UA) >=500 mg/dL (Negative) 07/27/20 02:09 Urine Ketones Neg mg/dL (Negative) 07/27/20 02:09 Urine Blood Mod (Negative) 07/27/20 02:09 Urine Nitrite Neg (Negative) 07/27/20 02:09 Urine Bilirubin Neg (Negative) 07/27/20 02:09 Urine Urobilinogen < 2.0 mg/dL (<2.0) 07/27/20 02:09 Ur Leukocyte Esterase Neg (Negative) 07/27/20 02:09 Urine WBC (Auto) 1.0 /HPF (0.0-6.0) 07/27/20 02:09 Urine RBC (Auto) < 1.0 /HPF (0.0-6.0) 07/27/20 02:09 U Epithel Cells (Auto) < 1.0 /HPF (0-13.0) 07/27/20 02:09 Urine Mucus Few /HPF 07/27/20 02:09 Urine Creatinine 85.6 mg/dL (0.1-20.0) H 07/27/20 19:00 Protein/Creatinin Ratio 2.96 07/27/20 19:00 Urine Sodium 51 mmol/L 07/27/20 19:00 Urine Total Protein 253 mg/dL (5-11.8) H 07/27/20 19:00 Salicylates < 0.3 mg/dL (2.8-20.0) L 07/27/20 01:55 Urine Opiates Screen Presumptive negative 07/27/20 02:09 Urine Methadone Screen Presumptive negative 07/27/20 02:09 Acetaminophen 5.0 ug/mL (10.0-30.0) L 07/27/20 01:55 Ur Barbiturates Screen Presumptive negative 07/27/20 02:09 Ur Phencyclidine Scrn Presumptive negative 07/27/20 02:09 Ur Amphetamines Screen Presumptive negative 07/27/20 02:09 U Benzodiazepines Scrn Presumptive negative 07/27/20 02:09 Urine Cocaine Screen Presumptive negative 07/27/20 02:09 U Marijuana (THC) Screen Presumptive negative 07/27/20 02:09 Drugs of Abuse Note Disclamer 07/27/20 02:09 Plasma/Serum Alcohol < 0.01 % (0-0.07) 07/27/20 01:55 Coronavirus (PCR) Negative (Negative) 08/05/20 Unknown Hilton/IV: Voiding Method Toilet Active Medications - Current Medications Current Medications: Generic Name Dose Route Start Last Admin Trade Name Freq PRN Reason Stop Dose Admin Acetaminophen 650 mg 07/27/20 04:01 08/08/20 23:01 Acetaminophen 325 Mg Tab PO 650 mg Q4H PRN Administration Pain MILD(1-3)/Fever >100.5/RUIZ Amlodipine Besylate 10 mg 07/27/20 17:00 08/15/20 10:00 Amlodipine 10 Mg Tab PO Not Given QDAY MARY Dextrose 50 ml 08/04/20 09:30 Dextrose 50% In Water (25gm) 50 Ml Syringe IV Q30MIN PRN Hypoglycemia Protocol Folic Acid 1 mg 07/30/20 10:00 08/15/20 10:00 Folic Acid 1 Mg Tab PO Not Given DAILY [facility] Haloperidol Lactate 5 mg 08/13/20 12:03 Haloperidol Lactate 5 Mg/1 Ml Inj IM ONCE PRN Agitation Heparin Sodium (Porcine) 5,000 unit 07/27/20 06:00 08/16/20 06:15 Heparin 5,000 Unit/1 Ml Vial SUB-Q Not Given Q8HR [facility] Hydralazine HCl 10 mg 07/27/20 04:06 Hydralazine 20 Mg/1 Ml Inj IV Q4HR PRN Blood Pressure Hydralazine HCl 100 mg 08/08/20 12:00 08/16/20 06:15 Hydralazine 100 Mg Tab PO 100 mg Q8HR [facility] Administration Valproate Sodium 500 mg/ 105 mls @ 100 mls/hr 08/13/20 22:00 08/15/20 22:17 Sodium Chloride IV Not Given Q12HR [facility] Insulin Glargine 6 units 08/06/20 22:00 08/15/20 22:10 Insulin Glargine 100 Units/Ml SUB-Q 6 units QHS MARY Administration Insulin Glargine 20 units 08/09/20 08:00 08/15/20 08:00 Insulin Glargine 100 Units/Ml SUB-Q Not Given QAMDIAB [facility] Insulin Human Lispro 0 unit 08/04/20 11:30 08/15/20 22:13 Insulin Lispro 100 Unit/Ml SUB-Q 4 unit ACHS [facility] Administration Protocol Insulin Human Lispro 5 unit 08/06/20 11:30 08/15/20 22:12 Insulin Lispro 100 Unit/Ml SUB-Q 5 unit ACHS MARY Administration Labetalol HCl 200 mg 07/27/20 22:00 08/15/20 22:15 Labetalol 200 Mg Tab PO 200 mg BID MARY Administration Lorazepam 2 mg 08/13/20 12:03 Lorazepam 2 Mg/Ml Vial IM Q4H PRN Agitation Magnesium Hydroxide 30 ml 07/27/20 04:01 Magnesium Hydroxide (Mom) Oral Liqd Udc PO Q4H PRN Constipation Morphine Sulfate 2 mg 07/27/20 04:01 Morphine 2 Mg/1 Ml Inj IV Q4H PRN Pain, Moderate (4-6) Multivitamins 1 each 07/30/20 10:00 08/15/20 10:00 Multivitamins ,Therapeutic Tab PO Not Given DAILY [facility] Olanzapine 10 mg 08/09/20 10:00 08/15/20 10:00 Olanzapine 10 Mg Tab PO Not Given QDAY [facility] Ondansetron HCl 4 mg 07/27/20 04:01 Ondansetron 4 Mg/2 Ml Inj IV Q8H PRN Nausea And Vomiting Sodium Chloride 10 ml 07/27/20 10:00 08/15/20 22:17 Sodium Chloride 0.9% 10 Ml Flush Syringe IV Not Given BID AMRY Sodium Chloride 10 ml 07/27/20 04:01 Sodium Chloride 0.9% 10 Ml Flush Syringe IV PRN PRN LINE FLUSH Thiamine HCl 100 mg 07/30/20 10:00 08/15/20 10:00 Thiamine 100 Mg Tab PO Not Given QDAY [facility] Nutrition/Malnutrition Assess - Dietary Evaluation Nutrition/Malnutrition Findings: Nutrition Notes Start: 07/27/20 09:22 Freq: Status: Active Protocol: Document 08/03/20 15:05 CW (Rec: 08/03/20 15:06 [id number]) Nutrition Notes Need for Assessment generated from: LOS Initial or Follow up Brief Note Current Diagnosis Acute Kidney Injury Other Pertinent Diagnosis hyperglycemia, AMS, Rhabdomyolysis Current Diet Consistent CHO Subjective/Other Information Screen for LOS. Pt eating 100% of meals. Russell score of 21. Percent of energy/protein needs met: 100%/100% Skin Integrity/Comment Intact Current % PO Good (75-100%) Nutrition Intervention Revisit per MD consult or patient Sign Off request: Additional Comments S/O for excellent intakes and intact skin
[2020-08-16] MEDS: INSULIN LISPRO 100 UNIT/ML SUB-Q SCH ×10 (09:35→23:01)
[2020-08-16] MEDS: MULTIVITAMINS ,THERAPEUTIC TAB PO SCH (09:36)
[2020-08-16] MEDS: THIAMINE 100 MG TAB PO SCH (09:36)
[2020-08-16] MEDS: INSULIN GLARGINE 100 UNITS/ML SUB-Q SCH ×2 (09:36→22:59)
[2020-08-16] MEDS: FOLIC ACID 1 MG TAB PO SCH (09:36)
[2020-08-16] MEDS: amLODIPine 10 MG TAB PO SCH (09:36)
[2020-08-16] MEDS: VALPROATE SODIUM 500 MG in SODIUM CHLORIDE 0.9% 100 ML IV SCH ×2 (09:37→22:54)
[2020-08-17] MEDS: hydrALAZINE 100 MG TAB PO SCH ×3 (06:00→22:21)
[2020-08-17] MEDS: HEPARIN 5,000 UNIT/1 ML VIAL SUB-Q SCH ×3 (06:00→22:26)
[2020-08-17] MEDS: INSULIN LISPRO 100 UNIT/ML SUB-Q SCH ×8 (08:40→22:23)
[2020-08-17] MEDS: MULTIVITAMINS ,THERAPEUTIC TAB PO SCH (09:45)
[2020-08-17] MEDS: FOLIC ACID 1 MG TAB PO SCH (09:45)
[2020-08-17] MEDS: THIAMINE 100 MG TAB PO SCH (09:45)
[2020-08-17] MEDS: INSULIN GLARGINE 100 UNITS/ML SUB-Q SCH ×3 (09:45→22:22)
[2020-08-17] MEDS: amLODIPine 10 MG TAB PO SCH (09:45)
[2020-08-17] MEDS: VALPROATE SODIUM 500 MG in SODIUM CHLORIDE 0.9% 100 ML IV SCH ×2 (09:46→22:26)
--- NOTE | 2020-08-17 12:12 | Progress Note ---
Assessment and Plan Assessment and plan: Assessment and Plan Assessment and plan: Patient 1013 status acute metabolic encephalopathy Multifactorial due to psych problems Schizophrenia Schizophrenia; management per psych Awaiting inpatient psych placement Type 2 diabetes mellitus with hyperglycemia Accu-Chek sliding scale coverage ADA diet insulin as needed. Acute renal failure Gentle hydration Monitor renal function avoid nephrotoxins Follow labs Rhabdomyolysis/resolved Supportive care, monitor levels DVT prophylaxis Patient placed on subcutaneous heparin. Full code status; Current Visit: Yes Status: Acute Discharge planning: Psych recommended transfer to inpatient psych facility, CM processing the transfer Patient is medically stable for discharge and transfer to inpatient psych facility When accepted . Plan of care reviewed with the patient's nurse and case management Brief history 59-year-old -[place] male with no known past medical history was admitted through emergency room with altered level of consciousness, wandering around in the hospital lobby refusing communication, initial evaluation is consistent with metabolic encephalopathy hyperglycemia rhabdomyolysis and acute kidney injury. Patient was noted to have schizophrenia evaluated by psych, medications optimized, recommended inpatient psych admission/transfer for furt her evaluation management. Case management processing transfer to inpatient psych facility And is 1013 status 08/15/2020; awaiting inpatient psych placement, patient is 1013 status Psych following 08/16/2020; awaiting placement inpatient psych 1013 status, medically stable for discharge and transfer to inpatient psych DC planning per case management 08/17/20 Patient is doing better. Patient has no complaint Patient is waiting for inpatient psych placement. Patient is 1013 status. Case management is working on placement. History Interval history: Patient is seen and examined Patient chart and medication is reviewed Patient is 1013 is status Patient is calm today No new event reported by the nursing staff Hospitalist Physical - Constitutional Vitals: Temp Pulse Resp BP Pulse Ox 98.2 F 92 H 20 134/76 95 08/17/20 03:54 08/17/20 09:45 08/17/20 03:54 08/17/20 03:54 08/17/20 04:00 General appearance: Present: no acute distress, well-nourished, other (Loud and verbal) HEART Score - HEART Score Troponin: Troponin T 0.056 ng/mL (0.00-0.029) H 07/27/20 01:55 Results - Labs CBC & Chem 7: 07/29/20 05:03 08/16/20 07:30 Labs: Laboratory Last Values WBC 6.4 K/mm3 (4.5-11.0) 07/29/20 05:03 RBC 4.14 M/mm3 (3.65-5.03) 07/29/20 05:03 Hgb 11.8 gm/dl (11.8-15.2) 07/29/20 05:03 Hct 36.1 % (35.5-45.6) 07/29/20 05:03 MCV 87 fl (84-94) 07/29/20 05:03 MCH 29 pg (28-32) 07/29/20 05:03 MCHC 33 % (32-34) 07/29/20 05:03 RDW 15.0 % (13.2-15.2) 07/29/20 05:03 Plt Count 278 K/mm3 (140-440) 07/29/20 05:03 Lymph % (Auto) 11.8 % (13.4-35.0) L 07/28/20 04:39 [place] % (Auto) 6.5 % (0.0-7.3) 07/28/20 04:39 Eos % (Auto) 0.9 % (0.0-4.3) 07/28/20 04:39 Baso % (Auto) 0.5 % (0.0-1.8) 07/28/20 04:39 Lymph # (Auto) 1.0 K/mm3 (1.2-5.4) L 07/28/20 04:39 [place] # (Auto) 0.6 K/mm3 (0.0-0.8) 07/28/20 04:39 Eos # (Auto) 0.1 K/mm3 (0.0-0.4) 07/28/20 04:39 Baso # (Auto) 0.0 K/mm3 (0.0-0.1) 07/28/20 04:39 Seg Neutrophils % 80.3 % (40.0-70.0) H 07/28/20 04:39 Seg Neutrophils # 6.9 K/mm3 (1.8-7.7) 07/28/20 04:39 PT 12.7 Sec. (12.2-14.9) 07/28/20 04:39 INR 0.97 (0.87-1.13) 07/28/20 04:39 APTT 33.0 Sec. (24.2-36.6) 07/27/20 01:55 Sodium 139 mmol/L (137-145) 08/16/20 07:30 Potassium 3.6 mmol/L (3.6-5.0) 08/16/20 07:30 Chloride 100.9 mmol/L (98-107) 08/16/20 07:30 Carbon Dioxide 24 mmol/L (22-30) 08/16/20 07:30 Anion Gap 18 mmol/L 08/16/20 07:30 BUN 34 mg/dL (9-20) H 08/16/20 07:30 Creatinine 1.8 mg/dL (0.8-1.3) H 08/16/20 07:30 Estimated GFR 47 ml/min 08/16/20 07:30 BUN/Creatinine Ratio 19 % 08/16/20 07:30 Glucose 327 mg/dL (75-100) H 08/16/20 07:30 POC Glucose 184 mg/dL (70-105) H 08/17/20 08:25 Hemoglobin A1c 15.0 % (4-6) H 07/27/20 01:55 Lactic Acid 1.60 mmol/L (0.7-2.0) 07/27/20 01:55 Calcium 9.4 mg/dL (8.4-10.2) 08/16/20 07:30 Phosphorus 2.70 mg/dL (2.5-4.5) 07/28/20 04:39 Magnesium 1.80 mg/dL (1.7-2.3) 08/16/20 07:30 Total Bilirubin 0.50 mg/dL (0.1-1.2) 07/27/20 01:55 Direct Bilirubin < 0.2 mg/dL (0-0.2) 07/27/20 01:55 Indirect Bilirubin 0.3 mg/dL 07/27/20 01:55 AST 72 units/L (5-40) H 07/27/20 01:55 ALT 57 units/L (7-56) H 07/27/20 01:55 Alkaline Phosphatase 163 units/L (35-129) H 07/27/20 01:55 Ammonia 18.0 umol/L (25-60) L 07/27/20 01:55 Total Creatine Kinase 133 units/L (55-170) 08/08/20 12:17 Troponin T 0.056 ng/mL (0.00-0.029) H 07/27/20 01:55 Total Protein 7.4 g/dL (6.3-8.2) 07/27/20 01:55 Albumin 3.9 g/dL (3.9-5) 07/27/20 01:55 Albumin/Globulin Ratio 1.1 % 07/27/20 01:55 Triglycerides 78 mg/dL (2-149) 07/27/20 01:55 Cholesterol 220 mg/dL (50-199) H 07/27/20 01:55 LDL Cholesterol Direct 102 mg/dL (50-130) 07/27/20 01:55 HDL Cholesterol 126 mg/dL (40-59) H 07/27/20 01:55 Cholesterol/HDL Ratio 1.74 % 07/27/20 01:55 TSH 0.824 mlU/mL (0.270-4.200) 07/27/20 01:55 Urine Color Colorless (Yellow) 07/27/20 02:09 Urine Turbidity Clear (Clear) 07/27/20 02:09 Urine pH 6.0 (5.0-7.0) 07/27/20 02:09 Ur Specific [place] 1.016 (1.003-1.030) 07/27/20 02:09 Urine Protein 100 mg/dl mg/dL (Negative) 07/27/20 02:09 Urine Glucose (UA) >=500 mg/dL (Negative) 07/27/20 02:09 Urine Ketones Neg mg/dL (Negative) 07/27/20 02:09 Urine Blood Mod (Negative) 07/27/20 02:09 Urine Nitrite Neg (Negative) 07/27/20 02:09 Urine Bilirubin Neg (Negative) 07/27/20 02:09 Urine Urobilinogen < 2.0 mg/dL (<2.0) 07/27/20 02:09 Ur Leukocyte Esterase Neg (Negative) 07/27/20 02:09 Urine WBC (Auto) 1.0 /HPF (0.0-6.0) 07/27/20 02:09 Urine RBC (Auto) < 1.0 /HPF (0.0-6.0) 07/27/20 02:09 U Epithel Cells (Auto) < 1.0 /HPF (0-13.0) 07/27/20 02:09 Urine Mucus Few /HPF 07/27/20 02:09 Urine Creatinine 85.6 mg/dL (0.1-20.0) H 07/27/20 19:00 Protein/Creatinin Ratio 2.96 07/27/20 19:00 Urine Sodium 51 mmol/L 07/27/20 19:00 Urine Total Protein 253 mg/dL (5-11.8) H 07/27/20 19:00 Salicylates < 0.3 mg/dL (2.8-20.0) L 07/27/20 01:55 Urine Opiates Screen Presumptive negative 07/27/20 02:09 Urine Methadone Screen Presumptive negative 07/27/20 02:09 Acetaminophen 5.0 ug/mL (10.0-30.0) L 07/27/20 01:55 Ur Barbiturates Screen Presumptive negative 07/27/20 02:09 Ur Phencyclidine Scrn Presumptive negative 07/27/20 02:09 Ur Amphetamines Screen Presumptive negative 07/27/20 02:09 U Benzodiazepines Scrn Presumptive negative 07/27/20 02:09 Urine Cocaine Screen Presumptive negative 07/27/20 02:09 U Marijuana (THC) Screen Presumptive negative 07/27/20 02:09 Drugs of Abuse Note Disclamer 07/27/20 02:09 Plasma/Serum Alcohol < 0.01 % (0-0.07) 07/27/20 01:55 Coronavirus (PCR) Negative (Negative) 08/05/20 Unknown [place]/IV: Voiding Method Toilet Active Medications - Current Medications Current Medications: Generic Name Dose Route Start Last Admin Trade Name Freq PRN Reason Stop Dose Admin Acetaminophen 650 mg 07/27/20 04:01 08/08/20 23:01 Acetaminophen 325 Mg Tab PO 650 mg Q4H PRN Administration Pain MILD(1-3)/Fever >100.5/RUIZ Amlodipine Besylate 10 mg 07/27/20 17:00 08/17/20 09:45 Amlodipine 10 Mg Tab PO 10 mg QDAY MARY Administration Dextrose 50 ml 08/04/20 09:30 Dextrose 50% In Water (25gm) 50 Ml Syringe IV Q30MIN PRN Hypoglycemia Protocol Folic Acid 1 mg 07/30/20 10:00 08/17/20 09:45 Folic Acid 1 Mg Tab PO 1 mg DAILY [facility] Administration Haloperidol Lactate 5 mg 08/13/20 12:03 Haloperidol Lactate 5 Mg/1 Ml Inj IM ONCE PRN Agitation Heparin Sodium (Porcine) 5,000 unit 07/27/20 06:00 08/17/20 06:00 Heparin 5,000 Unit/1 Ml Vial SUB-Q Not Given Q8HR [facility] Hydralazine HCl 10 mg 07/27/20 04:06 Hydralazine 20 Mg/1 Ml Inj IV Q4HR PRN Blood Pressure Hydralazine HCl 100 mg 08/08/20 12:00 08/17/20 06:00 Hydralazine 100 Mg Tab PO Not Given Q8HR [facility] Valproate Sodium 500 mg/ 105 mls @ 100 mls/hr 08/13/20 22:00 08/17/20 09:46 Sodium Chloride IV Not Given Q12HR [facility] Insulin Glargine 6 units 08/06/20 22:00 08/16/20 22:59 Insulin Glargine 100 Units/Ml SUB-Q 6 units QHS [facility] Administration Insulin Glargine 20 units 08/09/20 08:00 08/17/20 09:52 Insulin Glargine 100 Units/Ml SUB-Q Not Given QAMDIAB [facility] Insulin Human Lispro 0 unit 08/04/20 11:30 08/17/20 08:40 Insulin Lispro 100 Unit/Ml SUB-Q 3 unit [facility] Administration Protocol Insulin Human Lispro 5 unit 08/06/20 11:30 08/17/20 08:43 Insulin Lispro 100 Unit/Ml SUB-Q 5 unit [facility] Administration Labetalol HCl 200 mg 07/27/20 22:00 08/17/20 09:45 Labetalol 200 Mg Tab PO 200 mg BID [facility] Administration Lorazepam 2 mg 08/13/20 12:03 Lorazepam 2 Mg/Ml Vial IM Q4H PRN Agitation Magnesium Hydroxide 30 ml 07/27/20 04:01 Magnesium Hydroxide (Mom) Oral Liqd Udc PO Q4H PRN Constipation Morphine Sulfate 2 mg 07/27/20 04:01 Morphine 2 Mg/1 Ml Inj IV Q4H PRN Pain, Moderate (4-6) Multivitamins 1 each 07/30/20 10:00 08/17/20 09:45 Multivitamins ,Therapeutic Tab PO 1 each DAILY MARY Administration Olanzapine 10 mg 08/09/20 10:00 08/16/20 09:36 Olanzapine 10 Mg Tab PO 10 mg QDAY MARY Administration Ondansetron HCl 4 mg 07/27/20 04:01 Ondansetron 4 Mg/2 Ml Inj IV Q8H PRN Nausea And Vomiting Sodium Chloride 10 ml 07/27/20 10:00 08/17/20 09:46 Sodium Chloride 0.9% 10 Ml Flush Syringe IV Not Given BID MARY Sodium Chloride 10 ml 07/27/20 04:01 Sodium Chloride 0.9% 10 Ml Flush Syringe IV PRN PRN LINE FLUSH Thiamine HCl 100 mg 07/30/20 10:00 08/17/20 09:45 Thiamine 100 Mg Tab PO 100 mg QDAY MARY Administration Nutrition/Malnutrition Assess - Dietary Evaluation Nutrition/Malnutrition Findings: Nutrition Notes Start: 07/27/20 09:22 Freq: Status: Active Protocol: Document 08/03/20 15:05 CW (Rec: 08/03/20 15:06 CW [id number]) Nutrition Notes Need for Assessment generated from: LOS Initial or Follow up Brief Note Current Diagnosis Acute Kidney Injury Other Pertinent Diagnosis hyperglycemia, AMS, Rhabdomyolysis Current Diet Consistent CHO Subjective/Other Information Screen for LOS. Pt eating 100% of meals. Russell score of 21. Percent of energy/protein needs met: 100%/100% Skin Integrity/Comment Intact Current % PO Good (75-100%) Nutrition Intervention Revisit per MD consult or patient Sign Off request: Additional Comments S/O for excellent intakes and intact skin - Malnutrition Assessment Minimum of two criteria: No - Attestation Statement I have reviewed and agreed w/ Malnutrition eval & tx plan: Yes
--- NOTE | 2020-08-17 12:34 | Progress Note ---
Subjective - Reason for Consult Consult date: 08/17/20 Reason for consult: MHE Requesting physician: LARRY HNA - Chief Complaint Chief complaint: Psych Nurse: Received bedside report from SESAR Arias reports pt refuse vital signs and Blood sugar. Observed patient sitting in chair at bedside. Agitation and confusion noted. Respiration even and unlabored. Sitter at bedside. Will continue to monitor. Psych Progress Patient seen today, reports doing fine, states he has been medication compliant. Asked patient if he has family, he said, yes and provided me with Phone number and states he talks to her everyday. Upon calling the number [phone], it was a male and he calims he does not know patient. REVIEW OF SYSTEMS ROS cannot be reliably obtained from the patient due to his confusion MENTAL STATUS EXAMINATION General Appearance and Behavior: Age appropriate, good hygiene, wearing appro priate clothes, poor eye contact, uncooperative with questioning. Cooperation: disengaged Psychomotor Behavior: Psychomotor agitation Mood: n/a Affect and affective range: euthymic, euphoric Thought Process: Illogical, echolalial Thought Content: delusional Speech: pressured, loud volume at times Intellectual Functioning: Average Suicidal Ideation: n/a Homicidal Ideation: n/a Impulse Control: Impaired Insight and Judgment: Limited insight and judgment Memory: impaired Attention: Divided attention impaired Orientation: Alert, oriented Diagnoses: Assessment and Plan - Psychiatric problem (1) Schizophrenia Current Visit: Yes Status: Acute MOCA completed, with score of 22, see document in chart Treatment Plan Patient switched to IV and IM meds due to refusal to take oral meds MEDICATIONS: Risks, benefits and alternatives of medications discussed with the patient, questions answered and consent obtained from patient. PSYCHOTHERAPY: Supportive psychotherapy provided MEDICAL: Per primary team DELIRIUM PRECAUTIONS: Please re-orient patient frequently, keep lights on during the day, and minimize benzodiazepines and opiates as these medications could worsen patient's confusion. EDITORIAL ASSISTANT: DISPOSITION: Do Recommend acute inpatient psychiatric hospitalization at this time. Case discussed with Dr. Powell who agrees with current disposition LEGAL STATUS: 1013 renewed FOLLOW-UP: Will follow Thank you for the consult. Please contact with any questions and/or concerns. Mental Status Exam - Vital signs Last Vital Signs Temp 98.2 F 08/17/20 03:54 Pulse 92 H 08/17/20 09:45 Resp 20 05/06/21 03:54 BP 134/76 08/17/20 03:54 Pulse Ox 95 08/17/20 04:00 Assessment and Plan - Patient Problems (1) Schizophrenia Current Visit: Yes Status: Acute
[2020-08-18] MEDS: HEPARIN 5,000 UNIT/1 ML VIAL SUB-Q SCH ×3 (05:48→22:31)
[2020-08-18] MEDS: hydrALAZINE 100 MG TAB PO SCH ×3 (05:48→22:32)
[2020-08-18] MEDS: INSULIN LISPRO 100 UNIT/ML SUB-Q SCH ×9 (08:17→22:40)
[2020-08-18] MEDS: INSULIN GLARGINE 100 UNITS/ML SUB-Q SCH ×2 (08:27→22:38)
[2020-08-18] MEDS: FOLIC ACID 1 MG TAB PO SCH (09:47)
[2020-08-18] MEDS: MULTIVITAMINS ,THERAPEUTIC TAB PO SCH (09:47)
[2020-08-18] MEDS: VALPROATE SODIUM 500 MG in SODIUM CHLORIDE 0.9% 100 ML IV SCH ×2 (09:48→22:31)
[2020-08-18] MEDS: amLODIPine 10 MG TAB PO SCH (09:48)
[2020-08-18] MEDS: THIAMINE 100 MG TAB PO SCH (09:52)
--- NOTE | 2020-08-18 12:12 | Progress Note ---
Assessment and Plan Assessment and plan: Assessment and Plan Assessment and plan: Patient 1013 status acute metabolic encephalopathy Multifactorial due to psych problems Schizophrenia Schizophrenia; management per psych Awaiting inpatient psych placement Type 2 diabetes mellitus with hyperglycemia Accu-Chek sliding scale coverage ADA diet insulin as needed. Acute renal failure Gentle hydration Monitor renal function avoid nephrotoxins Follow labs Rhabdomyolysis/resolved Supportive care, monitor levels DVT prophylaxis Patient placed on subcutaneous heparin. Full code status; Current Visit: Yes Status: Acute Discharge planning: Psych recommended transfer to inpatient psych facility, CM processing the transfer Patient is medically stable for discharge and transfer to inpatient psych facility When accepted . Plan of care reviewed with the patient's nurse and case management Brief history 59-year-old -[place] male with no known past medical history was admitted through emergency room with altered level of consciousness, wandering around in the hospital lobby refusing communication, initial evaluation is consistent with metabolic encephalopathy hyperglycemia rhabdomyolysis and acute kidney injury. Patient was noted to have schizophrenia evaluated by psych, medications optimized, recommended inpatient psych admission/transfer for furt her evaluation management. Case management processing transfer to inpatient psych facility And is 1013 status 08/15/2020; awaiting inpatient psych placement, patient is 1013 status Psych following 08/16/2020; awaiting placement inpatient psych 1013 status, medically stable for discharge and transfer to inpatient psych DC planning per case management 08/17/20 Patient is doing better. Patient has no complaint Patient is waiting for inpatient psych placement. Patient is 1013 status. Case management is working on placement. 08/18/20 Patient is doing better. Patient has no complaint. Patient is calm today. No sign symptom of withdrawal. Patient is waiting for inpatient psych placement. Patient is 1013 status. Case management is working on placement. History Interval history: Patient is seen and examined Patient chart and medication is reviewed Patient is 1013 is status Patient is doing better. Not agitated. No withdrawal symptom No new event reported by the nursing staff Hospitalist Physical - Constitutional Vitals: Temp Pulse Resp BP Pulse Ox 98.0 F 89 18 139/80 92 08/18/20 10:49 08/18/20 10:49 08/18/20 10:49 08/18/20 10:49 08/18/20 10:49 General appearance: Present: no acute distress, well-nourished, other (Loud and verbal) HEART Score - HEART Score Troponin: Troponin T 0.056 ng/mL (0.00-0.029) H 07/27/20 01:55 Results - Labs CBC & Chem 7: 07/29/20 05:03 08/16/20 07:30 Labs: Laboratory Last Values WBC 6.4 K/mm3 (4.5-11.0) 07/29/20 05:03 RBC 4.14 M/mm3 (3.65-5.03) 07/29/20 05:03 Hgb 11.8 gm/dl (11.8-15.2) 07/29/20 05:03 Hct 36.1 % (35.5-45.6) 07/29/20 05:03 MCV 87 fl (84-94) 07/29/20 05:03 MCH 29 pg (28-32) 07/29/20 05:03 MCHC 33 % (32-34) 07/29/20 05:03 RDW 15.0 % (13.2-15.2) 07/29/20 05:03 Plt Count 278 K/mm3 (140-440) 07/29/20 05:03 Lymph % (Auto) 11.8 % (13.4-35.0) L 07/28/20 04:39 [place] % (Auto) 6.5 % (0.0-7.3) 07/28/20 04:39 Eos % (Auto) 0.9 % (0.0-4.3) 07/28/20 04:39 Baso % (Auto) 0.5 % (0.0-1.8) 07/28/20 04:39 Lymph # (Auto) 1.0 K/mm3 (1.2-5.4) L 07/28/20 04:39 [place] # (Auto) 0.6 K/mm3 (0.0-0.8) 07/28/20 04:39 Eos # (Auto) 0.1 K/mm3 (0.0-0.4) 07/28/20 04:39 Baso # (Auto) 0.0 K/mm3 (0.0-0.1) 07/28/20 04:39 Seg Neutrophils % 80.3 % (40.0-70.0) H 07/28/20 04:39 Seg Neutrophils # 6.9 K/mm3 (1.8-7.7) 07/28/20 04:39 PT 12.7 Sec. (12.2-14.9) 07/28/20 04:39 INR 0.97 (0.87-1.13) 07/28/20 04:39 APTT 33.0 Sec. (24.2-36.6) 07/27/20 01:55 Sodium 139 mmol/L (137-145) 08/16/20 07:30 Potassium 3.6 mmol/L (3.6-5.0) 08/16/20 07:30 Chloride 100.9 mmol/L (98-107) 08/16/20 07:30 Carbon Dioxide 24 mmol/L (22-30) 08/16/20 07:30 Anion Gap 18 mmol/L 08/16/20 07:30 BUN 34 mg/dL (9-20) H 08/16/20 07:30 Creatinine 1.8 mg/dL (0.8-1.3) H 08/16/20 07:30 Estimated GFR 47 ml/min 08/16/20 07:30 BUN/Creatinine Ratio 19 % 08/16/20 07:30 Glucose 327 mg/dL (75-100) H 08/16/20 07:30 POC Glucose 226 mg/dL (70-105) H 08/17/20 20:29 Hemoglobin A1c 15.0 % (4-6) H 07/27/20 01:55 Lactic Acid 1.60 mmol/L (0.7-2.0) 07/27/20 01:55 Calcium 9.4 mg/dL (8.4-10.2) 08/16/20 07:30 Phosphorus 2.70 mg/dL (2.5-4.5) 07/28/20 04:39 Magnesium 1.80 mg/dL (1.7-2.3) 08/16/20 07:30 Total Bilirubin 0.50 mg/dL (0.1-1.2) 07/27/20 01:55 Direct Bilirubin < 0.2 mg/dL (0-0.2) 07/27/20 01:55 Indirect Bilirubin 0.3 mg/dL 07/27/20 01:55 AST 72 units/L (5-40) H 07/27/20 01:55 ALT 57 units/L (7-56) H 07/27/20 01:55 Alkaline Phosphatase 163 units/L (35-129) H 07/27/20 01:55 Ammonia 18.0 umol/L (25-60) L 07/27/20 01:55 Total Creatine Kinase 133 units/L (55-170) 08/08/20 12:17 Troponin T 0.056 ng/mL (0.00-0.029) H 07/27/20 01:55 Total Protein 7.4 g/dL (6.3-8.2) 07/27/20 01:55 Albumin 3.9 g/dL (3.9-5) 07/27/20 01:55 Albumin/Globulin Ratio 1.1 % 07/27/20 01:55 Triglycerides 78 mg/dL (2-149) 07/27/20 01:55 Cholesterol 220 mg/dL (50-199) H 07/27/20 01:55 LDL Cholesterol Direct 102 mg/dL (50-130) 07/27/20 01:55 HDL Cholesterol 126 mg/dL (40-59) H 07/27/20 01:55 Cholesterol/HDL Ratio 1.74 % 07/27/20 01:55 TSH 0.824 mlU/mL (0.270-4.200) 07/27/20 01:55 Urine Color Colorless (Yellow) 07/27/20 02:09 Urine Turbidity Clear (Clear) 07/27/20 02:09 Urine pH 6.0 (5.0-7.0) 07/27/20 02:09 Ur Specific [place] 1.016 (1.003-1.030) 07/27/20 02:09 Urine Protein 100 mg/dl mg/dL (Negative) 07/27/20 02:09 Urine Glucose (UA) >=500 mg/dL (Negative) 07/27/20 02:09 Urine Ketones Neg mg/dL (Negative) 07/27/20 02:09 Urine Blood Mod (Negative) 07/27/20 02:09 Urine Nitrite Neg (Negative) 07/27/20 02:09 Urine Bilirubin Neg (Negative) 07/27/20 02:09 Urine Urobilinogen < 2.0 mg/dL (<2.0) 07/27/20 02:09 Ur Leukocyte Esterase Neg (Negative) 07/27/20 02:09 Urine WBC (Auto) 1.0 /HPF (0.0-6.0) 07/27/20 02:09 Urine RBC (Auto) < 1.0 /HPF (0.0-6.0) 07/27/20 02:09 U Epithel Cells (Auto) < 1.0 /HPF (0-13.0) 07/27/20 02:09 Urine Mucus Few /HPF 07/27/20 02:09 Urine Creatinine 85.6 mg/dL (0.1-20.0) H 07/27/20 19:00 Protein/Creatinin Ratio 2.96 07/27/20 19:00 Urine Sodium 51 mmol/L 07/27/20 19:00 Urine Total Protein 253 mg/dL (5-11.8) H 07/27/20 19:00 Salicylates < 0.3 mg/dL (2.8-20.0) L 07/27/20 01:55 Urine Opiates Screen Presumptive negative 07/27/20 02:09 Urine Methadone Screen Presumptive negative 07/27/20 02:09 Acetaminophen 5.0 ug/mL (10.0-30.0) L 07/27/20 01:55 Ur Barbiturates Screen Presumptive negative 07/27/20 02:09 Ur Phencyclidine Scrn Presumptive negative 07/27/20 02:09 Ur Amphetamines Screen Presumptive negative 07/27/20 02:09 U Benzodiazepines Scrn Presumptive negative 07/27/20 02:09 Urine Cocaine Screen Presumptive negative 07/27/20 02:09 U Marijuana (THC) Screen Presumptive negative 07/27/20 02:09 Drugs of Abuse Note Disclamer 07/27/20 02:09 Plasma/Serum Alcohol < 0.01 % (0-0.07) 07/27/20 01:55 Coronavirus (PCR) Negative (Negative) 08/05/20 Unknown Hilton/IV: Voiding Method Toilet Active Medications - Current Medications Current Medications: Generic Name Dose Route Start Last Admin Trade Name Freq PRN Reason Stop Dose Admin Acetaminophen 650 mg 07/27/20 04:01 08/08/20 23:01 Acetaminophen 325 Mg Tab PO 650 mg Q4H PRN Administration Pain MILD(1-3)/Fever >100.5/RUIZ Amlodipine Besylate 10 mg 07/27/20 17:00 08/18/20 09:48 Amlodipine 10 Mg Tab PO Not Given QDAY MARY Dextrose 50 ml 08/04/20 09:30 Dextrose 50% In Water (25gm) 50 Ml Syringe IV Q30MIN PRN Hypoglycemia Protocol Folic Acid 1 mg 07/30/20 10:00 08/18/20 09:47 Folic Acid 1 Mg Tab PO 1 mg DAILY MARY Administration Haloperidol Lactate 5 mg 08/13/20 12:03 Haloperidol Lactate 5 Mg/1 Ml Inj IM ONCE PRN Agitation Heparin Sodium (Porcine) 5,000 unit 07/27/20 06:00 08/18/20 05:48 Heparin 5,000 Unit/1 Ml Vial SUB-Q Not Given Q8HR [facility] Hydralazine HCl 10 mg 07/27/20 04:06 Hydralazine 20 Mg/1 Ml Inj IV Q4HR PRN Blood Pressure Hydralazine HCl 100 mg 08/08/20 12:00 08/18/20 05:48 Hydralazine 100 Mg Tab PO Not Given Q8HR [facility] Valproate Sodium 500 mg/ 105 mls @ 100 mls/hr 08/13/20 22:00 08/18/20 09:48 Sodium Chloride IV Not Given Q12HR [facility] Insulin Glargine 6 units 08/06/20 22:00 08/17/20 22:22 Insulin Glargine 100 Units/Ml SUB-Q 6 units QHS [facility] Administration Insulin Glargine 20 units 08/09/20 08:00 08/18/20 08:27 Insulin Glargine 100 Units/Ml SUB-Q Not Given QAMDIAB [facility] Insulin Human Lispro 0 unit 08/04/20 11:30 08/18/20 08:17 Insulin Lispro 100 Unit/Ml SUB-Q 4 unit [facility] Administration Protocol Insulin Human Lispro 5 unit 08/06/20 11:30 08/18/20 08:17 Insulin Lispro 100 Unit/Ml SUB-Q 5 unit [facility] Administration Labetalol HCl 200 mg 07/27/20 22:00 08/18/20 09:49 Labetalol 200 Mg Tab PO Not Given BID MARY Lorazepam 2 mg 08/13/20 12:03 Lorazepam 2 Mg/Ml Vial IM Q4H PRN Agitation Magnesium Hydroxide 30 ml 07/27/20 04:01 Magnesium Hydroxide (Mom) Oral Liqd Udc PO Q4H PRN Constipation Morphine Sulfate 2 mg 07/27/20 04:01 Morphine 2 Mg/1 Ml Inj IV Q4H PRN Pain, Moderate (4-6) Multivitamins 1 each 07/30/20 10:00 08/18/20 09:47 Multivitamins ,Therapeutic Tab PO 1 each DAILY MARY Administration Olanzapine 10 mg 08/09/20 10:00 08/18/20 09:47 Olanzapine 10 Mg Tab PO 10 mg QDAY MARY Administration Ondansetron HCl 4 mg 07/27/20 04:01 Ondansetron 4 Mg/2 Ml Inj IV Q8H PRN Nausea And Vomiting Sodium Chloride 10 ml 07/27/20 10:00 08/18/20 09:48 Sodium Chloride 0.9% 10 Ml Flush Syringe IV Not Given BID MARY Sodium Chloride 10 ml 07/27/20 04:01 Sodium Chloride 0.9% 10 Ml Flush Syringe IV PRN PRN LINE FLUSH Thiamine HCl 100 mg 07/30/20 10:00 08/18/20 09:52 Thiamine 100 Mg Tab PO 100 mg QDAY MARY Administration Nutrition/Malnutrition Assess - Dietary Evaluation Nutrition/Malnutrition Findings: Nutrition Notes Start: 07/27/20 09:22 Freq: Status: Active Protocol: Document 08/03/20 15:05 CW (Rec: 08/03/20 15:06 CW [id number]) Nutrition Notes Need for Assessment generated from: LOS Initial or Follow up Brief Note Current Diagnosis Acute Kidney Injury Other Pertinent Diagnosis hyperglycemia, AMS, Rhabdomyolysis Current Diet Consistent CHO Subjective/Other Information Screen for LOS. Pt eating 100% of meals. Russell score of 21. Percent of energy/protein needs met: 100%/100% Skin Integrity/Comment Intact Current % PO Good (75-100%) Nutrition Intervention Revisit per MD consult or patient Sign Off request: Additional Comments S/O for excellent intakes and intact skin - Malnutrition Assessment Minimum of two criteria: No - Attestation Statement I have reviewed and agreed w/ Malnutrition eval & tx plan: Yes
[2020-08-19] MEDS: hydrALAZINE 100 MG TAB PO SCH ×3 (06:26→23:23)
[2020-08-19] MEDS: HEPARIN 5,000 UNIT/1 ML VIAL SUB-Q SCH ×3 (06:27→23:28)
[2020-08-19] MEDS: INSULIN LISPRO 100 UNIT/ML SUB-Q SCH ×8 (07:30→23:28)
[2020-08-19] MEDS: INSULIN GLARGINE 100 UNITS/ML SUB-Q SCH ×2 (08:00→23:21)
--- NOTE | 2020-08-19 08:59 | Progress Note ---
Subjective - Reason for Consult Consult date: 08/19/20 Reason for consult: psychosis - Chief Complaint Chief complaint: Patient seen today, he is lying down. He is calm this morning. He starts singing when he sees me. He is a/o x 3. When asking the patient how he felt, he says, "I'm ready to go and be discharged. I feel spectacular." He denies any SI/HI, stating "oh no, not now or ever." He denies hallucinations of any kind. When asking the patient was he homeless, he says "no, I have a place to go. I live with my sister in [place]." He says "but I'm working on having my own place soon I hope." Attempted to contact the patient's sister, twice at [phone] to discuss the patient's progress with her and discharge planning. My attempts were unsuccessful. Left a voice message with cell. REVIEW OF SYSTEMS Constitutional: Negative for weight loss ENT: Negative for stridor Respiratory: Negative for cough or hemoptysis All other systems reviewed and are negative MENTAL STATUS EXAMINATION General Appearance and Behavior: Age appropriate, good hygiene, wearing appropriate clothes, good eye contact, calm and cooperative with questioning. Cooperation: cooperative, participating Psychomotor Behavior: Psychomotor agitation Mood: "spectacular" Affect and affective range: Euthymic Thought Process: goal directed Thought Content: delusional Speech: Normal tone and pace Intellectual Functioning: Average Suicidal Ideation: Denies Homicidal Ideation: Denies Impulse Control: Limited Insight and Judgment: Limited insight and judgment Memory: Limited Attention: Undivided attention impaired Orientation: Alert, oriented Assessment and Plan (1) Schizophrenia Current Visit: Yes Status: Acute Treatment Plan d/c 1013 MEDICATIONS: Risks, benefits and alternatives of medications discussed with the patient, questions answered and consent obtained from patient. PSYCHOTHERAPY: Supportive psychotherapy provided MEDICAL: Per primary team DELIRIUM PRECAUTIONS: Please re-orient patient frequently, keep lights on during the day, and minimize benzodiazepines and opiates as these medications could worsen patient's confusion. FLATWORK PRESSER: defer to primary DISPOSITION: Do not Recommend acute inpatient psychiatric hospitalization at this time. The patient does not appear to be a threat to himself or others. Case discussed with Dr. Powell who agrees with current disposition The family medicine physician to discuss safety plan with the patient and document the outcome of the safety plan. If the safety plan is satisfactory by family medicine physician as well the patient can discharge with family once medically clear, per discussion with Dr. Powell. FOLLOW-UP: Will sign off Thank you for the consult. Please contact with any questions and/or concerns. Mental Status Exam - Vital signs Last Vital Signs Temp 98.0 F 08/19/20 05:06 Pulse 86 08/19/20 05:06 Resp 16 08/19/20 05:06 BP 125/74 08/19/20 05:06 Pulse Ox 90 08/19/20 05:06
[2020-08-19] MEDS: VALPROATE SODIUM 500 MG in SODIUM CHLORIDE 0.9% 100 ML IV SCH ×2 (10:00→23:23)
[2020-08-19] MEDS: THIAMINE 100 MG TAB PO SCH (10:27)
[2020-08-19] MEDS: FOLIC ACID 1 MG TAB PO SCH (10:27)
[2020-08-19] MEDS: MULTIVITAMINS ,THERAPEUTIC TAB PO SCH (10:27)
[2020-08-19] MEDS: amLODIPine 10 MG TAB PO SCH (10:27)
--- NOTE | 2020-08-19 10:38 | Progress Note ---
Assessment and Plan Assessment and plan: Assessment and Plan Assessment and plan: Patient 1013 status acute metabolic encephalopathy Multifactorial due to psych problems Schizophrenia Schizophrenia; management per psych Awaiting inpatient psych placement Type 2 diabetes mellitus with hyperglycemia Accu-Chek sliding scale coverage ADA diet insulin as needed. Acute renal failure Gentle hydration Monitor renal function avoid nephrotoxins Follow labs Rhabdomyolysis/resolved Supportive care, monitor levels DVT prophylaxis Patient placed on subcutaneous heparin. Full code status; Current Visit: Yes Status: Acute Discharge planning: Psych recommended transfer to inpatient psych facility, CM processing the transfer Patient is medically stable for discharge and transfer to inpatient psych facility When accepted . Plan of care reviewed with the patient's nurse and case management Brief history 59-year-old -Japanese male with no known past medical history was admitted through emergency room with altered level of consciousness, wandering around in the hospital lobby refusing communication, initial evaluation is consistent with metabolic encephalopathy hyperglycemia rhabdomyolysis and acute kidney injury. Patient was noted to have schizophrenia evaluated by psych, medications optimized, recommended inpatient psych admission/transfer for furt her evaluation management. Case management processing transfer to inpatient psych facility And is 1013 status 08/15/2020; awaiting inpatient psych placement, patient is 1013 status Psych following 08/16/2020; awaiting placement inpatient psych 1013 status, medically stable for discharge and transfer to inpatient psych DC planning per case management 08/17/20 Patient is doing better. Patient has no complaint Patient is waiting for inpatient psych placement. Patient is 1013 status. Case management is working on placement. 08/18/20 Patient is doing better. Patient has no complaint. Patient is calm today. No sign symptom of withdrawal. Patient is waiting for inpatient psych placement. Patient is 1013 status. Case management is working on placement. 08/19/20 Patient is doing better. Patient has no complaint but patient refused to take the medication/insulin Patient is calm today. No sign symptom of withdrawal. No hallucination Patient is waiting for inpatient psych placement. Patient is 1013 status. Case management is working on inpatient psych placement. History Interval history: Patient is seen and examined Patient chart and medication is reviewed Patient is 1013 is status Patient is doing better. No hallucination no agitation. No withdrawal symptom No new event reported by the nursing staff Hospitalist Physical - Constitutional Vitals: Temp Pulse Resp BP Pulse Ox 98.0 F 86 16 125/74 90 08/19/20 05:06 08/19/20 05:06 08/19/20 05:06 08/19/20 05:06 08/19/20 05:06 General appearance: Present: no acute distress, well-nourished, other (Loud and verbal) - EENT Eyes: Present: PERRL, EOM intact ENT: hearing intact - Neck Neck: Present: supple, normal ROM - Respiratory Respiratory effort: normal Respiratory: bilateral: CTA - Cardiovascular Heart Sounds: Present: S1 & S2 - Extremities Extremities: no ischemia Peripheral Pulses: within normal limits - Abdominal General gastrointestinal: soft, non-tender, non-distended - Integumentary Integumentary: Present: warm, dry - Psychiatric Psychiatric: appropriate mood/affect, memory intact - Neurologic Neurologic: CNII-XII intact, moves all extremities - Allied Health Allied health notes reviewed: nursing HEART Score - HEART Score Troponin: Troponin T 0.056 ng/mL (0.00-0.029) H 07/27/20 01:55 Results - Labs CBC & Chem 7: 07/29/20 05:03 08/16/20 07:30 Labs: Laboratory Last Values WBC 6.4 K/mm3 (4.5-11.0) 07/29/20 05:03 RBC 4.14 M/mm3 (3.65-5.03) 07/29/20 05:03 Hgb 11.8 gm/dl (11.8-15.2) 07/29/20 05:03 Hct 36.1 % (35.5-45.6) 07/29/20 05:03 MCV 87 fl (84-94) 07/29/20 05:03 MCH 29 pg (28-32) 07/29/20 05:03 MCHC 33 % (32-34) 07/29/20 05:03 RDW 15.0 % (13.2-15.2) 07/29/20 05:03 Plt Count 278 K/mm3 (140-440) 07/29/20 05:03 Lymph % (Auto) 11.8 % (13.4-35.0) L 07/28/20 04:39 [place] % (Auto) 6.5 % (0.0-7.3) 07/28/20 04:39 Eos % (Auto) 0.9 % (0.0-4.3) 07/28/20 04:39 Baso % (Auto) 0.5 % (0.0-1.8) 07/28/20 04:39 Lymph # (Auto) 1.0 K/mm3 (1.2-5.4) L 07/28/20 04:39 [place] # (Auto) 0.6 K/mm3 (0.0-0.8) 07/28/20 04:39 Eos # (Auto) 0.1 K/mm3 (0.0-0.4) 07/28/20 04:39 Baso # (Auto) 0.0 K/mm3 (0.0-0.1) 07/28/20 04:39 Seg Neutrophils % 80.3 % (40.0-70.0) H 07/28/20 04:39 Seg Neutrophils # 6.9 K/mm3 (1.8-7.7) 07/28/20 04:39 PT 12.7 Sec. (12.2-14.9) 07/28/20 04:39 INR 0.97 (0.87-1.13) 07/28/20 04:39 APTT 33.0 Sec. (24.2-36.6) 07/27/20 01:55 Sodium 139 mmol/L (137-145) 08/16/20 07:30 Potassium 3.6 mmol/L (3.6-5.0) 08/16/20 07:30 Chloride 100.9 mmol/L (98-107) 08/16/20 07:30 Carbon Dioxide 24 mmol/L (22-30) 08/16/20 07:30 Anion Gap 18 mmol/L 08/16/20 07:30 BUN 34 mg/dL (9-20) H 08/16/20 07:30 Creatinine 1.8 mg/dL (0.8-1.3) H 08/16/20 07:30 Estimated GFR 47 ml/min 08/16/20 07:30 BUN/Creatinine Ratio 19 % 08/16/20 07:30 Glucose 327 mg/dL (75-100) H 08/16/20 07:30 POC Glucose 206 mg/dL (70-105) H 08/19/20 07:34 Hemoglobin A1c 15.0 % (4-6) H 07/27/20 01:55 Lactic Acid 1.60 mmol/L (0.7-2.0) 07/27/20 01:55 Calcium 9.4 mg/dL (8.4-10.2) 08/16/20 07:30 Phosphorus 2.70 mg/dL (2.5-4.5) 07/28/20 04:39 Magnesium 1.80 mg/dL (1.7-2.3) 08/16/20 07:30 Total Bilirubin 0.50 mg/dL (0.1-1.2) 07/27/20 01:55 Direct Bilirubin < 0.2 mg/dL (0-0.2) 07/27/20 01:55 Indirect Bilirubin 0.3 mg/dL 07/27/20 01:55 AST 72 units/L (5-40) H 07/27/20 01:55 ALT 57 units/L (7-56) H 07/27/20 01:55 Alkaline Phosphatase 163 units/L (35-129) H 07/27/20 01:55 Ammonia 18.0 umol/L (25-60) L 07/27/20 01:55 Total Creatine Kinase 133 units/L (55-170) 08/08/20 12:17 Troponin T 0.056 ng/mL (0.00-0.029) H 07/27/20 01:55 Total Protein 7.4 g/dL (6.3-8.2) 07/27/20 01:55 Albumin 3.9 g/dL (3.9-5) 07/27/20 01:55 Albumin/Globulin Ratio 1.1 % 07/27/20 01:55 Triglycerides 78 mg/dL (2-149) 07/27/20 01:55 Cholesterol 220 mg/dL (50-199) H 07/27/20 01:55 LDL Cholesterol Direct 102 mg/dL (50-130) 07/27/20 01:55 HDL Cholesterol 126 mg/dL (40-59) H 07/27/20 01:55 Cholesterol/HDL Ratio 1.74 % 07/27/20 01:55 TSH 0.824 mlU/mL (0.270-4.200) 07/27/20 01:55 Urine Color Colorless (Yellow) 07/27/20 02:09 Urine Turbidity Clear (Clear) 07/27/20 02:09 Urine pH 6.0 (5.0-7.0) 07/27/20 02:09 Ur Specific [place] 1.016 (1.003-1.030) 07/27/20 02:09 Urine Protein 100 mg/dl mg/dL (Negative) 07/27/20 02:09 Urine Glucose (UA) >=500 mg/dL (Negative) 07/27/20 02:09 Urine Ketones Neg mg/dL (Negative) 07/27/20 02:09 Urine Blood Mod (Negative) 07/27/20 02:09 Urine Nitrite Neg (Negative) 07/27/20 02:09 Urine Bilirubin Neg (Negative) 07/27/20 02:09 Urine Urobilinogen < 2.0 mg/dL (<2.0) 07/27/20 02:09 Ur Leukocyte Esterase Neg (Negative) 07/27/20 02:09 Urine WBC (Auto) 1.0 /HPF (0.0-6.0) 07/27/20 02:09 Urine RBC (Auto) < 1.0 /HPF (0.0-6.0) 07/27/20 02:09 U Epithel Cells (Auto) < 1.0 /HPF (0-13.0) 07/27/20 02:09 Urine Mucus Few /HPF 07/27/20 02:09 Urine Creatinine 85.6 mg/dL (0.1-20.0) H 07/27/20 19:00 Protein/Creatinin Ratio 2.96 07/27/20 19:00 Urine Sodium 51 mmol/L 07/27/20 19:00 Urine Total Protein 253 mg/dL (5-11.8) H 07/27/20 19:00 Salicylates < 0.3 mg/dL (2.8-20.0) L 07/27/20 01:55 Urine Opiates Screen Presumptive negative 07/27/20 02:09 Urine Methadone Screen Presumptive negative 07/27/20 02:09 Acetaminophen 5.0 ug/mL (10.0-30.0) L 07/27/20 01:55 Ur Barbiturates Screen Presumptive negative 07/27/20 02:09 Ur Phencyclidine Scrn Presumptive negative 07/27/20 02:09 Ur Amphetamines Screen Presumptive negative 07/27/20 02:09 U Benzodiazepines Scrn Presumptive negative 07/27/20 02:09 Urine Cocaine Screen Presumptive negative 07/27/20 02:09 U Marijuana (THC) Screen Presumptive negative 07/27/20 02:09 Drugs of Abuse Note Disclamer 07/27/20 02:09 Plasma/Serum Alcohol < 0.01 % (0-0.07) 07/27/20 01:55 Coronavirus (PCR) Negative (Negative) 08/05/20 Unknown Hilton/IV: Voiding Method Toilet Active Medications - Current Medications Current Medications: Generic Name Dose Route Start Last Admin Trade Name Freq PRN Reason Stop Dose Admin Acetaminophen 650 mg 07/27/20 04:01 08/08/20 23:01 Acetaminophen 325 Mg Tab PO 650 mg Q4H PRN Administration Pain MILD(1-3)/Fever >100.5/RUIZ Amlodipine Besylate 10 mg 07/27/20 17:00 08/19/20 10:27 Amlodipine 10 Mg Tab PO 10 mg QDAY MARY Administration Dextrose 50 ml 08/04/20 09:30 Dextrose 50% In Water (25gm) 50 Ml Syringe IV Q30MIN PRN Hypoglycemia Protocol Folic Acid 1 mg 07/30/20 10:00 08/19/20 10:27 Folic Acid 1 Mg Tab PO 1 mg DAILY MARY Administration Haloperidol Lactate 5 mg 08/13/20 12:03 Haloperidol Lactate 5 Mg/1 Ml Inj IM ONCE PRN Agitation Heparin Sodium (Porcine) 5,000 unit 07/27/20 06:00 08/19/20 06:27 Heparin 5,000 Unit/1 Ml Vial SUB-Q Not Given Q8HR MARY Hydralazine HCl 10 mg 07/27/20 04:06 Hydralazine 20 Mg/1 Ml Inj IV Q4HR PRN Blood Pressure Hydralazine HCl 100 mg 08/08/20 12:00 08/19/20 06:26 Hydralazine 100 Mg Tab PO Not Given Q8HR MARY Valproate Sodium 500 mg/ 105 mls @ 100 mls/hr 08/13/20 22:00 08/18/20 22:31 Sodium Chloride IV Not Given Q12HR MARY Insulin Glargine 6 units 08/06/20 22:00 08/18/20 22:38 Insulin Glargine 100 Units/Ml SUB-Q 6 units QHS MARY Administration Insulin Glargine 20 units 08/09/20 08:00 08/18/20 08:27 Insulin Glargine 100 Units/Ml SUB-Q Not Given QAMDIAB [facility] Insulin Human Lispro 0 unit 08/04/20 11:30 08/18/20 22:40 Insulin Lispro 100 Unit/Ml SUB-Q 8 unit ACHS [facility] Administration Protocol Insulin Human Lispro 5 unit 08/06/20 11:30 08/18/20 22:38 Insulin Lispro 100 Unit/Ml SUB-Q 5 unit ACHS [facility] Administration Labetalol HCl 200 mg 07/27/20 22:00 08/19/20 10:27 Labetalol 200 Mg Tab PO 200 mg BID MARY Administration Lorazepam 2 mg 08/13/20 12:03 Lorazepam 2 Mg/Ml Vial IM Q4H PRN Agitation Magnesium Hydroxide 30 ml 07/27/20 04:01 Magnesium Hydroxide (Mom) Oral Liqd Udc PO Q4H PRN Constipation Morphine Sulfate 2 mg 07/27/20 04:01 Morphine 2 Mg/1 Ml Inj IV Q4H PRN Pain, Moderate (4-6) Multivitamins 1 each 07/30/20 10:00 08/19/20 10:27 Multivitamins ,Therapeutic Tab PO 1 each DAILY MRAY Administration Olanzapine 10 mg 08/09/20 10:00 08/18/20 09:47 Olanzapine 10 Mg Tab PO 10 mg QDAY MARY Administration Ondansetron HCl 4 mg 07/27/20 04:01 Ondansetron 4 Mg/2 Ml Inj IV Q8H PRN Nausea And Vomiting Sodium Chloride 10 ml 07/27/20 10:00 08/19/20 10:27 Sodium Chloride 0.9% 10 Ml Flush Syringe IV 10 ml BID MARY Administration Sodium Chloride 10 ml 07/27/20 04:01 Sodium Chloride 0.9% 10 Ml Flush Syringe IV PRN PRN LINE FLUSH Thiamine HCl 100 mg 07/30/20 10:00 08/19/20 10:27 Thiamine 100 Mg Tab PO 100 mg QDAY MARY Administration Nutrition/Malnutrition Assess - Dietary Evaluation Nutrition/Malnutrition Findings: Nutrition Notes Start: 07/27/20 09:22 Freq: Status: Active Protocol: Document 08/03/20 15:05 CW (Rec: 08/03/20 15:06 CW [id number]) Nutrition Notes Need for Assessment generated from: LOS Initial or Follow up Brief Note Current Diagnosis Acute Kidney Injury Other Pertinent Diagnosis hyperglycemia, AMS, Rhabdomyolysis Current Diet Consistent CHO Subjective/Other Information Screen for LOS. Pt eating 100% of meals. Russell score of 21. Percent of energy/protein needs met: 100%/100% Skin Integrity/Comment Intact Current % PO Good (75-100%) Nutrition Intervention Revisit per MD consult or patient Sign Off request: Additional Comments S/O for excellent intakes and intact skin - Malnutrition Assessment Minimum of two criteria: No physical signs of malnutrition - Attestation Statement I have reviewed and agreed w/ Malnutrition eval & tx plan: Yes
[2020-08-20] MEDS: hydrALAZINE 100 MG TAB PO SCH ×2 (05:46→14:00)
[2020-08-20] MEDS: HEPARIN 5,000 UNIT/1 ML VIAL SUB-Q SCH ×2 (05:47→14:00)
[2020-08-20] MEDS: INSULIN LISPRO 100 UNIT/ML SUB-Q SCH ×4 (07:30→11:30)
[2020-08-20] MEDS: INSULIN GLARGINE 100 UNITS/ML SUB-Q SCH (08:00)
[2020-08-20] MEDS: amLODIPine 10 MG TAB PO SCH (09:04)
[2020-08-20] MEDS: MULTIVITAMINS ,THERAPEUTIC TAB PO SCH (10:00)
[2020-08-20] MEDS: THIAMINE 100 MG TAB PO SCH (10:00)
[2020-08-20] MEDS ORDERED: VALPROIC ACID 250 MG/5 ML ORAL LIQD PO SCH (10:00)
[2020-08-20] MEDS: FOLIC ACID 1 MG TAB PO SCH (10:00)
--- NOTE | 2020-08-20 10:29 | Discharge Summary ---
Providers - Providers Date of Admission: 07/27/20 03:32 Date of discharge: 08/20/20 Attending physician: VICKIE JOHNS MD 07/27/20 04:01 Consult to Physician [CONS] Routine Comment: Consulting Provider: JACOBO LÓPEZ Physician Instructions: Reason For Exam: AZAEL 07/27/20 04:02 Consult to Dietitian/Nutrition [CONS] Routine Physician Instructions: Reason For Exam: Reason for Consult: Diet education 07/28/20 10:54 Occupational Therapy Evaluate and Treat [CONS] Urgent Comment: Reason For Exam: generalized weakness Physical Therapy Evaluation and Treat [CONS] Urgent Comment: Reason For Exam: generalized weakness 07/30/20 10:47 Consult to Physician [CONS] Routine Comment: Consulting Provider: THOMAS CARTWRIGHT Physician Instructions: Reason For Exam: ams pyschosis 07/30/20 10:48 Consult to Physician [CONS] Stat Comment: Consulting Provider: THOMAS CARTWRIGHT Physician Instructions: Reason For Exam: Grandiose activity 07/30/20 12:45 Consult to Mental Health [CONS] Stat Reason For Exam: Psychosis Primary care physician: [employer]PER[employer] Hospitalization Reason for admission: Acute metabolic encephalopathy diabetes type 2 schizophrenia Condition: Stable Hospital course: Chief complaint: Altered mental status History of present illness: 59-year-old -[place] male with no known past medical problems and who has not been seen at this facility in the past was brought in to the emergency room today by EMS for altered mental status. Patient was found to be wandering around in a hotel lobby and refusing to answer questions when asked by EMS. Accu-Chek prior to arrival in the emergency room was said to be reading high. Upon arrival in the emergency room was alert and in no acute distress but still refusing to answer questions. Was looking drowsy. Work-up in the emergency room today reveals hyperglycemia with blood sugar greater than 700, elevated creatinine kinase greater than 3000, elevated creatinine level. CT scan of the head was unremarkable. UDS is still being awaited. Patient being admitted with altered mental status, hyperglycemia, rhabdomyolysis and acute kidney injury. Assessment and Plan Assessment and plan: Assessment and Plan Assessment and plan: Patient 1013 status acute metabolic encephalopathy Multifactorial due to psych problems Schizophrenia Schizophrenia; management per psych Awaiting inpatient psych placement Type 2 diabetes mellitus with hyperglycemia Accu-Chek sliding scale coverage ADA diet insulin as needed. Acute renal failure Gentle hydration Monitor renal function avoid nephrotoxins Follow labs Rhabdomyolysis/resolved Supportive care, monitor levels DVT prophylaxis Patient placed on subcutaneous heparin. Full code status; Current Visit: Yes Status: Acute Discharge planning: Psych recommended transfer to inpatient psych facility, CM processing the transfer Patient is medically stable for discharge and transfer to inpatient psych facility When accepted . Plan of care reviewed with the patient's nurse and case management Brief history 59-year-old -Ukrainian male with no known past medical history was admitted through emergency room with altered level of consciousness, wandering around in the hospital lobby refusing communication, initial evaluation is consistent with metabolic encephalopathy hyperglycemia rhabdomyolysis and acute kidney injury. Patient was noted to have schizophrenia evaluated by psych, medications optimized, recommended inpatient psych admission/transfer for further evaluation management. Case management processing transfer to inpatient psych facility And is 1013 status 08/15/2020; awaiting inpatient psych placement, patient is 1013 status Psych following 08/16/2020; awaiting placement inpatient psych 1013 status, medically stable for discharge and transfer to inpatient psych DC planning per case management 08/17/20 Patient is doing better. Patient has no complaint Patient is waiting for inpatient psych placement. Patient is 1013 status. Case management is working on placement. 08/18/20 Patient is doing better. Patient has no complaint. Patient is calm today. No sign symptom of withdrawal. Patient is waiting for inpatient psych placement. Patient is 1013 status. Case management is working on placement. 08/19/20 Patient is doing better. Patient has no complaint but patient refused to take the medication/insulin Patient is calm today. No sign symptom of withdrawal. No hallucination Patient is waiting for inpatient psych placement. Patient is 1013 status. Case management is working on inpatient psych placement. 08/20/20 Patient is doing better. Patient is awake alert oriented. Denied any chest pain or shortness of breath. No complaint. No hallucination no withdrawal. No suicidal ideation. Patient AZAEL and rhabdomyolysis is resolved blood glucose is 271 Patient is seen and evaluated by psych. Patient does not need inpatient psych placement as per psych evaluation. We will discharge the patient home with medication. Patient will follow up with primary care within a week as well as psych as outpatient in 1 week. Patient advised to take care of diabetes type 2. Compliant with the medication. Patient sister is called [phone] with no answer left voice messages. Condition at the time of discharge is stable Disposition: DC-01 TO HOME OR SELFCARE Final Discharge Diagnosis (Prints w/discharge instructions): Schizophrenia. Acute metabolic encephalopathy resolved type 2 diabetes. AZAEL. History of rhabdomyolysis resolved Time spent for discharge: 40 - Discharge Diagnoses (1) Acute hyperglycemia Status: Acute (2) Acute renal failure Status: Acute (3) Rhabdomyolysis Status: Acute (4) Schizophrenia Status: Acute Core Measure Documentation - Palliative Care Palliative Care/ Comfort Measures: Not Applicable - Core Measures Any of the following diagnoses?: none Exam - Constitutional Vitals: Temp Pulse Resp BP Pulse Ox 97.8 F 95 H 20 175/99 97 08/20/20 04:22 08/20/20 04:22 08/20/20 04:22 08/20/20 04:22 08/20/20 04:22 General appearance: Present: no acute distress, well-nourished - EENT Eyes: Present: PERRL ENT: hearing intact, clear oral mucosa - Neck Neck: Present: supple, normal ROM - Respiratory Respiratory effort: normal Respiratory: bilateral: CTA - Cardiovascular Heart Sounds: Present: S1 & S2. Absent: rub, click - Extremities Extremities: pulses symmetrical, No edema Peripheral Pulses: within normal limits - Abdominal General gastrointestinal: Present: soft, non-tender, non-distended, normal bowel sounds Male genitourinary: Present: normal - Integumentary Integumentary: Present: clear, warm, dry - Musculoskeletal Musculoskeletal: gait normal, strength equal bilaterally - Psychiatric Psychiatric: appropriate mood/affect, intact judgment & insight - Neurologic Neurologic: CNII-XII intact, moves all extremities Plan Diet: low fat, low cholesterol, low salt, diabetic Follow up with: PRIMARY CARE, [Primary Care Provider] - 3-5 Days Prescriptions: Insulin Glargine [Lantus VIAL] 6 units SUB-Q QHS 30 Days units OLANzapine [ZyPREXA] 5 mg PO QHS #30 tablet amLODIPine 10 mg PO QDAY #10 tablet hydrALAZINE [Apresoline TAB] 100 mg PO Q8HR 30 Days tab Valproic Acid [Depakene] 250 mg PO Q8HR #90 capsule Valproic Acid [Depakene] 500 mg PO BID #120 capsule VALPROIC ACID Liq [DepaKENE Liq] 500 mg PO BID 30 Days oral.liqd Folic Acid 1 mg PO DAILY #30 tablet Lispro Insulin [HumaLOG] 5 unit SUB-Q ACHS 30 Days units Hydralazine HCl 50 mg PO TID #90 tablet labetaloL [Labetalol 200mg TAB] 200 mg PO BID #60 tablet Insulin Glargine [Lantus VIAL] 20 units SUB-Q QAMDIAB 30 Days units Multivitamin Tab [Multiple Vitamin TAB (Theragran)] 1 each PO QDAY #30 tablet Insulin NPH/Regular [NovoLIN 70/30] 40 unit SUB-Q BIDDIAB #10 ml Thiamine HCl [Vitamin B-1] 100 mg PO DAILY #30 tablet OLANzapine [Zyprexa] 10 mg PO QDAY 30 Days tablet OLANZapine [Zyprexa] 10 mg PO DAILY #60 tablet
[2020-08-20 15:24] VITALS: BP 155/90
== END 2020-08-20 16:00 | disposition home or self-care (01) | DRG 70 ==
LOC: ED 00:29 → 4A 03:32 → UNDOADMIN 03:32 → 3A 08-06 19:37 → UNDOADMIN 08-06 19:37 → 3A 08-07 11:39
PROVIDERS: ADMIT Internal Medicine Geriatric Medicine; ATTEND Hospitalist
DX: G93.41 Metabolic encephalopathy (principal); E11.00 Type 2 diabetes mellitus with hyperosmolarity without nonketotic hyperglycemic-hyperosmolar coma (NKHHC); N17.0 Acute kidney failure with tubular necrosis; M62.82 Rhabdomyolysis; F10.99 Alcohol use, unspecified with unspecified alcohol-induced disorder; F23 Brief psychotic disorder; Z20.822 Contact with and (suspected) exposure to COVID-19; E87.6 Hypokalemia; E11.22 Type 2 diabetes mellitus with diabetic chronic kidney disease; N18.9 Chronic kidney disease, unspecified; Y90.9 Presence of alcohol in blood, level not specified; E86.0 Dehydration
CPT/HCPCS: 36415; 70450; 71045; 76770; 80048; 80061; 80076; 80307; 80320; 81001; 82140; 82550; 82570; 82962; 83036; 83735; 84100; 84156; 84300; 84443; 84484; 85025; 85027; 85610; 85730; 87040; 93005; 96365; 99406; G0378; G0480; J0360; J1630; J1644; J1815; J2060; J3411; J3486; J7030; U0003